=== PATIENT | male | born 1935 | race Caucasian/White ===

== ENCOUNTER 2017-09-25 09:09 | Inpatient (IN) ==
[2017-09-25] MEDS ORDERED: Ipratropium/Albuterol Neb 3 ML IH ONE (09:25)
--- NOTE | 2017-09-25 09:25 | Emergency Department Note ---
Disposition Clinical Impression: Lung mass Pneumonia Qualifiers: Pneumonia type: due to unspecified organism Laterality: unspecified laterality Lung location: unspecified part of lung Qualified Code(s): J18.9 - Pneumonia, unspecified organism Disposition: Admitted As Inpatient Condition: Fair Referrals: Sander Ibrahim DO [Primary Care Provider] - Forms: ED Satisfaction Letter, Work/School Release Time of Disposition: 12:04 General Adult HPI - General Chief complaint: ED Abdominal Pain Stated complaint: Cough Congestion / L Flank Pain Time Seen by Provider: 09/25/17 09:17 Source: patient, family Mode of arrival: ambulatory Limitations: no limitations Nursing Notes Reviewed: Yes Vital Signs Reviewed: Yes - History of Present Illness HPI Narrative: 82-year-old male who comes in complaining of congested cough for the last 4 days. Patient states that he coughs so hard that he thinks he may have loosened the kidney stone. Left flank pain and a history of kidney stones. Denies history of lung problems denies history CHF. Pt Subjective Complaint: Cough congestion Onset (ago): day(s) Location: left, other (Flank) Radiation: non-radiation Pain Scale: 9 Quality: burning, aching Consistency: constant Improves with: nothing Worsens with: other (Coughing) Associated symptoms: Reports: cough Treatments Prior to Arrival: none - Related Data Home Medications Medication Instructions Recorded Confirmed Aspirin 81 mg PO DAILY 08/10/16 08/10/16 Lisinopril/Hydrochlorothiazide 1 tab PO DAILY 08/10/16 08/10/16 [Zestoretic 20-12.5 mg Tablet] Pyridostigmine Br [Mestinon] 60 mg PO Q8H 08/10/16 08/10/16 Allergies Allergy/AdvReac Type Severity Reaction Status Date / Time No Known Allergies Allergy Verified 09/25/17 09:15 All systems ED: reviewed and negative except as stated. Constitutional: Denies: fever, chills, weakness, weight change Eyes: Denies: eye pain, eye discharge, vision change ENT ED: Denies: ear pain, throat pain, dental pain, hearing loss, epistaxis, congestion, dysphagia Cardiovascular: Denies: chest pain, palpitations, dyspnea on exertion, edema, syncope Respiratory: Reports: cough, dyspnea, wheezes. Denies: hemoptysis, stridor Gastrointestinal: Denies: abdominal pain, nausea, vomiting, diarrhea, constipation, hematemesis, melena, hematochezia Genitourinary: Denies: urgency, dysuria, frequency, hematuria Musculoskeletal: Reports: back pain. Denies: neck pain, arthralgia, myalgia Integumentary: Denies: rash, abrasion, lesions Neurological: Denies: headache, weakness, numbness, paresthesias, confusion, abnormal gait, vertigo Psychiatric: Denies: anxiety, depression, suicidal thoughts, homicidal thoughts , auditory hallucinations, visual hallucinations Endocrine: Denies: fatigue Hematological/Lymphatic: Denies: easy bleeding, easy bruising Allergic/Immunologic: Denies: facial swelling, urticaria Past Medical History - Past Medical History Medical history: Reports: hypertension, kidney stones, other Surgical history: Reports: no surgical history Psychiatric history: Reports: no psych history - Social History Smoking Status: Never smoker Smokeless Tobacco Status: No Alcohol use: Reports: none Drug use: Reports: none Physical Exam - General Limitations: no limitations General appearance: alert, in no apparent distress - Head Head exam: atraumatic, normocephalic, normal inspection - Eye Eye exam: Present: normal appearance, PERRL, EOMI - ENT ENT exam: normal exam, normal oropharynx, mucous membranes moist - Neck Neck exam: Present: normal inspection, full ROM, trachea midline - Chest Chest inspection: Present: normal inspection, symmetric chest wall rise - Respiratory Respiratory exam: Present: wheezes, prolonged expiratory phase - Cardiovascular Cardiovascular exam: Present: regular rate, normal rhythm, normal heart sounds - Abdominal Exam Abdominal exam: Present: soft, Non-Tender. Absent: tenderness, distention, guarding, rebound, rigidity, pulsatile mass - Extremities Exam Extremities exam: Present: normal inspection, full ROM. Absent: tenderness, pedal edema - Expanded Lower Extremity Exam Neurovascular/Tendon exam: Absent: motor deficit, sensory deficit, tendon deficit Gait: observed and normal - Back Exam Back exam: Present: normal inspection, full ROM. Absent: tenderness - Neurological Exam Neurological exam: Present: alert, oriented X3 - Psychiatric Psychiatric exam: Present: normal affect, normal mood - Skin Skin exam: Present: warm, dry, intact, normal color Course - Reevaluation(s) Reevaluation #1: 82-year-old who comes in with cough congestion. On exam he had diffuse wheezing which he doesn't normally have. Chest x-ray shows what appear to be enlarging nodule. CT was obtained that shows a 2.2 cm right lower lobe nodule which is significantly bigger than previous with some multi focal pneumonia. Patient will be admitted for further evaluation and treatment. Time: 12:05 - Consultations Consultation #1: Discussed with Dr. Dixon, admit Time: 12:08 Vital Signs Temperature 98.6 F 09/25/17 09:11 Pulse Rate 113 09/25/17 09:11 Respiratory Rate 20 09/25/17 09:11 Blood Pressure 129/76 09/25/17 09:11 O2 Sat by Pulse Oximetry 96 09/25/17 09:11 Temperature 98.6 F 09/25/17 09:11 Pulse Rate 107 09/25/17 11:01 Respiratory Rate 18 09/25/17 11:01 Blood Pressure 129/78 09/25/17 11:01 O2 Sat by Pulse Oximetry 92 09/25/17 11:01 Oxygen Delivery Oxygen Delivery Room Air Medical Decision Making - Lab Data Lab results reviewed: Yes I reviewed the patient's lab results. Result diagrams: 09/25/17 09:35 09/25/17 09:35 Lab Results 09/25/17 09/25/17 09/25/17 Range/Units 09:20 09:35 09:35 WBC 12.6 H (4.3-11.1) K/mcL RBC 4.26 (4.19-5.50) M/mcL Hgb 13.3 D (12.9-16.9) g/dL Hct 41.2 (37.5-50.1) % MCV 96.7 (83.0-100.0) fL MCH 31.2 (28.0-33.3) pg MCHC 32.3 (31.6-35.5) g/dL RDW 13.0 (11.5-14.5) % Plt Count 238 (140-400) K/mcL MPV 9.2 L (9.4-12.4) fL Immature Gran % 0.5 (0-4) % Seg Neutrophils % 78.2 % Lymphocytes % 14.8 % Monocytes % 5.5 % Eosinophils % 0.7 % Basophils % 0.3 % Neutrophils # 9.9 H (1.6-8.9) K/mcL Lymphocytes # 1.9 (0.6-4.6) K/mcL Monocytes # 0.7 (0.0-1.3) K/mcL Eosinophils # 0.1 (0.0-0.6) K/mcL Basophils # 0.0 (0.0-0.2) K/mcL Sodium 141 (136-145) mEq/L Potassium 3.3 L (3.5-4.5) mEq/L Chloride 104 (98-109) mEq/L Carbon Dioxide 27 (19-29) mEq/L BUN 27 H (8-26) mg/dL Creatinine 1.77 H (0.72-1.25) mg/dL Est GFR ( Amer) 45 L (> 60) Est GFR (Non-Af Amer) 37 L (> 60) BUN/Creatinine Ratio 15 (6-26) Glucose 95 (70-99) mg/dL Calculated Osmolality 297 (280-300) Lactic Acid (0.5-2.2) mmol/L Calcium 9.9 (8.6-10.8) mg/dL Troponin I (0-0.03) ng/mL B-Natriuretic Peptide (0-100) pg/mL Urine Color Yellow (Yellow) Urine Clarity Clear (Clear) Urine pH 5.5 (5.0-8.0) pH Units Ur Specific [place] 1.023 (1.010-1.025) Urine Protein Negative (Neg-Trace) mg/dL Urine Glucose (UA) Normal (Normal) mg/dL Urine Ketones Negative (Negative) mg/dL Urine Blood Negative (Negative) Urine Nitrite Negative (Negative) Urine Bilirubin Negative (Negative) Urine Urobilinogen Normal (Normal) mg/dL Ur Leukocyte Esterase Negative (Negative) Ur Culture Indicated? NO (NO) 09/25/17 09/25/17 09/25/17 Range/Units 09:35 09:35 09:35 WBC (4.3-11.1) K/mcL RBC (4.19-5.50) M/mcL Hgb (12.9-16.9) g/dL Hct (37.5-50.1) % MCV (83.0-100.0) fL MCH (28.0-33.3) pg MCHC (31.6-35.5) g/dL RDW (11.5-14.5) % Plt Count (140-400) K/mcL MPV (9.4-12.4) fL Immature Gran % (0-4) % Seg Neutrophils % % Lymphocytes % % Monocytes % % Eosinophils % % Basophils % % Neutrophils # (1.6-8.9) K/mcL Lymphocytes # (0.6-4.6) K/mcL Monocytes # (0.0-1.3) K/mcL Eosinophils # (0.0-0.6) K/mcL Basophils # (0.0-0.2) K/mcL Sodium (136-145) mEq/L Potassium (3.5-4.5) mEq/L Chloride (98-109) mEq/L Carbon Dioxide (19-29) mEq/L BUN (8-26) mg/dL Creatinine (0.72-1.25) mg/dL Est GFR ( Amer) (> 60) Est GFR (Non-Af Amer) (> 60) BUN/Creatinine Ratio (6-26) Glucose (70-99) mg/dL Calculated Osmolality (280-300) Lactic Acid 1.2 (0.5-2.2) mmol/L Calcium (8.6-10.8) mg/dL Troponin I 0.02 (0-0.03) ng/mL B-Natriuretic Peptide 38 (0-100) pg/mL Urine Color (Yellow) Urine Clarity (Clear) Urine pH (5.0-8.0) pH Units Ur Specific [place] (1.010-1.025) Urine Protein (Neg-Trace) mg/dL Urine Glucose (UA) (Normal) mg/dL Urine Ketones (Negative) mg/dL Urine Blood (Negative) Urine Nitrite (Negative) Urine Bilirubin (Negative) Urine Urobilinogen (Normal) mg/dL Ur Leukocyte Esterase (Negative) Ur Culture Indicated? (NO) - Radiology Data Radiology results reviewed: Yes I reviewed the patient's radiology results. Chest X-Ray 09/25/17 09:19 IMPRESSION: No acute cardiopulmonary process. D/ /25/2017 10:15:23 Zaki De Guzman MD / priyanka Interpreting Provider: Zaki De Guzman MD Abdomen/Pelvis CT 09/25/17 09:20 IMPRESSION: No acute abdominopelvic noncontrast abnormality. Interval enlargement of right lower lobe pulmonary nodule, now measuring 1.8 cm, previously 1.3 cm in April 2017. A chest CT is recommended to further evaluate. D/ / Dana Min Cha, MD / Dana Min Cha, MD Interpreting Provider: Dana Min Cha, MD Chest X-Ray 09/25/17 09:19 IMPRESSION: No acute cardiopulmonary process. D/ / 09/25/2017 10:15:23 Zaki De Guzman MD / priyanka Interpreting Provider: Zaki De Guzman MD Abdomen/Pelvis CT 09/25/17 09:20 IMPRESSION: No acute abdominopelvic noncontrast abnormality. Interval enlargement of right lower lobe pulmonary nodule, now measuring 1.8 cm, previously 1.3 cm in April 2017. A chest CT is recommended to further evaluate. D/ / Dana Min Cha, MD / Dana Min Cha, MD Interpreting Provider: Dana Min Cha, MD Chest CT 09/25/17 10:55 IMPRESSION: 1. Significant interval increase in size of a right lower lobe noncalcified pulmonary nodule, measuring up to 2.2 cm. This is suspicious for neoplasm, and tissue sampling is recommended. 2. Patchy bibasilar airspace opacities with associated bronchial wall thickening, concerning for pneumonia or aspiration. D/ / 09/25/2017 11:23:54 Zaki De Guzman MD / Johanny Roblero Interpreting Provider: Zaki De Guzman MD - EKG Data EKG #1 EKG attestation: Yes I reviewed and interpreted this EKG. EKG shows normal: sinus rhythm Rate: normal Rhythm: NSR Interpretation: no acute changes
[2017-09-25 09:33] LABS: Bilirubin,Urine Negative (Negative); Blood,Urine Negative (Negative); Clarity,Urine Clear (Clear); Color,Urine Yellow (Yellow); Glucose,Urine (UA) Normal (Normal); Ketones,Urine Negative (Negative); Leukocyte Esterase,Urine Negative (Negative); Nitrite,Urine Negative (Negative); PH,Urine 5.5 pH Units (5.0-8.0); Protein,Urine Negative (Neg-Trace); Specific Gravity,Urine 1.023 (1.010-1.025); Urobilinogen,Urine Normal (Normal)
[2017-09-25 09:45] LABS: Basophils % 0.3 %; Eosinophils # 0.1 K/mcL (0.0-0.6); Eosinophils % 0.7 %; Hematocrit 41.2 % (37.5-50.1); Hemoglobin 13.3 g/dL (12.9-16.9); Immature Granulocytes % 0.5 % (0-4); Lymphocytes # 1.9 K/mcL (0.6-4.6); Lymphocytes % 14.8 %; Mean Corpuscular HGB Conc 32.3 g/dL (31.6-35.5); Mean Corpuscular Hemoglobin 31.2 pg (28.0-33.3); Mean Corpuscular Volume 96.7 fL (83.0-100.0); Mean Platelet Volume 9.2 fL (9.4-12.4); Monocytes # 0.7 K/mcL (0.0-1.3); Monocytes % 5.5 %; Neutrophils # 9.9 K/mcL (1.6-8.9); Platelet Count 238 K/mcL (140-400); Red Blood Count 4.26 M/mcL (4.19-5.50); Segmented Neutrophils % 78.2 %
[2017-09-25 09:59] LABS: Calcium 9.9 mg/dL (8.6-10.8); Potassium 3.3 mEq/L (3.5-4.5)
[2017-09-25] MEDS ORDERED: Piperacillin/Tazobactam 3.375 GM in D5% in Water (Mini-Bag+) 100 ML IVPB ONE (12:00)
[2017-09-25] MEDS ORDERED: Promethazine/Codeine Oral Sryup 5 ML UDC PO ONE (12:02)
[2017-09-25] MEDS ORDERED: 0.9 % Sodium Chloride 1,000 ML IVC ONE (14:46)
[2017-09-25] MEDS ORDERED: 0.9 % Sodium Chloride 1,000 ML ONE (14:51)
[2017-09-25] MEDS ORDERED: methylPREDNISolone 125 MG/2 ML VIAL IVP ONE (15:04)
[2017-09-25] MEDS ORDERED: Potassium Chloride 20 MEQ, Lidocaine 1% 2 ML in D5% in Water 250 ML IVPB ONE (15:04)
--- NOTE | 2017-09-25 15:09 | Event Note ---
Date of Encounter: 09/25/17 Time of Encounter: 15:07 Patient and examined with nurse practitioner. Patients with history of myasthenia gravis presents with community acquired pneumonia. Because he is high-risk will cover for Pseudomonas. We will start the patient on Zosyn and Levaquin. Will check FVC and NIF. Patient is hypotensive on arrival to the floor blood pressure 70/40. He has not yet received fluid. Will give one leader will also normal ceiling. Also patient is on chronic steroids at home for myasthenia gravis. Will start on stress dose of steroids hydrocortisone 100 mg IV K6 hours. Patient is at risk of decompensation. Patient is full code
[2017-09-25] MEDS: Hydrocortisone Sodium Succ 100 MG/2 ML VIAL IVP SCH (16:20)
[2017-09-25] MEDS ORDERED: Ondansetron 4 MG/2 ML VIAL IVP PRN (16:45)
[2017-09-25] MEDS ORDERED: Acetaminophen 325 MG TABLET PO PRN (16:45)
[2017-09-25] MEDS ORDERED: *HR* HYDROcodone/Acet 5/325 mg TABLET PO PRN (16:45)
[2017-09-25] MEDS ORDERED: Naloxone 0.4 MG/ML INJ IVP PRN (16:50)
[2017-09-25] MEDS ORDERED: Benzonatate 100 MG CAPSULE PO PRN (16:51)
--- NOTE | 2017-09-25 17:37 | Internal Med History&Physical ---
Date of Encounter: 09/25/17 Time of Encounter: 15:00 Assessment and Plan (1) Sepsis Current visit: Yes Status: Acute Pt. meets sepsis criteria on admission w/WBC of 12.6, HR of 118, RR of 21, and infection of unknown source. Pt. received 1L bolus of IV 0.9 NS fluids in ED and will continue 80 mL/HR. Blood cultures x2. Sputum culture. Lactic acid 1.9. Will repeat. IVPB Zosyn 3.375 gm Q8HR for infection coverage. Will avoid azithromycin, levofloxacin, and other fluoroquinolones due to the risk of neuromuscular blocking activity and exacerbation of muscle weakness in patients with myasthenia gravis. Monitor f/u labs and pt. for signs of increasing infection. Will adjust abx coverage based on culture results. Patient had risk for increasing infection and further morbidity based on current sx, hx, and risk factors. Inpatient. Qualifiers: Sepsis type: sepsis due to unspecified organism Qualified Code(s): A41.9 - Sepsis, unspecified organism (2) Pneumonia Current visit: Yes Status: Acute Pt. presents with cough, chest congestion, and abdominal pain. WBC of 12.6 on admission most likely d/t CAP. Blood cultures x2 and sputum culture ordered. IVPB Zosyn 3.375 gm Q8 for infection coverage. Will avoid azithromycin, levofloxacin, and other fluoroquinolones due to the risk of neuromuscular blocking activity and exacerbation of muscle weakness in patients with myasthenia gravis. Supplemental O2 w/titration and SpO2 monitoring. Tessalon 100 mg TID for cough. DuoNebs Q4 scheduled. Monitor f/u labs and pt for signs of increasing infection, cardiac, and/or respiratory distress. Qualifiers: Pneumonia type: due to unspecified organism Laterality: unspecified laterality Lung location: unspecified part of lung Qualified Code(s): J18.9 - Pneumonia, unspecified organism (3) Disequilibrium Current visit: Yes Status: Acute Pt. reports acute disequilibrium recently, most likely d/t current pneumonia dx. Falls/safety precautions ordered. PT/OT to assess for strength, stability, safety, ambulation, and assistive needs for post-discharge planning. (4) HTN (hypertension) Current visit: Yes Status: Chronic Hx of chronic HTN. Pt. expresses a peripheral/hydrochlorothiazide for HTN. Patient presented with hypotension on admission. Will hold patient's lisinopril for now and monitor VS. Qualifiers: Hypertension type: essential hypertension Qualified Code(s): I10 - Essential (primary) hypertension (5) History of renal calculi Current visit: Yes Status: Chronic Hx of chronic renal calculi. Stable. Pt. reports left flank pain w/cough. CT of the abdomen and pelvis today w/o contrast shows no hydronephrosis nor calcified urinary collecting system stones. (6) Lung mass Current visit: Yes Status: Chronic Hx of RLL nodule. CT of the chest w/o contrast today shows significant interval increase in size of right lower lobe noncalcified pulmonary nodule measuring up to 2.2 cm. This is suspicious for neoplasm and tissue sampling is recommended. Follow-up is recommended with PCP and pulmonology for biopsy. (7) Hx of myasthenia gravis Current visit: Yes Status: Chronic Hx of chronic MG. Stable. Will check FVC and NIF through respiratory therapy. Stress dosing of hydrocortisone 100 mg IV Q6HR. Pt. placed on Zosyn for infection coverage and will avoid fluoroquinolones to avoid exacerbation of muscle weakness and neuromuscular blocking activity. (8) DVT prophylaxis Current visit: Yes Status: Acute Heparin 5,000 units SQ Q8 for DVT prophylaxis. Internal Medicine - H&P: HPI Chief complaint: Abdominal pain/Cough/Congestion Admitted From: Emergency Dept Plans for Post Hospital Care: Home History of present illness: Mr. Palacios is a 82 year old male with a history of hypertension, myasthenia gravis, and kidney stones reports from the ED with chief complaint of abdominal pain, SOB, cough, and chest congestion for the past 4 days. Patient reports he feels his cough is causing his abdominal pain and pain in his left flank. Patient denies history of respiratory problems, COPD, and CHF. Patient denies recent illness, fever, chills, nausea, vomiting, headache, changes in vision, unusual bleeding, chest pain, palpitations, weakness, fatigue, diarrhea, constipation, urinary problems, numbness, tingling, lightheadedness, dizziness, pre-syncope, or syncope. Past Med Surg Social Fam HX - Past Medical History Source: patient, old records reviewed, obtained from family Medical history: hypertension, kidney stones, other (Myasthenia gravis) Psychiatric history: no psych history - Past Surgical History Surgical History: no surgical history - Social History Smoking Status: Never smoker Smokeless Tobacco Status: No Alcohol use: none Drug use: none Occupational status: previously employed Current living situation: Home, With Family Activity Level: Independent ambulation Recent Out of Country Travel Within the Last 8 Weeks: No Exposure or Possible Exposure to Illness During Travel: No - Family History Father Adopted: Manuel Garcia Ii: Karel Palacios Race: Family Member Ethnicity: Non- Living Status: Age at : 74 Cause of : Lung cancer Hx Family Cancer: Yes (Lung) Hx Family Autoimmune Disorders: Yes (RA) Mother Race: Family Member Ethnicity: Non- Living Status: (88) Age at : 88 Cause of : Old age Hx Family GI Disorders: Yes (Diverticulosis) Brother Race: Family Member Ethnicity: Non- Living Status: Age at : 49 Cause of : Cirrhosis Hx Family Endocrine Disorder: Yes (Cirrhosis) Sister Race: Family Member Ethnicity: Non- Living Status: Age at : 55 Cause of : Brain aneurysm Hx Family Cardiac Disorders: Yes (Aneurysm) Internal Medicine - H&P: Meds Aspirin 81 mg PO QPM 08/10/16 [History] Lisinopril/Hydrochlorothiazide [Zestoretic 20-12.5 mg Tablet] 1 tab PO BID 08/10 [History] Pyridostigmine Br [Mestinon] 60 mg PO TID 08/10/16 [History] Mycophenolate Mofetil [Cellcept] 500 mg PO BID 09/25/17 [History] Omeprazole [PriLOSEC] 20 mg PO DAILY 09/25/17 [History] predniSONE [PredniSONE] 20 mg PO DAILY 09/25/17 [History] 3 Allergy/AdvReac Type Severity Reaction Status Date / Time No Known Allergies Allergy Verified 09/25/17 09:15 All Systems PM: A 10-system review of systems was performed and is negative for pertinent findings except as documented above in the HPI. - Constitutional Constitutional: no chills, no fever(s), no night sweats - EENT Eyes: no change in vision, no discharge, no pain, no photophobia Ears: no ear discharge, no ear pain, no tinnitus Nose, mouth and throat: no dysphagia, no nasal discharge, no neck pain, no sore throat - Breasts Breasts: as per HPI - Cardiovascular Cardiovascular ROS IM: as per HPI, dyspnea, no chest pain, no diaphoresis, no lightheadedness, no palpitations, no syncope - Respiratory Respiratory: as per HPI, cough, dyspnea, chest congestion, pain with cough, no wheezing, no excessive phlegm production - Gastrointestinal Gastrointestinal: as per HPI, abdominal pain - Genitourinary Genitourinary ROS male: as per HPI - Musculoskeletal Musculoskeletal ROS IM: no numbness, no tingling - Integumentary Integumentary IM: no rash, no unusual bruising - Neurological Neurological ROS: no confusion, no convulsions, no focal weakness, no numbness, no tingling, no tremor(s) - Psychiatric Psychiatric: as per HPI - Endocrine Endocrine IM: as per HPI - Hematologic/Lymphatic Hematologic/Lymphatic: no easy bruising - Allergic/Immunologic Allergic/Immunologic: as per HPI - Constitutional Vitals: Temp Pulse Resp BP Pulse Ox 98.4 F 93 18 145/82 91 09/25/17 16:05 09/25/17 16:05 09/25/17 16:05 09/25/17 16:05 09/25/17 16:05 General appearance: Present: cooperative, mild distress (Respiratory w/coughing) , A&O X 3, pleasant, answers questions appropriately - Head Head exam: Present: atraumatic, normocephalic - Eye Eye exam: Present: PERRL, conjuntiva pink, sclera anicteric Pupils: Present: PERRL - ENT ENT exam: Present: normal exam, normal external ear exam - Neck Neck exam general surgery: Present: normal inspection, supple, trachea midline. Absent: lymphadenopathy - Respiratory Respiratory exam: Present: accessory muscle use, decreased breath sounds, wheezes - Cardiovascular Cardiovascular exam: Present: RRR, +S1, +S2. Absent: diastolic murmur, gallop, rubs, systolic murmur - GI/Abdominal GI/Abdominal exam: Present: normal bowel sounds, soft, no peritoneal signs. Absent: distended, tenderness - Rectal Rectal exam: Present: deferred - Additional comments: exam deferred. - Extremities Exam Extremities exam: Present: warm, radial pulses palpable and symmetrical. Absent : calf tenderness, cyanotic, pedal edema - Back Exam Back exam: Present: normal inspection - Neurological Exam Neurological exam: Present: CN II-XII intact, oriented X3, no focal deficits. Absent: pronater drift, facial droop, speech deficit - Psychiatric Psychiatric exam: Present: normal affect, normal mood - Skin Skin exam: Present: dry, intact Internal Med - H&P Results - Labs CBC & Chem 7: 09/25/17 09:35 09/25/17 17:00 - EKG Data EKG shows normal: sinus rhythm - EKG Data Prior EKG available for review: yes EKG comments: 09/25/17 17:43 EKG dated 03/07/17 shows sinus rhythm with first-degree AV block with occasional supraventricular premature complexes, borderline left axis deviation , left ventricular hypertrophy and ST-T change. EKG dated 09/25/17 shows sinus rhythm with borderline left axis deviation, left ventricular hypertrophy and ST-T change. - Diagnostic Studies Chest x-ray Additional comments: Impressions Chest X-Ray 09/25/17 09:19 IMPRESSION: No acute cardiopulmonary process. D/ / 09/25/2017 10:15:23 Zaki De Guzman MD / priyanka Interpreting Provider: Zaki De Guzman MD CT scan - chest Additional comments: Impressions Chest CT 09/25/17 10:55 IMPRESSION: 1. Significant interval increase in size of a right lower lobe noncalcified pulmonary nodule, measuring up to 2.2 cm. This is suspicious for neoplasm, and tissue sampling is recommended. 2. Patchy bibasilar airspace opacities with associated bronchial wall thickening, concerning for pneumonia or aspiration. D/ / 09/25/2017 11:23:54 Zaki De Guzman MD / Johanny Roblero Interpreting Provider: Zaki De Guzman MD CT scan - abdomen Additional comments: Impressions Abdomen/Pelvis CT 09/25/17 09:20 IMPRESSION: No acute abdominopelvic noncontrast abnormality. Interval enlargement of right lower lobe pulmonary nodule, now measuring 1.8 cm, previously 1.3 cm in April 2017. A chest CT is recommended to further evaluate. D/ / Dana Min Cha, MD / Dana Min Cha, MD Interpreting Provider: Dana Min Cha, MD
[2017-09-25 17:38] LABS: Magnesium 1.8 mg/dL (1.6-2.6)
[2017-09-25] MEDS: Aspirin 81 MG TAB.CHEW PO SCH (17:56)
[2017-09-25] MEDS: 0.9 % Sodium Chloride 1,000 ML IVC SCH (17:56)
[2017-09-25] MEDS: Pantoprazole 40 MG VIAL IVP SCH (17:56)
[2017-09-25] MEDS: Ipratropium/Albuterol Neb 3 ML IH SCH ×2 (18:11→20:26)
[2017-09-25] MEDS ORDERED: Lisinopril-HCTZ 20-12.5mg TABLET PO SCH (21:00)
[2017-09-25] MEDS: Pyridostigmine Br 60 MG TABLET PO SCH (21:28)
[2017-09-26] MEDS ORDERED: Piperacillin/Tazobactam 3.375 GM in D5% in Water 50 ML IVPB SCH
[2017-09-26] MEDS: Ipratropium/Albuterol Neb 3 ML IH SCH ×6 (00:04→20:07)
[2017-09-26] MEDS: *HR* Heparin 5,000 UNIT/ML VIAL SQ SCH ×3 (01:10→15:19)
[2017-09-26] MEDS: Piperacillin/Tazobactam 3.375 GM in D5% in Water 50 ML IVPB SCH ×3 (01:11→15:14)
[2017-09-26] MEDS: Hydrocortisone Sodium Succ 100 MG/2 ML VIAL IVP SCH ×4 (02:18→17:33)
[2017-09-26 05:14] LABS: Basophils % 0.1 %; Immature Granulocytes % 0.4 % (0-4); Lymphocytes # 0.4 K/mcL (0.6-4.6); Lymphocytes % 3.6 %; Mean Corpuscular HGB Conc 32.4 g/dL (31.6-35.5); Mean Corpuscular Hemoglobin 31.3 pg (28.0-33.3); Mean Corpuscular Volume 96.6 fL (83.0-100.0); Mean Platelet Volume 9.8 fL (9.4-12.4); Monocytes # 0.1 K/mcL (0.0-1.3); Neutrophils # 11.3 K/mcL (1.6-8.9); Platelet Count 213 K/mcL (140-400); Red Blood Count 3.52 M/mcL (4.19-5.50); Red Cell Distribution Width 12.9 % (11.5-14.5); Segmented Neutrophils % 94.9 %
[2017-09-26 05:15] LABS: Prothrombin Time 10.8 Seconds (9.4-12.1)
[2017-09-26 05:18] LABS: Activated Partial Thrombo Time 24.6 Seconds (26.0-36.0)
[2017-09-26 05:30] LABS: Albumin/Globulin Ratio 0.9 (1.1-2.2); Bilirubin,Total 0.8 mg/dL (0.2-1.2); Calcium 9.2 mg/dL (8.6-10.8); Chol/HDL Ratio 3.3 (0-4.9); Globulin 3.2 g/dL (2.4-3.5); Potassium 4.7 mEq/L (3.5-4.5); Total Protein 6.2 g/dL (6.0-8.3)
[2017-09-26] MEDS: Pyridostigmine Br 60 MG TABLET PO SCH ×3 (09:24→21:01)
[2017-09-26] MEDS: Pantoprazole 40 MG VIAL IVP SCH (09:25)
[2017-09-26 10:04] LABS: Acinetobacter baumannii by PCR Not Detected (Not Detect); Candida albicans by PCR Not Detected (Not Detect); Candida glabrata by PCR Not Detected (Not Detect); Candida krusei by PCR Not Detected (Not Detect); Candida parapsilosis by PCR Not Detected (Not Detect); Candida tropicalis by PCR Not Detected (Not Detect); Enterococcus by PCR Not Detected (Not Detect); Escherichia coli by PCR Not Detected (Not Detect); Klebsiella oxytoca by PCR Not Detected (Not Detect); Klebsiella pneumoniae by PCR Not Detected (Not Detect); Pseudomonas aeruginosa by PCR Not Detected (Not Detect); Serratia marcescens by PCR Not Detected (Not Detect); Staphylococcus aureus by PCR Not Detected (Not Detect); Streptococcus agalactiae(B)PCR Not Detected (Not Detect); Streptococcus by PCR Not Detected (Not Detect); Streptococcus pneumoniae PCR Not Detected (Not Detect); Streptococcus pyogenes (A) PCR Not Detected (Not Detect); blaKPC Carbapenem-Resist Gene Not Detected (Not Detect); mecA Methicillin-Resist Gene Not Detected (Not Detect); vanA/B Vancomycin-Resist Genes Not Detected (Not Detect)
--- NOTE | 2017-09-26 10:29 | Internal Med Progress Note ---
Date of Encounter: 09/26/17 Time of Encounter: 11:00 - Assessment and plan (1) Sepsis Current Visit: Yes Status: Acute Assessment and plan: Severe sepsis on presentation due to Secondary to Staph pneumonia BP WNL after IVF Lactate WNL Continue Vano and Zosyn Follow repeat blod culture 09/27 Follow blood culture done 09/25 for sensitivity Obtain ECHO to r/o vegetations Patient does have a murmur, unknown if chronic, follow ECHO No peripheral stigmata of infective endocarditis Qualifiers: Sepsis type: sepsis due to unspecified organism Qualified Code(s): A41.9 - Sepsis, unspecified organism (2) Bacteremia Current Visit: Yes Status: Acute Assessment and plan: Secondary to staph Start on vanco, continue Zosyn Repeat Blood culture a.m Obtain ECHO (3) Pneumonia Current Visit: Yes Status: Acute Assessment and plan: Continue vanco and Zosyn Possibly due to staph O2 supplementation Follow final blood and sputum culture Qualifiers: Pneumonia type: due to unspecified organism Laterality: unspecified laterality Lung location: unspecified part of lung Qualified Code(s): J18.9 - Pneumonia, unspecified organism (4) Lung mass Current Visit: Yes Status: Chronic Assessment and plan: Hx of RLL nodule. CT of the chest w/o contrast today shows significant interval increase in size of right lower lobe noncalcified pulmonary nodule measuring up to 2.2 cm. This is suspicious for neoplasm and tissue sampling is recommended. Follow-up is recommended with PCP and pulmonology for biopsy. (5) DVT prophylaxis Current Visit: Yes Status: Acute Assessment and plan: Heparin SQ (6) HTN (hypertension) Current Visit: Yes Status: Chronic Assessment and plan: D/C ACEI-HCTZ Start [facility] Qualifiers: Hypertension type: essential hypertension Qualified Code(s): I10 - Essential (primary) hypertension (7) Disequilibrium Current Visit: Yes Status: Acute Assessment and plan: Pt. reports acute disequilibrium recently, most likely d/t current pneumonia dx. Falls/safety precautions ordered. PT/OT to assess for strength, stability, safety, ambulation, and assistive needs for post-discharge planning. (8) Hx of myasthenia gravis Current Visit: Yes Status: Chronic Assessment and plan: Neuro eval non-emergently Continue to hold cellcept Continue pyridostigmine (9) CKD (chronic kidney disease) Current Visit: Yes Status: Chronic Assessment and plan: Suspected Chart review has no normal Chem CR was elevated in 2015 and 2016 Obtain old records Obtain renal USS Qualifiers: Chronic kidney disease stage: unspecified stage Qualified Code(s): N18.9 - Chronic kidney disease, unspecified - Subjective Interval history: Seen and evaluated at bedside with daughter No new complains He thinks his breathing is improving Denies knowledge of prior kidney disease - Constitutional Vitals: Temp Pulse Resp BP Pulse Ox 98.4 F 62 18 144/74 95 09/26/17 07:12 09/26/17 07:12 09/26/17 07:12 09/26/17 07:12 09/26/17 07:12 General appearance: Present: cooperative, A&O X 3, pleasant, no acute distress, answers questions appropriately - Head Head exam: Present: atraumatic, normocephalic - Eye Eye exam: Present: PERRL, conjuntiva pink, sclera anicteric Pupils: Present: PERRL - Neck Neck exam general surgery: Present: supple, trachea midline. Absent: lymphadenopathy - Respiratory Respiratory exam: Present: rhonchi - Cardiovascular Cardiovascular exam: Present: +S1, +S2, systolic murmur - GI/Abdominal GI/Abdominal exam: Present: normal bowel sounds, soft, no peritoneal signs. Absent: distended, tenderness - Extremities Exam Extremities exam: Present: warm, radial pulses palpable and symmetrical. Absent : calf tenderness, cyanotic, pedal edema - Neurological Exam Neurological exam: Present: alert, CN II-XII intact, oriented X3, no focal deficits. Absent: pronater drift, facial droop, speech deficit - Skin Skin exam: Present: dry, intact Internal Medicine: Result - Labs CBC & Chem 7: 09/26/17 04:04 09/26/17 04:04 Labs: Short CBC 09/26/17 Range/Units 04:04 WBC 11.9 H (4.3-11.1) K/mcL Hgb 11.0 L D (12.9-16.9) g/dL Hct 34.0 L (37.5-50.1) % Plt Count 213 (140-400) K/mcL Neutrophils # 11.3 H (1.6-8.9) K/mcL BMP 09/25/17 09/26/17 17:00 04:04 Sodium 139 Potassium 4.0 4.7 H Chloride 106 Carbon Dioxide 24 BUN 29 H Creatinine 1.59 H Glucose 165 H Calcium 9.2 Liver Function 09/26/17 Range/Units 04:04 Total Bilirubin 0.8 (0.2-1.2) mg/dL AST 12 (5-34) Units/L ALT 7 (0-55) Units/L Alkaline Phosphatase 51 (38-126) Units/L Albumin 3.0 L (3.5-5.0) g/dL - ABG Interpretation ABG results: PT/INR, D-dimer PT 10.8 Seconds (9.4-12.1) 09/26/17 04:04 Consult Discharge Plan - Plan Referrals: Sander Ibrahim DO [Primary Care Provider] -
[2017-09-26] MEDS ORDERED: Vancomycin 1,250 MG in D5% in Water 250 ML IVPB SCH (11:00)
[2017-09-26] MEDS: Vancomycin 1,250 MG in D5% in Water 250 ML IVPB SCH (11:15)
--- NOTE | 2017-09-26 14:16 | Neurology - Consult Note ---
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 He has no evidence of systemic myasthenia, he has no bulbar involvement. His ocular involvement is well controlled on his regimen of CellCept and prednisone. He was not certain of his prednisone dosage however most individuals are stable on 10 mg daily. For now I do not feel that any additional intervention regarding his myasthenia is necessary. If she begins to experience ocular symptoms then I would likely increase the prednisone. Otherwise he will follow-up with his primary neurologist at [facility] after discharge. He should maintain the pyridostigmine at his current dosage. Resume CellCept at the time of discharge. History of Present Illness HPI: Mr. Palacios is a 82 year old male who is being seen for neurologic consultation secondary to a history of myasthenia gravis. He is currently hospitalized with acute pneumonia. Blood cultures are positive for Staphylococcus. Apparently earlier this year he began having difficulty with diplopia and ptosis. Refer to the [facility] and ultimately diagnosed with myasthenia gravis. He denies any symptoms of dysarthria, dysphagia, or generalized weakness. He denies any difficulty with breathing or shortness of breath. 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 He is currently sitting up in bed talking, he has no respiratory distress but does seem fatigued. He has an appointment scheduled to follow up with his providers at the [facility] sometime within the coming months. Past Med Surg Social Fam HX - Past Medical History Medical history: hypertension, kidney stones, other (Myasthenia gravis) Psychiatric history: no psych history - Past Surgical History Surgical History: no surgical history - Social History Smoking Status: Never smoker Smokeless Tobacco Status: No Alcohol use: none Drug use: none - Family History Father Adopted: [place]: Karel Palacios Race: Family Member Ethnicity: Non- Living Status: Age at : 74 Cause of : Lung cancer Hx Family Cardiac Disorders: No Hx Family Respiratory Disorders: Yes (smoker) Hx Family Cancer: Yes (Lung) Hx Family GI Disorders: No Hx Family Genitourinary Disorders: No Hx Family Endocrine Disorder: No Hx Family Musculoskeletal Disorders: No Hx Family Neuromuscular Disorders: No Hx Family Neurologic Disorders: No Hx Family HEENT Disorders: No Hx Family Autoimmune Disorders: Yes (RA) Hx Family Reproductive Disorders: No Hx Family Psychosocial Disorders: No Hx Family Medical Disorders: No Mother Race: Family Member Ethnicity: Non- Living Status: (88) Age at : 88 Cause of : Old age Hx Family GI Disorders: Yes (Diverticulosis) Brother Race: Family Member Ethnicity: Non- Living Status: Age at : 49 Cause of : Cirrhosis Hx Family Endocrine Disorder: Yes (Cirrhosis) Sister Race: Family Member Ethnicity: Non- Living Status: Age at : 55 Cause of : Brain aneurysm Hx Family Cardiac Disorders: Yes (Aneurysm) Medications and Allergies Aspirin 81 mg PO QPM 08/10/16 [History] Lisinopril/Hydrochlorothiazide [Zestoretic 20-12.5 mg Tablet] 1 tab PO BID 08/10 [History] Pyridostigmine Br [Mestinon] 60 mg PO TID 08/10/16 [History] Mycophenolate Mofetil [Cellcept] 500 mg PO BID 09/25/17 [History] Omeprazole [PriLOSEC] 20 mg PO DAILY 09/25/17 [History] predniSONE [PredniSONE] 20 mg PO DAILY 09/25/17 [History] 3 Allergy/AdvReac Type Severity Reaction Status Date / Time No Known Allergies Allergy Verified 09/25/17 09:15 All Systems: A 10-system review of systems was performed and is negative for pertinent findings except as documented above in the HPI. Review of Systems: 10 point review of systems is consistent with a history of present illness and otherwise negative. Physical Examination - Vital Signs Vital Signs: Initial Vital Signs Temp Pulse Resp BP Pulse Ox 98.6 F 113 20 129/76 96 09/25/17 09:11 09/25/17 09:11 09/25/17 09:11 09/25/17 09:11 09/25/17 09:11 - Neurologic Detailed motor examination: full strength in all major muscle groups Motor examination - right side: 5/5: deltoids, biceps, triceps, wrist flexion, wrist extension, goal umpire, hip flexors, tibialis Anterior, quadriceps, toe extension (EHL), plantarflexion Motor examination - left side: 5/5: deltoids, biceps, triceps, wrist flexion, wrist extension, hip flexors, goal umpire, quadriceps, tibialis Anterior, toe extension (EHL), plantarflexion Mental Status Examination: awake, alert, oriented to person, oriented to place, oriented to time, follows commands appropriately, answers questions appropriately, no agnosia, no aphasia, no aproxia Cranial nerve examination: PERRL, EOMI, visual chery intact, corneal reflexes brisk symmetrically, sensory to face intact, mastication intact, no facial asymmetry is present, no dysarthria, hearing is intact symmetrically, soft palate elevates bilaterally upon phonation, gag reflex intact (Patient has no evidence of bulbar weakness. His voice is robust, he has a good strong cough reflex. ), flexes SCM and trapezius muscles symmetrically with full power, tongue protrudes midline, no atrophy or facial fasiculations present Cerebellar examination: no dysmetria, performs finger to nose and heel to dumont symmetrically without ataxia, no gait ataxia, no truncal ataxia, no difficulty with rapid alternating movements Results - Laboratory Findings CBC and BMP: 09/26/17 04:04 09/26/17 04:04 Abnormal lab findings: Abnormal lab results WBC 11.9 K/mcL (4.3-11.1) H 09/26/17 04:04 RBC 3.52 M/mcL (4.19-5.50) L 09/26/17 04:04 Hgb 11.0 g/dL (12.9-16.9) L D 09/26/17 04:04 Hct 34.0 % (37.5-50.1) L 09/26/17 04:04 Neutrophils # 11.3 K/mcL (1.6-8.9) H 09/26/17 04:04 Lymphocytes # 0.4 K/mcL (0.6-4.6) L 09/26/17 04:04 APTT 24.6 Seconds (26.0-36.0) L 09/26/17 04:04 Potassium 4.7 mEq/L (3.5-4.5) H 09/26/17 04:04 BUN 29 mg/dL (8-26) H 09/26/17 04:04 Creatinine 1.59 mg/dL (0.72-1.25) H 09/26/17 04:04 Est GFR ( Amer) 51 (> 60) L 09/26/17 04:04 Est GFR (Non-Af Amer) 42 (> 60) L 09/26/17 04:04 Glucose 165 mg/dL (70-99) H 09/26/17 04:04 Albumin 3.0 g/dL (3.5-5.0) L 09/26/17 04:04 Albumin/Globulin Ratio 0.9 (1.1-2.2) L 09/26/17 04:04 LDL Cholesterol, Calc 115 mg/dL (0-99) H 09/26/17 04:04 Staphylococcus sp PCR DETECTED (Not Detect) A 09/25/17 09:35 Consult Discharge Plan - Plan Referrals: Sander Ibrahim DO [Primary Care Provider] -
[2017-09-26] MEDS: 0.9 % Sodium Chloride 1,000 ML IVC SCH (16:32)
[2017-09-26] MEDS: Aspirin 81 MG TAB.CHEW PO SCH (17:32)
[2017-09-27] MEDS: *HR* Heparin 5,000 UNIT/ML VIAL SQ SCH ×3 (00:21→16:29)
[2017-09-27] MEDS: Hydrocortisone Sodium Succ 100 MG/2 ML VIAL IVP SCH ×4 (00:22→17:19)
[2017-09-27] MEDS: Piperacillin/Tazobactam 3.375 GM in D5% in Water 50 ML IVPB SCH ×3 (00:22→16:24)
[2017-09-27] MEDS: Ipratropium/Albuterol Neb 3 ML IH SCH ×7 (00:23→20:06)
[2017-09-27 04:49] LABS: Basophils % 0.1 %; Hematocrit 32.7 % (37.5-50.1); Hemoglobin 10.7 g/dL (12.9-16.9); Immature Granulocytes % 0.8 % (0-4); Lymphocytes # 0.4 K/mcL (0.6-4.6); Lymphocytes % 3.1 %; Mean Corpuscular HGB Conc 32.7 g/dL (31.6-35.5); Mean Corpuscular Hemoglobin 31.2 pg (28.0-33.3); Mean Corpuscular Volume 95.3 fL (83.0-100.0); Mean Platelet Volume 9.5 fL (9.4-12.4); Monocytes # 0.4 K/mcL (0.0-1.3); Monocytes % 2.7 %; Neutrophils # 12.2 K/mcL (1.6-8.9); Platelet Count 211 K/mcL (140-400); Red Blood Count 3.43 M/mcL (4.19-5.50); Red Cell Distribution Width 12.7 % (11.5-14.5); Segmented Neutrophils % 93.3 %
[2017-09-27 05:06] LABS: Albumin 2.7 g/dL (3.5-5.0); Albumin/Globulin Ratio 0.8 (1.1-2.2); Bilirubin,Total 0.7 mg/dL (0.2-1.2); Calcium 8.4 mg/dL (8.6-10.8); Globulin 3.2 g/dL (2.4-3.5); Total Protein 5.9 g/dL (6.0-8.3)
[2017-09-27 05:12] LABS: Potassium 3.4 mEq/L (3.5-4.5)
[2017-09-27] MEDS: 0.9 % Sodium Chloride 1,000 ML IVC SCH ×2 (05:14→11:25)
[2017-09-27] MEDS: amLODIPine 5 MG TABLET PO SCH (08:57)
[2017-09-27] MEDS: Pyridostigmine Br 60 MG TABLET PO SCH ×3 (08:57→21:14)
--- NOTE | 2017-09-27 09:30 | Electrocardiograph Report ---
[place] [id number] Test Date: 2017-09-25 Pat Name: Nathanael Palacios Department: 102 Room: 2A23 Gender: M [employer]: : 1935 Requested By: Christian Berg Order Number: [id number] Reading MD: Aaron Shipman DO Measurements Intervals [place] Rate: 95 P: 33 W[place]: 197 QRS: -27 QRSD: 81 T: 112 QT: 320 QTc: 373 Interpretive Statements SINUS RHYTHM BORDERLINE LEFT AXIS DEVIATION LEFT VENTRICULAR HYPERTROPHY AND ST-T CHANGE Electronically Signed On 09-27-2017 9:29:03 EST by Aaron Shipman DO
--- NOTE | 2017-09-27 10:53 | Internal Med Progress Note ---
Date of Encounter: 09/27/17 Time of Encounter: 10:53 - Assessment and plan (1) Sepsis Current Visit: Yes Status: Acute Assessment and plan: Severe sepsis on presentation due to Secondary to Staph pneumonia BP WNL after IVF, discontinue IVF Taper off stress steroids to home dose Lactate WNL Continue Vano and Zosyn Follow repeat blod culture 09/27 Follow blood culture done 09/25 for sensitivity Qualifiers: Sepsis type: sepsis due to unspecified organism Qualified Code(s): A41.9 - Sepsis, unspecified organism (2) Bacteremia Current Visit: Yes Status: Acute Assessment and plan: Secondary to staph, possible contaminant as growth is in one out of 2 bottles Continue vanco and Zosyn and deescalate with repeat blood culture (3) Pneumonia Current Visit: Yes Status: Acute Assessment and plan: Continue vanco and Zosyn Possibly due to staph O2 supplementation Follow final blood and sputum culture Qualifiers: Pneumonia type: due to unspecified organism Laterality: unspecified laterality Lung location: unspecified part of lung Qualified Code(s): J18.9 - Pneumonia, unspecified organism (4) Lung mass Current Visit: Yes Status: Chronic Assessment and plan: Hx of RLL nodule. CT of the chest w/o contrast today shows significant interval increase in size of right lower lobe noncalcified pulmonary nodule measuring up to 2.2 cm. This is suspicious for neoplasm and tissue sampling is recommended. Follow-up is recommended with PCP and pulmonology for biopsy. (5) DVT prophylaxis Current Visit: Yes Status: Acute Assessment and plan: Heparin SQ (6) HTN (hypertension) Current Visit: Yes Status: Chronic Assessment and plan: D/C ACEI-HCTZ, due to kidney function Follow Renal USS Start [facility] Qualifiers: Hypertension type: essential hypertension Qualified Code(s): I10 - Essential (primary) hypertension (7) Disequilibrium Current Visit: Yes Status: Acute Assessment and plan: Pt. reports acute disequilibrium recently, most likely d/t current pneumonia dx. Falls/safety precautions ordered. PT/OT to assess for strength, stability, safety, ambulation, and assistive needs for post-discharge planning. (8) Hx of myasthenia gravis Current Visit: Yes Status: Chronic Assessment and plan: Neuro eval noted, appreciated Continue to hold cellcept Continue pyridostigmine (9) CKD (chronic kidney disease) Current Visit: Yes Status: Chronic Assessment and plan: Suspected Chart review has no normal Chem CR was elevated in 2015 and 2015 Obtain old records Obtain renal USS Qualifiers: Chronic kidney disease stage: unspecified stage Qualified Code(s): N18.9 - Chronic kidney disease, unspecified - Subjective Interval history: Seen and evaluated at bedside with daughter No new complains ECHO done today is normal without vegetations, repeat blood culture done today 09/27 Neuro eval appreciated - Constitutional Vitals: Temp Pulse Resp BP Pulse Ox 97.8 F 92 17 165/90 97 09/27/17 07:08 09/27/17 07:08 09/27/17 07:08 09/27/17 07:08 09/27/17 07:08 General appearance: Present: cooperative, A&O X 3, pleasant, no acute distress, answers questions appropriately - Head Head exam: Present: atraumatic, normocephalic - Eye Eye exam: Present: PERRL, conjuntiva pink, sclera anicteric Pupils: Present: PERRL - Neck Neck exam general surgery: Present: supple, trachea midline. Absent: lymphadenopathy - Respiratory Respiratory exam: Present: CTAB. Absent: accessory muscle use, rales, rhonchi, wheezes - Cardiovascular Cardiovascular exam: Present: RRR, +S1, +S2, systolic murmur. Absent: diastolic murmur, gallop, rubs - GI/Abdominal GI/Abdominal exam: Present: normal bowel sounds, soft, no peritoneal signs. Absent: distended, tenderness - Extremities Exam Extremities exam: Present: warm, radial pulses palpable and symmetrical. Absent : calf tenderness, cyanotic, pedal edema - Neurological Exam Neurological exam: Present: alert, CN II-XII intact, oriented X3, no focal deficits. Absent: pronater drift, facial droop, speech deficit - Skin Skin exam: Present: dry, intact Internal Medicine: Result - Labs CBC & Chem 7: 09/27/17 04:33 09/27/17 04:33 Labs: Short CBC 09/27/17 Range/Units 04:33 WBC 13.1 H (4.3-11.1) K/mcL Hgb 10.7 L (12.9-16.9) g/dL Hct 32.7 L (37.5-50.1) % Plt Count 211 (140-400) K/mcL Neutrophils # 12.2 H (1.6-8.9) K/mcL BMP 09/27/17 04:33 Sodium 142 Potassium 3.4 L D Chloride 110 H Carbon Dioxide 23 BUN 29 H Creatinine 1.67 H Glucose 156 H Calcium 8.4 L Liver Function 09/27/17 Range/Units 04:33 Total Bilirubin 0.7 (0.2-1.2) mg/dL AST 14 (5-34) Units/L ALT 9 (0-55) Units/L Alkaline Phosphatase 46 (38-126) Units/L Albumin 2.7 L (3.5-5.0) g/dL - ABG Interpretation ABG results: PT/INR, D-dimer PT 10.8 Seconds (9.4-12.1) 09/26/17 04:04 Consult Discharge Plan - Plan Referrals: Sander Ibrahim DO [Primary Care Provider] -
[2017-09-27] MEDS: Vancomycin 1,250 MG in D5% in Water 250 ML IVPB SCH (11:24)
[2017-09-27] MEDS ORDERED: Aminoglycoside Consult 1 EACH MC ONE (16:44)
[2017-09-27] MEDS: Aspirin 81 MG TAB.CHEW PO SCH (17:17)
[2017-09-28] MEDS: Ipratropium/Albuterol Neb 3 ML IH SCH ×5 (00:22→16:14)
[2017-09-28] MEDS: *HR* Heparin 5,000 UNIT/ML VIAL SQ SCH ×2 (00:43→09:56)
[2017-09-28] MEDS: Piperacillin/Tazobactam 3.375 GM in D5% in Water 50 ML IVPB SCH ×2 (00:43→11:57)
[2017-09-28] MEDS: Hydrocortisone Sodium Succ 100 MG/2 ML VIAL IVP SCH ×3 (00:43→13:09)
[2017-09-28 04:30] LABS: Basophils % 0.1 %; Hematocrit 31.7 % (37.5-50.1); Hemoglobin 10.3 g/dL (12.9-16.9); Immature Granulocytes % 1.2 % (0-4); Lymphocytes # 0.5 K/mcL (0.6-4.6); Lymphocytes % 4.5 %; Mean Corpuscular HGB Conc 32.5 g/dL (31.6-35.5); Mean Corpuscular Volume 95.5 fL (83.0-100.0); Mean Platelet Volume 9.4 fL (9.4-12.4); Monocytes # 0.5 K/mcL (0.0-1.3); Monocytes % 4.8 %; Neutrophils # 9.5 K/mcL (1.6-8.9); Platelet Count 235 K/mcL (140-400); Red Blood Count 3.32 M/mcL (4.19-5.50); Red Cell Distribution Width 12.6 % (11.5-14.5); Segmented Neutrophils % 89.4 %
[2017-09-28 04:49] LABS: Albumin 2.5 g/dL (3.5-5.0); Bilirubin,Total 0.3 mg/dL (0.2-1.2); Calcium 8.4 mg/dL (8.6-10.8); Total Protein 5.6 g/dL (6.0-8.3)
[2017-09-28 04:50] LABS: Albumin/Globulin Ratio 0.8 (1.1-2.2); Globulin 3.1 g/dL (2.4-3.5)
[2017-09-28] MEDS: Pyridostigmine Br 60 MG TABLET PO SCH (09:55)
[2017-09-28] MEDS: amLODIPine 5 MG TABLET PO SCH (09:55)
[2017-09-28 10:53] VITALS: BP 145/70
[2017-09-28] MEDS: Vancomycin 1,250 MG in D5% in Water 250 ML IVPB SCH (11:57)
[2017-09-28] MEDS ORDERED: ceFAZolin 2,000 MG in Water for inj. (sterile) 20 ML IVP SCH (14:00)
--- NOTE | 2017-09-28 15:56 | Discharge Summary ---
Date of Encounter: 09/28/17 Time of Encounter: 15:52 - Discharge Diagnosis (1) Pneumonia Priority: Primary Status: Acute Qualifiers: Pneumonia type: due to unspecified organism Laterality: unspecified laterality Lung location: unspecified part of lung Qualified Code(s): J18.9 - Pneumonia, unspecified organism (2) Lung mass Priority: Secondary Status: Chronic (3) HTN (hypertension) Priority: Secondary Status: Chronic Qualifiers: Hypertension type: essential hypertension Qualified Code(s): I10 - Essential (primary) hypertension (4) Hx of myasthenia gravis Priority: Secondary Status: Chronic (5) Sepsis Priority: Secondary Status: Acute Qualifiers: Sepsis type: sepsis due to unspecified organism Qualified Code(s): A41.9 - Sepsis, unspecified organism - Discharge Medications Prescriptions: Amoxicillin/Clavulanate [Augmentin] 875 mg PO BIDWM 10 Days #20 tablet Home Medications: Aspirin 81 mg PO QPM 08/10/16 [History] Lisinopril/Hydrochlorothiazide [Zestoretic 20-12.5 mg Tablet] 1 tab PO BID 08/10 [History] Pyridostigmine Br [Mestinon] 60 mg PO TID 08/10/16 [History] Mycophenolate Mofetil [Cellcept] 500 mg PO BID 09/25/17 [History] Omeprazole [PriLOSEC] 20 mg PO DAILY 09/25/17 [History] predniSONE [PredniSONE] 20 mg PO DAILY 09/25/17 [History] Acetaminophen [Tylenol] 650 mg PO Q6HR PRN tablet 09/28/17 [Rx] Amoxicillin/Clavulanate [Augmentin] 875 mg PO BIDWM 10 Days #20 tablet 09/28/17 [Rx] Allergies/Adverse Reactions: 3 Allergy/AdvReac Type Severity Reaction Status Date / Time No Known Allergies Allergy Verified 09/25/17 09:15 Procedures/tests Complete & Pending: Procedures Performed prior 72 hours Category Date Time Status US retroperitoneal comp [US] Routine Exams 09/27/17 19:00 Completed EV echocardiogram Routine Y 09/27/17 10:32 Completed SP PFT screen Routine Y 09/26/17 08:00 Completed Date of admission: 09/25/17 16:45 Primary care physician: Rufino Roland Consults: 09/26/17 11:26 Consult to Neurology [CONS] Routine Consulting Provider: [facility] Reason for Consult: Known MG patient on cellcept, admitted for sepsis and staph bacteremia, pls evaluate for resumption of cellcept. Thank you. Call Completed: No 09/28/17 09:47 Consult to Infectious Diseases [CONS] Routine Consulting Provider: Infectious Disease [facility] Reason for Consult: Staph Hominis Bactremia/ Pna Time Notified: 09:47 Call Completed: No 09/28/17 11:40 Consult to Invasive Line Access Team [CONS] Routine Reason for Consult: assisted iv antibiotics Line Type: EPIV Discharging clinician: Kim Calhoun Anticipated date of discharge: 09/28/17 - Patient Status Disposition: Home, Self-Care Condition: Fair Overall status at discharge: patient is progressing back to baseline - Discharge Instructions Follow Up With: Sander Ibrahim DO [Primary Care Provider] - 10/04/17 1:30 pm - Diet and Activity Activity: resume usual activities as tolerated Diet: advance to your usual diet Hospital course: Mr. Palacios is a 82 year old male has past medical history significant for ocular myasthenia gravis for which he takes CellCept and prednisone. Patient was admitted for pneumonia/sepsis and is started on IV Zosyn. He improved well as he has become afebrile for last 48 hours and his white count has normalized today. Clinically he is much better now. His blood cultures showed staph hominis one out of 2 cultures positive. Infectious disease was consulted and considered it as contamination. As clinically he has improved he will be discharged home on Augmentin for 10 days. He can follow-up with his neurologist at [facility] and resume his prednisone now and CellCept later. If he develops symptoms he should contact his family doctor or neurologist to see if CellCept can be started sooner. During this admission patient was evaluated by neurology and please see official reports for details. He did have PFTs. Patient also had echocardiogram which showed normal cardiac ejection fraction with diastolic dysfunction with normal LV systolic function and no significant valvular abnormality. Creatinine worsened while he has chronic kidney disease but now it is improving and has completed baseline. Patient is advised to follow with his family doctor. Patient has right lung nodule which was discovered in April 2017 and at that time size was 1.7. During this admission and repeat CAT scan showed incidentally that the size of nodule has increased to 2.2. I discussed the case with patient who told me that this is known nodule and he goes to [facility] who plan to repeat The scan next year. However since the rate of growth is quite significant and I have recommended an early follow-up and a possible biopsy. He was offered that he can see a physician here locally or can go to [facility] with CAT scan report. 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 He was offered that we can consult Dr. Jacques and arrange biopsy by IR but patient does not want to stay under any circumstance. He showed good understanding of the dire consequences of not doing for follow-up on this issue and agreed to see Dr. Jacques as outpatient therefore I have asked nursing staff to schedule an appointment with Dr. Jacques as soon as possible. - Time Spent with Patient Total time spent providing and/or coordinating discharge services: Greater than 30 minutes - Constitutional Vitals: Temp Pulse Resp BP Pulse Ox 98.3 F 71 16 145/70 97 09/28/17 10:50 09/28/17 10:50 09/28/17 11:13 09/28/17 10:50 09/28/17 11:13 General appearance: Present: cooperative, A&O X 3, pleasant, no acute distress, answers questions appropriately - Head Head exam: Present: atraumatic, normocephalic - Eye Eye exam: Present: PERRL, conjuntiva pink, sclera anicteric Pupils: Present: PERRL - Neck Neck exam general surgery: Present: supple, trachea midline. Absent: lymphadenopathy - Respiratory Respiratory exam: Present: CTAB. Absent: accessory muscle use, rales, rhonchi, wheezes - Cardiovascular Cardiovascular exam: Present: RRR, +S1, +S2. Absent: diastolic murmur, gallop, rubs, systolic murmur - GI/Abdominal GI/Abdominal exam: Present: normal bowel sounds, soft, no peritoneal signs. Absent: distended, tenderness - Extremities Exam Extremities exam: Present: warm, radial pulses palpable and symmetrical. Absent : calf tenderness, cyanotic, pedal edema - Neurological Exam Neurological exam: Present: CN II-XII intact, oriented X3, no focal deficits. Absent: pronater drift, facial droop, speech deficit - Skin Skin exam: Present: dry, intact
--- NOTE | 2017-09-28 17:25 | Infectious Disease Consult ---
Date of Encounter: 09/29/17 Time of Encounter: 15:00 Assessment and Plan (1) Sepsis Status: Acute Assessment and plan: The patient had two SIRS criteria on admission. Likely secondary to PNA. Improved. WBC has normalized. Tachycardia has resolved. Blood cultures drawn 09/25/17 were positive 1/2 sets for S. hominis. Repeat blood cultures drawn 09/27/17 are NGTD 2/2 sets. Qualifiers: Sepsis type: sepsis due to unspecified organism Qualified Code(s): A41.9 - Sepsis, unspecified organism (2) Bacteremia Status: Acute Assessment and plan: Causative organism S. hominis. Blood cultures drawn 09/25/17 are positive 1/2 sets. Repeat blood cultures drawn 09/27/17 are NGTD. Given the clinical picture, likely a contaminant. No further antibiotics required for this. (3) Pneumonia Status: Acute Assessment and plan: Causative organism unclear. CXR shows bibasilar opacities concerning for PNA. No sputum cultures obtained. Check S. pneumo and Legionella UAT. Get sputum culture if the patient is able to provide adequate sputum specimen. Continue cefepime 2 grams IV Q12H. Duration of treatment depends on the clinical picture. Given that the patient has improved clinically and sepsis has resolved, can likely transition to PO antibiotics when ready for discharge. Would recommend switching to Augmentin when ready for discharge to complete a 10 day course. Monitor renal function and dose-adjust antibiotics. Qualifiers: Pneumonia type: due to unspecified organism Laterality: unspecified laterality Lung location: unspecified part of lung Qualified Code(s): J18.9 - Pneumonia, unspecified organism (4) Lung mass Status: Chronic Assessment and plan: CT chest shows interval increase in size since last CT chest. Concern for neoplasm. Consult pulmonology for evaluation. (5) Ocular myasthenia Status: Chronic Assessment and plan: Follows with neurology at [facility]. [facility] consulted and following. (6) CKD (chronic kidney disease) Status: Chronic Assessment and plan: Serum creatinine elevated on admission. Not sure what the patient's baseline is. Consider referral to nephrology as an outpatient. Continue to trend. Dose-adjust antibiotics. Avoid nephrotoxins as able. Qualifiers: Chronic kidney disease stage: unspecified stage Qualified Code(s): N18.9 - Chronic kidney disease, unspecified (7) HTN (hypertension) Status: Chronic Qualifiers: Hypertension type: essential hypertension Qualified Code(s): I10 - Essential (primary) hypertension (8) History of renal calculi Status: Chronic Infectious Disease HPI - Data of Consult Patient: new to practice Consult date: 09/28/17 Requesting Physician: Andres Cast MD Primary Care Provider: Rufino Roland - Consult Narrative Reason for consult: Bacteremia History of present illness: Mr. Palacios is a 82 year old male with a past medical history of ocular myasthenia gravis, HTN, and kidney stones. The patient was admitted to the hospital 09/25/17 for PNA. We are consulted 09/28/17 for bacteremia. Briefly, the patient is an 82 year old male with a past medical history as stated above. The patient presented to the emergency department with complaints of a 4 day history of cough and congestion and left flank pain. Upon arrival, the patient was afebrile, but he was tachycardic. He had a leukocytosis with neutrophilic predominance and what appear to be acute kidney injury. Chest x-ray was normal. CT abdomen and pelvis showed a right lower lobe pulmonary nodule that had increased in size from the prior exam. A dedicated CT of the chest also showed the increased pulmonary nodule as well as patchy bibasilar airspace opacities consistent with pneumonia or aspiration. Blood cultures were obtained 2 sets. The patient was started on IV antibiotics and admitted to the hospital for further evaluation. Since admission, his leukocytosis and tachycardia have resolved. Clinically he has improved. Neurology was consulted to evaluate the patient's ocular myasthenia gravis. He had a transthoracic echocardiogram that showed an EF of 65 %. Retroperitoneal ultrasound showed findings consistent with medical renal disease. The patient's serum creatinine did appear to stabilize. Blood cultures obtained in the emergency department came back +1 out of 2 sets for staph hominis. Repeat blood cultures were obtained on September 27 and are no growth to date. Currently, the patient is only on oral Augmentin because he lost IV access. We've been asked to evaluate and make further recommendations. My exam today, the patient states he was in his usual state of health until about 4 days prior to admission when he developed cough and chest congestion. He denies any fevers or chills or rigors. He denies any headache or neck pain. He denies any congestion, earache, or sore throat. He states that he did have a small amount of phlegm, but it did not appear green or purulent. He denies any chest pain or shortness of breath. He denies any nausea, vomiting, diarrhea, or constipation. He denies any abdominal pain, urinary complaints, or appetite changes. He denies oral thrush or skin lesions. He denies any back or extremity pain. He states he is 100% improved and is ready to go home. She is retired from the [employer]. He lives at home with his and dog. He denies any recent travel. He denies any tobacco, alcohol, or illicit drug use. CC: Andres Cast MD Past Med Surg Social Fam HX - Past Medical History Attestation: Yes The following information was validated with the patient. Source: patient, old records reviewed, nursing notes reviewed Medical history: hypertension, kidney stones, other (Ocular Myasthenia gravis) Psychiatric history: no psych history - Past Surgical History Surgical History: no surgical history - Social History Smoking Status: Never smoker Smokeless Tobacco Status: No Alcohol use: none Drug use: none Current living situation: Home - Independent Activity Level: Independent ambulation Recent Out of Country Travel Within the Last 8 Weeks: No Exposure or Possible Exposure to Illness During Travel: No - Family History Father Adopted: [place]: Karel Palacios Race: Family Member Ethnicity: Non- Living Status: Age at : 74 Cause of : Lung cancer Hx Family Cardiac Disorders: No Hx Family Respiratory Disorders: Yes (smoker) Hx Family Cancer: Yes (Lung) Hx Family GI Disorders: No Hx Family Genitourinary Disorders: No Hx Family Endocrine Disorder: No Hx Family Musculoskeletal Disorders: No Hx Family Neuromuscular Disorders: No Hx Family Neurologic Disorders: No Hx Family HEENT Disorders: No Hx Family Autoimmune Disorders: Yes (RA) Hx Family Reproductive Disorders: No Hx Family Psychosocial Disorders: No Hx Family Medical Disorders: No Mother Race: Family Member Ethnicity: Non- Living Status: (88) Age at : 88 Cause of : Old age Hx Family GI Disorders: Yes (Diverticulosis) Brother Race: Family Member Ethnicity: Non- Living Status: Age at : 49 Cause of : Cirrhosis Hx Family Endocrine Disorder: Yes (Cirrhosis) Sister Race: Family Member Ethnicity: Non- Living Status: Age at : 55 Cause of : Brain aneurysm Hx Family Cardiac Disorders: Yes (Aneurysm) Infectious Disease-CN:Meds Aspirin 81 mg PO QPM 08/10/16 [History] Lisinopril/Hydrochlorothiazide [Zestoretic 20-12.5 mg Tablet] 1 tab PO BID 08/10 [History] Pyridostigmine Br [Mestinon] 60 mg PO TID 08/10/16 [History] Mycophenolate Mofetil [Cellcept] 500 mg PO BID 09/25/17 [History] Omeprazole [PriLOSEC] 20 mg PO DAILY 09/25/17 [History] predniSONE [PredniSONE] 20 mg PO DAILY 09/25/17 [History] Acetaminophen [Tylenol] 650 mg PO Q6HR PRN tablet 09/28/17 [Rx] Amoxicillin/Clavulanate [Augmentin] 875 mg PO BIDWM 10 Days #20 tablet 09/28/17 [Rx] 3 Allergy/AdvReac Type Severity Reaction Status Date / Time No Known Allergies Allergy Verified 09/25/17 09:15 All systems: reviewed and no additional remarkable complaints except as stated Exam - Constitutional Vitals: Temp Pulse Resp BP Pulse Ox 98.3 F 71 16 145/70 97 09/28/17 10:50 09/28/17 10:50 09/28/17 11:13 09/28/17 10:50 09/28/17 11:13 General appearance: average body habitus, cooperative, no acute distress - Head Head exam: Present: atraumatic, normal inspection, normocephalic - Eye Eye exam: Present: EOMI, normal appearance, PERRL Pupils: Present: normal accommodation - Neck Neck exam: Present: normal inspection - Respiratory Respiratory exam: Present: CTAB. Absent: rales, respiratory distress, rhonchi, wheezes - Cardiovascular Cardiovascular exam: Present: RRR, +S1, +S2 - GI/Abdominal GI/Abdominal exam: Present: normal bowel sounds, soft. Absent: distended, tenderness - Extremities Exam Extremities exam: Present: normal inspection. Absent: joint swelling, pedal edema, tenderness - Neurological Exam Neurological exam: Present: alert, oriented X3, no focal deficits - Psychiatric Psychiatric exam: Present: normal affect, normal mood - Skin Skin exam: Present: dry, intact, normal color, warm Infectious Disease CN: Results - Labs CBC & Chem 7: 09/28/17 04:12 09/28/17 04:12 Cultures: Cultures 09/27/17 04:33 Blood Culture - Preliminary Peripheral Venipuncture No growth. 09/27/17 04:33 Blood Culture - Preliminary Peripheral Venipuncture No growth. Consult Discharge Plan - Plan Referrals: Sander Ibrahim DO [Primary Care Provider] - 10/04/17 1:30 pm Prescriptions: Amoxicillin/Clavulanate [Augmentin] 875 mg PO BIDWM 10 Days #20 tablet
[2017-09-28] MEDS ORDERED: predniSONE 20 MG TABLET PO SCH (18:00)
== END 2017-09-28 16:45 | disposition home or self-care (01) | DRG 871 ==
LOC: 2ANU 09:09 → EMEROO 09:09 → 2ANU 12:38
PROVIDERS: ADMIT Hospitalist; ATTEND Internal Medicine

== ENCOUNTER 2017-12-06 09:47 | Inpatient (IN) ==
[2017-12-06] MEDS ORDERED: *HR* Adenosine 6 MG/2 ML VIAL IVP ONE (10:03)
--- NOTE | 2017-12-06 10:07 | Emergency Department Note ---
Disposition Clinical Impression: Healthcare-associated pneumonia, SVT (supraventricular tachycardia) Disposition: Admitted As Inpatient Condition: Good SOB HPI - General Chief Complaint: ED Shortness of Breath/Dyspnea Stated Complaint: BRANDEN/CP Time Seen by Provider: 12/06/17 09:53 Source: patient Mode of arrival: private vehicle Limitations: no limitations Nursing Notes Reviewed: Yes Vital Signs Reviewed: Yes - History of Present Illness 82-year-old male history of myasthenia gravis, recently diagnosed with potential lung cancer who presents to the ER with a chief complaint of shortness of breath and weakness. Patient states he woke up this morning feeling unwell. Says he felt fine yesterday. Family states that he was complaining of a heaviness in his chest. No recent illnesses. He was admitted in September when he was found to have bacteremia that they report was a contaminant. No prior history of arrhythmia, CAD. No other complaints. Pt Subjective Complaint: shortness of breath Onset (ago): hour(s) Severity: moderate Consistency/Duration: constant Improves with: nothing Worsens with: nothing Associated symptoms: Reports: chest pain Treatment prior to arrival: none Cough present: No Sputum production: No Sputum Amount: None - Related Data Home oxygen amount: none Home Medications Medication Instructions Recorded Confirmed Aspirin 81 mg PO QPM 08/10/16 12/06/17 Pyridostigmine Br [Mestinon] 60 mg PO TID 08/10/16 12/06/17 Omeprazole [PriLOSEC] 20 mg PO DAILY 09/25/17 12/06/17 predniSONE [PredniSONE] 20 mg PO DAILY 09/25/17 12/06/17 Amlodipine Besylate [Amlodipine 2.5 mg PO DAILY 12/06/17 12/06/17 Besylate] Previous Rx's Medication Instructions Recorded Fluticasone Propionate Nasal 50 mcg NS DAILY #1 bottle 11/21/17 [Flonase] Allergies Allergy/AdvReac Type Severity Reaction Status Date / Time No Known Allergies Allergy Verified 12/06/17 12:16 All systems ED: reviewed and negative except as stated. Constitutional: Denies: fever Cardiovascular: Reports: chest pain Respiratory: Reports: dyspnea. Denies: cough Gastrointestinal: Denies: abdominal pain, nausea, vomiting, diarrhea Neurological: Reports: weakness Past Medical History - Past Medical History Attestation: Yes The following information was validated with the patient. Source: patient Medical history: Reports: hypertension, kidney stones, other Surgical history: Reports: no surgical history Psychiatric history: Reports: no psych history - Social History Smoking Status: Never smoker Smokeless Tobacco Status: No Alcohol use: Reports: none Drug use: Reports: none Physical Exam - General Limitations: no limitations General appearance: alert, in no apparent distress - Head Head exam: atraumatic, normocephalic - Eye Eye exam: Present: normal appearance - ENT ENT exam: normal exam - Neck Neck exam: Present: normal inspection, full ROM - Chest Chest inspection: Present: normal inspection, symmetric chest wall rise - Respiratory Respiratory exam: Present: normal lung sounds bilaterally - Cardiovascular Cardiovascular exam: Present: normal rhythm, tachycardia, normal heart sounds - Abdominal Exam Abdominal exam: Present: soft, Non-Tender. Absent: tenderness - Extremities Exam Extremities exam: Present: normal inspection, full ROM - Expanded Upper Extremity Exam Shoulder exam: Present: normal inspection, full ROM Arm exam: Present: normal inspection, full ROM Elbow exam: Present: normal inspection, full ROM Forearm/Wrist exam: Present: normal inspection, full ROM Hand exam: Present: normal inspection, full ROM - Expanded Lower Extremity Exam Hip/Pelvis exam: Present: normal inspection, full ROM Upper leg exam: Present: normal inspection, full ROM Knee exam: Present: normal inspection, full ROM Lower leg exam: Present: normal inspection, full ROM Ankle exam: Present: normal inspection, full ROM Foot/toe exam: Present: normal inspection, full ROM - Skin Skin exam: Present: warm Course Course Narrative: Patient seen and examined the time of arrival. He is noted to be in SVT with a stable blood pressure. We will obtain an EKG, chest x-ray as well as labs including troponin. We will also give him a dose of adenosine for his SVT. - Reevaluation(s) Reevaluation #1: Patient converted from SVT without intervention. Repeat EKG was sinus rhythm with PACs. Chest x-ray with concern for left lingular opacity. Family reports he has been coughing for a few days and has also been recently admitted with pneumonia. We will cover for healthcare associated pneumonia. Family in agreement with admission. Vital Signs Temperature 98.2 F 12/06/17 09:49 Pulse Rate 148 12/06/17 09:49 Respiratory Rate 18 12/06/17 09:49 Blood Pressure 137/84 12/06/17 09:49 O2 Sat by Pulse Oximetry 99 12/06/17 09:49 Temperature 98.2 F 12/06/17 09:49 Pulse Rate 94 12/06/17 13:00 Respiratory Rate 20 12/06/17 13:00 Blood Pressure 158/91 12/06/17 13:00 O2 Sat by Pulse Oximetry 96 12/06/17 13:00 Oxygen Delivery Oxygen Delivery Nasal Cannula Shortness of Breath/Dyspnea - [facility] Narrative Medical decision making narrative: 82-year-old male presents to the ER due to generalized weakness and shortness of breath. Noted to be in SVT. He did convert here on his own without any intervention. His repeat EKG shows sinus rhythm with PACs. X-ray with concern for developing left lingular pneumonia. Family reports he has been coughing for a few days. He is noted to have a leukocytosis whether this is infectious or result of his chronic steroid use is unsure at this time. Labs otherwise reviewed. Patient given vancomycin and Zosyn for healthcare associated pneumonia. Admitted to the hospitalist service in stable condition. This documentation is done with the assistance of Dragon dictation. There may be inaccuracies in electronic calibration technician or spelling and typographical errors. I examined this patient and my medical decision-making was reviewed with the Resident Physician. I agree with the documented findings, disposition and treatment plan as described except to the extent set forth below. Patient was seen and evaluated by Dr. Moya and myself, I agree with his evaluation and management plan, I supervised the care the patient's stay. Patient comes in today with shortness of breath and not feeling well for the past 24 hours. He says been coughing a little bit. He denies any chest pain he says he feels that his heart beat is beating fast. He is in SVT with a rate of about 40-50. Once we placed an IV in him before he got medications are resolved on its own. Does look like he has a pneumonia on his chest x-ray which penetrate. He does have myasthenia gravis so it to be careful certain medications were to hold off on quinolones causes have not shown some interaction with myasthenia. We will admit him to the hospitalist. He is stable at this time in agreement with plan. Chest X-Ray 12/06/17 09:54 IMPRESSION: Patchy lingular airspace opacity may reflect pneumonia in the correct clinical setting. D/ / 12/06/2017 10:44:19 Rick Moore MD / Johanny Roblero Interpreting Provider: Rick Moore MD - Lab Data Lab results reviewed: Yes I reviewed the patient's lab results. Result diagrams: 12/06/17 10:07 12/06/17 10:07 Lab Results 12/06/17 12/06/17 12/06/17 Range/Units 10:07 10:07 10:07 WBC 13.8 H (4.3-11.1) K/mcL RBC 4.57 (4.19-5.50) M/mcL Hgb 13.8 (12.9-16.9) g/dL Hct 43.9 (37.5-50.1) % MCV 96.1 (83.0-100.0) fL MCH 30.2 (28.0-33.3) pg MCHC 31.4 L (31.6-35.5) g/dL RDW 13.3 (11.5-14.5) % Plt Count 304 (140-400) K/mcL MPV 9.1 L (9.4-12.4) fL Immature Gran % 0.4 (0-4) % Seg Neutrophils % 77.5 % Lymphocytes % 14.5 % Monocytes % 6.8 % Eosinophils % 0.4 % Basophils % 0.4 % Neutrophils # 10.7 H (1.6-8.9) K/mcL Lymphocytes # 2.0 (0.6-4.6) K/mcL Monocytes # 0.9 (0.0-1.3) K/mcL Eosinophils # 0.1 (0.0-0.6) K/mcL Basophils # 0.1 (0.0-0.2) K/mcL PT (9.4-12.1) Seconds INR Sodium 141 (136-145) mEq/L Potassium 3.4 L (3.5-5.1) mEq/L Chloride 107 (98-107) mEq/L Carbon Dioxide 27 (23-29) mEq/L BUN 19 (8-23) mg/dL Creatinine 1.42 H (0.70-1.30) mg/dL Est GFR ( Amer) 58 L (> 60) Est GFR (Non-Af Amer) 48 L (> 60) BUN/Creatinine Ratio 13 (6-26) Glucose 116 H (70-105) mg/dL Calculated Osmolality 295 (280-300) Lactic Acid (0.5-2.2) mmol/L Calcium 9.3 (8.6-10.3) mg/dL Magnesium 2.0 (1.6-2.6) mg/dL Troponin I < 0.03 (< 0.04) ng/mL B-Natriuretic Peptide (Less than 100) pg/mL 12/06/17 12/06/17 12/06/17 Range/Units 10:07 10:07 10:07 WBC (4.3-11.1) K/mcL RBC (4.19-5.50) M/mcL Hgb (12.9-16.9) g/dL Hct (37.5-50.1) % MCV (83.0-100.0) fL MCH (28.0-33.3) pg MCHC (31.6-35.5) g/dL RDW (11.5-14.5) % Plt Count (140-400) K/mcL MPV (9.4-12.4) fL Immature Gran % (0-4) % Seg Neutrophils % % Lymphocytes % % Monocytes % % Eosinophils % % Basophils % % Neutrophils # (1.6-8.9) K/mcL Lymphocytes # (0.6-4.6) K/mcL Monocytes # (0.0-1.3) K/mcL Eosinophils # (0.0-0.6) K/mcL Basophils # (0.0-0.2) K/mcL PT 10.2 (9.4-12.1) Seconds INR 1.0 Sodium (136-145) mEq/L Potassium (3.5-5.1) mEq/L Chloride (98-107) mEq/L Carbon Dioxide (23-29) mEq/L BUN (8-23) mg/dL Creatinine (0.70-1.30) mg/dL Est GFR ( Amer) (> 60) Est GFR (Non-Af Amer) (> 60) BUN/Creatinine Ratio (6-26) Glucose (70-105) mg/dL Calculated Osmolality (280-300) Lactic Acid 1.9 (0.5-2.2) mmol/L Calcium (8.6-10.3) mg/dL Magnesium (1.6-2.6) mg/dL Troponin I (< 0.04) ng/mL B-Natriuretic Peptide 363 H (Less than 100) pg/mL - Radiology Data Radiology results reviewed: Yes I reviewed the patient's radiology results. Chest X-Ray 12/06/17 09:54 IMPRESSION: Patchy lingular airspace opacity may reflect pneumonia in the correct clinical setting. D/ / 12/06/2017 10:44:19 Rick Moore MD / Johanny Roblero Interpreting Provider: Rick Moore MD - EKG Data EKG attestation: Yes I reviewed and interpreted this EKG. EKG results narrative: EKG demonstrates SVT with a rate of 148. Normal axis. Normal intervals. Normal R-wave progression. No gross ST elevations or depressions. S.B.A.R. - S.B.A.R. Situation: Demographics, MOA Background: Presenting Complaint, Relevant PMH, Meds, & Allergies Assessment: Course and respsone to treatment, Patient/Family Expectation, Pertinant Lab Results Recommendation: Barrier(s) to disposition, Recommendation based on pending studies, treatments, or consults S.B.A.R. Report Given to: Dr. Wills
[2017-12-06 10:29] LABS: Basophils # 0.1 K/mcL (0.0-0.2); Basophils % 0.4 %; Eosinophils # 0.1 K/mcL (0.0-0.6); Eosinophils % 0.4 %; Hematocrit 43.9 % (37.5-50.1); Hemoglobin 13.8 g/dL (12.9-16.9); Immature Granulocytes % 0.4 % (0-4); Lymphocytes % 14.5 %; Mean Corpuscular HGB Conc 31.4 g/dL (31.6-35.5); Mean Corpuscular Hemoglobin 30.2 pg (28.0-33.3); Mean Corpuscular Volume 96.1 fL (83.0-100.0); Mean Platelet Volume 9.1 fL (9.4-12.4); Monocytes # 0.9 K/mcL (0.0-1.3); Monocytes % 6.8 %; Neutrophils # 10.7 K/mcL (1.6-8.9); Platelet Count 304 K/mcL (140-400); Red Blood Count 4.57 M/mcL (4.19-5.50); Red Cell Distribution Width 13.3 % (11.5-14.5); Segmented Neutrophils % 77.5 %
[2017-12-06 10:36] LABS: Calcium 9.3 mg/dL (8.6-10.3); Potassium 3.4 mEq/L (3.5-5.1)
[2017-12-06 10:40] LABS: Prothrombin Time 10.2 Seconds (9.4-12.1)
[2017-12-06] MEDS ORDERED: Vancomycin 1,250 MG in D5% in Water 250 ML IVPB ONE ×2 (11:39→11:46)
[2017-12-06] MEDS ORDERED: Levofloxacin 750 MG/150 ML 750 MG/150 ML BAG IVPB ONE (11:39)
[2017-12-06] MEDS ORDERED: 0.9 % Sodium Chloride 1,000 ML IVC ONE (11:39)
[2017-12-06] MEDS ORDERED: Piperacillin/Tazobactam 3.375 GM in Water for inj. (sterile) 20 ML IVP ONE (11:39)
--- NOTE | 2017-12-06 14:04 | Electrocardiograph Report ---
[place] [id number] Test Date: 2017-12-06 Pat Name: Nathanael Palacios Department: 104 Room: 2A44 Gender: M Chief Development Officer: : 1935 Requested By: Edmundo Garcia Order Number: [id number] Reading MD: Britt Steen Measurements Intervals Runge Rate: 148 P: [place]: 0 QRS: -4 QRSD: 86 T: 115 QT: 275 QTc: 360 Interpretive Statements SUPRAVENTRICULAR TACHYCARDIA LEFT VENTRICULAR HYPERTROPHY AND ST-T CHANGE Electronically Signed On 12-06-2017 14:03:01 EST by Britt Steen
[2017-12-06] MEDS ORDERED: Naloxone 0.4 MG/ML INJ IVP PRN (15:50)
[2017-12-06] MEDS ORDERED: Ondansetron 4 MG/2 ML VIAL IVP PRN (15:50)
--- NOTE | 2017-12-06 16:14 | Internal Med History&Physical ---
<Cyndie Castillo - Last Filed: 12/06/17 16:05> Date of Encounter: 12/06/17 Time of Encounter: 16:06 Assessment and Plan (1) Pneumonia Current visit: Yes Status: Acute 82-year-old gentleman presented with shortness of breath chest heaviness and weakness. Found to be in SVT in the ED treated with adenosine and converted to sinus rhythm. Recent diagnosis of lung cancer. Also recently treated for bronchitis and pneumonia. DuoNeb's Solu-Medrol 40 every 8 hours Azithromycin and Rocephin O2 to maintain saturations greater than 88% Qualifiers: Pneumonia type: due to unspecified organism Laterality: left Lung location: lower lobe of lung Qualified Code(s): J18.1 - Lobar pneumonia, unspecified organism (2) SVT (supraventricular tachycardia) Current visit: Yes Status: Acute Found to be in SVT in the emergency room on the youth nutritional monitor Converted to sinus rhythm with one dose [facility] consult. Recommend starting Toprol and baby aspirin Recent echocardiogram 09/27/2017 cardiology will reevaluate for need to repeat air sampling and monitoring First troponin less than 0.03, trend troponins Mag 2.0 BNP 363 Repeat EKG in the a.m. (3) Lung cancer Current visit: Yes Status: Acute Patient had recent lung biopsy at [facility]. 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 Internal Medicine - H&P: HPI Chief complaint: chest pain and SOB Admitted From: Emergency Dept Plans for Post Hospital Care: Home History of present illness: Mr. Palacios is a 82 year old male This is an 82-year-old gentleman who presented to the emergency room for evaluation shortness of breath, weakness and chest heaviness/midsternal chest pain which started this morning. He states he felt well yesterday and actually salted the ice in his driveway. He was found to be in an SVT in the emergency room and treated for one dose of adenosine. He converted to a sinus rhythm and his chest heaviness dissipated per his report. Chest x-ray revealed a patchy lingular airspace capacity. He had an echocardiogram completed this facility in 09/27/2017. Discussed with the local owner operator truck driver and they recommend baby aspirin and Toprol. He reports a nonproductive cough yesterday but felt well otherwise. He was recently treated for bronchitis. He was also recently diagnosed with lung cancer at [facility]. He had an enlarging nodule on the right side of his lung that was biopsied. He is scheduled for a PET scan, stress test, and thoracic surgery appointment at [facility] this . He is currently sitting up in the bed in room 2A 44 with his and daughter at the bedside. He has a history significant for ocular myasthenia gravis, newly diagnosed lung cancer, hypertension, and the stones, chronic kidney disease, and pneumonia. He also has a surgical history of stone extractions. He denies recent sick contact, nausea, vomiting, headache, dizziness, syncope, palpitations, diarrhea or constipation, changes in bladder function, or productive cough. Discussed the plan of care and the family are in agreement. They expressed concerns that he really needs to make his appointments at [facility] on and I explained that we will try to get him to that appointment unless something untoward would happen. They verbalized understanding he is currently pain-free and does not feel any chest pressure or shortness of breath at this time. Past Med Surg Social Fam HX - Past Medical History Source: patient, old records reviewed, obtained from family Medical history: hypertension, kidney stones, other Psychiatric history: no psych history - Past Surgical History Surgical History: no surgical history (Kidney stone extraction, lung biopsy of pulmonary nodule) - Social History Smoking Status: Never smoker Smokeless Tobacco Status: No Alcohol use: none Drug use: none - Family History Father Adopted: No Family Member Ethnicity: Non- Living Status: Hx Family Cardiac Disorders: No Hx Family Respiratory Disorders: Yes (smoker) Hx Family Cancer: Yes (Lung) Hx Family GI Disorders: No Hx Family Endocrine Disorder: No Hx Family Neuromuscular Disorders: No Hx Family Neurologic Disorders: No Hx Family HEENT Disorders: No Hx Family Autoimmune Disorders: Yes (RA) Mother Family Member Ethnicity: Non- Living Status: Hx Family GI Disorders: Yes (Diverticulosis) Brother Family Member Ethnicity: Non- Living Status: Hx Family Endocrine Disorder: Yes (Cirrhosis) Sister Family Member Ethnicity: Non- Living Status: Hx Family Cardiac Disorders: Yes (Aneurysm) - Additional Family History Additional family history: Mother at old age after fracturing her hip, father from lung cancer Internal Medicine - H&P: Meds Aspirin 81 mg PO QPM 08/10/16 [History] Pyridostigmine Br [Mestinon] 60 mg PO TID 08/10/16 [History] Omeprazole [PriLOSEC] 20 mg PO DAILY 09/25/17 [History] predniSONE [PredniSONE] 20 mg PO DAILY 09/25/17 [History] Fluticasone Propionate Nasal [Flonase] 50 mcg NS DAILY #1 bottle 11/21/17 [Rx] Amlodipine Besylate [Amlodipine Besylate] 2.5 mg PO DAILY 12/06/17 [History] 3 Allergy/AdvReac Type Severity Reaction Status Date / Time No Known Allergies Allergy Verified 12/06/17 12:16 All Systems PM: A 10-system review of systems was performed and is negative for pertinent findings except as documented above in the HPI. - Constitutional Constitutional: fever(s), weakness, no chills, no night sweats - EENT Eyes: no change in vision, no discharge, no pain, no photophobia Ears: no ear discharge, no ear pain, no tinnitus Nose, mouth and throat: no dysphagia, no nasal discharge, no neck pain, no sore throat - Cardiovascular Cardiovascular ROS IM: as per HPI, chest pain, no diaphoresis, no dyspnea, no lightheadedness, no palpitations, no syncope - Respiratory Respiratory: as per HPI, cough, dyspnea, no wheezing, no excessive phlegm production - Gastrointestinal Gastrointestinal: no abdominal pain, no diarrhea, no hematemesis, no hematochezia, no melena, no nausea, no vomiting - Musculoskeletal Musculoskeletal ROS IM: no numbness, no tingling - Integumentary Integumentary IM: no rash, no unusual bruising - Neurological Neurological ROS: no confusion, no convulsions, no focal weakness, no numbness, no tingling, no tremor(s) - Hematologic/Lymphatic Hematologic/Lymphatic: no easy bruising - Constitutional Vitals: Temp Pulse Resp BP Pulse Ox 99.1 F 77 18 137/89 98 12/06/17 15:13 12/06/17 15:13 12/06/17 15:13 12/06/17 15:13 12/06/17 15:13 General appearance: Present: cooperative, A&O X 3, pleasant, no acute distress, answers questions appropriately - Head Head exam: Present: atraumatic, normocephalic - Eye Eye exam: Present: conjuntiva pink, sclera anicteric - Neck Neck exam general surgery: Present: supple, trachea midline. Absent: lymphadenopathy - Respiratory Respiratory exam: Present: decreased breath sounds. Absent: accessory muscle use, rales, rhonchi, wheezes Additional comments: No cough on forced expiration or bronchospasm - Cardiovascular Cardiovascular exam: Present: RRR, +S1, +S2. Absent: diastolic murmur, gallop, rubs, systolic murmur, tachycardia - GI/Abdominal GI/Abdominal exam: Present: normal bowel sounds, soft, no peritoneal signs. Absent: distended, tenderness - Extremities Exam Extremities exam: Present: warm, radial pulses palpable and symmetrical. Absent : calf tenderness, cyanotic, pedal edema - Neurological Exam Neurological exam: Present: CN II-XII intact, oriented X3, no focal deficits. Absent: pronater drift, facial droop, speech deficit - Skin Skin exam: Present: dry, intact, warm Internal Med - H&P Results - Labs CBC & Chem 7: 12/06/17 10:07 12/06/17 10:07 <Leonardo Wills P - Last Filed: 12/06/17 18:33> Date of Encounter: 12/06/17 Internal Medicine - H&P: HPI History of present illness: Mr. Palacios is a 82 year old male All Systems PM: A 10-system review of systems was performed and is negative for pertinent findings except as documented above in the HPI. - Constitutional Vitals: Temp Pulse Resp BP Pulse Ox 99.1 F 77 18 137/89 98 12/06/17 15:13 12/06/17 15:13 12/06/17 15:13 12/06/17 15:13 12/06/17 15:13 Internal Med - H&P Results - Labs CBC & Chem 7: 12/06/17 10:07 12/06/17 10:07 - Attending Attestation I examined this patient and my medical decision-making was reviewed with the Resident Physician/EMPLOYMENT TRAINER. I agree with the documented findings, disposition and treatment plan as described except to the extent set forth below. 82/male Known to have a recently diagnosed lung malignancy. Came with shortness of breath. Noted that patient has SVT which was self aborted. Radiological examination along with the clinical findings suggestive of left lower lobe pneumonia. Patient has a appointment for a PET scan on coming at [facility]. , [place], [place]. Plan: Appropriate antibiotics for management of pneumonia. Cardiology evaluation for new onset of SVT.
[2017-12-06] MEDS: Aspirin 81 MG TAB.CHEW PO SCH (16:54)
[2017-12-06] MEDS: amLODIPine 5 MG TABLET PO SCH (16:54)
[2017-12-06] MEDS: Metoprolol XL (24 HR) Succ 25 MG TAB.ER.24H PO SCH (16:54)
[2017-12-06] MEDS: cefTRIAXone 1,000 MG in Water for inj. (sterile) 10 ML IVP SCH (16:55)
[2017-12-06] MEDS: Azithromycin 500 MG in D5% in Water 250 ML IVPB SCH (16:55)
[2017-12-06] MEDS: Fluticasone Propionate Nasal 50 MCG/SPRAY BOTTLE NS SCH (18:14)
[2017-12-06] MEDS: *HR* Heparin 5,000 UNIT/ML VIAL SQ SCH (18:18)
[2017-12-06] MEDS: Ipratropium/Albuterol Neb 3 ML IH SCH ×2 (20:12→23:27)
[2017-12-06] MEDS: Potassium Citrate 10 MEQ TABLET.ER PO SCH (21:44)
[2017-12-06] MEDS: Pyridostigmine Br 60 MG TABLET PO SCH (21:44)
[2017-12-06] MEDS: MethylPREDNISolone 40 MG/ML VIAL IVP SCH (23:40)
[2017-12-07] MEDS: Ipratropium/Albuterol Neb 3 ML IH SCH ×6 (03:12→23:22)
[2017-12-07 04:08] LABS: Basophils % 0.1 %; Hematocrit 37.7 % (37.5-50.1); Immature Granulocytes % 0.4 % (0-4); Immature Platelets 1.7 % (1.1-6.1); Lymphocytes # 0.7 K/mcL (0.6-4.6); Lymphocytes % 6.5 %; Mean Corpuscular HGB Conc 31.8 g/dL (31.6-35.5); Mean Corpuscular Hemoglobin 30.5 pg (28.0-33.3); Mean Corpuscular Volume 95.7 fL (83.0-100.0); Mean Platelet Volume 9.2 fL (9.4-12.4); Monocytes # 0.1 K/mcL (0.0-1.3); Monocytes % 1.4 %; Neutrophils # 9.2 K/mcL (1.6-8.9); Platelet Count 269 K/mcL (140-400); Red Blood Count 3.94 M/mcL (4.19-5.50); Red Cell Distribution Width 13.2 % (11.5-14.5); Segmented Neutrophils % 91.6 %
[2017-12-07 04:18] LABS: Prothrombin Time 10.5 Seconds (9.4-12.1)
[2017-12-07 04:20] LABS: Activated Partial Thrombo Time 22.8 Seconds (26.0-36.0); BUN/Creatinine Ratio 15 (6-26); Blood Urea Nitrogen 19 mg/dL (8-23); Calcium 8.8 mg/dL (8.6-10.3); Carbon Dioxide 27 mEq/L (23-29); Chloride 108 mEq/L (98-107); Chol/HDL Ratio 2.9 (0-4.9); Cholesterol 198 mg/dL (< 200); Glucose 138 mg/dL (70-105); HDL Cholesterol 69 mg/dL (40-59); LDL Cholesterol,Calculated 113 mg/dL (0-99); Magnesium 2.1 mg/dL (1.6-2.6); Osmolality,Calculated 296 (280-300); Phosphorous 3.4 mg/dL (2.7-4.5); Sodium 141 mEq/L (136-145); Triglycerides 78 mg/dL (< 150); eGFR For African Americans > 60 (> 60); eGFR For Non-African Americans 54 (> 60)
[2017-12-07] MEDS: *HR* Heparin 5,000 UNIT/ML VIAL SQ SCH ×2 (05:25→17:44)
--- NOTE | 2017-12-07 09:21 | Cardiology Consult Note ---
Date of Encounter: 12/07/17 Time of Encounter: 09:14 Assessment and Plan (1) SVT (supraventricular tachycardia) Current Visit: Yes Status: Acute patient noted to be in SVT in the ED. Patient had stable BP at that time. Patient converted without intervention. Repeat EKG showed sinus rythym with PACs EKG this mornign is NSR No prior history of arrhythmia, CAD. Trops negative x 4 BNP 363 Patient had Echo on 09/27/17 that showed: LVEF 65%. Mild left ventricular diastolic dysfunction. Normal right ventricular structure and function. No significant valvular dysfunction. No pulmonary hypertension. No evidence for valvular vegetation. Has stress test scheduled on at [facility] was hypokalemic on admission, since repleted. Plan: Cardiology recommended last night to hospitalist to start low dose Metoprolol and baby ASA. Continue 25mg Metoprolol Succinate and 81mg ASA No further intervention needed from cardiology perspective, have patient keep stress test Apt later this week. No need to repeat ECHO at this time. Discussion w patient/family: The assessment and plan as outlined above was discussed with the patient and/or family members who expressed understanding and agreement. All questions were answered. Thank you for involving us in the care of your patient. Please call with any questions. History of Present Illness Consult date: 12/06/16 Requesting physician: Leonardo Wills Consult reason: SVT Chief complaint: Cold sxs History of present illness: Mr. Palacios is a 82 year old male c PMHx of HTN, myastenia Gravis, known lung nodule, CKD, and Kidney stones. Patient reported to [facility] yesterday for cold sxs. While in the ED patient was noted to be in SVT in the ED. Patient had stable BP at that time. Patient converted without intervention. Plan was to give adenosine but per ED documentation patient converted prior to administration. Patient has had no runs since this time. Patient was admitted in September for PNA and as part of that stay had an echo which showed preserved EF. Patient has a stress test scheduled at [facility] for . Patient denies hx of arrhythmia. Patient denies having chest pain at any time. Patient denies palpitations at the time or hx of palpitations. Patient is a never smoker and has no hx of CAD of DM. Past Med Surg Social Fam HX - Past Medical History Medical history: hypertension, kidney stones, other Psychiatric history: no psych history - Past Surgical History Surgical History: no surgical history (Kidney stone extraction, lung biopsy of pulmonary nodule) - Social History Smoking Status: Never smoker Smokeless Tobacco Status: No Alcohol use: none Drug use: none - Family History Father Adopted: No Family Member Ethnicity: Non- Living Status: Hx Family Cardiac Disorders: No Hx Family Respiratory Disorders: Yes (smoker) Hx Family Cancer: Yes (Lung) Hx Family GI Disorders: No Hx Family Endocrine Disorder: No Hx Family Neuromuscular Disorders: No Hx Family Neurologic Disorders: No Hx Family HEENT Disorders: No Hx Family Autoimmune Disorders: Yes (RA) Mother Family Member Ethnicity: Non- Living Status: Hx Family GI Disorders: Yes (Diverticulosis) Brother Family Member Ethnicity: Non- Living Status: Hx Family Endocrine Disorder: Yes (Cirrhosis) Sister Family Member Ethnicity: Non- Living Status: Hx Family Cardiac Disorders: Yes (Aneurysm) Medications and Allergies Aspirin 81 mg PO QPM 08/10/16 [History] Pyridostigmine Br [Mestinon] 60 mg PO TID 08/10/16 [History] Omeprazole [PriLOSEC] 20 mg PO DAILY 09/25/17 [History] predniSONE [PredniSONE] 20 mg PO DAILY 09/25/17 [History] Fluticasone Propionate Nasal [Flonase] 50 mcg NS DAILY #1 bottle 11/21/17 [Rx] Amlodipine Besylate [Amlodipine Besylate] 2.5 mg PO DAILY 12/06/17 [History] 3 Allergy/AdvReac Type Severity Reaction Status Date / Time No Known Allergies Allergy Verified 12/06/17 12:16 All Systems Review: A 10-system review of systems was performed and is negative for pertinent findings except as documented above in the HPI. Physical Examination Vital Signs, Last 4 Hours Temp Pulse Resp BP Pulse Ox 12/07/17 07:25 98.4 F 65 20 165/82 97 12/07/17 05:28 98 F 64 17 137/86 96 General: Conversant, No Apparent Distress HEENT: Atraumatic, Normocephaly, Mucus Membranes Moist Neck: No JVD, Normal carotid pulses Cardiac: Reg Rate and Rhythm, Normal S1 and S2, No Murmur Lungs: Normal Breath Sounds, No Wheeze, Rales, Rhonchi Neuro: Alert and responsive, No focal deficits noted Abdomen: Soft, Non-Tender Skin: No rashes noted on visualized skin Musculoskeletal: No Chest Wall Tenderness Extremities: No Clubbing, No Cyanosis, No Edema, Normal Pulses Results 12/07/17 03:49 12/07/17 03:49 Lab Results 12/06/17 12/07/17 12/07/17 21:36 03:49 03:49 WBC 10.0 Hgb 12.0 L D Hct 37.7 Plt Count 269 INR 1.0 APTT 22.8 L Sodium Potassium Chloride Carbon Dioxide BUN Creatinine Glucose Calcium Magnesium Troponin I < 0.03 12/07/17 12/07/17 03:49 03:49 WBC Hgb Hct Plt Count INR APTT Sodium 141 Potassium 4.0 Chloride 108 H Carbon Dioxide 27 BUN 19 Creatinine 1.28 Glucose 138 H Calcium 8.8 Magnesium 2.1 Troponin I < 0.03 Consult Discharge Plan - Plan Referrals: Sander Ibrahim DO [Primary Care Provider] -
[2017-12-07] MEDS: Potassium Citrate 10 MEQ TABLET.ER PO SCH (10:16)
[2017-12-07] MEDS: amLODIPine 5 MG TABLET PO SCH (10:16)
[2017-12-07] MEDS: Fluticasone Propionate Nasal 50 MCG/SPRAY BOTTLE NS SCH (10:17)
[2017-12-07] MEDS: Metoprolol XL (24 HR) Succ 25 MG TAB.ER.24H PO SCH (10:17)
[2017-12-07] MEDS: Pyridostigmine Br 60 MG TABLET PO SCH ×3 (10:17→22:00)
[2017-12-07] MEDS: MethylPREDNISolone 40 MG/ML VIAL IVP SCH ×2 (10:18→17:46)
--- NOTE | 2017-12-07 11:11 | Electrocardiograph Report ---
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
--- NOTE | 2017-12-07 13:17 | Internal Med Progress Note ---
<Troy Armendariz - Last Filed: 12/07/17 14:23> Date of Encounter: 12/07/17 Time of Encounter: 10:15 - Assessment and plan (1) Pneumonia Current Visit: Yes Status: Acute Assessment and plan: 82M presented with SOB and weakness. SVT in the ED and self-resolved. Recently treated for bronchitis and pneumonia and currently has the cold. Leukocytosis resolved. denies f/v/n/v/cough. SOB improved. Continue with Solu-Medrol 40mg TID. Continue with antibiotics azithromycin and Rocephin. O2 to maintain PO2 > 88% Qualifiers: Pneumonia type: due to unspecified organism Laterality: left Lung location: lower lobe of lung Qualified Code(s): J18.1 - Lobar pneumonia, unspecified organism (2) SVT (supraventricular tachycardia) Current Visit: Yes Status: Acute Assessment and plan: SVT in emergency room that self converted to sinus rhythm. repeat EKG demonstrates sinus rhythm with PACs. Echo on 09/27/17 LVEF 60% with mild L ventricular dysfunction. negative otherwise. No repeat echo needed. Continue low dose BB and aspirin therapy. Follow-up outpatient cardiology (3) Lung mass Current Visit: No Status: Chronic Assessment and plan: Patient had recent lung biopsy at [facility]. He is scheduled to return this for PET scan, stress test and appointment with thoracic surgery (4) Hx of myasthenia gravis Current Visit: No Status: Chronic (5) History of renal calculi Current Visit: No Status: Chronic (6) Ocular myasthenia Current Visit: No Status: Chronic Assessment and plan: Continue home meds. (7) DVT prophylaxis Current Visit: Yes Status: Acute Assessment and plan: Continue Heparin 5000 units BID for DVT prophylaxis. (8) Hypokalemia Current Visit: Yes Status: Acute Assessment and plan: Resolved. - Time Spent With Patient 25 - 35 minutes - Subjective Interval history: 82M PMHx Myasthenia gravis, hypertension, CKD, kidney stones presents with shortness of breath. SVT noted at ER that self-resolved. Patient reports that he has the cold for the last week. CXR demonstrated patchy lingular airspace capacity at left lower lung field. Last echo 09/27/17. Patient reports that he has an enlarging lung nodule on right side and scheduled for PET scan, stress test, and thoracic surgery at [facility] on . He denies f/c/n/v/headache, dizziness, syncope, palpitations, diarrhea, constipation, dysuria, productive cough. Denies experiencing chest pain for this admission. - Constitutional Vitals: Temp Pulse Resp BP Pulse Ox 98.5 F 77 17 156/79 96 12/07/17 10:43 12/07/17 10:43 12/07/17 10:43 12/07/17 10:43 12/07/17 10:43 General appearance: Present: cooperative, A&O X 3, pleasant, no acute distress, answers questions appropriately - Head Head exam: Present: atraumatic - Eye Eye exam: Present: normal appearance - Neck Neck exam general surgery: Present: full ROM - Respiratory Respiratory exam: Present: decreased breath sounds. Absent: accessory muscle use, rales, respiratory distress, wheezes, tachypnea Additional comments: no cough. - Cardiovascular Cardiovascular exam: Present: RRR, +S1, +S2. Absent: diastolic murmur, gallop, rubs, systolic murmur Additional comments: palpable thrill noted. - GI/Abdominal GI/Abdominal exam: Present: normal bowel sounds, no peritoneal signs - Extremities Exam Extremities exam: Present: full ROM, radial pulses palpable and symmetrical. Absent: calf tenderness, cyanotic, pedal edema - Neurological Exam Neurological exam: Present: alert, CN II-XII intact, oriented X3, no focal deficits. Absent: facial droop, speech deficit - Skin Skin exam: Present: dry, intact, warm Internal Medicine: Result - Labs CBC & Chem 7: 12/07/17 03:49 12/07/17 03:49 Labs: Short CBC 12/07/17 Range/Units 03:49 WBC 10.0 (4.3-11.1) K/mcL Hgb 12.0 L D (12.9-16.9) g/dL Hct 37.7 (37.5-50.1) % Plt Count 269 (140-400) K/mcL Neutrophils # 9.2 H (1.6-8.9) K/mcL BMP 12/07/17 03:49 Sodium 141 Potassium 4.0 Chloride 108 H Carbon Dioxide 27 BUN 19 Creatinine 1.28 Glucose 138 H Calcium 8.8 Cardiac Enzymes 12/06/17 12/07/17 Range/Units 21:36 03:49 Troponin I < 0.03 < 0.03 (< 0.04) ng/mL - ABG Interpretation ABG results: PT/INR, D-dimer PT 10.5 Seconds (9.4-12.1) 12/07/17 03:49 - VTE Documentation of Mechanical Device: Intermittent pneumatic compression device Consult Discharge Plan - Plan Referrals: Sander Ibrahim DO [Primary Care Provider] - <Andres Cast - Last Filed: 12/07/17 16:01> Date of Encounter: 12/07/17 - Constitutional Vitals: Temp Pulse Resp BP Pulse Ox 98.0 F 89 19 165/90 98 12/07/17 14:51 12/07/17 14:51 12/07/17 14:51 12/07/17 14:51 12/07/17 14:51 Internal Medicine: Result - Labs CBC & Chem 7: 12/07/17 03:49 12/07/17 03:49 Labs: Short CBC 12/07/17 Range/Units 03:49 WBC 10.0 (4.3-11.1) K/mcL Hgb 12.0 L D (12.9-16.9) g/dL Hct 37.7 (37.5-50.1) % Plt Count 269 (140-400) K/mcL Neutrophils # 9.2 H (1.6-8.9) K/mcL BMP 12/07/17 03:49 Sodium 141 Potassium 4.0 Chloride 108 H Carbon Dioxide 27 BUN 19 Creatinine 1.28 Glucose 138 H Calcium 8.8 Cardiac Enzymes 12/06/17 12/07/17 Range/Units 21:36 03:49 Troponin I < 0.03 < 0.03 (< 0.04) ng/mL - ABG Interpretation ABG results: PT/INR, D-dimer PT 10.5 Seconds (9.4-12.1) 12/07/17 03:49 - Attending Attestation Seen and reviewed at the bedside independently,plan of care discussed with resident physician 82-year-old male admitted for pneumonia and supraventricular tachycardias. He has a medical history of COPD and ocular myasthenia gravis. Feels better, no new complains, cardio eval noted Patient's only concern at my time of eval is how he is going to be discharged to go to his [facility] appointment tomorrow 12/08. Physical exam is unremarkable Labs and Imaging reviewed Continue current mgt,change solumedrol to prednisone a.m Rest as in resident physician's documentation
[2017-12-07] MEDS: Aspirin 81 MG TAB.CHEW PO SCH (17:44)
[2017-12-07] MEDS: Azithromycin 500 MG in D5% in Water 250 ML IVPB SCH (17:44)
[2017-12-07] MEDS: cefTRIAXone 1,000 MG in Water for inj. (sterile) 10 ML IVP SCH (17:45)
[2017-12-08] MEDS: MethylPREDNISolone 40 MG/ML VIAL IVP SCH (00:23)
[2017-12-08] MEDS: Ipratropium/Albuterol Neb 3 ML IH SCH ×3 (03:45→11:28)
[2017-12-08 06:16] LABS: Basophils % 0.1 %; Hemoglobin 11.4 g/dL (12.9-16.9); Immature Granulocytes % 0.5 % (0-4); Lymphocytes # 0.4 K/mcL (0.6-4.6); Lymphocytes % 3.5 %; Mean Corpuscular HGB Conc 31.7 g/dL (31.6-35.5); Mean Corpuscular Volume 94.7 fL (83.0-100.0); Mean Platelet Volume 9.4 fL (9.4-12.4); Monocytes # 0.2 K/mcL (0.0-1.3); Neutrophils # 10.8 K/mcL (1.6-8.9); Platelet Count 227 K/mcL (140-400); Red Cell Distribution Width 13.1 % (11.5-14.5); Segmented Neutrophils % 93.9 %
[2017-12-08] MEDS: *HR* Heparin 5,000 UNIT/ML VIAL SQ SCH (06:18)
[2017-12-08 06:34] LABS: BUN/Creatinine Ratio 21 (6-26); Blood Urea Nitrogen 26 mg/dL (8-23); Calcium 8.9 mg/dL (8.6-10.3); Carbon Dioxide 27 mEq/L (23-29); Chloride 109 mEq/L (98-107); Glucose 162 mg/dL (70-105); Osmolality,Calculated 300 (280-300); Potassium 4.1 mEq/L (3.5-5.1); Sodium 141 mEq/L (136-145); eGFR For African Americans > 60 (> 60); eGFR For Non-African Americans 57 (> 60)
[2017-12-08] MEDS ORDERED: predniSONE 20 MG TABLET PO SCH (08:00)
--- NOTE | 2017-12-08 08:50 | Discharge Summary ---
<Octavio Orozco - Last Filed: 12/08/17 15:08> Date of Encounter: 12/08/17 Time of Encounter: 08:47 - Discharge Diagnosis (1) SVT (supraventricular tachycardia) Priority: Primary Status: Acute (2) Lung mass Priority: Secondary Status: Chronic (3) HTN (hypertension) Priority: Secondary Status: Chronic Qualifiers: Hypertension type: essential hypertension Qualified Code(s): I10 - Essential (primary) hypertension (4) History of renal calculi Priority: Secondary Status: Chronic (5) Hx of myasthenia gravis Priority: Secondary Status: Chronic - Discharge Medications Prescriptions: Amoxicillin/Clavulanate [Augmentin] 875 mg PO BIDWM #10 tablet Metoprolol XL (24 HR) Succ [Toprol Xl] 25 mg PO DAILY #30 tab.er.24h Home Medications: Aspirin 81 mg PO QPM 08/10/16 [History] Pyridostigmine Br [Mestinon] 60 mg PO TID 08/10/16 [History] Omeprazole [PriLOSEC] 20 mg PO DAILY 09/25/17 [History] predniSONE [PredniSONE] 20 mg PO DAILY 09/25/17 [History] Fluticasone Propionate Nasal [Flonase] 50 mcg NS DAILY #1 bottle 11/21/17 [Rx] Amlodipine Besylate 2.5 mg PO DAILY 12/06/17 [History] Amoxicillin/Clavulanate [Augmentin] 875 mg PO BIDWM #10 tablet 12/08/17 [Rx] Metoprolol XL (24 HR) Succ [Toprol Xl] 25 mg PO DAILY #30 tab.er.24h 12/08/17 [ Rx] Allergies/Adverse Reactions: 3 Allergy/AdvReac Type Severity Reaction Status Date / Time No Known Allergies Allergy Verified 12/06/17 12:16 Date of admission: 12/06/17 16:25 Primary care physician: Rufino Roland Consults: 12/06/17 18:30 Consult to Cardiology [CONS] Routine Comment: Consulting Provider: [facility] Reason for Consult: SVT Call Completed: Yes Discharging clinician: Octavio Orozco Anticipated date of discharge: 12/08/17 - Patient Status Disposition: Home, Self-Care Condition: Fair Functional capacity at discharge: independent ambulation Overall status at discharge: patient is progressing back to baseline - Discharge Instructions Instructions: Pneumonia (DC) Follow Up With: [facility] [Provider Group] (Office will call you with your appointment date and time. Approximately in 2-3 weeks will be your appointment) Sander Ibrahim DO [Primary Care Provider] - 12/14/17 1:45 pm () Additional Instructions: Please follow up with your PCP within 1 week of discharge Please establish with cardiology, we will make an appointment Go to your [facility] appointment for evaluation of your lung mass - Diet and Activity Activity: increase activity as tolerated Diet: low fat, low cholesterol Hospital course: Mr. Palacios is a 82 year old male who presented to the emergency department with shortness of breath and chest heaviness. He was found to be in SVT in the ED and was arranged to start adenosine, but converted back to normal sinus rhythm himself. Cardiology was consulted and recommended continuing him on low-dose beta jan and aspirin and did not recommend any further workup. Chest x-ray did demonstrate an opacity in the lingular area and he was started on azithromycin and Rocephin. This morning, he has no complaints of chest pain or shortness of breath and is currently in normal sinus rhythm. He is hemodynamically stable not on any fluids or oxygen. He will be going home on low-dose beta jan per cardiology recommendations, and will also have 5 additional days of Augmentin to complete 7 day course of antibiotics for his pneumonia. Patient does have lung nodule on the right side of his lung and has an appointment at [facility] on which she was adamant to go to, as this also included a preoperative stress test and PET scan. - Time Spent with Patient Total time spent providing and/or coordinating discharge services: Greater than 30 minutes - Constitutional Vitals: Temp Pulse Resp BP Pulse Ox 97.6 F 64 16 158/84 94 12/08/17 06:50 12/08/17 06:50 12/08/17 07:34 12/08/17 06:50 12/08/17 07:34 General appearance: Present: cooperative, pleasant, no acute distress, answers questions appropriately - Head Head exam: Present: atraumatic, normocephalic - Eye Eye exam: Present: PERRL, conjuntiva pink, sclera anicteric - Neck Neck exam general surgery: Present: supple, trachea midline. Absent: lymphadenopathy - Respiratory Respiratory exam: Present: CTAB. Absent: accessory muscle use, rales, rhonchi, wheezes - Cardiovascular Cardiovascular exam: Present: +S1, +S2, tachycardia. Absent: diastolic murmur, gallop, rubs, systolic murmur - GI/Abdominal GI/Abdominal exam: Present: normal bowel sounds, soft, no peritoneal signs. Absent: distended, tenderness - Extremities Exam Extremities exam: Present: warm, radial pulses palpable and symmetrical. Absent : calf tenderness, cyanotic, pedal edema - Neurological Exam Neurological exam: Present: alert, no focal deficits. Absent: facial droop, speech deficit - Skin Skin exam: Present: dry, intact - VTE Documentation of Mechanical Device: Intermittent pneumatic compression device <Naveen Moraes - Last Filed: 12/08/17 18:04> Date of Encounter: 12/08/17 Date of admission: 12/06/17 16:25 Primary care physician: Rufino Roland Consults: 12/06/17 18:30 Consult to Cardiology [CONS] Routine Comment: Consulting Provider: Cardiology Zelda Reason for Consult: SVT Call Completed: Yes Hospital course: Mr. Palacios is a 82 year old male - Time Spent with Patient Total time spent providing and/or coordinating discharge services: - Constitutional Vitals: Temp Pulse Resp BP Pulse Ox 98.2 F 89 16 127/69 98 12/08/17 10:41 12/08/17 10:41 12/08/17 11:28 12/08/17 10:41 12/08/17 11:28 - Attending Attestation I conducted a face to face diagnostic evaluation of this patient and my medical decision-making was reviewed with the Resident Physician, Dr Octavio Orozco. I agree with the documented findings, disposition and treatment plan as described except to the extent set forth below: On exam he is in no acute distress awake alert oriented, speaking in full sentences. Lungs are clear. Plan switch to oral antibiotics and discharge home. Naveen Moraes MD
[2017-12-08] MEDS: amLODIPine 5 MG TABLET PO SCH (09:42)
[2017-12-08] MEDS: Fluticasone Propionate Nasal 50 MCG/SPRAY BOTTLE NS SCH (09:42)
[2017-12-08] MEDS: Pyridostigmine Br 60 MG TABLET PO SCH (09:42)
[2017-12-08] MEDS: Metoprolol XL (24 HR) Succ 25 MG TAB.ER.24H PO SCH (09:42)
[2017-12-08 10:47] VITALS: BP 127/69
== END 2017-12-08 11:55 | disposition home or self-care (01) | DRG 308 ==
LOC: 2ANU 09:47 → EMEROO 09:47 → 2ANU 14:58 → SUATTDRO 16:25
PROVIDERS: ADMIT Internal Medicine; ATTEND Internal Medicine

== ENCOUNTER 2018-08-04 08:49 | Inpatient (IN) ==
[2018-08-04] MEDS ORDERED: Aspirin 325 MG TABLET PO ONE (09:23)
--- NOTE | 2018-08-04 09:27 | Emergency Department Note ---
Disposition Clinical Impression: Pleural effusion Disposition: Admitted As Inpatient Condition: Fair Time of Disposition: 16:41 General Adult HPI - General Chief complaint: ED Shortness of Breath/Dyspnea Stated complaint: Diff Breathing Time Seen by Provider: 08/04/18 08:51 Source: EMS Mode of arrival: EMS Limitations: no limitations Nursing Notes Reviewed: Yes Vital Signs Reviewed: Yes - History of Present Illness HPI Narrative: Patient is an 83-year-old male with a past medical history of CABG, right lung resection, lung cancer, and GI bleed presents to the emergency room in for evaluation of dyspnea that has been going on for 4 days. Patient states he is normally able to Pretty around the house and middle the grass is having difficulty doing those things due to his dyspnea. States he has also had a nonproductive cough. This morning he noticed he was having some 2/10 pressure- like substernal chest pain that is worse with exertion and cough. Pain Scale: 2 - Related Data Home Medications Medication Instructions Recorded Confirmed Acetaminophen/Diphenhydramine 1 tab PO HS PRN 08/04/18 08/04/18 [Percogesic 325-12.5 mg Tablet] Aspirin Enteric Coated [Aspirin EC] 81 mg PO DAILY 08/04/18 08/04/18 Atorvastatin [Lipitor] 40 mg PO HS 08/04/18 08/04/18 Docusate [Colace] 100 mg PO Q48H PRN 08/04/18 08/04/18 Levothyroxine Sodium [Levo-T] 125 mcg PO DAILY 08/04/18 08/04/18 Metoprolol Succinate [Toprol Xl] 25 mg PO DAILY 08/04/18 08/04/18 Multivitamin [One Daily Essential] 1 tab PO DAILY 08/04/18 08/04/18 Pyridostigmine Br [Mestinon] 60 mg PO Q8H 08/04/18 08/04/18 Warfarin [Coumadin] 3 mg PO DAILY 08/04/18 08/04/18 amLODIPine [Norvasc] 2.5 mg PO DAILY 08/04/18 08/04/18 predniSONE [PredniSONE] 10 mg PO DAILY 08/04/18 08/04/18 Allergies Allergy/AdvReac Type Severity Reaction Status Date / Time No Known Allergies Allergy Verified 05/04/18 17:32 All systems ED: reviewed and negative except as stated. Review of Systems: As Per HPI Constitutional: Denies: fever, chills Cardiovascular: Reports: chest pain, dyspnea on exertion. Denies: palpitations Respiratory: Reports: cough, dyspnea. Denies: wheezes, hemoptysis Gastrointestinal: Denies: abdominal pain, nausea, vomiting Musculoskeletal: Denies: back pain Past Medical History - Past Medical History Attestation: Yes The following information was validated with the patient. Medical history: Reports: cancer, GI bleed, hypertension Surgical history: Reports: no surgical history (Kidney stone extraction, lung biopsy of pulmonary nodule) Psychiatric history: Reports: no psych history - Social History Smoking Status: Never smoker Smokeless Tobacco Status: No Alcohol use: Reports: none Drug use: Reports: none Physical Exam CONSTITUTIONAL: A&O X 3, patient is tachypneic and oxygen saturation is 95% on RA, however feels better with 1L NC. HEAD: Normocephalic; atraumatic EYES: PERRL, no scleral icterus NOSE: The nose is normal in appearance without rhinorrhea NECK: No JVD or distended neck veins RESP: Normal chest excursion with respiration; diminished breath sounds on the right; no wheezes, rhonchi, or rales CARD: Tachycardic. Regular rhythm, without murmurs, rub or gallop ABD: Non-distended; non-tender, soft, without rigidity, rebound or guarding,no pulsatile mass CHEST: No pain with palpation SKIN: Normal for age and race; warm and dry without diaphoresis ; no apparent lesions EXTREMITIES: Pulses are 2 plus and equal times 4 extremities, no peripheral edema or calf muscle pain - General Limitations: no limitations General appearance: alert, in no apparent distress Course Course Narrative: Patient presents with dyspnea and chest pain going on for the past week. With a history of CABG in February 2018. His most recent echocardiogram showed an EF of 65% with mild diastolic dysfunction otherwise normal wall motion that was performed in September 2017. Plan at this times to evaluate the patient for ACS given the setting of chest pressure associated dyspnea. He also undergo evaluation for pulmonary embolism a CT scan to evaluate his lungs given a lung resection history. Initial EKG is nonischemic. Patient was tachycardic on arrival however now his vital signs have normalized his heart rate is in the upper 90s is no longer to Take resting in bed comfortably. Receive a full dose of aspirin, however states asymptomatic as far as chest pain at this time. - Reevaluation(s) Reevaluation #1: Patient's CT scan revealed a large pleural effusion and lab work was remarkable for a leukocytosis with neutrophils. Plan at this time is for the patient to be admitted for his pleural effusion which may be secondary to infectious process to be started on broad-spectrum antibiotics including vancomycin and Zosyn. I discussed this plan with the hospitalist they agree to accept the patient. Vital Signs Temperature 98.6 F 08/04/18 08:54 Pulse Rate 104 08/04/18 08:54 Respiratory Rate 20 08/04/18 08:54 Blood Pressure 139/81 08/04/18 08:54 O2 Sat by Pulse Oximetry 98 08/04/18 08:54 Temperature 98.0 F 08/04/18 12:56 Pulse Rate 103 08/04/18 12:56 Respiratory Rate 20 08/04/18 12:56 Blood Pressure 129/69 08/04/18 12:56 O2 Sat by Pulse Oximetry 95 08/04/18 14:20 Oxygen Delivery Oxygen Delivery Room Air Medical Decision Making - Medical Records Medical records reviewed: Yes I reviewed the patient's medical records. - Lab Data Lab results reviewed: Yes I reviewed the patient's lab results. Result diagrams: 08/04/18 09:02 08/04/18 09:02 Lab Results 08/04/18 08/04/18 08/04/18 Range/Units 08:52 09:02 09:02 WBC 22.5 H (4.3-11.1) K/mcL RBC 4.15 L (4.19-5.50) M/mcL Hgb 12.5 L (12.9-16.9) g/dL Hct 38.7 (37.5-50.1) % MCV 93.3 (83.0-100.0) fL MCH 30.1 (28.0-33.3) pg MCHC 32.3 (31.6-35.5) g/dL RDW 13.7 (11.5-14.5) % Plt Count 316 (140-400) K/mcL MPV 8.9 L (9.4-12.4) fL Immature Gran % 0.7 (0-4) % Seg Neutrophils % 72.5 % Lymphocytes % 6.5 % Monocytes % 7.5 % Eosinophils % 12.4 % Basophils % 0.4 % Neutrophils # 16.3 H (1.6-8.9) K/mcL Lymphocytes # 1.5 (0.6-4.6) K/mcL Monocytes # 1.7 H (0.0-1.3) K/mcL Eosinophils # 2.8 H (0.0-0.6) K/mcL Basophils # 0.1 (0.0-0.2) K/mcL Platelet Estimate Normal (Normal) PT (9.4-12.1) Seconds INR APTT (26.0-36.0) Seconds D-Dimer (0-500) ng/mLFEU Sodium 138 (136-145) mEq/L Potassium 4.0 (3.5-5.1) mEq/L Chloride 105 (98-107) mEq/L Carbon Dioxide 28 (23-29) mEq/L BUN 19 (8-23) mg/dL Creatinine 1.37 H (0.70-1.30) mg/dL Est GFR ( Amer) > 60 (> 60) Est GFR (Non-Af Amer) 50 L (> 60) BUN/Creatinine Ratio 14 (6-26) Glucose 125 H (70-105) mg/dL Calculated Osmolality 290 (280-300) Calcium 8.7 (8.6-10.3) mg/dL Total Bilirubin 1.1 H (0.3-1.0) mg/dL Direct Bilirubin 0.2 (0.0-0.2) mg/dL Indirect Bilirubin 0.9 (0.0-1.2) mg/dL AST 12 L (13-39) Units/L ALT 13 (7-52) Units/L Alkaline Phosphatase 62 (34-104) Units/L Troponin I < 0.03 (< 0.04) ng/mL B-Natriuretic Peptide (Less than 100) pg/mL Serum Total Protein 6.0 L (6.4-8.9) g/dL Albumin 3.1 L (3.5-5.7) g/dL Globulin 2.9 (2.4-3.5) g/dL Albumin/Globulin Ratio 1.1 (1.1-2.2) Lipase 12 (11-82) Units/L 08/04/18 08/04/18 Range/Units 09:11 09:11 WBC (4.3-11.1) K/mcL RBC (4.19-5.50) M/mcL Hgb (12.9-16.9) g/dL Hct (37.5-50.1) % MCV (83.0-100.0) fL MCH (28.0-33.3) pg MCHC (31.6-35.5) g/dL RDW (11.5-14.5) % Plt Count (140-400) K/mcL MPV (9.4-12.4) fL Immature Gran % (0-4) % Seg Neutrophils % % Lymphocytes % % Monocytes % % Eosinophils % % Basophils % % Neutrophils # (1.6-8.9) K/mcL Lymphocytes # (0.6-4.6) K/mcL Monocytes # (0.0-1.3) K/mcL Eosinophils # (0.0-0.6) K/mcL Basophils # (0.0-0.2) K/mcL Platelet Estimate (Normal) PT 41.0 H (9.4-12.1) Seconds INR 3.6 APTT 40.0 H (26.0-36.0) Seconds D-Dimer 837 H (0-500) ng/mLFEU Sodium (136-145) mEq/L Potassium (3.5-5.1) mEq/L Chloride (98-107) mEq/L Carbon Dioxide (23-29) mEq/L BUN (8-23) mg/dL Creatinine (0.70-1.30) mg/dL Est GFR ( Amer) (> 60) Est GFR (Non-Af Amer) (> 60) BUN/Creatinine Ratio (6-26) Glucose (70-105) mg/dL Calculated Osmolality (280-300) Calcium (8.6-10.3) mg/dL Total Bilirubin (0.3-1.0) mg/dL Direct Bilirubin (0.0-0.2) mg/dL Indirect Bilirubin (0.0-1.2) mg/dL AST (13-39) Units/L ALT (7-52) Units/L Alkaline Phosphatase (34-104) Units/L Troponin I (< 0.04) ng/mL B-Natriuretic Peptide 100 H (Less than 100) pg/mL Serum Total Protein (6.4-8.9) g/dL Albumin (3.5-5.7) g/dL Globulin (2.4-3.5) g/dL Albumin/Globulin Ratio (1.1-2.2) Lipase (11-82) Units/L - Radiology Data Radiology results reviewed: Yes I reviewed the patient's radiology results. Chest X-Ray 08/04/18 08:52 IMPRESSION: Large right pleural effusion. CABG. D/ / 08/04/2018 10:04:28 Colin Bowden MD / praveen Interpreting Provider: Cloin Bowden MD Chest CTA 08/04/18 09:57 IMPRESSION: 1. Large right pleural effusion with diffuse pleural nodularity and near complete collapse of the right lung. 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 2. No evidence of pulmonary embolism. D/ / Keith Quesada MD / Keith Quesada MD Interpreting Provider: Keith Quesada MD - EKG Data EKG #1 EKG attestation: Yes I reviewed and interpreted this EKG. EKG results narrative: EKG done at 9:22 shows sinus tachycardia at a rate of 99 bpm. Normal axis. Intervals within normal limits. No signs of ST elevation, ST depression or Q waves present. Patient does have multiple PVCs.
[2018-08-04 09:33] LABS: Basophils # 0.1 K/mcL (0.0-0.2); Basophils % 0.4 %; Eosinophils # 2.8 K/mcL (0.0-0.6); Eosinophils % 12.4 %; Hematocrit 38.7 % (37.5-50.1); Hemoglobin 12.5 g/dL (12.9-16.9); Immature Granulocytes % 0.7 % (0-4); Lymphocytes # 1.5 K/mcL (0.6-4.6); Lymphocytes % 6.5 %; Mean Corpuscular HGB Conc 32.3 g/dL (31.6-35.5); Mean Corpuscular Hemoglobin 30.1 pg (28.0-33.3); Mean Corpuscular Volume 93.3 fL (83.0-100.0); Mean Platelet Volume 8.9 fL (9.4-12.4); Monocytes # 1.7 K/mcL (0.0-1.3); Monocytes % 7.5 %; Neutrophils # 16.3 K/mcL (1.6-8.9); Platelet Count 316 K/mcL (140-400); Red Blood Count 4.15 M/mcL (4.19-5.50); Red Cell Distribution Width 13.7 % (11.5-14.5); Segmented Neutrophils % 72.5 %
[2018-08-04 09:41] LABS: INR 3.6
[2018-08-04 09:42] LABS: Albumin 3.1 g/dL (3.5-5.7); Albumin/Globulin Ratio 1.1 (1.1-2.2); Bilirubin,Direct 0.2 mg/dL (0.0-0.2); Bilirubin,Indirect 0.9 mg/dL (0.0-1.2); Bilirubin,Total 1.1 mg/dL (0.3-1.0); Globulin 2.9 g/dL (2.4-3.5)
[2018-08-04 09:44] LABS: BUN/Creatinine Ratio 14 (6-26); Blood Urea Nitrogen 19 mg/dL (8-23); Calcium 8.7 mg/dL (8.6-10.3); Carbon Dioxide 28 mEq/L (23-29); Chloride 105 mEq/L (98-107); Glucose 125 mg/dL (70-105); Osmolality,Calculated 290 (280-300); Sodium 138 mEq/L (136-145); Troponin I < 0.03 ng/mL (< 0.04); eGFR For Non-African Americans 50 (> 60)
[2018-08-04 09:46] LABS: Platelet Estimate Normal (Normal)
[2018-08-04] MEDS ORDERED: Isovue-370 500 ML INFUS..BTL IV ONE (09:57)
--- NOTE | 2018-08-04 11:07 | Emergency Department Note ---
Disposition Clinical Impression: Pleural effusion Disposition: Admitted As Inpatient Referrals: Sander Ibrahim DO [Primary Care Provider] - General Adult HPI - General Chief complaint: ED Shortness of Breath/Dyspnea Stated complaint: Diff Breathing Time Seen by Provider: 08/04/18 08:51 Source: EMS Mode of arrival: EMS Limitations: no limitations - History of Present Illness Pain Scale: 2 - Related Data Home Medications Medication Instructions Recorded Confirmed Acetaminophen/Diphenhydramine 1 tab PO HS PRN 08/04/18 08/04/18 [Percogesic 325-12.5 mg Tablet] Aspirin Enteric Coated [Aspirin EC] 81 mg PO DAILY 08/04/18 08/04/18 Atorvastatin [Lipitor] 40 mg PO HS 08/04/18 08/04/18 Docusate [Colace] 100 mg PO Q48H PRN 08/04/18 08/04/18 Levothyroxine Sodium [Levo-T] 125 mcg PO DAILY 08/04/18 08/04/18 Metoprolol Succinate [Toprol Xl] 25 mg PO DAILY 08/04/18 08/04/18 Multivitamin [One Daily Essential] 1 tab PO DAILY 08/04/18 08/04/18 Pyridostigmine Br [Mestinon] 60 mg PO Q8H 08/04/18 08/04/18 Warfarin [Coumadin] 3 mg PO DAILY 08/04/18 08/04/18 amLODIPine [Norvasc] 2.5 mg PO DAILY 08/04/18 08/04/18 predniSONE [PredniSONE] 10 mg PO DAILY 08/04/18 08/04/18 Allergies Allergy/AdvReac Type Severity Reaction Status Date / Time No Known Allergies Allergy Verified 05/04/18 17:32 Constitutional: Denies: fever, chills Cardiovascular: Reports: chest pain, dyspnea on exertion. Denies: palpitations Respiratory: Reports: cough, dyspnea. Denies: wheezes, hemoptysis Gastrointestinal: Denies: abdominal pain, nausea, vomiting Musculoskeletal: Denies: back pain Past Medical History - Past Medical History Medical history: Reports: cancer, GI bleed, hypertension Surgical history: Reports: no surgical history (Kidney stone extraction, lung biopsy of pulmonary nodule) Psychiatric history: Reports: no psych history - Social History Smoking Status: Never smoker Smokeless Tobacco Status: No Alcohol use: Reports: none Drug use: Reports: none Physical Exam - General Limitations: no limitations General appearance: alert, in no apparent distress Course Vital Signs Temperature 98.6 F 08/04/18 08:54 Pulse Rate 104 08/04/18 08:54 Respiratory Rate 20 08/04/18 08:54 Blood Pressure 139/81 08/04/18 08:54 O2 Sat by Pulse Oximetry 98 08/04/18 08:54 Temperature 98.6 F 08/04/18 08:54 Pulse Rate 104 08/04/18 08:54 Respiratory Rate 20 08/04/18 08:54 Blood Pressure 139/81 08/04/18 08:54 O2 Sat by Pulse Oximetry 98 08/04/18 08:54 Oxygen Delivery Oxygen Delivery Nasal Cannula Medical Decision Making - Lab Data Result diagrams: 08/04/18 09:02 08/04/18 09:02 Lab Results 08/04/18 08/04/18 08/04/18 Range/Units 08:52 09:02 09:02 WBC 22.5 H (4.3-11.1) K/mcL RBC 4.15 L (4.19-5.50) M/mcL Hgb 12.5 L (12.9-16.9) g/dL Hct 38.7 (37.5-50.1) % MCV 93.3 (83.0-100.0) fL MCH 30.1 (28.0-33.3) pg MCHC 32.3 (31.6-35.5) g/dL RDW 13.7 (11.5-14.5) % Plt Count 316 (140-400) K/mcL MPV 8.9 L (9.4-12.4) fL Immature Gran % 0.7 (0-4) % Seg Neutrophils % 72.5 % Lymphocytes % 6.5 % Monocytes % 7.5 % Eosinophils % 12.4 % Basophils % 0.4 % Neutrophils # 16.3 H (1.6-8.9) K/mcL Lymphocytes # 1.5 (0.6-4.6) K/mcL Monocytes # 1.7 H (0.0-1.3) K/mcL Eosinophils # 2.8 H (0.0-0.6) K/mcL Basophils # 0.1 (0.0-0.2) K/mcL Platelet Estimate Normal (Normal) PT (9.4-12.1) Seconds INR APTT (26.0-36.0) Seconds D-Dimer (0-500) ng/mLFEU Sodium 138 (136-145) mEq/L Potassium 4.0 (3.5-5.1) mEq/L Chloride 105 (98-107) mEq/L Carbon Dioxide 28 (23-29) mEq/L BUN 19 (8-23) mg/dL Creatinine 1.37 H (0.70-1.30) mg/dL Est GFR ( Amer) > 60 (> 60) Est GFR (Non-Af Amer) 50 L (> 60) BUN/Creatinine Ratio 14 (6-26) Glucose 125 H (70-105) mg/dL Calculated Osmolality 290 (280-300) Calcium 8.7 (8.6-10.3) mg/dL Total Bilirubin 1.1 H (0.3-1.0) mg/dL Direct Bilirubin 0.2 (0.0-0.2) mg/dL Indirect Bilirubin 0.9 (0.0-1.2) mg/dL AST 12 L (13-39) Units/L ALT 13 (7-52) Units/L Alkaline Phosphatase 62 (34-104) Units/L Troponin I < 0.03 (< 0.04) ng/mL B-Natriuretic Peptide (Less than 100) pg/mL Serum Total Protein 6.0 L (6.4-8.9) g/dL Albumin 3.1 L (3.5-5.7) g/dL Globulin 2.9 (2.4-3.5) g/dL Albumin/Globulin Ratio 1.1 (1.1-2.2) Lipase 12 (11-82) Units/L 08/04/18 08/04/18 Range/Units 09:11 09:11 WBC (4.3-11.1) K/mcL RBC (4.19-5.50) M/mcL Hgb (12.9-16.9) g/dL Hct (37.5-50.1) % MCV (83.0-100.0) fL MCH (28.0-33.3) pg MCHC (31.6-35.5) g/dL RDW (11.5-14.5) % Plt Count (140-400) K/mcL MPV (9.4-12.4) fL Immature Gran % (0-4) % Seg Neutrophils % % Lymphocytes % % Monocytes % % Eosinophils % % Basophils % % Neutrophils # (1.6-8.9) K/mcL Lymphocytes # (0.6-4.6) K/mcL Monocytes # (0.0-1.3) K/mcL Eosinophils # (0.0-0.6) K/mcL Basophils # (0.0-0.2) K/mcL Platelet Estimate (Normal) PT 41.0 H (9.4-12.1) Seconds INR 3.6 APTT 40.0 H (26.0-36.0) Seconds D-Dimer 837 H (0-500) ng/mLFEU Sodium (136-145) mEq/L Potassium (3.5-5.1) mEq/L Chloride (98-107) mEq/L Carbon Dioxide (23-29) mEq/L BUN (8-23) mg/dL Creatinine (0.70-1.30) mg/dL Est GFR ( Amer) (> 60) Est GFR (Non-Af Amer) (> 60) BUN/Creatinine Ratio (6-26) Glucose (70-105) mg/dL Calculated Osmolality (280-300) Calcium (8.6-10.3) mg/dL Total Bilirubin (0.3-1.0) mg/dL Direct Bilirubin (0.0-0.2) mg/dL Indirect Bilirubin (0.0-1.2) mg/dL AST (13-39) Units/L ALT (7-52) Units/L Alkaline Phosphatase (34-104) Units/L Troponin I (< 0.04) ng/mL B-Natriuretic Peptide 100 H (Less than 100) pg/mL Serum Total Protein (6.4-8.9) g/dL Albumin (3.5-5.7) g/dL Globulin (2.4-3.5) g/dL Albumin/Globulin Ratio (1.1-2.2) Lipase (11-82) Units/L Attestation Statement - Attestation Attestation: I examined this patient and my medical decision-making was reviewed with the Resident Physician. I agree with the documented findings, disposition and treatment plan as described except to the extent set forth below. 83 year old male presents to the ED with complaints of BRANDEN and had a right lower lobe lung resection in the earlier part of the year and is tahcypniec but not hypoxic at bedside. Sulema CXR shows a pleural effusion to the Right lower lung and he has an elevated D-dimer so we will obtain a CTA chest to rule out PE. Sulema will be admitted to the medicine service
[2018-08-04] MEDS ORDERED: Piperacillin/Tazobactam 3.375 GM in 0.9 % Sodium Chloride Mini Bag 100 ML IVPB ONE (11:38)
[2018-08-04] MEDS ORDERED: Naloxone 0.4 MG/ML INJ IVP PRN (13:12)
--- NOTE | 2018-08-04 13:24 | Internal Med History&Physical ---
<Alejandro James S - Last Filed: 08/04/18 15:11> Date of Encounter: 08/04/18 Time of Encounter: 13:15 Internal Medicine - H&P: HPI Chief complaint: "SOB" Admitted From: Home Plans for Post Hospital Care: Home History of present illness: Mr. Palacios is a 83 year old male with PMH of Myasthenia gravis, HTN, CAD s/p CABG 02/2018, hypothyroidsim, lung cancer, diverticulosis, CHF NYHA class IV, HDL. He presented from home after increasing SOB since Wednesday. He states that today got really bad so he decided to come into the hospital to be evaluated. He saw his [facility]ER and she gave him cough drops, however, this didn't help him. At baseline he is SOB at rest over the last few weeks. He isn't very active. Of note he had a CABG in 02/2018 with triple bypass. The pt has been having increasing sputum production. Denies fevers, chills, weight loss, N/V/D, abd pain. In the ER the pt was given a one time dose of Vancomycin and Zosyn. -CXR showed a large right pleural effusion, s/p CABG -pt had a (+) d-dimer so CT scan was done which showed large right pleural effusion with diffuse nodularity and near complete collapse of right lung; pleural metastatic dz -troponin (-) Past Med Surg Social Fam HX - Past Medical History Medical history: cancer, GI bleed, hypertension Additional medical history: myasthenia gravis. Lung CA Psychiatric history: no psych history - Past Surgical History Surgical History: no surgical history (Kidney stone extraction, lung biopsy of pulmonary nodule) Additional surgical history: kidney stones removed. partial lung removed. Heart Cath - Social History Smoking Status: Never smoker Smokeless Tobacco Status: No Alcohol use: none Drug use: none - Family History Father Adopted: No Family Member Ethnicity: Non- Living Status: Hx Family Cardiac Disorders: No Hx Family Respiratory Disorders: Yes (smoker) Hx Family Cancer: Yes (Lung) Hx Family GI Disorders: No Hx Family Endocrine Disorder: No Hx Family Neuromuscular Disorders: No Hx Family Neurologic Disorders: No Hx Family HEENT Disorders: No Hx Family Autoimmune Disorders: Yes (RA) Mother Family Member Ethnicity: Non- Living Status: Hx Family GI Disorders: Yes (Diverticulosis) Brother Family Member Ethnicity: Non- Living Status: Hx Family Endocrine Disorder: Yes (Cirrhosis) Sister Family Member Ethnicity: Non- Living Status: Hx Family Cardiac Disorders: Yes (Aneurysm) Internal Medicine - H&P: Meds Acetaminophen/Diphenhydramine [Percogesic 325-12.5 mg Tablet] 1 tab PO HS PRN [History] Aspirin Enteric Coated [Aspirin EC] 81 mg PO DAILY 08/04/18 [History] Atorvastatin [Lipitor] 40 mg PO HS 08/04/18 [History] Docusate [Colace] 100 mg PO Q48H PRN 08/04/18 [History] Levothyroxine Sodium [Levo-T] 125 mcg PO DAILY 08/04/18 [History] Metoprolol Succinate [Toprol Xl] 25 mg PO DAILY 08/04/18 [History] Multivitamin [One Daily Essential] 1 tab PO DAILY 08/04/18 [History] Pyridostigmine Br [Mestinon] 60 mg PO Q8H 08/04/18 [History] Warfarin [Coumadin] 3 mg PO DAILY 08/04/18 [History] amLODIPine [Norvasc] 2.5 mg PO DAILY 08/04/18 [History] predniSONE [PredniSONE] 10 mg PO DAILY 08/04/18 [History] 3 Allergy/AdvReac Type Severity Reaction Status Date / Time No Known Allergies Allergy Verified 05/04/18 17:32 All Systems PM: A 10-system review of systems was performed and is negative for pertinent findings except as documented above in the HPI. - Constitutional Constitutional: weakness, no fever(s), no falls, no lethargy - Cardiovascular Cardiovascular ROS IM: dyspnea, dyspnea on exertion, no chest pain, no edema, no orthopnea, no palpitations - Respiratory Respiratory: cough, dyspnea on exertion - Gastrointestinal Gastrointestinal: no abdominal pain, no diarrhea, no nausea - Musculoskeletal Musculoskeletal ROS IM: no arthralgias, no muscle weakness - Integumentary Integumentary IM: no erythema, no rash - Neurological Neurological ROS: no dizziness, no frequent falls, no tingling - Hematologic/Lymphatic Hematologic/Lymphatic: easy bruising - Constitutional Vitals: Temp Pulse Resp BP Pulse Ox 98.0 F 103 20 129/69 92 08/04/18 12:56 08/04/18 12:56 08/04/18 12:56 08/04/18 12:56 08/04/18 12:56 Exam: general - NAD, AOx3, cooperative cardio - s1s2 CTA tacycardia, no MRG lungs - decreased breath sounds, no wheeze/rhonchi abd - NTND, no rebound or guarding skin - no ulcer, no rash extremities - no edema Internal Med - H&P Results - Labs CBC & Chem 7: 08/04/18 09:02 08/04/18 09:02 - Assessment and plan (1) Acute respiratory failure with hypoxia Current Visit: Yes Status: Acute Assessment and plan: Pt 92% on 3L O2, doesn't use home oxygen -CXR showed pleural effusion on right, CTA showed large right pleural effusion with diffuse nodularity and near complete collapse of right lung -pleural effusion vs infxn in etiology Plan: -consult pulmonology -keep O2 >92% -monitor O2 sat -check PT/INR in the AM , may need thoracentesis (2) Sepsis Current Visit: Yes Status: Acute Assessment and plan: Meets sepsis criteria -HR 104, WBC 22.5, RR 20 -source of infxn most likely pleural effusion seen on CXR and CTA Plan: -check lactic acid -blood cultures pending -vancomycin pharmacy to dose, pipercillin tazobactam q12hr -sputum cultures pending -check CBC and CMP in AM -will hold off on fluids for now due to pleural effusion Qualifiers: Sepsis type: sepsis due to unspecified organism Qualified Code(s): A41.9 - Sepsis, unspecified organism (3) Pleural effusion Current Visit: Yes Status: Acute Assessment and plan: See plan as above for sepsis. Quite large. Check PT/INR in the AM in case respiratory feels this should be drained (4) HTN (hypertension) Current Visit: No Status: Chronic Assessment and plan: BP 139/81 -adequate control -on Norvasc, Toprol , will continue these home meds Qualifiers: Hypertension type: essential hypertension Qualified Code(s): I10 - Essential (primary) hypertension (5) Hx of myasthenia gravis Current Visit: No Status: Chronic Assessment and plan: On pyridostigamine (6) Lung cancer Current Visit: No Status: Acute Assessment and plan: Has hx of squamous cell carcinoma of the lung, is s/p wedge resection -CT showed pleural metastatic dz -consult pulmonology Qualifiers: Laterality: right Lung location: unspecified part of lung Qualified Code( s): C34.91 - Malignant neoplasm of unspecified part of right bronchus or lung (7) DVT prophylaxis Current Visit: Yes Status: Acute Assessment and plan: On Coumadin (8) Congestive heart failure Current Visit: Yes Status: Acute Assessment and plan: NYHA class IV -acute exacerbation vs infection Last ECHO 01/08 LVEF 65%. Mild left ventricular diastolic dysfunction BNP 100 Troponin <0.03 Plan: -ECHO pending -continue toprol, lipitor, asa -lasix 40mg BID -strict I&O -cardiac diet -fluid restriction 1.5 L Qualifiers: Heart failure type: diastolic Heart failure chronicity: acute on chronic Qualified Code(s): I50.33 - Acute on chronic diastolic (congestive) heart failure (9) Hypothyroidism Current Visit: No Status: Chronic Assessment and plan: On Synthroid Qualifiers: Hypothyroidism type: unspecified Qualified Code(s): E03.9 - Hypothyroidism , unspecified (10) Supratherapeutic INR Current Visit: Yes Status: Acute Assessment and plan: Takes coumadin 3mg PO daily PT 3.6, INR 41 -denies bleeding from anywhere Plan: -hold coumadin -PT/INR in AM - Time Spent With Patient Total time spent is greater than 50% in coordination of care (as documented) at patient's floor/unit and/or counseling patient: less than 15 minutes <Fide Ambrose - Last Filed: 08/04/18 18:33> Date of Encounter: 08/04/18 Internal Medicine - H&P: HPI History of present illness: Mr. Palacios is a 83 year old male All Systems PM: A 10-system review of systems was performed and is negative for pertinent findings except as documented above in the HPI. - Constitutional Vitals: Temp Pulse Resp BP Pulse Ox 98.0 F 103 20 129/69 95 08/04/18 12:56 08/04/18 12:56 08/04/18 12:56 08/04/18 12:56 08/04/18 14:20 Internal Med - H&P Results - Labs CBC & Chem 7: 08/04/18 09:02 08/04/18 09:02 - Assessment and plan (1) HTN (hypertension) Current Visit: No Status: Chronic Qualifiers: Hypertension type: essential hypertension Qualified Code(s): I10 - Essential (primary) hypertension (2) Hx of myasthenia gravis Current Visit: No Status: Chronic (3) Lung cancer Current Visit: No Status: Acute Qualifiers: Laterality: right Lung location: unspecified part of lung Qualified Code( s): C34.91 - Malignant neoplasm of unspecified part of right bronchus or lung (4) DVT prophylaxis Current Visit: Yes Status: Acute (5) Pleural effusion Current Visit: Yes Status: Acute (6) Sepsis Current Visit: Yes Status: Acute Qualifiers: Sepsis type: sepsis due to unspecified organism Qualified Code(s): A41.9 - Sepsis, unspecified organism (7) Acute respiratory failure with hypoxia Current Visit: Yes Status: Acute (8) Congestive heart failure Current Visit: Yes Status: Acute Qualifiers: Heart failure type: diastolic Heart failure chronicity: acute on chronic Qualified Code(s): I50.33 - Acute on chronic diastolic (congestive) heart failure (9) Hypothyroidism Current Visit: No Status: Chronic Qualifiers: Hypothyroidism type: unspecified Qualified Code(s): E03.9 - Hypothyroidism , unspecified (10) Supratherapeutic INR Current Visit: Yes Status: Acute - Time Spent With Patient Total time spent is greater than 50% in coordination of care (as documented) at patient's floor/unit and/or counseling patient: - Attending Attestation I examined this patient and my medical decision-making was reviewed with the Resident Physician. I agree with the documented findings, disposition and treatment plan as described except to the extent set forth below. 83 year old male presents in acute respiratory failure. He has history lung cancer status-post partial right lung resection and myasthenia gravis. Found to have large pleural effusion of right lung with likely metastatic disease. Family at bedside states that patient is taking coumadin for atrial fibrillation. We do not have these in our records since last admission on 2017. This may be available from recent [facility] hospitalizations. Will request [facility] records. He has supratherapeutic INR. On exam, he does not appear fluid overloaded, he does have decreased breath sounds in right lung field. He is requiring 3 L O2. Pulmonology has been consulted, and plan is for thoracentesis. Vitamin K to reverse INR for procedure tomorrow.
[2018-08-04] MEDS ORDERED: NON-FORMULARY MEDICATION 1 EACH EACH (Acetaminophen/Diphenhydramine [Percogesic 325-12.5 M PO PRN (13:50)
--- NOTE | 2018-08-04 15:35 | Electrocardiograph Report ---
[address] [place], [place] [address] Test Date: 2018-08-04 Pat Name: Nathanael Palacios Department: [id number] Room: 2A11 Gender: M Sliver Chopper: : 1935 Requested By: Medina Guillen Order Number: [id number] Reading MD: Britt Steen Measurements Intervals [place] Rate: 105 P: 64 MN: 206 QRS: -23 QRSD: 105 T: 144 QT: 341 QTc: 451 Interpretive Statements Sinus tachycardia Ventricular bigeminy LVH with secondary repolarization abnormality Left axis deviation Electronically Signed On 08-04-2018 15:33:40 EDT by Britt Steen
[2018-08-04] MEDS ORDERED: Acetaminophen 325 MG TABLET PO PRN (15:56)
--- NOTE | 2018-08-04 15:59 | Pulmonology Consult Note ---
Date of Encounter: 08/04/18 Time of Encounter: 15:55 Assessment and Plan (1) Pleural effusion Current Visit: Yes Status: Acute Patient has a large right-sided pleural effusion and there is evidence of pleural-based lesions which may be indicative of either primary neoplastic process or metastatic disease. He is clearly at risk for both. Alternatively this could represent heart failure think that is very unlikely as he does not seem to be particularly volume overloaded and the unilateral nature along with the rapidity of the symptoms favor against this is the diagnosis. Possibly but also considered very unlikely this could be a parapneumonic process related to to pneumonia again I think that this is very unlikely Patient currently has a supratherapeutic INR and is in no acute distress once INR is corrected we can do diagnostic/therapeutic thoracentesis this can likely be done tomorrow Based upon the rapidity of recurrence and diagnostic fluid analysis Pleurx catheter could also be offered the patient I suspect that this is likely will turnaround engineer to be a attractive therapeutic option for him. I updated the patient and his and son at bedside and they are in agreement with plan as outlined (2) Acute respiratory failure with hypoxia Current Visit: Yes Status: Acute This is secondary to VQ mismatching from pleural effusion and possibly underlying pneumonia. Patient currently stable on 3 L nasal cannula O2 continue to wean FiO2 to keep saturation around 92% (3) Pneumonia Current Visit: No Status: Acute Patient presented with leukocytosis and is tachycardic there is concern about underlying infectious process and clearly heifers approximation of a pulmonic source would be most likely he has been treated empirically with coverage for hospital associated organisms by my standpoint I do not feel that this degree of antimicrobial coverage is absently necessary and I think that it would be reasonable to start with community-acquired treatment. One caution would be antibiotic selection in this patient with underlying myasthenia is vancomycin has been associated with the precipitating crisis to exclude the need for MRSA coverage I recommend doing a formal MRSA swab of his nares if negative then certainly I would stop vancomycin and again I do not feel that based upon his profile that he would absolutely benefit from empiric MRSA coverage Recommend sputum and blood cultures are moderately obtain urine Legionella and strep pneumo antigen should be obtained could also send a respiratory infection panel (PCR) Qualifiers: Pneumonia type: due to unspecified organism Laterality: left Lung location: lower lobe of lung Qualified Code(s): J18.1 - Lobar pneumonia, unspecified organism (4) Hx of myasthenia gravis Current Visit: No Status: Chronic No history of myasthenia crisis again it every medication should be evaluated for possibility of precipitating crisis medications that are typically used for cardiac disease such as magnesium in the inpatient setting can be problematic consultation with pharmacist and/or neurologist for further guidance is recommended (5) Lung cancer Current Visit: No Status: Acute Patient has a lung cancer history status post resection is possible that this is a manifestation of recurrence although it is somewhat puzzling that if he had a normal CT scan of the chest with the last 3 months this is seemingly less likely but clearly impossible. Recommend obtaining outside hospital records including disks and oncology reports from [facility] Qualifiers: Laterality: right Lung location: unspecified part of lung Qualified Code( s): C34.91 - Malignant neoplasm of unspecified part of right bronchus or lung (6) Congestive heart failure Current Visit: Yes Status: Acute Appears euvolemic on examination of the standpoint of heart failure again I do not think that the cause of his this pleural effusion is related to hydrostatic pulmonary edema Qualifiers: Heart failure type: diastolic Heart failure chronicity: acute on chronic Qualified Code(s): I50.33 - Acute on chronic diastolic (congestive) heart failure (7) Supratherapeutic INR Current Visit: Yes Status: Acute I recommend administration of vitamin K for reversal of INR recheck INR in the morning and once the INR is less than 1.8 can proceed with thoracentesis No acute indication for rapid reversal with agent such as FFP etc. Clearly the patient will be at slightly increased risk of stroke during this time Thank you for this consultation pulmonary will continue to follow History of Present Illness Consult date: 08/04/18 Requesting physician: Alejandro James Reason for consult: abnormal CXR/CT, other Chief complaint: Shortness of breath History of present illness: This is a pleasant 83-year-old gentleman with past medical history of myasthenia gravis and primary lung malignancy status post resection with the last year at [facility]. He presented with symptoms of worsening dyspnea that had been progressively worse since Wednesday. He denies any fevers or chills during this time and his had an occasional cough. Symptoms became so severe that he will came to the emergency department were a CT angiogram was performed which was notable for a large right-sided pleural effusion essentially complete opacification of the right hemithorax with some mediastinal shift to the left. The patient denies any recent weight loss hemoptysis night sweats or chills. He has been following with an oncologist at [facility] and per patient's statement at 3 months ago he had a CT scan done of the chest as part of surveillance which was without any abnormality. 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 There is a exposed to among other things beryllium and asbestos. He has a history of heart disease including atrial fibrillation on chronic warfarin therapy his INR on admission was 3.8. No oxygen requirement at baseline currently he is saturating in the mid 90s on 3 L nasal cannula. Past Med Surg Social Fam HX - Past Medical History Medical history: cancer, GI bleed, hypertension Additional medical history: myasthenia gravis. Lung CA Psychiatric history: no psych history - Past Surgical History Surgical History: no surgical history (Kidney stone extraction, lung biopsy of pulmonary nodule) Additional surgical history: kidney stones removed. partial lung removed. Heart Cath - Social History Smoking Status: Never smoker Smokeless Tobacco Status: No Alcohol use: none Drug use: none - Family History Father Adopted: No Family Member Ethnicity: Non- Living Status: Hx Family Cardiac Disorders: No Hx Family Respiratory Disorders: Yes (smoker) Hx Family Cancer: Yes (Lung) Hx Family GI Disorders: No Hx Family Endocrine Disorder: No Hx Family Neuromuscular Disorders: No Hx Family Neurologic Disorders: No Hx Family HEENT Disorders: No Hx Family Autoimmune Disorders: Yes (RA) Mother Family Member Ethnicity: Non- Living Status: Hx Family GI Disorders: Yes (Diverticulosis) Brother Family Member Ethnicity: Non- Living Status: Hx Family Endocrine Disorder: Yes (Cirrhosis) Sister Family Member Ethnicity: Non- Living Status: Hx Family Cardiac Disorders: Yes (Aneurysm) Medications and Allergies Acetaminophen/Diphenhydramine [Percogesic 325-12.5 mg Tablet] 1 tab PO HS PRN [History] Aspirin Enteric Coated [Aspirin EC] 81 mg PO DAILY 08/04/18 [History] Atorvastatin [Lipitor] 40 mg PO HS 08/04/18 [History] Docusate [Colace] 100 mg PO Q48H PRN 08/04/18 [History] Levothyroxine Sodium [Levo-T] 125 mcg PO DAILY 08/04/18 [History] Metoprolol Succinate [Toprol Xl] 25 mg PO DAILY 08/04/18 [History] Multivitamin [One Daily Essential] 1 tab PO DAILY 08/04/18 [History] Pyridostigmine Br [Mestinon] 60 mg PO Q8H 08/04/18 [History] Warfarin [Coumadin] 3 mg PO DAILY 08/04/18 [History] amLODIPine [Norvasc] 2.5 mg PO DAILY 08/04/18 [History] predniSONE [PredniSONE] 10 mg PO DAILY 08/04/18 [History] 3 Allergy/AdvReac Type Severity Reaction Status Date / Time No Known Allergies Allergy Verified 05/04/18 17:32 All Systems: The remainder of the systems were reviewed and are negative Physical Examination Vital Signs: Vital Signs, Last 4 Hours Temp Pulse Resp BP Pulse Ox 08/04/18 14:20 95 08/04/18 12:56 98.0 F 103 20 129/69 92 08/04/18 12:16 22 120/70 General appearance: no acute distress Eyes: nonicteric ENT: oropharynx moist Neck: no lymphadenopathy Effort: mildly labored Auscultation: left: clear, right: diminished breath sounds Cardiovascular: irregular rhythm Gastrointestinal: normoactive bowel sounds, soft, non-tender Integumentary: normal Extremities: no cyanosis, no edema, no clubbing Musculoskeletal: no deformities normal mental status, non-focal exam mood appropriate Results - Laboratory Findings CBC and BMP: 08/04/18 09:02 08/04/18 09:02 PT/INR, D-dimer PT 41.0 Seconds (9.4-12.1) H 08/04/18 09:11 D-Dimer 837 ng/mLFEU (0-500) H 08/04/18 09:11 Abnormal lab findings: Abnormal lab results WBC 22.5 K/mcL (4.3-11.1) H 08/04/18 09:02 RBC 4.15 M/mcL (4.19-5.50) L 08/04/18 09:02 Hgb 12.5 g/dL (12.9-16.9) L 08/04/18 09:02 MPV 8.9 fL (9.4-12.4) L 08/04/18 09:02 Neutrophils # 16.3 K/mcL (1.6-8.9) H 08/04/18 09:02 Monocytes # 1.7 K/mcL (0.0-1.3) H 08/04/18 09:02 Eosinophils # 2.8 K/mcL (0.0-0.6) H 08/04/18 09:02 PT 41.0 Seconds (9.4-12.1) H 08/04/18 09:11 APTT 40.0 Seconds (26.0-36.0) H 08/04/18 09:11 D-Dimer 837 ng/mLFEU (0-500) H 08/04/18 09:11 Creatinine 1.37 mg/dL (0.70-1.30) H 08/04/18 09:02 Est GFR (Non-Af Amer) 50 (> 60) L 08/04/18 09:02 Glucose 125 mg/dL (70-105) H 08/04/18 09:02 Total Bilirubin 1.1 mg/dL (0.3-1.0) H 08/04/18 08:52 AST 12 Units/L (13-39) L 08/04/18 08:52 B-Natriuretic Peptide 100 pg/mL (Less than 100) H 08/04/18 09:11 Serum Total Protein 6.0 g/dL (6.4-8.9) L 08/04/18 08:52 Albumin 3.1 g/dL (3.5-5.7) L 08/04/18 08:52 - Microbiology Findings Microbiology Findings: Microbiology, Last 48 Hours 08/04/18 12:05 Blood Culture - Preliminary Peripheral Venipuncture Culture is incubating and being continuously monitored for growth. Final report to follow. 08/04/18 12:05 Blood Culture - Preliminary Peripheral Venipuncture Culture is incubating and being continuously monitored for growth. Final report to follow. - Diagnostic Findings Chest x-ray: report reviewed, image reviewed CT scan - chest: report reviewed, image reviewed Consult Discharge Plan - Plan
[2018-08-04] MEDS ORDERED: Piperacillin/Tazobactam 3.375 GM in 0.9 % Sodium Chloride Mini Bag 100 ML IVPB SCH ×2 (16:00→18:00)
[2018-08-04] MEDS: Pyridostigmine Br 60 MG TABLET PO SCH ×2 (16:01→22:46)
[2018-08-04] MEDS ORDERED: *HR* Phytonadione 5 MG TABLET PO ONE (17:09)
[2018-08-04] MEDS ORDERED: *HR* Metoprolol 5 MG/5 ML VIAL IVP PRN (17:23)
[2018-08-04] MEDS ORDERED: *HR* LORazepam 0.5 MG TABLET PO PRN (18:18)
[2018-08-04] MEDS: Acetaminophen 325 MG TABLET PO PRN (19:05)
[2018-08-04] MEDS ORDERED: Dextromethorphan Polistrx(12h) 30 MG/5 ML UDC PO PRN (20:58)
[2018-08-04] MEDS ORDERED: Perflutren Lipid Microsphere 1.3 ML in 0.9 % Sodium Chloride 8.7 ML IVP ONE (22:47)
[2018-08-05 02:53] LABS: Adenovirus Not Detected (Not Detect); Bordetella Pertussis Not Detected (Not Detect); Chlamydophila pneumoniae Not Detected (Not Detect); Coronavirus 229E Not Detected (Not Detect); Coronavirus HKU1 Not Detected (Not Detect); Coronavirus NL63 Not Detected (Not Detect); Coronavirus OC43 Not Detected (Not Detect); Human Metapneumovirus Not Detected (Not Detect); Human Rhinovirus/Enterovirus Not Detected (Not Detect); Influenza A Subtype 2009 H1 Not Detected (Not Detect); Influenza A Untypeable Not Detected (Not Detect); Influenza B Not Detected (Not Detect); Mycoplasma pneumoniae Not Detected (Not Detect); Parainfluenza Virus 1 Not Detected (Not Detect); Parainfluenza Virus 2 Not Detected (Not Detect); Parainfluenza Virus 3 Not Detected (Not Detect); Parainfluenza Virus 4 Not Detected (Not Detect); Respiratory Syncytial Virus Not Detected (Not Detect)
[2018-08-05] MEDS: Pyridostigmine Br 60 MG TABLET PO SCH ×3 (04:56→21:58)
[2018-08-05 05:42] LABS: Hematocrit 36.3 % (37.5-50.1); Hemoglobin 11.6 g/dL (12.9-16.9); Mean Corpuscular Hemoglobin 29.5 pg (28.0-33.3); Mean Corpuscular Volume 92.4 fL (83.0-100.0); Mean Platelet Volume 9.2 fL (9.4-12.4); Platelet Count 326 K/mcL (140-400); Red Blood Count 3.93 M/mcL (4.19-5.50); Red Cell Distribution Width 13.9 % (11.5-14.5)
[2018-08-05 05:43] LABS: INR 2.4; Prothrombin Time 26.8 Seconds (9.4-12.1)
[2018-08-05 05:51] LABS: Albumin 2.8 g/dL (3.5-5.7); Bilirubin,Total 1.3 mg/dL (0.3-1.0); Calcium 8.4 mg/dL (8.6-10.3); Globulin 2.7 g/dL (2.4-3.5); Phosphorous 3.3 mg/dL (2.7-4.5); Potassium 4.1 mEq/L (3.5-5.1); Total Protein 5.5 g/dL (6.4-8.9)
[2018-08-05 06:12] LABS: Eosinophils # 3.3 K/mcL (0.0-0.6); Lymphocytes # 3.3 K/mcL (0.6-4.6); Monocytes # 2.3 K/mcL (0.0-1.3); Neutrophils # 14.5 K/mcL (1.6-8.9); Platelet Estimate Normal (Normal)
[2018-08-05] MEDS ORDERED: Aminoglycoside Consult 1 EACH MC ONE (08:20)
[2018-08-05] MEDS: cefTRIAXone 1,000 MG in Water for inj. (sterile) 20 ML 10 ML IVP SCH (08:27)
[2018-08-05] MEDS: Aspirin Enteric Coated 81 MG Tablet PO SCH (08:28)
[2018-08-05] MEDS: Multivit/Ca/Min/Fe/FA 1 TAB TABLET PO SCH (08:28)
[2018-08-05] MEDS: amLODIPine 5 MG TABLET PO SCH (08:28)
[2018-08-05] MEDS: Metoprolol XL (24 HR) Succ 25 MG TAB.ER.24H PO SCH (08:28)
[2018-08-05] MEDS: predniSONE 10 MG TABLET PO SCH (08:29)
--- NOTE | 2018-08-05 08:44 | Pulmonology Progress Note ---
Date of Encounter: 08/05/18 Time of Encounter: 08:00 Assessment and Plan (1) Acute respiratory failure with hypoxia Current Visit: Yes Status: Acute Patient acute respiratory failure most likely due to secondary to pleural effusion is likely due to pneumonia. (2) Lung cancer Current Visit: No Status: Chronic Right upper lobe lung cancer which was resected at [facility] November of this year. Now patient is having right-sided pleural effusion with a lot of pleural nodularity concerning for pleural metastasis . Qualifiers: Laterality: right Lung location: unspecified part of lung Qualified Code( s): C34.91 - Malignant neoplasm of unspecified part of right bronchus or lung (3) Pleural effusion Current Visit: Yes Status: Acute Additional thoracentesis initially which showed bloody fluid from the pleural space concerning for hemorrhagic effusion versus Hemothorax secondary to supratherapeutic therapeutic INR. I aborted thoracentesis counseled to IR for the small bore chest tube. Chest tube 2 L of morbid of bloody fluid was drained I clamped the chest tube for today will repeat a chest x-ray in the morning and will reassess the need for another drainage. (4) Pneumonia Current Visit: No Status: Acute Patient has low clinical probability for pneumonia stopped vancomycin will de- escalate the diuretics. Qualifiers: Pneumonia type: due to unspecified organism Laterality: left Lung location: lower lobe of lung Qualified Code(s): J18.1 - Lobar pneumonia, unspecified organism Subjective Principal diagnosis: Pleural Effusion Interval history: Patient respiratory distress is at baseline. Any fever or chills denies any undue cough or sputum production, denies any hemoptysis. Patient says he took on some days wrong dose of Coumadin for possible supratherapeutic INR. Denies any recent trauma to his chest denies any neuro symptoms denies any chest pain or chest tightness. Objective PUL Vital signs: Last Vital Signs Temp 98.8 F 08/05/18 08:03 Pulse 101 08/05/18 08:03 Resp 16 08/05/18 08:03 BP 120/75 08/05/18 08:03 Pulse Ox 97 08/05/18 08:03 General appearance: other (mild respiratory distress ) Auscultation: right: diminished breath sounds Results - Laboratory Findings CBC and BMP: 08/05/18 04:46 08/05/18 04:46 PT/INR, D-dimer PT 26.8 Seconds (9.4-12.1) H 08/05/18 04:46 D-Dimer 837 ng/mLFEU (0-500) H 08/04/18 09:11 Abnormal lab findings: Abnormal lab results WBC 23.4 K/mcL (4.3-11.1) H 08/05/18 04:46 RBC 3.93 M/mcL (4.19-5.50) L 08/05/18 04:46 Hgb 11.6 g/dL (12.9-16.9) L 08/05/18 04:46 Hct 36.3 % (37.5-50.1) L 08/05/18 04:46 MPV 9.2 fL (9.4-12.4) L 08/05/18 04:46 Band Neutrophils % 6.0 % (0-4) H 08/05/18 04:46 Neutrophils # 14.5 K/mcL (1.6-8.9) H 08/05/18 04:46 Monocytes # 2.3 K/mcL (0.0-1.3) H 08/05/18 04:46 Eosinophils # 3.3 K/mcL (0.0-0.6) H 08/05/18 04:46 PT 26.8 Seconds (9.4-12.1) H 08/05/18 04:46 APTT 40.0 Seconds (26.0-36.0) H 08/04/18 09:11 D-Dimer 837 ng/mLFEU (0-500) H 08/04/18 09:11 Creatinine 1.43 mg/dL (0.70-1.30) H 08/05/18 04:46 Est GFR ( Amer) 58 (> 60) L 08/05/18 04:46 Est GFR (Non-Af Amer) 47 (> 60) L 08/05/18 04:46 POC Glucose 122 mg/dL (70-99) H 08/04/18 22:04 Calcium 8.4 mg/dL (8.6-10.3) L 08/05/18 04:46 Total Bilirubin 1.3 mg/dL (0.3-1.0) H 08/05/18 04:46 AST 12 Units/L (13-39) L 08/05/18 04:46 B-Natriuretic Peptide 100 pg/mL (Less than 100) H 08/04/18 09:11 Serum Total Protein 5.5 g/dL (6.4-8.9) L 08/05/18 04:46 Albumin 2.8 g/dL (3.5-5.7) L 08/05/18 04:46 Albumin/Globulin Ratio 1.0 (1.1-2.2) L 08/05/18 04:46 - Clinical Findings Intake & Output: Intake & Output 08/04/18 08/05/18 08/05/18 23:59 07:59 15:59 Output Total 675 / 675 Balance -675 / -675 Weight 77.5 kg Consult Discharge Plan - Plan Referrals: Sander Ibrahim DO [Primary Care Provider] -
[2018-08-05] MEDS ORDERED: cefTRIAXone 1,000 MG in Water for inj. (sterile) 20 ML 10 ML IVP SCH (09:00)
--- NOTE | 2018-08-05 09:00 | Internal Med Progress Note ---
<Alejandro James S - Last Filed: 08/05/18 11:02> Hospitalist Progress Note - Encounter Date of Encounter: 08/05/18 Time of Encounter: 08:57 - Subjective Interval History: Mr. Palacios is a 83 year old male with PMH of Myasthenia gravis, HTN, CAD s/p CABG 02/2018, hypothyroidsim, lung cancer, diverticulosis, CHF NYHA class IV, HDL. He presented from home on 08/05/18 after increasing SOB since Wednesday. He states that today got really bad so he decided to come into the hospital to be evaluated. He saw his [employer] and she gave him cough drops, however, this didn't help him. At baseline he is SOB at rest over the last few weeks. He isn't very active. Of note he had a CABG in 02/2018 with triple bypass. The pt has been having increasing sputum production. In the ER the pt was given a one time dose of Vancomycin and Zosyn. -CXR showed a large right pleural effusion, s/p CABG -pt had a (+) d-dimer so CT scan was done which showed large right pleural effusion with diffuse nodularity and near complete collapse of right lung; pleural metastatic dz -troponin (-) Pt was seen by pulmonology who recommended thoracentesis. He was given vitamin K one time and then FFP. Today the pt has no complaints other than mild SOB. Denies active chest pain. -denies N/V/D, abd pain. - Exam Vitals: Temp Pulse Resp BP Pulse Ox 98.8 F 101 16 120/75 97 08/05/18 08:03 08/05/18 08:03 08/05/18 08:03 08/05/18 08:03 08/05/18 08:03 Exam: general - NAD, AOx3, cooperative cardio - s1s2 CTA tacycardia, no MRG lungs - decreased breath sounds, no wheeze/rhonchi abd - NTND, no rebound or guarding skin - no ulcer, no rash extremities - no edema - Assessment and Plan (1) Acute respiratory failure with hypoxia Current Visit: Yes Status: Acute Assessment and Plan: Pt presented with 92% on 3L O2, doesn't use home oxygen -CXR showed pleural effusion on right, CTA showed large right pleural effusion with diffuse nodularity and near complete collapse of right lung -pleural effusion vs infxn in etiology Today 97% on 1L -pt has mild shortness of breath -he is able to speak in full sentences without stopping to catch his breath Plan: -pulmonology consulted, recommend pleurx catheter drainage of pleural effusion -keep O2 >92% -monitor O2 sat (2) Sepsis Current Visit: Yes Status: Acute Assessment and Plan: Meets sepsis criteria -HR 104, WBC 22.5, RR 20 -source of infxn most likely pleural effusion seen on CXR and CTA Lactic acid 1.6 MRSA screen negative respiratory panel negative Plan: -blood cultures pending -vancomycin pharmacy to dose, pipercillin tazobactam q12hr discontinued -On rocephin day 1 -sputum cultures pending -check CBC and CMP in AM -will hold off on fluids for now due to pleural effusion (3) Pleural effusion Current Visit: Yes Status: Acute Assessment and Plan: See plan as above for sepsis. Quite large on CT, right sided PT 3.6 on admission This morning PT 2.4, FFP given by pulmonology Plan: -respiratory to drain today (4) HTN (hypertension) Current Visit: No Status: Chronic Assessment and Plan: BP 120/75 -adequate control -on Norvasc, Toprol , will continue these home meds (5) Hx of myasthenia gravis Current Visit: No Status: Chronic Assessment and Plan: On pyridostigamine -will speak with pharmacology re abx coverage to avoid exacerbation of symptoms (6) Lung cancer Current Visit: No Status: Chronic Assessment and Plan: Has hx of squamous cell carcinoma of the lung, is s/p wedge resection -CT showed pleural metastatic dz -pulmonology consulted (7) DVT prophylaxis Current Visit: Yes Status: Acute Assessment and Plan: coumadin held SCD in place (8) Congestive heart failure Current Visit: Yes Status: Acute Assessment and Plan: NYHA class IV -acute exacerbation vs infection Last ECHO 01/08 LVEF 65%. Mild left ventricular diastolic dysfunction BNP 100 Troponin <0.03 08/05 I: 675 O: -675 Urine 675 Plan: -ECHO pending -continue toprol, lipitor, asa -strict I&O -cardiac diet -fluid restriction 1.5 L (9) Hypothyroidism Current Visit: No Status: Chronic Assessment and Plan: On Synthroid (10) Supratherapeutic INR Current Visit: Yes Status: Acute Assessment and Plan: Takes coumadin 3mg PO daily PT 3.6, INR 41 on admission -denies bleeding from anywhere PT 2.4 this morning, INR 26.8 -FFP and vitamin K given as per pulmonology Plan: -hold coumadin, will restart on discharge DVT Prophylaxis: scd - Time Spent with Patient Total time spent is greater than 50% in coordination of care (as documented) at patient's floor/unit and/or counseling patient: less than 15 minutes Plan of Care Discussed with: patient Internal Medicine: Result - Labs CBC & Chem 7: 08/05/18 04:46 08/05/18 04:46 Labs: Short CBC 08/05/18 Range/Units 04:46 WBC 23.4 H (4.3-11.1) K/mcL Hgb 11.6 L (12.9-16.9) g/dL Hct 36.3 L (37.5-50.1) % Plt Count 326 (140-400) K/mcL Neutrophils # 14.5 H (1.6-8.9) K/mcL BMP 08/05/18 04:46 Sodium 138 Potassium 4.1 Chloride 104 Carbon Dioxide 25 BUN 20 Creatinine 1.43 H Glucose 103 Calcium 8.4 L Liver Function 08/05/18 Range/Units 04:46 Total Bilirubin 1.3 H (0.3-1.0) mg/dL AST 12 L (13-39) Units/L ALT 12 (7-52) Units/L Alkaline Phosphatase 56 (34-104) Units/L Albumin 2.8 L (3.5-5.7) g/dL - ABG Interpretation ABG results: PT/INR, D-dimer PT 26.8 Seconds (9.4-12.1) H 08/05/18 04:46 D-Dimer 837 ng/mLFEU (0-500) H 08/04/18 09:11 Consult Discharge Plan - Plan Referrals: Sander Ibrahim DO [Primary Care Provider] - <Fide Ambrose - Last Filed: 08/05/18 14:16> Hospitalist Progress Note - Encounter Date of Encounter: 08/05/18 - Exam Vitals: Temp Pulse Resp BP Pulse Ox 98.1 F 91 16 118/74 97 08/05/18 11:45 08/05/18 11:45 08/05/18 11:45 08/05/18 11:45 08/05/18 11:39 - Assessment and Plan (1) HTN (hypertension) Current Visit: No Status: Chronic (2) Hx of myasthenia gravis Current Visit: No Status: Chronic (3) Lung cancer Current Visit: No Status: Chronic (4) DVT prophylaxis Current Visit: Yes Status: Acute (5) Pleural effusion Current Visit: Yes Status: Acute (6) Sepsis Current Visit: Yes Status: Acute (7) Acute respiratory failure with hypoxia Current Visit: Yes Status: Acute (8) Congestive heart failure Current Visit: Yes Status: Acute (9) Hypothyroidism Current Visit: No Status: Chronic (10) Supratherapeutic INR Current Visit: Yes Status: Acute - Time Spent with Patient Total time spent is greater than 50% in coordination of care (as documented) at patient's floor/unit and/or counseling patient: Internal Medicine: Result - Labs CBC & Chem 7: 08/05/18 04:46 08/05/18 04:46 Labs: Short CBC 08/05/18 Range/Units 04:46 WBC 23.4 H (4.3-11.1) K/mcL Hgb 11.6 L (12.9-16.9) g/dL Hct 36.3 L (37.5-50.1) % Plt Count 326 (140-400) K/mcL Neutrophils # 14.5 H (1.6-8.9) K/mcL BMP 08/05/18 04:46 Sodium 138 Potassium 4.1 Chloride 104 Carbon Dioxide 25 BUN 20 Creatinine 1.43 H Glucose 103 Calcium 8.4 L Liver Function 08/05/18 Range/Units 04:46 Total Bilirubin 1.3 H (0.3-1.0) mg/dL AST 12 L (13-39) Units/L ALT 12 (7-52) Units/L Alkaline Phosphatase 56 (34-104) Units/L Albumin 2.8 L (3.5-5.7) g/dL - ABG Interpretation ABG results: PT/INR, D-dimer PT 15.6 Seconds (9.4-12.1) H 08/05/18 12:44 D-Dimer 837 ng/mLFEU (0-500) H 08/04/18 09:11 - Attending Attestation I examined this patient and my medical decision-making was reviewed with the Resident Physician. I agree with the documented findings, disposition and treatment plan as described except to the extent set forth below. No acute events. Plan is for therapeutic and diagnostic thoracentesis today. INR was elevated so he is given 2 units FFP prior to procedure. Lung exam findings unchanged since yesterday, breath sounds diminished on right. WBC count still high in 22-23k, currently afebrile. 1. Acute respiratory failure - secondary to pleural effusion that is likely from malignancy. Thoracentesis today. 2. Leukocytosis. Possibly acute reaction, possibly sepsis/infection, or prednisone - Continue Rocephin. Suspect that if this is infection/sepsis, that it is of respiratory source. 3. Elevated INR - given vitamin K yesterday and today FFP prior to thoracentesis 4. Myasthenia gravis - resume home medications 5. Hypertension <Alejandro James S - Last Filed: 08/05/18 11:02> (2) Sepsis Qualifiers: Sepsis type: sepsis due to unspecified organism Qualified Code(s): A41.9 - Sepsis, unspecified organism (4) HTN (hypertension) Qualifiers: Hypertension type: essential hypertension Qualified Code(s): I10 - Essential (primary) hypertension (6) Lung cancer Qualifiers: Laterality: right Lung location: unspecified part of lung Qualified Code(s) : C34.91 - Malignant neoplasm of unspecified part of right bronchus or lung (8) Congestive heart failure Qualifiers: Heart failure type: diastolic Heart failure chronicity: acute on chronic Qualified Code(s): I50.33 - Acute on chronic diastolic (congestive) heart failure (9) Hypothyroidism Qualifiers: Hypothyroidism type: unspecified Qualified Code(s): E03.9 - Hypothyroidism, unspecified <Fide Ambrose - Last Filed: 08/05/18 14:16> (1) HTN (hypertension) Qualifiers: Hypertension type: essential hypertension Qualified Code(s): I10 - Essential (primary) hypertension (3) Lung cancer Qualifiers: Laterality: right Lung location: unspecified part of lung Qualified Code(s) : C34.91 - Malignant neoplasm of unspecified part of right bronchus or lung (6) Sepsis Qualifiers: Sepsis type: sepsis due to unspecified organism Qualified Code(s): A41.9 - Sepsis, unspecified organism (8) Congestive heart failure Qualifiers: Heart failure type: diastolic Heart failure chronicity: acute on chronic Qualified Code(s): I50.33 - Acute on chronic diastolic (congestive) heart failure (9) Hypothyroidism Qualifiers: Hypothyroidism type: unspecified Qualified Code(s): E03.9 - Hypothyroidism, unspecified
[2018-08-05] MEDS ORDERED: 0.9 % Sodium Chloride 250 ML ONE ×2 (10:26→11:12)
[2018-08-05 13:26] LABS: INR 1.4; Prothrombin Time 15.6 Seconds (9.4-12.1)
--- NOTE | 2018-08-05 15:16 | Procedure Note ---
Date of procedure: 08/05/18 Pre-op diagnosis: Right sided pleural effusion Procedure: A time-out was completed verifying correct patient, procedure, site, positioning , and special equipment if applicable. The patients Right side was prepped and draped in a sterile manner after the appropriate infiltration level was confirmed by ultrasound. 1% lidocaine was used anesthetize the surrounding skin. A finder needle was then used to locate fluid and hemorrhagic bloody fluid was drained . Since patient had a suspected hemothorax i aborted the procedure called IR small bore Chest tube . The patient tolerated the procedure well and there were no complications. Anesthesia: local Surgeon: Lora Starr Was there an respiratory therapist assistant present: Yes Insurance Sales Producer: Mile Lora Estimated blood loss (cc): 0 Specimen: NONE Pathology: none sent Condition: stable Disposition: floor
--- NOTE | 2018-08-05 15:50 | IR Procedure Note ---
Date of procedure: 08/05/18 Consent Obtained: Written consent Timeout: Correct patient and procedure verified, Correct site verified, Time out performed, Skin prep completed Local anesthetic: Lidocaine 1% Indications: Right pleural effusion Procedure Performed: Right chest tube placement Was there an sales service assistant present: No Site/Technique: Right posterior chest, inferiorly Results/Findings: 10fr drain placed to pleurevac drainage. Estimated blood loss (cc): 0 Complications: None; Tolerated procedure well Post Procedure Treatment Plan: Monitoring in the pts room Specimen: Sent to lab
[2018-08-05 16:08] LABS: RBC,Pleural Fluid 0.394 M/mcL
[2018-08-05 16:09] LABS: Appearance of Pleural Fl Bloody (Clear)
[2018-08-05 16:22] LABS: Total Protein,Pleural Fluid 3.6 g/dL (No Ref Range)
[2018-08-05 16:45] LABS: Lactate Dehydrogenase 169 Units/L (140-271)
[2018-08-06] MEDS: Pyridostigmine Br 60 MG TABLET PO SCH ×3 (06:12→21:20)
[2018-08-06 07:00] LABS: Basophils # 0.1 K/mcL (0.0-0.2); Basophils % 0.3 %; Eosinophils % 11.5 %; Hematocrit 33.6 % (37.5-50.1); Hemoglobin 10.8 g/dL (12.9-16.9); Immature Granulocytes % 0.9 % (0-4); Lymphocytes # 1.1 K/mcL (0.6-4.6); Lymphocytes % 4.6 %; Mean Corpuscular HGB Conc 32.1 g/dL (31.6-35.5); Mean Corpuscular Hemoglobin 29.3 pg (28.0-33.3); Mean Corpuscular Volume 91.1 fL (83.0-100.0); Mean Platelet Volume 8.8 fL (9.4-12.4); Monocytes # 1.6 K/mcL (0.0-1.3); Monocytes % 6.4 %; Platelet Count 316 K/mcL (140-400); Red Blood Count 3.69 M/mcL (4.19-5.50); Red Cell Distribution Width 13.8 % (11.5-14.5); Segmented Neutrophils % 76.3 %
[2018-08-06 07:03] LABS: INR 1.2; Prothrombin Time 13.9 Seconds (9.4-12.1)
[2018-08-06 07:18] LABS: BUN/Creatinine Ratio 21 (6-26); Blood Urea Nitrogen 27 mg/dL (8-23); Calcium 8.5 mg/dL (8.6-10.3); Carbon Dioxide 27 mEq/L (23-29); Chloride 103 mEq/L (98-107); Glucose 101 mg/dL (70-105); Osmolality,Calculated 289 (280-300); Potassium 3.9 mEq/L (3.5-5.1); Sodium 137 mEq/L (136-145); eGFR For Non-African Americans 54 (> 60)
[2018-08-06 07:39] LABS: Eosinophils # 2.8 K/mcL (0.0-0.6); Neutrophils # 18.9 K/mcL (1.6-8.9)
--- NOTE | 2018-08-06 07:59 | Internal Med Progress Note ---
<Alma Solo - Last Filed: 08/06/18 10:23> Hospitalist Progress Note - Encounter Date of Encounter: 08/06/18 Time of Encounter: 07:57 - Subjective Interval History: Mr. Palacios is a 83 y/o male w a pmh of afib on Coumadin, hx of lung CA with resection,and Myasthenia gravis who presented to the ED with SOB. Overnight no acute events. Today, patient states that he is currently not having SOB on 2L. His pain is well controlled. No new complaints. - Exam Vitals: Temp Pulse Resp BP Pulse Ox 98.1 F 91 16 120/68 93 08/06/18 07:02 08/06/18 07:02 08/06/18 07:02 08/06/18 07:02 08/06/18 07:02 Exam: Constitutional: Alert, in no acute distress Head: Normocephalic, atraumatic Heart: Normal, regular rate and rhythm, no murmurs Chest: right chest tube in place draining serosanginous fluid, diminished breath sounds on the RLL, clear to auscultation on the left, no wheezes, rales , or rhonchi Abdomen: Soft, nondistended, nontenderl, no guarding or rigidity. Extremities: No edema, No clubbing, r capillary refill <2sec. Skin: Skin warm and dry, no lesions, no rashes, no jaundice Neurologic: Cranial nerves II through XII grossly intact, strength 5/5 in all extremities Psych: Cooperative with exam, good eye contact, cognitive function intact, speech clear, thought process logical, and goal directed - Assessment and Plan (1) Sepsis Current Visit: No Status: Acute Assessment and Plan: Most likely 2/2 to pleural effusion. He was on Vanco then switched to Rocephin as MRSA screening was negative and Vanco can cause a crisis. Currently HR: between 99-91. afebrile. WBC still elevated but vitals wnl except NC 2L. Initial lactic acid= 1.6. s/p 2 L NS. Due to concern for causing worsening SOB and euvolemic with adequate PO intake, fluids stopped. plan: - continue Antibiotics: Rocephin day 2 - pulmonology following, s/p chest tube placement and drainage of 2L - awaiting blood cultures, pleural fluid cultures - continue O2 support - diet: cardiac - dispo: consulting Oncology determine cause of pleural effusion, blood cultures , pleural cultures (2) Pneumonia Current Visit: No Status: Acute Assessment and Plan: Likely 2/2 to pleural effusion. See plan above. (3) Pleural effusion Current Visit: Yes Status: Acute Assessment and Plan: Unknown etiology. Possibly 2/2 to primary cancer vs. mets from previous lung ca vs. myasthenia gravis crisis. Plan: - pulmonology consulted, considering Pleurx cath - s/p chest tube placement, 2L output yesterday - awaiting pathology, cytology, cultures on pleural fluid - continue resp support, nasal canula. - consulted Onco for etiology of pleural effusion as concerns for new primary vs mets. (4) Acute respiratory failure with hypoxia Current Visit: Yes Status: Acute Assessment and Plan: See plan above. (5) Supratherapeutic INR Current Visit: Yes Status: Resolved Assessment and Plan: INR= 1.2 today. (6) Chronic a-fib Current Visit: Yes Status: Acute Assessment and Plan: Currently rate controlled. INR= 1.2. Continue home meds: Metoprolol 25mg daily. Coumadin held, contraindicated. Patient has chest tube placed with serosanguinous fluid drainage. 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 s/p right lower lobe sublobar resection and mediastinal lymphadenectomy on . Per patient required no chemo or radiation and has been in remission since. CTA of chest here showed Large right pleural effusion with diffuse pleural nodularity and near complete collapse of the right lung. 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 Plan: - consult oncology, awaiting recommendations DVT Prophylaxis: SCDs - Time Spent with Patient Total time spent is greater than 50% in coordination of care (as documented) at patient's floor/unit and/or counseling patient: Plan of Care Discussed with: patient Internal Medicine: Result - Labs CBC & Chem 7: 08/06/18 06:33 08/06/18 06:33 Labs: BMP 08/06/18 06:33 Sodium 137 Potassium 3.9 Chloride 103 Carbon Dioxide 27 BUN 27 H Creatinine 1.27 Glucose 101 Calcium 8.5 L - ABG Interpretation ABG results: PT/INR, D-dimer PT 13.9 Seconds (9.4-12.1) H 08/06/18 06:33 D-Dimer 837 ng/mLFEU (0-500) H 08/04/18 09:11 - Impressions Impressions Chest X-Ray 08/05/18 15:50 IMPRESSION: Very large right pleural effusion persists. No significant change identified D/ / Bao Driscoll MD / Bao Driscoll MD Interpreting Provider: Bao Driscoll MD Consult Discharge Plan - Plan Referrals: Sander Ibrahim DO [Primary Care Provider] - <Fide Ambrose - Last Filed: 08/06/18 14:22> Hospitalist Progress Note - Encounter Date of Encounter: 08/06/18 - Exam Vitals: Temp Pulse Resp BP Pulse Ox 99.3 F 89 16 111/70 96 08/06/18 11:25 08/06/18 11:25 08/06/18 11:25 08/06/18 11:25 08/06/18 11:25 - Assessment and Plan (1) HTN (hypertension) Current Visit: No Status: Chronic (2) Hx of myasthenia gravis Current Visit: No Status: Chronic (3) Lung cancer Current Visit: No Status: Chronic (4) DVT prophylaxis Current Visit: Yes Status: Acute (5) Pleural effusion Current Visit: Yes Status: Acute (6) Sepsis Current Visit: Yes Status: Acute (7) Acute respiratory failure with hypoxia Current Visit: Yes Status: Acute (8) Congestive heart failure Current Visit: Yes Status: Acute (9) Hypothyroidism Current Visit: No Status: Chronic (10) Supratherapeutic INR Current Visit: Yes Status: Resolved - Time Spent with Patient Total time spent is greater than 50% in coordination of care (as documented) at patient's floor/unit and/or counseling patient: Internal Medicine: Result - Labs CBC & Chem 7: 08/06/18 09:59 08/06/18 09:59 Labs: Short CBC 08/06/18 08/06/18 Range/Units 06:33 09:59 WBC 24.7 H 26.6 H (4.3-11.1) K/mcL Hgb 10.8 L 11.2 L (12.9-16.9) g/dL Hct 33.6 L 35.1 L (37.5-50.1) % Plt Count 316 306 (140-400) K/mcL Neutrophils # 18.9 H (1.6-8.9) K/mcL BMP 08/06/18 08/06/18 06:33 09:59 Sodium 137 137 Potassium 3.9 4.2 Chloride 103 102 Carbon Dioxide 27 29 BUN 27 H 27 H Creatinine 1.27 1.38 H Glucose 101 147 H Calcium 8.5 L 8.4 L - ABG Interpretation ABG results: PT/INR, D-dimer PT 13.9 Seconds (9.4-12.1) H 08/06/18 06:33 D-Dimer 837 ng/mLFEU (0-500) H 08/04/18 09:11 - Impressions Impressions Chest X-Ray 08/05/18 15:50 IMPRESSION: Very large right pleural effusion persists. No significant change identified D/ / Bao Driscoll MD / Bao Driscoll MD Interpreting Provider: Bao Driscoll MD Chest X-Ray 08/06/18 08:00 IMPRESSION: No change. D/ / 08/06/2018 09:27:16 Riccardo Romero MD / jeremie Interpreting Provider: Riccardo Romero MD Chest X-Ray 08/06/18 17:29 IMPRESSION: Right pleural pigtail catheter projects over the inferior hemithorax. Moderate right pleural effusion has mildly decreased in size since the prior examination. D/ / 08/06/2018 08:10:45 Rick Moore MD / jeremie Interpreting Provider: Rick Moore MD - Attending Attestation I examined this patient and my medical decision-making was reviewed with the Resident Physician. I agree with the documented findings, disposition and treatment plan as described except to the extent set forth below. Today feeling much better after chest tube insertion yesterday. He is afebrile. Physical exam shows chest tube with serosanguinous fluid draining. Breath sounds improved since yesterday. He is in no respiratory distress. WBC up to 26k today. Afebrile. HR and BP unremarkable. 1. Acute respiratory failure with hypoxia 2. Hemothorax 3. Leukocytosis 4. Supratherapeutic INR 5. Atrial fibrillation 6. Myasthenia Gravis 7. Hypertension - Continue chest tube management per Pulm. - Currently pleural fluid analysis shows mostly blood and does not appear to be infectious etiology. - Unsure if he has a superimposed infection, or leukocytosis is related to malignancy and steroids. But WBC has been steadily increasing, and in January he had normal WBC count. Also with chest tube insertion yesterday, could explain worsening in white count. However, will escalate abx to cefepime and closely monitor. Markers such as CRP, ESR, and procalcitonin would be low-yielding in his case. But we could trend CRP. - Peripheral smear - Oncology consulted - Rate controlled with Toprol. - Poor candidate for anticoagulation due to hemothorax and so will not be continued. - Continue Pyridostigmine. Avoid medications that can worsen myasthenia gravis. <Alma Solo - Last Filed: 08/06/18 10:23> (1) Sepsis Qualifiers: Sepsis type: sepsis due to unspecified organism Qualified Code(s): A41.9 - Sepsis, unspecified organism (2) Pneumonia Qualifiers: Pneumonia type: due to unspecified organism Laterality: left Lung location: lower lobe of lung Qualified Code(s): J18.1 - Lobar pneumonia, unspecified organism <Fide Ambrose - Last Filed: 08/06/18 14:22> (1) HTN (hypertension) Qualifiers: Hypertension type: essential hypertension Qualified Code(s): I10 - Essential (primary) hypertension (3) Lung cancer Qualifiers: Laterality: right Lung location: unspecified part of lung Qualified Code(s) : C34.91 - Malignant neoplasm of unspecified part of right bronchus or lung (6) Sepsis Qualifiers: Sepsis type: sepsis due to unspecified organism Qualified Code(s): A41.9 - Sepsis, unspecified organism (8) Congestive heart failure Qualifiers: Heart failure type: diastolic Heart failure chronicity: acute on chronic Qualified Code(s): I50.33 - Acute on chronic diastolic (congestive) heart failure (9) Hypothyroidism Qualifiers: Hypothyroidism type: unspecified Qualified Code(s): E03.9 - Hypothyroidism, unspecified
[2018-08-06 09:42] LABS: Platelet Estimate Normal (Normal)
[2018-08-06 10:09] LABS: Hematocrit 35.1 % (37.5-50.1); Hemoglobin 11.2 g/dL (12.9-16.9); Mean Corpuscular HGB Conc 31.9 g/dL (31.6-35.5); Mean Corpuscular Hemoglobin 29.7 pg (28.0-33.3); Mean Corpuscular Volume 93.1 fL (83.0-100.0); Mean Platelet Volume 8.6 fL (9.4-12.4); Platelet Count 306 K/mcL (140-400); Red Blood Count 3.77 M/mcL (4.19-5.50); Red Cell Distribution Width 13.6 % (11.5-14.5)
[2018-08-06] MEDS: amLODIPine 5 MG TABLET PO SCH (10:14)
[2018-08-06] MEDS: Acetaminophen 325 MG TABLET PO PRN (10:15)
[2018-08-06] MEDS: Multivit/Ca/Min/Fe/FA 1 TAB TABLET PO SCH (10:15)
[2018-08-06] MEDS: Aspirin Enteric Coated 81 MG Tablet PO SCH (10:15)
[2018-08-06] MEDS: predniSONE 10 MG TABLET PO SCH (10:15)
[2018-08-06] MEDS: Metoprolol XL (24 HR) Succ 25 MG TAB.ER.24H PO SCH (10:15)
[2018-08-06] MEDS: cefTRIAXone 1,000 MG in Water for inj. (sterile) 20 ML 10 ML IVP SCH (10:16)
[2018-08-06 10:30] LABS: Calcium 8.4 mg/dL (8.6-10.3); Potassium 4.2 mEq/L (3.5-5.1)
[2018-08-06] MEDS ORDERED: traMADol 50 MG TABLET PO PRN (16:54)
[2018-08-06] MEDS ORDERED: OXYCODONE Oral CONC 10 MG/0.5 ML ORAL.SYG SL PRN (16:55)
--- NOTE | 2018-08-06 16:59 | Pulmonology Progress Note ---
Date of Encounter: 08/06/18 Time of Encounter: 11:00 Assessment and Plan (1) Pleural effusion Current Visit: Yes Status: Acute Additional thoracentesis initially which showed bloody fluid from the pleural space concerning for hemorrhagic effusion versus Hemothorax secondary to supratherapeutic therapeutic INR. I aborted thoracentesis counseled to IR for the small bore chest tube. Chest tube 2 L of morbid of bloody fluid was drained I clamped the chest tube for today will repeat a chest x-ray in the morning and will reassess the need for another drainage. 08/06 B chest x-ray shows mild decrease in pleural effusion is still he has at least 2-2.5 L in his right hemithorax the most likely reason for this hemorrhagic pleural effusion is due to lung cancer with pleural metastasis and complicated by supratherapeutic INR will lead to severe bleeding in the hemothorax today to drain at least 1.5 L and clamp the chest tube and reassess. (2) Acute respiratory failure with hypoxia Current Visit: Yes Status: Acute Patient acute respiratory failure most likely due to secondary to pleural effusion and possible pneumonia . (3) Lung cancer Current Visit: No Status: Chronic Right upper lobe lung cancer which was resected at [facility] November of this year. Now patient is having right-sided pleural effusion with a lot of pleural nodularity concerning for pleural metastasis . Qualifiers: Laterality: right Lung location: unspecified part of lung Qualified Code( s): C34.91 - Malignant neoplasm of unspecified part of right bronchus or lung (4) Pneumonia Current Visit: No Status: Acute Patient has low clinical probability for pneumonia stopped vancomycin will de- escalate the antibiotics Qualifiers: Pneumonia type: due to unspecified organism Laterality: left Lung location: lower lobe of lung Qualified Code(s): J18.1 - Lobar pneumonia, unspecified organism Subjective Principal diagnosis: Pleural Effusion Interval history: Patient respiratory distress is at baseline. Any fever or chills denies any undue cough or sputum production, denies any hemoptysis. Patient says he took on some days wrong dose of Coumadin for possible supratherapeutic INR. Denies any recent trauma to his chest denies any neuro symptoms denies any chest pain or chest tightness. 08/06 and is feeling a lot better his shortness of breath is lot better denies any chest pain or chest tightness., Denies any fever or chills. Objective PUL Vital signs: Last Vital Signs Temp 99.4 F 08/06/18 15:06 Pulse 83 08/06/18 15:06 Resp 18 08/06/18 15:06 BP 115/70 08/06/18 15:06 Pulse Ox 93 08/06/18 15:06 Auscultation: right: diminished breath sounds Results - Laboratory Findings CBC and BMP: 08/06/18 09:59 08/06/18 09:59 PT/INR, D-dimer PT 13.9 Seconds (9.4-12.1) H 08/06/18 06:33 D-Dimer 837 ng/mLFEU (0-500) H 08/04/18 09:11 Abnormal lab findings: Abnormal lab results WBC 26.6 K/mcL (4.3-11.1) H 08/06/18 09:59 RBC 3.77 M/mcL (4.19-5.50) L 08/06/18 09:59 Hgb 11.2 g/dL (12.9-16.9) L 08/06/18 09:59 Hct 35.1 % (37.5-50.1) L 08/06/18 09:59 MPV 8.6 fL (9.4-12.4) L 08/06/18 09:59 Band Neutrophils % 6.0 % (0-4) H 08/05/18 04:46 Neutrophils # 18.9 K/mcL (1.6-8.9) H 08/06/18 06:33 Monocytes # 1.6 K/mcL (0.0-1.3) H 08/06/18 06:33 Eosinophils # 2.8 K/mcL (0.0-0.6) H 08/06/18 06:33 PT 13.9 Seconds (9.4-12.1) H 08/06/18 06:33 APTT 40.0 Seconds (26.0-36.0) H 08/04/18 09:11 D-Dimer 837 ng/mLFEU (0-500) H 08/04/18 09:11 BUN 27 mg/dL (8-23) H 08/06/18 09:59 Creatinine 1.38 mg/dL (0.70-1.30) H 08/06/18 09:59 Est GFR (Non-Af Amer) 49 (> 60) L 08/06/18 09:59 Glucose 147 mg/dL (70-105) H 08/06/18 09:59 POC Glucose 110 mg/dL (70-99) H 08/05/18 07:37 Calcium 8.4 mg/dL (8.6-10.3) L 08/06/18 09:59 Total Bilirubin 1.3 mg/dL (0.3-1.0) H 08/05/18 04:46 AST 12 Units/L (13-39) L 08/05/18 04:46 B-Natriuretic Peptide 100 pg/mL (Less than 100) H 08/04/18 09:11 Serum Total Protein 6.0 g/dL (6.4-8.9) L 08/05/18 16:00 Albumin 2.8 g/dL (3.5-5.7) L 08/05/18 04:46 Albumin/Globulin Ratio 1.0 (1.1-2.2) L 08/05/18 04:46 Pleural Appearance Bloody (Clear) A 08/05/18 15:23 Pleural RBC 0.394 M/mcL (0.000-0.002) H 08/05/18 15:23 Pleural Tot Nuc Cell 2565 TNC/mcL (0-1000) H 08/05/18 15:23 - Microbiology Findings Microbiology Findings: Microbiology, Last 48 Hours 08/05/18 15:23 Body Fluid Culture - Preliminary Pleural Fluid 08/06/18 00:15 Legionella Antigen - Final Urine,Clean Catch Streptococcus pneumoniae Antigen (M - Final - Clinical Findings Intake & Output: Intake & Output 08/06/1818 08/06/18 07:59 15:59 23:59 Intake Total 0 / 0 240 / 240 Output Total 0 / 0 100 / 100 Balance 0 / 0 140 / 140 Consult Discharge Plan - Plan Referrals: Sander Ibrahim DO [Primary Care Provider] -
[2018-08-06] MEDS: Cefepime HCl 2,000 MG in Water for inj. (sterile) 20 ML 20 ML IVP SCH ×2 (17:44→17:53)
[2018-08-07] MEDS: Pyridostigmine Br 60 MG TABLET PO SCH ×3 (06:06→22:31)
[2018-08-07] MEDS: Cefepime HCl 2,000 MG in Water for inj. (sterile) 20 ML 20 ML IVP SCH ×2 (06:07→17:19)
[2018-08-07 06:29] LABS: Mean Platelet Volume 9.2 fL (9.4-12.4)
[2018-08-07 06:31] LABS: Hematocrit 36.5 % (37.5-50.1); Hemoglobin 11.6 g/dL (12.9-16.9); Lymphocytes # 1.3 K/mcL (0.6-4.6); Mean Corpuscular HGB Conc 31.8 g/dL (31.6-35.5); Mean Corpuscular Volume 91.3 fL (83.0-100.0); Platelet Count 346 K/mcL (140-400); Red Cell Distribution Width 13.7 % (11.5-14.5)
[2018-08-07 06:50] LABS: BUN/Creatinine Ratio 25 (6-26); Blood Urea Nitrogen 33 mg/dL (8-23); Calcium 8.8 mg/dL (8.6-10.3); Carbon Dioxide 25 mEq/L (23-29); Chloride 105 mEq/L (98-107); Glucose 103 mg/dL (70-105); Osmolality,Calculated 294 (280-300); Potassium 3.9 mEq/L (3.5-5.1); Sodium 138 mEq/L (136-145); eGFR For Non-African Americans 53 (> 60)
--- NOTE | 2018-08-07 07:26 | Internal Med Progress Note ---
<Alma Solo - Last Filed: 08/07/18 08:13> Hospitalist Progress Note - Encounter Date of Encounter: 08/07/18 Time of Encounter: 08:14 - Subjective Interval History: Mr. Palacios is a 83 y/o male w a pmh of afib on Coumadin, hx of lung CA with resection,and Myasthenia gravis who presented to the ED with SOB found to have a pleural effusion. Overnight no acute events. Today, patient states that he is feeling better today and is less tired. Had a BM this morning. Denies SOB while on supplemental O2. His pain is well controlled. No new complaints. - Exam Vitals: Temp Pulse Resp BP Pulse Ox 98.8 F 87 17 112/70 96 08/07/18 06:55 08/07/18 06:55 08/07/18 06:55 08/07/18 06:55 08/07/18 06:55 Exam: Constitutional: Alert, in no acute distress Head: Normocephalic, atraumatic Heart: Normal, regular rate and rhythm, no murmurs Chest: right chest tube in place draining serosanginous fluid, diminished breath sounds on the RLL, clear to auscultation on the left, no wheezes Abdomen: Soft, nondistended, nontenderl, no guarding or rigidity. Extremities: No edema, No clubbing, capillary refill <2sec. Skin: Skin warm and dry, no lesions, no rashes, no jaundice Neurologic: Cranial nerves II through XII grossly intact, strength 5/5 in all extremities Psych: Cooperative with exam, good eye contact, cognitive function intact, speech clear, thought process logical, and goal directed - Assessment and Plan (1) Sepsis Current Visit: No Status: Acute Assessment and Plan: Most likely 2/2 to pleural effusion. He was on Vanco then switched to Ceftriaxone then to Cefepime ( 08/06/18) due to WBc still elevated significantly. MRSA screening was negative and Vanco can cause a crisis. Currently HR: wnl. afebrile. WBC still elevated at 26.4 but vitals wnl except NC 2L. Initial lactic acid= 1.6. s/p 2 L NS. Due to concern for causing worsening SOB and euvolemic with adequate PO intake, fluids stopped. plan: - continue Antibiotics: Cefepime ( day 2, 08/06/18), s/p cefriaxone (2 days), - pulmonology following, s/p chest tube placement and drainage of 2L - awaiting blood cultures (08/04) - NGTD, pleural fluid cultures (08/05/18) - NGTD - continue O2 support - diet: cardiac diet, fluid restriction - dispo: consulting Oncology for cause of pleural effusion, blood cultures, pleural cultures (2) Pneumonia Current Visit: No Status: Acute Assessment and Plan: Likely 2/2 to pleural effusion. Continue cefepime. See plan above. (3) Pleural effusion Current Visit: Yes Status: Acute Assessment and Plan: Unknown etiology. Likely due to 2/2 to primary cancer vs. mets from previous lung ca, myasthenia gravis crisis on the differenetial but less likely as patient is not having weakness. Patient would like to go back to the [facility] if he needs treatment. Output yesterday, 500ml of serosanguinous fluid. Plan: - pulmonology consulted, managing chest tube - s/p chest tube placement, 2L output yesterday - awaiting pathology, cytology, cultures on pleural fluid - continue resp support, nasal canula - consulted Onco for etiology of pleural effusion as concerns for new primary vs mets, records pending form the [facility] (4) Acute respiratory failure with hypoxia Current Visit: Yes Status: Acute Assessment and Plan: See plan above. (5) Supratherapeutic INR Current Visit: Yes Status: Resolved Assessment and Plan: Resolved. Patient is currently not on anticoagulation as it is currently contraindicated due to hemorrhagic pleural effusion. (6) Chronic a-fib Current Visit: Yes Status: Acute Assessment and Plan: Currently rate controlled. Continue home med for rate control: Metoprolol 25mg daily. Coumadin held, contraindicated. Patient has chest tube placed with serosanguinous fluid drainage. 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 s/p right lower lobe sublobar resection and mediastinal lymphadenectomy on . Per patient required no chemo or radiation and has been in remission since. CTA of chest here showed Large right pleural effusion with diffuse pleural nodularity and near complete collapse of the right lung. 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 Patient would like to go back to the [facility] at [facility] for further treatment. Plan: - consult oncology, awaiting recommendations (8) Leukocytosis Current Visit: Yes Status: Acute Assessment and Plan: Elevated WBC at 26.4. Stable compared to yesterday. Unsure if this is due to infection, stress from the chest tube placement, or from possible underlying CA. Will continue Cefepime. Patient is clinically improving despite persistent elevated WBC with normal vitals except for needing NC 2L. DVT Prophylaxis: SCDs SCIDs - Time Spent with Patient Total time spent is greater than 50% in coordination of care (as documented) at patient's floor/unit and/or counseling patient: Plan of Care Discussed with: patient Internal Medicine: Result - Labs CBC & Chem 7: 08/07/18 05:40 08/07/18 05:40 Labs: Short CBC 08/06/18 08/06/18 08/07/18 Range/Units 06:33 09:59 05:40 WBC 24.7 H 26.6 H 26.4 H (4.3-11.1) K/mcL Hgb 10.8 L 11.2 L 11.6 L (12.9-16.9) g/dL Hct 33.6 L 35.1 L 36.5 L (37.5-50.1) % Plt Count 316 306 346 (140-400) K/mcL Neutrophils # 18.9 H (1.6-8.9) K/mcL BMP 08/06/18 08/07/18 09:59 05:40 Sodium 137 138 Potassium 4.2 3.9 Chloride 102 105 Carbon Dioxide 29 25 BUN 27 H 33 H Creatinine 1.38 H 1.30 Glucose 147 H 103 Calcium 8.4 L 8.8 - ABG Interpretation ABG results: PT/INR, D-dimer PT 13.9 Seconds (9.4-12.1) H 08/06/18 06:33 D-Dimer 837 ng/mLFEU (0-500) H 08/04/18 09:11 - Impressions Impressions Chest X-Ray 08/06/18 08:00 IMPRESSION: No change. D/ / 08/06/2018 09:27:16 Riccardo Romero MD / jeremie Interpreting Provider: Riccardo Romero MD Chest X-Ray 08/06/18 17:29 IMPRESSION: Right pleural pigtail catheter projects over the inferior hemithorax. Moderate right pleural effusion has mildly decreased in size since the prior examination. D/ / 08/06/2018 08:10:45 Rick Moore MD / jeremie Interpreting Provider: Rick Moore MD Consult Discharge Plan - Plan Referrals: Sander Ibrahim DO [Primary Care Provider] - <Fide Ambrose - Last Filed: 08/07/18 13:03> Hospitalist Progress Note - Encounter Date of Encounter: 08/07/18 - Exam Vitals: Temp Pulse Resp BP Pulse Ox 98.3 F 83 17 114/74 95 08/07/18 11:04 08/07/18 11:04 08/07/18 11:04 08/07/18 11:04 08/07/18 11:04 - Assessment and Plan (1) Pneumonia Current Visit: No Status: Acute (2) Sepsis Current Visit: No Status: Acute (3) Pleural effusion Current Visit: Yes Status: Acute (4) Acute respiratory failure with hypoxia Current Visit: Yes Status: Acute (5) Supratherapeutic INR Current Visit: Yes Status: Resolved (6) Chronic a-fib Current Visit: Yes Status: Acute (7) History of lung cancer Current Visit: Yes Status: Acute (8) Leukocytosis Current Visit: Yes Status: Acute - Time Spent with Patient Total time spent is greater than 50% in coordination of care (as documented) at patient's floor/unit and/or counseling patient: Internal Medicine: Result - Labs CBC & Chem 7: 08/07/18 05:40 08/07/18 05:40 Labs: Short CBC 08/06/18 08/07/18 Range/Units 06:33 05:40 WBC 24.7 H 26.4 H (4.3-11.1) K/mcL Hgb 10.8 L 11.6 L (12.9-16.9) g/dL Hct 33.6 L 36.5 L (37.5-50.1) % Plt Count 316 346 (140-400) K/mcL Neutrophils # 18.9 H 19.8 H (1.6-8.9) K/mcL BMP 08/07/18 05:40 Sodium 138 Potassium 3.9 Chloride 105 Carbon Dioxide 25 BUN 33 H Creatinine 1.30 Glucose 103 Calcium 8.8 - ABG Interpretation ABG results: PT/INR, D-dimer PT 13.9 Seconds (9.4-12.1) H 08/06/18 06:33 D-Dimer 837 ng/mLFEU (0-500) H 08/04/18 09:11 - Impressions Impressions Chest X-Ray 08/07/18 07:43 IMPRESSION: Right pleural pigtail catheter is in unchanged position. Moderate right pleural effusion has decreased in size since the prior examination. D/ / 08/07/2018 08:03:41 Rick Moore MD / bcarter Interpreting Provider: Rick Moore MD - Attending Attestation I examined this patient and my medical decision-making was reviewed with the Resident Physician. I agree with the documented findings, disposition and treatment plan as described except to the extent set forth below. Breathing is overall better since chest tube inserted. He is afebrile. Physical exam shows chest tube with blood-tinged fluid draining. Breath sounds improved since admission. WBC up to 26k today, same since yesterday. HR and BP unremarkable. 1. Acute respiratory failure with hypoxia 2. Pleural effusion 3. Leukocytosis 4. Supratherapeutic INR 5. Atrial fibrillation 6. Myasthenia Gravis 7. Hypertension - Continue chest tube management per Pulm. - Currently pleural fluid analysis shows mostly blood and does not appear to be infectious etiology. - Leukocytosis is most likelyrelated to malignancy and/or steroids. In January he had normal WBC count. Today WBC 26k same as yesterday. Continue emperic abx with cefepime for now - Peripheral smear pending - Oncology consulted, [facility] records pending. - Afib: Rate controlled with Toprol. He is a poor candidate for anticoagulation due to hemothorax and so will not be continued. - Continue Pyridostigmine. Avoid medications that can worsen myasthenia gravis. <Alma Solo - Last Filed: 08/07/18 08:13> (1) Sepsis Qualifiers: Sepsis type: sepsis due to unspecified organism Qualified Code(s): A41.9 - Sepsis, unspecified organism (2) Pneumonia Qualifiers: Pneumonia type: due to unspecified organism Laterality: left Lung location: lower lobe of lung Qualified Code(s): J18.1 - Lobar pneumonia, unspecified organism <Fide Ambrose - Last Filed: 08/07/18 13:03> (1) Pneumonia Qualifiers: Pneumonia type: due to unspecified organism Laterality: left Lung location: lower lobe of lung Qualified Code(s): J18.1 - Lobar pneumonia, unspecified organism (2) Sepsis Qualifiers: Sepsis type: sepsis due to unspecified organism Qualified Code(s): A41.9 - Sepsis, unspecified organism
[2018-08-07 08:06] LABS: Eosinophils # 2.4 K/mcL (0.0-0.6); Monocytes # 2.9 K/mcL (0.0-1.3); Neutrophils # 19.8 K/mcL (1.6-8.9); Platelet Estimate Normal (Normal)
[2018-08-07] MEDS: Multivit/Ca/Min/Fe/FA 1 TAB TABLET PO SCH (09:20)
[2018-08-07] MEDS: amLODIPine 5 MG TABLET PO SCH (09:20)
[2018-08-07] MEDS: predniSONE 10 MG TABLET PO SCH (09:20)
[2018-08-07] MEDS: Metoprolol XL (24 HR) Succ 25 MG TAB.ER.24H PO SCH (09:20)
[2018-08-07] MEDS: Aspirin Enteric Coated 81 MG Tablet PO SCH (09:21)
--- NOTE | 2018-08-07 09:26 | Pulmonology Progress Note ---
Date of Encounter: 08/07/18 Time of Encounter: 09:00 Assessment and Plan (1) Pleural effusion Current Visit: Yes Status: Acute Additional thoracentesis initially which showed bloody fluid from the pleural space concerning for hemorrhagic effusion versus Hemothorax secondary to supratherapeutic therapeutic INR. I aborted thoracentesis counseled to IR for the small bore chest tube. Chest tube 2 L of morbid of bloody fluid was drained I clamped the chest tube for today will repeat a chest x-ray in the morning and will reassess the need for another drainage. 08/06 B chest x-ray shows mild decrease in pleural effusion is still he has at least 2-2.5 L in his right hemithorax the most likely reason for this hemorrhagic pleural effusion is due to lung cancer with pleural metastasis and complicated by supratherapeutic INR will lead to severe bleeding in the hemothorax today to drain at least 1.5 L and clamp the chest tube and reassess. 08/07 over 24hrs it drained 1.2 litres over night around 700 ml still the pleural fluid is hemorrhagic with this pleural fluid nodularity more pointing towards Lung cancer metastases. Will leave one more day will remove tomorrow the chest tube . Will need outpatient Pulmonology follow up in 2-4 weeks . (2) Acute respiratory failure with hypoxia Current Visit: Yes Status: Acute Patient acute respiratory failure most likely due to secondary to pleural effusion and possible pneumonia . (3) Lung cancer Current Visit: No Status: Chronic Right upper lobe lung cancer which was resected at [facility] November of this year. Now patient is having right-sided pleural effusion with a lot of pleural nodularity concerning for pleural metastasis . Might need Pleural biopsy if the pleural fluid cytology comes negative. Qualifiers: Laterality: right Lung location: unspecified part of lung Qualified Code( s): C34.91 - Malignant neoplasm of unspecified part of right bronchus or lung (4) Pneumonia Current Visit: No Status: Acute Patient has low clinical probability for pneumonia stopped vancomycin will de- escalate the antibiotics to Levaquin. Qualifiers: Pneumonia type: due to unspecified organism Laterality: left Lung location: lower lobe of lung Qualified Code(s): J18.1 - Lobar pneumonia, unspecified organism Subjective Principal diagnosis: Pleural Effusion Interval history: Patient respiratory distress is at baseline. Any fever or chills denies any undue cough or sputum production, denies any hemoptysis. Patient says he took on some days wrong dose of Coumadin for possible supratherapeutic INR. Denies any recent trauma to his chest denies any neuro symptoms denies any chest pain or chest tightness. 08/06 and is feeling a lot better his shortness of breath is lot better denies any chest pain or chest tightness., Denies any fever or chills. 08/07 Patient complaints of some pain at the chest tube when it moves otherwise his breathing is lot better , denies any fever or chills. Objective PUL Vital signs: Last Vital Signs Temp 98.8 F 08/07/18 06:55 Pulse 87 08/07/18 06:55 Resp 17 08/07/18 06:55 BP 112/70 08/07/18 06:55 Pulse Ox 96 08/07/18 06:55 Auscultation: right: diminished breath sounds (in the base ) Results - Laboratory Findings CBC and BMP: 08/07/18 05:40 08/07/18 05:40 PT/INR, D-dimer PT 13.9 Seconds (9.4-12.1) H 08/06/18 06:33 D-Dimer 837 ng/mLFEU (0-500) H 08/04/18 09:11 Abnormal lab findings: Abnormal lab results WBC 26.4 K/mcL (4.3-11.1) H 08/07/18 05:40 RBC 4.00 M/mcL (4.19-5.50) L 08/07/18 05:40 Hgb 11.6 g/dL (12.9-16.9) L 08/07/18 05:40 Hct 36.5 % (37.5-50.1) L 08/07/18 05:40 MPV 9.2 fL (9.4-12.4) L 08/07/18 05:40 Band Neutrophils % 14.0 % (0-4) H 08/07/18 05:40 Neutrophils # 19.8 K/mcL (1.6-8.9) H 08/07/18 05:40 Monocytes # 2.9 K/mcL (0.0-1.3) H 08/07/18 05:40 Eosinophils # 2.4 K/mcL (0.0-0.6) H 08/07/18 05:40 PT 13.9 Seconds (9.4-12.1) H 08/06/18 06:33 APTT 40.0 Seconds (26.0-36.0) H 08/04/18 09:11 D-Dimer 837 ng/mLFEU (0-500) H 08/04/18 09:11 BUN 33 mg/dL (8-23) H 08/07/18 05:40 Est GFR (Non-Af Amer) 53 (> 60) L 08/07/18 05:40 POC Glucose 124 mg/dL (70-99) H 08/05/18 16:23 Total Bilirubin 1.3 mg/dL (0.3-1.0) H 08/05/18 04:46 AST 12 Units/L (13-39) L 08/05/18 04:46 B-Natriuretic Peptide 100 pg/mL (Less than 100) H 08/04/18 09:11 Serum Total Protein 6.0 g/dL (6.4-8.9) L 08/05/18 16:00 Albumin 2.8 g/dL (3.5-5.7) L 08/05/18 04:46 Albumin/Globulin Ratio 1.0 (1.1-2.2) L 08/05/18 04:46 Pleural Appearance Bloody (Clear) A 08/05/18 15:23 Pleural RBC 0.394 M/mcL (0.000-0.002) H 08/05/18 15:23 Pleural Tot Nuc Cell 2565 TNC/mcL (0-1000) H 08/05/18 15:23 - Microbiology Findings Microbiology Findings: Microbiology, Last 48 Hours 08/05/18 15:23 Acid Fast Stain - Final Pleural Fluid 08/05/18 15:23 Body Fluid Culture - Preliminary Pleural Fluid 08/06/18 00:15 Legionella Antigen - Final Urine,Clean Catch Streptococcus pneumoniae Antigen (M - Final - Clinical Findings Intake & Output: Intake & Output 08/06/18 08/07/18 08/07/18 23:59 07:59 15:59 Intake Total 150 / 150 360 / 360 Output Total 200 / 200 450 / 450 Balance -50 / -50 -450 / -450 360 / 360 Weight 75.4 kg Consult Discharge Plan - Plan Referrals: Sander Ibrahim DO [Primary Care Provider] -
--- NOTE | 2018-08-07 16:56 | Oncology Inp Consult Note ---
Date of Encounter: 08/07/18 Time of Encounter: 16:57 Assessment and Plan (1) Pleural effusion Status: Acute Assessment and plan: Large right pleural effusion with pleural nodule suspicious for recurrence of his non-small cell lung cancer.. We will await cytology from his hemorrhagic effusion The pleural nodules should be amenable for CT-guided biopsy especially if the effusion does not establish the diagnosis. Further treatment recommendation after diagnosis I reviewed [facility] records. 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 He did have a negative CAT scan on 07/07/2018. The effusion has occurred in such as short duration He quit smoking in May also proceed with PDL one testing. He may be a candidate for immunotherapy - Data of Consult Patient: new to practice Requesting Physician: José Miguel Ortiz Primary Care Provider: Sander Ibrahim, - Consult Narrative Reason for consult: Metastatic non-small cell lung cancer History of present illness: Mr. Palacios is a 83 year old male with PMH of Myasthenia gravis, HTN, CAD s/p CABG 02/2018, hypothyroidsim, lung cancer, diverticulosis, CHF NYHA class IV, HDL. He was admitted with shortness of breath CT angiogram chest 08/04/2018 showed large right pleural effusion. Diffuse pleural nodularity with near collapse of right lung. No pulmonary embolism Pulmonology is involved Chest tube 2 L of morbid of bloody fluid was drained. Since then additional 2 L of hemorrhagic fluid drained. Need cytology He also met criteria for sepsis with elevated neutrophil count 15,000 which were normal prior to admission. Hemoglobin mildly low around 11-12 and platelets normal. She also had fever on admission which resolved Currently he is getting IV cefepime Oncological history CT chest abdomen and pelvis 09/25/2017 showed significant interval increase in size of a right lower lobe noncalcified pulmonary nodule, measuring up to 2.2 cm. 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 No lymphadenopathy and no effusion. Medical history Colonoscopy July 2016 showed diverticulosis. Poor preparation CABG in 02/2018 with triple bypass Past Med Surg Social Fam HX - Past Medical History Medical history: cancer, GI bleed, hypertension Additional medical history: myasthenia gravis. Lung CA Psychiatric history: no psych history - Past Surgical History Surgical History: no surgical history (Kidney stone extraction, lung biopsy of pulmonary nodule) Additional surgical history: kidney stones removed. partial lung removed. Heart Cath - Social History Smoking Status: Never smoker Smokeless Tobacco Status: No Alcohol use: none Drug use: none - Family History Father Adopted: No Family Member Ethnicity: Non- Living Status: Hx Family Cardiac Disorders: No Hx Family Respiratory Disorders: Yes (smoker) Hx Family Cancer: Yes (Lung) Hx Family GI Disorders: No Hx Family Endocrine Disorder: No Hx Family Neuromuscular Disorders: No Hx Family Neurologic Disorders: No Hx Family HEENT Disorders: No Hx Family Autoimmune Disorders: Yes (RA) Mother Family Member Ethnicity: Non- Living Status: Hx Family GI Disorders: Yes (Diverticulosis) Brother Family Member Ethnicity: Non- Living Status: Hx Family Endocrine Disorder: Yes (Cirrhosis) Sister Family Member Ethnicity: Non- Living Status: Hx Family Cardiac Disorders: Yes (Aneurysm) Medications and Allergies Acetaminophen/Diphenhydramine [Percogesic 325-12.5 mg Tablet] 1 tab PO HS PRN [History] Aspirin Enteric Coated [Aspirin EC] 81 mg PO DAILY 08/04/18 [History] Atorvastatin [Lipitor] 40 mg PO HS 08/04/18 [History] Docusate [Colace] 100 mg PO Q48H PRN 08/04/18 [History] Levothyroxine Sodium [Levo-T] 125 mcg PO DAILY 08/04/18 [History] Metoprolol Succinate [Toprol Xl] 25 mg PO DAILY 08/04/18 [History] Multivitamin [One Daily Essential] 1 tab PO DAILY 08/04/18 [History] Pyridostigmine Br [Mestinon] 60 mg PO Q8H 08/04/18 [History] Warfarin [Coumadin] 3 mg PO DAILY 08/04/18 [History] amLODIPine [Norvasc] 2.5 mg PO DAILY 08/04/18 [History] predniSONE [PredniSONE] 10 mg PO DAILY 08/04/18 [History] 3 Allergy/AdvReac Type Severity Reaction Status Date / Time No Known Allergies Allergy Verified 05/04/18 17:32 Oncology - Exam - Constitutional Vitals: Temp Pulse Resp BP Pulse Ox 98.5 F 81 16 112/66 94 08/07/18 15:06 08/07/18 15:06 08/07/18 15:06 08/07/18 15:06 08/07/18 15:06 Exam: GENERAL: Alert and oriented, well appearing. Mental Status: Affect appropriate for circumstances HEENT: Sclerae anicteric. No mucositis or thrush. No other oral or pharyngeal lesions or erythema. Skin: No rashes or petechiae. No evidence of skin malignancy Lymph nodes: No cervical, supraclavicular, axillary, or inguinal adenopathy. Lungs: Air entry decreased right lung Cardiovascular: Regular rate and rhythm. No skipped beats Abdomen: Soft, nontender; no organomegaly or masses palpable. Extremities: No edema. No calf swelling or tenderness. No joint deformity. Neurologic: Alert, cranial nerves II-XII intact; normal gait; no focal weakness or sensory abnormalities Oncology - Results Labs: 3 08/07/18 08/07/18 08/06/18 05:40 05:40 13:59 WBC 26.4 H RBC 4.00 L Hgb 11.6 L Hct 36.5 L MCV 91.3 MCH 29.0 MCHC 31.8 RDW 13.7 Plt Count 346 MPV 9.2 L Immature Gran % Seg Neutrophils % 61.0 Band Neutrophils % 14.0 H Lymphocytes % 5.0 Monocytes % 11.0 Eosinophils % 9.0 Basophils % Neutrophils # 19.8 H Lymphocytes # 1.3 Monocytes # 2.9 H Eosinophils # 2.4 H Basophils # Platelet Estimate Normal Smear Path Review PT INR Sodium 138 Potassium 3.9 Chloride 105 Carbon Dioxide 25 BUN 33 H Creatinine 1.30 Est GFR ( Amer) > 60 Est GFR (Non-Af Amer) 53 L BUN/Creatinine Ratio 25 Glucose 103 POC Glucose Calculated Osmolality 294 Lactic Acid 1.8 Calcium 8.8 Phosphorus Magnesium Total Bilirubin AST ALT Alkaline Phosphatase Lactate Dehydrogenase Serum Total Protein Albumin Globulin Albumin/Globulin Ratio Pleural Fluid Volume Pleural Appearance Pleural RBC Pleural Tot Nuc Cell Pleural Neutrophils Pleural Band Neuts Pleural Eosinophils Pleural Basophils Pleural Lymphocytes % Pleural Monocytes % Pleural Other Cells % Pleural Total Protein Pleural LDH Pleural Glucose Pleural Amylase Nasal Screen MRSA (PCR) Chlamy pneumoniae PCR Adenovirus (PCR) B. pertussis DNA (PCR) B.parapertussis DNA PCR Coronavirus OC43 (PCR) Coronavirus HKU1 (PCR) Coronavirus 229E (PCR) Coronavirus NL63 (PCR) Human Metapneumovir PCR Influenza A (H1) PCR Influ A (H1N1) PCR Influenza A (H3) PCR Influenza A Untype (PCR) Influenza Type B (PCR) M.pneumoniae DNA (PCR) Parainfluenza 1 (PCR) Parainfluenza 2 (PCR) Parainfluenza 3 (PCR) Parainfluenza 4 (PCR) RSV (PCR) Entero/Rhino (PCR) Blood Type Antibody Screen 3 08/06/18 08/06/18 08/06/18 09:59 09:59 06:33 WBC 26.6 H RBC 3.77 L Hgb 11.2 L Hct 35.1 L MCV 93.1 MCH 29.7 MCHC 31.9 RDW 13.6 Plt Count 306 MPV 8.6 L Immature Gran % Seg Neutrophils % Band Neutrophils % Lymphocytes % Monocytes % Eosinophils % Basophils % Neutrophils # Lymphocytes # Monocytes # Eosinophils # Basophils # Platelet Estimate Smear Path Review PT 13.9 H INR 1.2 Sodium 137 Potassium 4.2 Chloride 102 Carbon Dioxide 29 BUN 27 H Creatinine 1.38 H Est GFR ( Amer) 60 Est GFR (Non-Af Amer) 49 L BUN/Creatinine Ratio 20 Glucose 147 H POC Glucose Calculated Osmolality 292 Lactic Acid Calcium 8.4 L Phosphorus Magnesium Total Bilirubin AST ALT Alkaline Phosphatase Lactate Dehydrogenase Serum Total Protein Albumin Globulin Albumin/Globulin Ratio Pleural Fluid Volume Pleural Appearance Pleural RBC Pleural Tot Nuc Cell Pleural Neutrophils Pleural Band Neuts Pleural Eosinophils Pleural Basophils Pleural Lymphocytes % Pleural Monocytes % Pleural Other Cells % Pleural Total Protein Pleural LDH Pleural Glucose Pleural Amylase Nasal Screen MRSA (PCR) Chlamy pneumoniae PCR Adenovirus (PCR) B. pertussis DNA (PCR) B.parapertussis DNA PCR Coronavirus OC43 (PCR) Coronavirus HKU1 (PCR) Coronavirus 229E (PCR) Coronavirus NL63 (PCR) Human Metapneumovir PCR Influenza A (H1) PCR Influ A (H1N1/) PCR Influenza A (H3) PCR Influenza A Untype (PCR) Influenza Type B (PCR) M.pneumoniae DNA (PCR) Parainfluenza 1 (PCR) Parainfluenza 2 (PCR) Parainfluenza 3 (PCR) Parainfluenza 4 (PCR) RSV (PCR) Entero/Rhino (PCR) Blood Type Antibody Screen 3 08/06/18 08/06/18 08/05/18 06:33 06:33 16:23 WBC 24.7 H RBC 3.69 L Hgb 10.8 L Hct 33.6 L MCV 91.1 MCH 29.3 MCHC 32.1 RDW 13.8 Plt Count 316 MPV 8.8 L Immature Gran % 0.9 Seg Neutrophils % 76.3 Band Neutrophils % Lymphocytes % 4.6 Monocytes % 6.4 Eosinophils % 11.5 Basophils % 0.3 Neutrophils # 18.9 H Lymphocytes # 1.1 Monocytes # 1.6 H Eosinophils # 2.8 H Basophils # 0.1 Platelet Estimate Normal Smear Path Review See Below PT INR Sodium 137 Potassium 3.9 Chloride 103 Carbon Dioxide 27 BUN 27 H Creatinine 1.27 Est GFR ( Amer) > 60 Est GFR (Non-Af Amer) 54 L BUN/Creatinine Ratio 21 Glucose 101 POC Glucose 124 H Calculated Osmolality 289 Lactic Acid Calcium 8.5 L Phosphorus Magnesium Total Bilirubin AST ALT Alkaline Phosphatase Lactate Dehydrogenase Serum Total Protein Albumin Globulin Albumin/Globulin Ratio Pleural Fluid Volume Pleural Appearance Pleural RBC Pleural Tot Nuc Cell Pleural Neutrophils Pleural Band Neuts Pleural Eosinophils Pleural Basophils Pleural Lymphocytes % Pleural Monocytes % Pleural Other Cells % Pleural Total Protein Pleural LDH Pleural Glucose Pleural Amylase Nasal Screen MRSA (PCR) Chlamy pneumoniae PCR Adenovirus (PCR) B. pertussis DNA (PCR) B.parapertussis DNA PCR Coronavirus OC43 (PCR) Coronavirus HKU1 (PCR) Coronavirus 229E (PCR) Coronavirus NL63 (PCR) Human Metapneumovir PCR Influenza A (H1) PCR Influ A (H1N1/09) PCR Influenza A (H3) PCR Influenza A Untype (PCR) Influenza Type B (PCR) M.pneumoniae DNA (PCR) Parainfluenza 1 (PCR) Parainfluenza 2 (PCR) Parainfluenza 3 (PCR) Parainfluenza 4 (PCR) RSV (PCR) Entero/Rhino (PCR) Blood Type Antibody Screen 3 08/05/18 08/05/18 08/05/18 16:00 15:23 15:23 WBC RBC Hgb Hct MCV MCH MCHC RDW Plt Count MPV Immature Gran % Seg Neutrophils % Band Neutrophils % Lymphocytes % Monocytes % Eosinophils % Basophils % Neutrophils # Lymphocytes # Monocytes # Eosinophils # Basophils # Platelet Estimate Smear Path Review PT INR Sodium Potassium Chloride Carbon Dioxide BUN Creatinine Est GFR ( Amer) Est GFR (Non-Af Amer) BUN/Creatinine Ratio Glucose POC Glucose Calculated Osmolality Lactic Acid Calcium Phosphorus Magnesium Total Bilirubin AST ALT Alkaline Phosphatase Lactate Dehydrogenase 169 Serum Total Protein 6.0 L Albumin Globulin Albumin/Globulin Ratio Pleural Fluid Volume 120.0 Pleural Appearance Bloody A Pleural RBC 0.394 H Pleural Tot Nuc Cell 2565 H Pleural Neutrophils 36.0 Pleural Band Neuts TNP Pleural Eosinophils 54.0 Pleural Basophils 1.0 Pleural Lymphocytes % 8.0 Pleural Monocytes % 1.0 Pleural Other Cells % TNP Pleural Total Protein 3.6 Pleural LDH 430 Pleural Glucose 67 Pleural Amylase 12 Nasal Screen MRSA (PCR) Chlamy pneumoniae PCR Adenovirus (PCR) B. pertussis DNA (PCR) B.parapertussis DNA PCR Coronavirus OC43 (PCR) Coronavirus HKU1 (PCR) Coronavirus 229E (PCR) Coronavirus NL63 (PCR) Human Metapneumovir PCR Influenza A (H1) PCR Influ A (H1N1/09) PCR Influenza A (H3) PCR Influenza A Untype (PCR) Influenza Type B (PCR) M.pneumoniae DNA (PCR) Parainfluenza 1 (PCR) Parainfluenza 2 (PCR) Parainfluenza 3 (PCR) Parainfluenza 4 (PCR) RSV (PCR) Entero/Rhino (PCR) Blood Type Antibody Screen 3 08/05/18 08/05/18 08/05/18 12:44 08:39 07:37 WBC RBC Hgb Hct MCV MCH MCHC RDW Plt Count MPV Immature Gran % Seg Neutrophils % Band Neutrophils % Lymphocytes % Monocytes % Eosinophils % Basophils % Neutrophils # Lymphocytes # Monocytes # Eosinophils # Basophils # Platelet Estimate Smear Path Review PT 15.6 H INR 1.4 Sodium Potassium Chloride Carbon Dioxide BUN Creatinine Est GFR ( Amer) Est GFR (Non-Af Amer) BUN/Creatinine Ratio Glucose POC Glucose 110 H Calculated Osmolality Lactic Acid Calcium Phosphorus Magnesium Total Bilirubin AST ALT Alkaline Phosphatase Lactate Dehydrogenase Serum Total Protein Albumin Globulin Albumin/Globulin Ratio Pleural Fluid Volume Pleural Appearance Pleural RBC Pleural Tot Nuc Cell Pleural Neutrophils Pleural Band Neuts Pleural Eosinophils Pleural Basophils Pleural Lymphocytes % Pleural Monocytes % Pleural Other Cells % Pleural Total Protein Pleural LDH Pleural Glucose Pleural Amylase Nasal Screen MRSA (PCR) Chlamy pneumoniae PCR Adenovirus (PCR) B. pertussis DNA (PCR) B.parapertussis DNA PCR Coronavirus OC43 (PCR) Coronavirus HKU1 (PCR) Coronavirus 229E (PCR) Coronavirus NL63 (PCR) Human Metapneumovir PCR Influenza A (H1) PCR Influ A (H1N1/09) PCR Influenza A (H3) PCR Influenza A Untype (PCR) Influenza Type B (PCR) M.pneumoniae DNA (PCR) Parainfluenza 1 (PCR) Parainfluenza 2 (PCR) Parainfluenza 3 (PCR) Parainfluenza 4 (PCR) RSV (PCR) Entero/Rhino (PCR) Blood Type AB POSITIVE Antibody Screen NEGATIVE 3 08/05/18 08/05/18 08/05/18 04:46 04:46 04:46 WBC 23.4 H RBC 3.93 L Hgb 11.6 L Hct 36.3 L MCV 92.4 MCH 29.5 MCHC 32.0 RDW 13.9 Plt Count 326 MPV 9.2 L Immature Gran % Seg Neutrophils % 56.0 Band Neutrophils % 6.0 H Lymphocytes % 14.0 Monocytes % 10.0 Eosinophils % 14.0 Basophils % Neutrophils # 14.5 H Lymphocytes # 3.3 Monocytes # 2.3 H Eosinophils # 3.3 H Basophils # Platelet Estimate Normal Smear Path Review PT 26.8 H INR 2.4 Sodium 138 Potassium 4.1 Chloride 104 Carbon Dioxide 25 BUN 20 Creatinine 1.43 H Est GFR ( Amer) 58 L Est GFR (Non-Af Amer) 47 L BUN/Creatinine Ratio 14 Glucose 103 POC Glucose Calculated Osmolality 289 Lactic Acid Calcium 8.4 L Phosphorus 3.3 Magnesium 2.0 Total Bilirubin 1.3 H AST 12 L ALT 12 Alkaline Phosphatase 56 Lactate Dehydrogenase Serum Total Protein 5.5 L Albumin 2.8 L Globulin 2.7 Albumin/Globulin Ratio 1.0 L Pleural Fluid Volume Pleural Appearance Pleural RBC Pleural Tot Nuc Cell Pleural Neutrophils Pleural Band Neuts Pleural Eosinophils Pleural Basophils Pleural Lymphocytes % Pleural Monocytes % Pleural Other Cells % Pleural Total Protein Pleural LDH Pleural Glucose Pleural Amylase Nasal Screen MRSA (PCR) Chlamy pneumoniae PCR Adenovirus (PCR) B. pertussis DNA (PCR) B.parapertussis DNA PCR Coronavirus OC43 (PCR) Coronavirus HKU1 (PCR) Coronavirus 229E (PCR) Coronavirus NL63 (PCR) Human Metapneumovir PCR Influenza A (H1) PCR Influ A (H1N1/09) PCR Influenza A (H3) PCR Influenza A Untype (PCR) Influenza Type B (PCR) M.pneumoniae DNA (PCR) Parainfluenza 1 (PCR) Parainfluenza 2 (PCR) Parainfluenza 3 (PCR) Parainfluenza 4 (PCR) RSV (PCR) Entero/Rhino (PCR) Blood Type Antibody Screen 3 08/05/18 08/05/18 08/04/18 00:15 00:15 22:04 WBC RBC Hgb Hct MCV MCH MCHC RDW Plt Count MPV Immature Gran % Seg Neutrophils % Band Neutrophils % Lymphocytes % Monocytes % Eosinophils % Basophils % Neutrophils # Lymphocytes # Monocytes # Eosinophils # Basophils # Platelet Estimate Smear Path Review PT INR Sodium Potassium Chloride Carbon Dioxide BUN Creatinine Est GFR ( Amer) Est GFR (Non-Af Amer) BUN/Creatinine Ratio Glucose POC Glucose 122 H Calculated Osmolality Lactic Acid Calcium Phosphorus Magnesium Total Bilirubin AST ALT Alkaline Phosphatase Lactate Dehydrogenase Serum Total Protein Albumin Globulin Albumin/Globulin Ratio Pleural Fluid Volume Pleural Appearance Pleural RBC Pleural Tot Nuc Cell Pleural Neutrophils Pleural Band Neuts Pleural Eosinophils Pleural Basophils Pleural Lymphocytes % Pleural Monocytes % Pleural Other Cells % Pleural Total Protein Pleural LDH Pleural Glucose Pleural Amylase Nasal Screen MRSA (PCR) Negative Chlamy pneumoniae PCR Not Detected Adenovirus (PCR) Not Detected B. pertussis DNA (PCR) Not Detected B.parapertussis DNA PCR Not Detected Coronavirus OC43 (PCR) Not Detected Coronavirus HKU1 (PCR) Not Detected Coronavirus 229E (PCR) Not Detected Coronavirus NL63 (PCR) Not Detected Human Metapneumovir PCR Not Detected Influenza A (H1) PCR Not Detected Influ A (H1N1/09) PCR Not Detected Influenza A (H3) PCR Not Detected Influenza A Untype (PCR) Not Detected Influenza Type B (PCR) Not Detected M.pneumoniae DNA (PCR) Not Detected Parainfluenza 1 (PCR) Not Detected Parainfluenza 2 (PCR) Not Detected Parainfluenza 3 (PCR) Not Detected Parainfluenza 4 (PCR) Not Detected RSV (PCR) Not Detected Entero/Rhino (PCR) Not Detected Blood Type Antibody Screen Consult Discharge Plan - Plan Referrals: Sander Ibrahim DO [Primary Care Provider] - Inpatient Charges Provider: Dr. Lito Ritter Consult Charges: 66951
[2018-08-08] MEDS: Cefepime HCl 2,000 MG in Water for inj. (sterile) 20 ML 20 ML IVP SCH ×2 (06:01→17:59)
[2018-08-08] MEDS: Pyridostigmine Br 60 MG TABLET PO SCH ×3 (06:01→23:39)
[2018-08-08 07:11] LABS: Hematocrit 34.8 % (37.5-50.1); Hemoglobin 11.2 g/dL (12.9-16.9); Mean Corpuscular HGB Conc 32.2 g/dL (31.6-35.5); Mean Corpuscular Hemoglobin 30.1 pg (28.0-33.3); Mean Corpuscular Volume 93.5 fL (83.0-100.0); Mean Platelet Volume 8.9 fL (9.4-12.4); Platelet Count 346 K/mcL (140-400); Red Blood Count 3.72 M/mcL (4.19-5.50); Red Cell Distribution Width 13.7 % (11.5-14.5)
[2018-08-08 07:34] LABS: BUN/Creatinine Ratio 27 (6-26); Blood Urea Nitrogen 34 mg/dL (8-23); Calcium 8.5 mg/dL (8.6-10.3); Carbon Dioxide 27 mEq/L (23-29); Chloride 104 mEq/L (98-107); Glucose 105 mg/dL (70-105); Osmolality,Calculated 290 (280-300); Potassium 4.1 mEq/L (3.5-5.1); Sodium 136 mEq/L (136-145); eGFR For Non-African Americans 55 (> 60)
--- NOTE | 2018-08-08 08:50 | Internal Med Progress Note ---
<Alejandro James S - Last Filed: 08/08/18 11:04> Hospitalist Progress Note - Encounter Date of Encounter: 08/08/18 Time of Encounter: 08:48 - Subjective Interval History: Mr. Palacios is a 83 year old male with PMH of Myasthenia gravis, HTN, CAD s/p CABG 02/2018, hypothyroidism, lung cancer, diverticulosis, CHF NYHA class IV, HDL. He presented from home on 08/05/18 after increasing SOB since Wednesday. He states that today got really bad so he decided to come into the hospital to be evaluated. He saw his [employer] and she gave him cough drops, however, this didn't help him. At baseline he is SOB at rest over the last few weeks. He isn't very active. Of note he had a CABG in 02/2018 with triple bypass. The pt has been having increasing sputum production. In the ER the pt was given a one time dose of Vancomycin and Zosyn. -CXR showed a large right pleural effusion, s/p CABG -pt had a (+) d-dimer so CT scan was done which showed large right pleural effusion with diffuse nodularity and near complete collapse of right lung; pleural metastatic dz -troponin (-) Pt was seen by pulmonology who recommended thoracentesis. He was given vitamin K one time and then FFP. -pt had thoracentesis 08/05/18 , which was aborted for chest tube placement by IR -continues to drain blood, still has chest tube in place Today the pt has no complaints. Denies active chest pain. -denies N/V/D, abd pain. -breathing at baseline - Exam Vitals: Temp Pulse Resp BP Pulse Ox 98.8 F 84 16 117/70 91 08/08/18 06:51 08/08/18 06:51 08/08/18 06:51 08/08/18 06:51 08/08/18 06:51 Exam: Constitutional: Alert, in no acute distress , pleasant appearing male, WNWD Head: Normocephalic, atraumatic Heart: Normal, regular rate and rhythm, no murmurs Chest: right chest tube in place draining serosanginous fluid, diminished breath sounds on the RLL, clear to auscultation on the left, no wheezes Abdomen: Soft, nondistended, nontenderl, no guarding or rigidity. Extremities: No edema, No clubbing, capillary refill <2sec. Skin: Skin warm and dry, no lesions, no rashes, no jaundice Neurologic: no FND Psych: Cooperative - Assessment and Plan (1) Sepsis Current Visit: Yes Status: Resolved Assessment and Plan: On admission, pt met sepsis criteria -HR 104, WBC 22.5, RR 20 -source of infxn most likely pleural effusion seen on CXR and CTA MRSA screen negative Lactic acid 1.6 Currently doesn't meet sepsis criteria -HR 84, RR 16 -white count still elevated at 28.2 plan: - continue antibiotics: Cefepime ( day 3, 08/06/18), discontinued cefriaxone 08/05 (2 days of tx), - pulmonology following, s/p chest tube placement with 3,360 mL total off - awaiting blood cultures (08/04) - NGTD, pleural fluid cultures (08/05/18) - NGTD - continue O2 support - diet: cardiac diet, fluid restriction 1.5L - dispo: consulting Oncology for cause of pleural effusion, blood cultures, pleural cultures pending (2) Pleural effusion Current Visit: Yes Status: Acute Assessment and Plan: Unknown etiology. -Likely due to 2/2 to primary cancer vs. mets from previous lung cancer - Patient would like to go back to the [facility] if he needs treatment. - Output yesterday, 500ml of sero-sanguinous fluid. Based on Light's critera, most likely an exudative pleural effusion (infxn vs malignancy) -Pleural LDH: serum LDH >/=0.6 -pleural protein: serum protein >/=0.5 CXR 08/07 showed - right pleural cath in place; moderate right pleural effusion decreased in size since prior exam Plan: - pulmonology consulted, managing chest tube , they are ordering repeat CXR today - s/p chest tube placement, on 08/07 drained 1.2L; total drainage 3.3L plans to keep tube until today as per pulmonology - awaiting pathology, cytology, cultures on pleural fluid - continue resp support, nasal canula - consulted Onco for etiology of pleural effusion as concerns for new primary vs mets (3) Pneumonia Current Visit: No Status: Acute Assessment and Plan: Likely 2/2 to pleural effusion. Continue cefepime. See plan above. (4) Acute respiratory failure with hypoxia Current Visit: Yes Status: Acute Assessment and Plan: See plan above. (5) Supratherapeutic INR Current Visit: Yes Status: Resolved Assessment and Plan: Resolved. 08/06/18 PT 13.9 INR 1.2 Plan: -hold Coumadin; contraindicated due to hemorrhagic pleural effusion. (6) Chronic a-fib Current Visit: No Status: Chronic Assessment and Plan: Currently rate controlled. Continue home med for rate control: Metoprolol 25mg daily. Coumadin held, contraindicated. Patient has chest tube placed with serosanguinous fluid drainage. 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 -s/p right lower lobe sublobar resection and mediastinal lymphadenectomy on 12/22. -Per patient required no chemo or radiation and has been in remission since. CTA of chest here showed -Large right pleural effusion with diffuse pleural nodularity and near complete collapse of the right lung. 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 -Patient would like to go back to the [facility] at [facility] for further treatment. Plan: - consult oncology, awaiting recommendations (8) DVT prophylaxis Current Visit: Yes Status: Acute Assessment and Plan: SCD (9) HTN (hypertension) Current Visit: No Status: Chronic Assessment and Plan: BP 117/70 -adequate control -on Norvasc, Toprol , will continue these home meds (10) Leukocytosis Current Visit: Yes Status: Acute Assessment and Plan: Elevated WBC at 28.1 (08/08); was 22.5 on admission -infxn vs stress rxn from chest tube placement vs cancer -cefepime as per plan above DVT Prophylaxis: scd - Time Spent with Patient Total time spent is greater than 50% in coordination of care (as documented) at patient's floor/unit and/or counseling patient: less than 15 minutes Plan of Care Discussed with: patient Internal Medicine: Result - Labs CBC & Chem 7: 08/08/18 06:58 08/08/18 06:58 Labs: Short CBC 08/06/18 08/08/18 Range/Units 06:33 06:58 WBC 24.7 H 28.1 H (4.3-11.1) K/mcL Hgb 10.8 L 11.2 L (12.9-16.9) g/dL Hct 33.6 L 34.8 L (37.5-50.1) % Plt Count 316 346 (140-400) K/mcL Neutrophils # 18.9 H (1.6-8.9) K/mcL BMP 08/08/18 06:58 Sodium 136 Potassium 4.1 Chloride 104 Carbon Dioxide 27 BUN 34 H Creatinine 1.26 Glucose 105 Calcium 8.5 L - ABG Interpretation ABG results: PT/INR, D-dimer PT 13.9 Seconds (9.4-12.1) H 08/06/18 06:33 D-Dimer 837 ng/mLFEU (0-500) H 08/04/18 09:11 - Impressions Impressions Chest X-Ray 08/06/18 17:29 IMPRESSION: Right pleural pigtail catheter projects over the inferior hemithorax. Moderate right pleural effusion has mildly decreased in size since the prior examination. D/ / 08/06/2018 08:10:45 Rick Moore MD / bcarter Interpreting Provider: Rick Moore MD Consult Discharge Plan - Plan Referrals: Sander Ibrahim DO [Primary Care Provider] - <Fide Ambrose - Last Filed: 08/08/18 12:44> Hospitalist Progress Note - Encounter Date of Encounter: 08/08/18 - Exam Vitals: Temp Pulse Resp BP Pulse Ox 98.1 F 90 17 103/68 92 08/08/18 10:51 08/08/18 10:51 08/08/18 10:51 08/08/18 10:51 08/08/18 10:51 - Assessment and Plan (1) Pneumonia Current Visit: No Status: Acute (2) DVT prophylaxis Current Visit: Yes Status: Acute (3) HTN (hypertension) Current Visit: No Status: Chronic (4) Sepsis Current Visit: Yes Status: Resolved (5) Pleural effusion Current Visit: Yes Status: Acute (6) Acute respiratory failure with hypoxia Current Visit: Yes Status: Acute (7) Supratherapeutic INR Current Visit: Yes Status: Resolved (8) Chronic a-fib Current Visit: No Status: Chronic (9) History of lung cancer Current Visit: No Status: Chronic (10) Leukocytosis Current Visit: Yes Status: Acute - Time Spent with Patient Total time spent is greater than 50% in coordination of care (as documented) at patient's floor/unit and/or counseling patient: Internal Medicine: Result - Labs CBC & Chem 7: 08/08/18 06:58 08/08/18 06:58 Labs: Short CBC 08/08/18 Range/Units 06:58 WBC 28.1 H (4.3-11.1) K/mcL Hgb 11.2 L (12.9-16.9) g/dL Hct 34.8 L (37.5-50.1) % Plt Count 346 (140-400) K/mcL Neutrophils # 21.4 H (1.6-8.9) K/mcL BMP 08/08/18 06:58 Sodium 136 Potassium 4.1 Chloride 104 Carbon Dioxide 27 BUN 34 H Creatinine 1.26 Glucose 105 Calcium 8.5 L - ABG Interpretation ABG results: PT/INR, D-dimer PT 13.9 Seconds (9.4-12.1) H 08/06/18 06:33 D-Dimer 837 ng/mLFEU (0-500) H 08/04/18 09:11 - Impressions Impressions Chest X-Ray 08/06/18 17:29 IMPRESSION: Right pleural pigtail catheter projects over the inferior hemithorax. Moderate right pleural effusion has mildly decreased in size since the prior examination. D/ / 08/06/2018 08:10:45 Rick Moore MD / bcarter Interpreting Provider: Rick Moore MD - Attending Attestation I examined this patient and my medical decision-making was reviewed with the Resident Physician. I agree with the documented findings, disposition and treatment plan as described except to the extent set forth below. Breathing is stable. Remains off of oxygen now. Physical exam shows chest tube with blood-tinged fluid draining. Breath sounds improved since admission. WBC up to elevated to 28k today, same since yesterday. HR and BP stable. Afebrile. 1. Acute respiratory failure with hypoxia 2. Pleural effusion 3. Leukocytosis 4. Supratherapeutic INR 5. Atrial fibrillation 6. Myasthenia Gravis 7. Hypertension - Continue chest tube management per Pulm. - Pleural fluid analysis findings of bloody exudative pleural fluid - Leukocytosis is most likelyrelated to malignancy, reactive, and/or steroids. In January he had normal WBC count. WBC 28k today, afebrile. Continue emperic abx with cefepime for now - Peripheral smear pending - Oncology consulted, [facility] records pending. - Afib: Rate controlled with Toprol. He is a poor candidate for anticoagulation due to hemothorax and so will not be continued. - Continue Pyridostigmine. Avoid medications that can worsen myasthenia gravis. <Fide Ambrose - Last Filed: 08/08/18 12:44> (1) Pneumonia Qualifiers: Pneumonia type: due to unspecified organism Laterality: left Lung location: lower lobe of lung Qualified Code(s): J18.1 - Lobar pneumonia, unspecified organism (3) HTN (hypertension) Qualifiers: Hypertension type: essential hypertension Qualified Code(s): I10 - Essential (primary) hypertension (4) Sepsis Qualifiers: Sepsis type: sepsis due to unspecified organism Qualified Code(s): A41.9 - Sepsis, unspecified organism
--- NOTE | 2018-08-08 09:02 | Pulmonology Progress Note ---
<Ajith Butler - Last Filed: 08/08/18 10:48> Date of Encounter: 08/08/18 Time of Encounter: 09:25 Assessment and Plan (1) Pleural effusion Current Visit: Yes Status: Acute Thoracentesis with blood fluid output on 08/05 Small bore chest tube placed by IR on 08/05 with bloody output, sent sample for fluid analysis and cytology Pleural fluid analysis revealed bloody exudative effusion Likely related to malignancy Spoke with pt regarding possibility of Pleurex catheter in outpatient setting after discharge. Discussed risks of bleeding and infections, as well as benefits since effusion will likely continue to recur. Pt is amenable to procedure at this time. 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 Consider biopsy once effusion is stable. Qualifiers: Laterality: right Lung location: unspecified part of lung Qualified Code( s): C34.91 - Malignant neoplasm of unspecified part of right bronchus or lung (3) Acute respiratory failure with hypoxia Current Visit: Yes Status: Acute 2/2 likely malignant effusion with possible pneumonia Continue 10mg prednisone (4) Pneumonia Current Visit: No Status: Acute Afebrile HR and RR within normal limits WBC elevated at 28.1, elevation could be 2/2 prednisone Continue Cefepime, day 5 of abx treatment Qualifiers: Pneumonia type: due to unspecified organism Laterality: left Lung location: lower lobe of lung Qualified Code(s): J18.1 - Lobar pneumonia, unspecified organism Subjective Principal diagnosis: Pleural Effusion Interval history: Mr. Palacios is a pleasant 83M with PMH of Myasthenia Gravis, CAD, HTN, HLD, CHF and lung cancer with right upper lobe wedge resection on 12/09. He originally presented to the ER on 08/04 complaining of increased SOB and sputum production. He denied any fever, chills, or chest pain at that time. CTA chest revealed large right pleural effusion with diffuse pleural nodules suggestive of metastatic disease. Thoracentesis and small bore chest tube placement were performed on 08/05. Today pt states his shortness of breath has improved some over the weekend. He continues to deny any fever, chills, chest pain, nausea, vomiting, headache, numbness, or tinging. Nurse reported that chest tube output was approximately 300mL overnight. Objective PUL Vital signs: Last Vital Signs Temp 98.8 F 08/08/18 06:51 Pulse 84 08/08/18 06:51 Resp 16 08/08/18 06:51 BP 117/70 08/08/18 06:51 Pulse Ox 91 08/08/18 06:51 General appearance: no acute distress Eyes: nonicteric ENT: oropharynx moist Neck: supple, no lymphadenopathy, no JVD Effort: normal Auscultation: left: clear, right: diminished breath sounds (base), rales (upper) Percussion: left: not dull, right: dull (lower) Tactile fremitus: bilateral: normal Cardiovascular: regular rate and rhythm Gastrointestinal: soft, non-tender, non-distended Integumentary: normal Extremities: no cyanosis, no edema, no clubbing, pink and warm Musculoskeletal: no deformities Gait: normal posture normal mental status, non-focal exam, pupils equal and round mood appropriate, affect normal Results - Laboratory Findings CBC and BMP: 08/08/18 06:58 08/08/18 06:58 PT/INR, D-dimer PT 13.9 Seconds (9.4-12.1) H 08/06/18 06:33 D-Dimer 837 ng/mLFEU (0-500) H 08/04/18 09:11 Abnormal lab findings: Abnormal lab results WBC 28.1 K/mcL (4.3-11.1) H 08/08/18 06:58 RBC 3.72 M/mcL (4.19-5.50) L 08/08/18 06:58 Hgb 11.2 g/dL (12.9-16.9) L 08/08/18 06:58 Hct 34.8 % (37.5-50.1) L 08/08/18 06:58 MPV 8.9 fL (9.4-12.4) L 08/08/18 06:58 Band Neutrophils % 14.0 % (0-4) H 08/07/18 05:40 Neutrophils # 19.8 K/mcL (1.6-8.9) H 08/07/18 05:40 Monocytes # 2.9 K/mcL (0.0-1.3) H 08/07/18 05:40 Eosinophils # 2.4 K/mcL (0.0-0.6) H 08/07/18 05:40 PT 13.9 Seconds (9.4-12.1) H 08/06/18 06:33 APTT 40.0 Seconds (26.0-36.0) H 08/04/18 09:11 D-Dimer 837 ng/mLFEU (0-500) H 08/04/18 09:11 BUN 34 mg/dL (8-23) H 08/08/18 06:58 Est GFR (Non-Af Amer) 55 (> 60) L 08/08/18 06:58 BUN/Creatinine Ratio 27 (6-26) H 08/08/18 06:58 POC Glucose 124 mg/dL (70-99) H 08/05/18 16:23 Calcium 8.5 mg/dL (8.6-10.3) L 08/08/18 06:58 Total Bilirubin 1.3 mg/dL (0.3-1.0) H 08/05/18 04:46 AST 12 Units/L (13-39) L 08/05/18 04:46 B-Natriuretic Peptide 100 pg/mL (Less than 100) H 08/04/18 09:11 Serum Total Protein 6.0 g/dL (6.4-8.9) L 08/05/18 16:00 Albumin 2.8 g/dL (3.5-5.7) L 08/05/18 04:46 Albumin/Globulin Ratio 1.0 (1.1-2.2) L 08/05/18 04:46 Pleural Appearance Bloody (Clear) A 08/05/18 15:23 Pleural RBC 0.394 M/mcL (0.000-0.002) H 08/05/18 15:23 Pleural Tot Nuc Cell 2565 TNC/mcL (0-1000) H 08/05/18 15:23 - Microbiology Findings Microbiology Findings: Microbiology, Last 48 Hours 08/05/18 15:23 Body Fluid Culture - Preliminary Pleural Fluid 08/05/18 15:23 Acid Fast Stain - Final Pleural Fluid - Diagnostic Findings Chest x-ray: report reviewed, image reviewed - Clinical Findings Intake & Output: Intake & Output 08/07/18 08/08/1818 23:59 07:59 15:59 Intake Total 140 / 140 0 / 0 Output Total 400 / 400 Balance 130 / 130 -400 / -400 Weight 78.5 kg Consult Discharge Plan - Plan Referrals: Sander Ibrahim DO [Primary Care Provider] - <LizzyKatherinearchana Regan - Last Filed: 08/08/18 12:29> Date of Encounter: 08/08/18 Objective PUL Vital signs: Last Vital Signs Temp 98.1 F 08/08/18 10:51 Pulse 90 08/08/18 10:51 Resp 17 08/08/18 10:51 BP 103/68 08/08/18 10:51 Pulse Ox 92 08/08/18 10:51 Results - Laboratory Findings CBC and BMP: 08/08/18 06:58 08/08/18 06:58 PT/INR, D-dimer PT 13.9 Seconds (9.4-12.1) H 08/06/18 06:33 D-Dimer 837 ng/mLFEU (0-500) H 08/04/18 09:11 Abnormal lab findings: Abnormal lab results WBC 28.1 K/mcL (4.3-11.1) H 08/08/18 06:58 RBC 3.72 M/mcL (4.19-5.50) L 08/08/18 06:58 Hgb 11.2 g/dL (12.9-16.9) L 08/08/18 06:58 Hct 34.8 % (37.5-50.1) L 08/08/18 06:58 MPV 8.9 fL (9.4-12.4) L 08/08/18 06:58 Band Neutrophils % 30.0 % (0-4) H 08/08/18 06:58 Neutrophils # 21.4 K/mcL (1.6-8.9) H 08/08/18 06:58 Eosinophils # 2.3 K/mcL (0.0-0.6) H 08/08/18 06:58 Reactive Lymphocytes Present (Not Present) A 08/08/18 06:58 Toxic Vacuolation Present (Not Present) A 08/08/18 06:58 PT 13.9 Seconds (9.4-12.1) H 08/06/18 06:33 APTT 40.0 Seconds (26.0-36.0) H 08/04/18 09:11 D-Dimer 837 ng/mLFEU (0-500) H 08/04/18 09:11 BUN 34 mg/dL (8-23) H 08/08/18 06:58 Est GFR (Non-Af Amer) 55 (> 60) L 08/08/18 06:58 BUN/Creatinine Ratio 27 (6-26) H 08/08/18 06:58 POC Glucose 124 mg/dL (70-99) H 08/05/18 16:23 Calcium 8.5 mg/dL (8.6-10.3) L 08/08/18 06:58 Total Bilirubin 1.3 mg/dL (0.3-1.0) H 08/05/18 04:46 AST 12 Units/L (13-39) L 08/05/18 04:46 B-Natriuretic Peptide 100 pg/mL (Less than 100) H 08/04/18 09:11 Serum Total Protein 6.0 g/dL (6.4-8.9) L 08/05/18 16:00 Albumin 2.8 g/dL (3.5-5.7) L 08/05/18 04:46 Albumin/Globulin Ratio 1.0 (1.1-2.2) L 08/05/18 04:46 Pleural Appearance Bloody (Clear) A 08/05/18 15:23 Pleural RBC 0.394 M/mcL (0.000-0.002) H 08/05/18 15:23 Pleural Tot Nuc Cell 2565 TNC/mcL (0-1000) H 08/05/18 15:23 - Microbiology Findings Microbiology Findings: Microbiology, Last 48 Hours 08/05/18 15:23 Body Fluid Culture - Preliminary Pleural Fluid 08/05/18 15:23 Acid Fast Stain - Final Pleural Fluid - Clinical Findings Intake & Output: Intake & Output 08/07/18 08/08/18 08/08/18 23:59 07:59 15:59 Intake Total 140 / 140 0 / 0 120 / 120 Output Total 10 / 10 400 / 400 100 / 100 Balance 130 / 130 -400 / -400 20 / 20 Weight 78.5 kg - Attending Attestation I examined this patient and my medical decision-making was reviewed with the Resident Physician. I agree with the documented findings, disposition and treatment plan as described except to the extent set forth below. Patient seen and examined. Labs, radiology, chart personally reviewed. Agree with resident's history and physical, assessment, plan with following comments: FINISHER BRUSH: Patient follows commands, Pulmonary: Acceptable oxygenation and ventilation. Patient still have more than 150 mL of fluid on the chest tube chamber and continue chest tube at this time and I suspect this is malignant, however I do not see any cytology was sent and we will follow up with the lab for processing. I agree either CT- guided or even pleuroscopy would be indicated to obtain pleural biopsy. I suspect this patient will need Pleurx pleural catheter and this was explained to the patient. We will continue follow-up and obtain chest x-ray today.
[2018-08-08 09:12] LABS: Eosinophils # 2.3 K/mcL (0.0-0.6); Lymphocytes # 3.4 K/mcL (0.6-4.6); Monocytes # 1.1 K/mcL (0.0-1.3); Neutrophils # 21.4 K/mcL (1.6-8.9)
[2018-08-08 09:13] LABS: Platelet Estimate Normal (Normal); Reactive Lymphocytes Present (Not Present); Toxic Vacuolation Present (Not Present)
[2018-08-08] MEDS: predniSONE 10 MG TABLET PO SCH (12:03)
[2018-08-08] MEDS: Multivit/Ca/Min/Fe/FA 1 TAB TABLET PO SCH (12:03)
[2018-08-08] MEDS: amLODIPine 5 MG TABLET PO SCH (12:04)
[2018-08-08] MEDS: Metoprolol XL (24 HR) Succ 25 MG TAB.ER.24H PO SCH (12:04)
[2018-08-08] MEDS: Aspirin Enteric Coated 81 MG Tablet PO SCH (12:04)
[2018-08-08 13:00] LABS: Mycoplasma pneumoniae IgG 0.04 U/L (<=0.09)
[2018-08-09 05:45] LABS: Basophils # 0.1 K/mcL (0.0-0.2); Basophils % 0.3 %; Eosinophils # 3.3 K/mcL (0.0-0.6); Eosinophils % 12.6 %; Hematocrit 32.7 % (37.5-50.1); Hemoglobin 10.4 g/dL (12.9-16.9); Immature Granulocytes % 1.1 % (0-4); Lymphocytes # 1.1 K/mcL (0.6-4.6); Lymphocytes % 4.1 %; Mean Corpuscular HGB Conc 31.8 g/dL (31.6-35.5); Mean Corpuscular Hemoglobin 28.8 pg (28.0-33.3); Mean Corpuscular Volume 90.6 fL (83.0-100.0); Mean Platelet Volume 9.1 fL (9.4-12.4); Monocytes # 1.9 K/mcL (0.0-1.3); Monocytes % 7.2 %; Neutrophils # 19.7 K/mcL (1.6-8.9); Platelet Count 353 K/mcL (140-400); Red Blood Count 3.61 M/mcL (4.19-5.50); Red Cell Distribution Width 13.8 % (11.5-14.5); Segmented Neutrophils % 74.7 %
[2018-08-09] MEDS: Cefepime HCl 2,000 MG in Water for inj. (sterile) 20 ML 20 ML IVP SCH ×2 (05:57→17:12)
[2018-08-09] MEDS: Pyridostigmine Br 60 MG TABLET PO SCH ×3 (05:58→22:24)
[2018-08-09 06:03] LABS: Alanine Aminotransferase 27 Units/L (7-52); Albumin 2.5 g/dL (3.5-5.7); Alkaline Phosphatase 53 Units/L (34-104); Aspartate Amino Transferase 23 Units/L (13-39); BUN/Creatinine Ratio 26 (6-26); Bilirubin,Total 0.8 mg/dL (0.3-1.0); Blood Urea Nitrogen 29 mg/dL (8-23); Calcium 8.3 mg/dL (8.6-10.3); Carbon Dioxide 28 mEq/L (23-29); Chloride 103 mEq/L (98-107); Globulin 2.6 g/dL (2.4-3.5); Glucose 93 mg/dL (70-105); Osmolality,Calculated 286 (280-300); Potassium 4.2 mEq/L (3.5-5.1); Sodium 135 mEq/L (136-145); Total Protein 5.1 g/dL (6.4-8.9); eGFR For Non-African Americans > 60 (> 60)
[2018-08-09 06:08] LABS: Platelet Estimate Normal (Normal)
--- NOTE | 2018-08-09 08:02 | Internal Med Progress Note ---
<Alejandro James S - Last Filed: 08/09/18 11:16> Hospitalist Progress Note - Encounter Date of Encounter: 08/09/18 Time of Encounter: 07:58 - Subjective Interval History: Mr. Palacios is a 83 year old male with PMH of Myasthenia gravis, HTN, CAD s/p CABG 02/2018, hypothyroidism, lung cancer, diverticulosis, CHF NYHA class IV, HDL. He presented from home on 08/05/18 after increasing SOB since Wednesday. He states that today got really bad so he decided to come into the hospital to be evaluated. He saw his [employer]ER and she gave him cough drops, however, this didn't help him. At baseline he is SOB at rest over the last few weeks. He isn't very active. Of note he had a CABG in 02/2018 with triple bypass. The pt has been having increasing sputum production. In the ER the pt was given a one time dose of Vancomycin and Zosyn. -CXR showed a large right pleural effusion, s/p CABG -pt had a (+) d-dimer so CT scan was done which showed large right pleural effusion with diffuse nodularity and near complete collapse of right lung; pleural metastatic dz -troponin (-) Pt was seen by pulmonology who recommended thoracentesis. He was given vitamin K one time and then FFP. -pt had thoracentesis 08/05/18 , which was aborted for chest tube placement by IR -continues to drain blood, still has chest tube in place Today the pt has no complaints. Denies active chest pain. -denies N/V/D, abd pain. -breathing at baseline - Exam Vitals: Temp Pulse Resp BP Pulse Ox 98.3 F 90 18 109/68 92 08/09/18 07:40 08/09/18 07:40 08/09/18 07:40 08/09/18 07:40 08/09/18 07:40 Exam: Constitutional: Alert, in no acute distress , pleasant appearing male, WNWD Head: Normocephalic, atraumatic Heart: Normal, regular rate and rhythm, no murmurs Chest: right chest tube in place draining serosanginous fluid, diminished breath sounds on the RLL, clear to auscultation on the left, no wheezes Abdomen: Soft, nondistended, nontenderl, no guarding or rigidity. Extremities: No edema, No clubbing, capillary refill <2sec. Skin: Skin warm and dry, no lesions, no rashes, no jaundice Neurologic: no FND Psych: Cooperative - Assessment and Plan (1) Sepsis Current Visit: Yes Status: Resolved Assessment and Plan: On admission, pt met sepsis criteria -HR 104, WBC 22.5, RR 20 -source of infxn most likely pleural effusion seen on CXR and CTA MRSA screen negative Lactic acid 1.6 Currently doesn't meet sepsis criteria -HR 87, RR 15 -white count still elevated at 26.4 Acid fast culture negative Pleural fluid had no growth on cx Peripheral smear specimen showed leukocyte count with absolute neutrophilia -absolute monocyte/eosinophil count increased; RBC, Hgb and hc decreased -normochromic anemia, anemia of chronic dz -suggests flow cytometr for CD55/59 if suspected Pleural fluid, right, for cytology: Negative for malignancy plan: - continue antibiotics: Cefepime ( day 4, 08/06/18), discontinued cefriaxone 08/05 (2 days of tx), - pulmonology following, s/p chest tube placement with 3,490 mL total off, 30 off last night - awaiting blood cultures (08/04) - NGTD, pleural fluid cultures (08/05/18) - NGTD - continue O2 support - diet: cardiac diet, fluid restriction 1.5L - dispo: clamp and d/c of chest tube per respiratory (2) Pleural effusion Current Visit: Yes Status: Acute Assessment and Plan: Unknown etiology. -Likely due to 2/2 to primary cancer vs. mets from previous lung cancer - Patient would like to go back to the [facility] if he needs treatment. - Output yesterday, 500ml of sero-sanguinous fluid. Based on Light's critera, most likely an exudative pleural effusion (infxn vs malignancy) -Pleural LDH: serum LDH >/=0.6 -pleural protein: serum protein >/=0.5 CXR 08/07 showed - right pleural cath in place; moderate right pleural effusion decreased in size since prior exam CXR 08/08 showed - mod size right pleural effusion with probably underlying atelectasis or infiltrate, stable since 08/07 cxr Peripheral smear specimen showed leukocyte count with absolute neutrophilia -absolute monocyte/eosinophil count increased; RBC, Hgb and hc decreased -normochromic anemia, anemia of chronic dz -suggests flow cytometr for CD55/59 if suspected Pleural fluid, right, for cytology: Negative for malignancy Plan: - pulmonology consulted, managing chest tube - s/p chest tube placement, on 08/07 drained 1.2L; total drainage 3.4L. Pulmonology managing chest tube - awaiting pathology, cytology - continue resp support, nasal canula - consulted Onco for etiology of pleural effusion (3) Pneumonia Current Visit: No Status: Acute Assessment and Plan: Likely 2/2 to pleural effusion. Continue cefepime. See plan above. (4) Acute respiratory failure with hypoxia Current Visit: Yes Status: Acute Assessment and Plan: See plan above. (5) Supratherapeutic INR Current Visit: Yes Status: Resolved Assessment and Plan: Resolved. 08/06/18 PT 13.9 INR 1.2 Plan: -hold Coumadin; contraindicated due to hemorrhagic pleural effusion. (6) Chronic a-fib Current Visit: No Status: Chronic Assessment and Plan: Currently rate controlled. Continue home med for rate control: Metoprolol 25mg daily. Coumadin held, contraindicated. Patient has chest tube placed with serosanguinous fluid drainage. 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 -s/p right lower lobe sublobar resection and mediastinal lymphadenectomy on 12/22. -Per patient required no chemo or radiation and has been in remission since. CTA of chest here showed -Large right pleural effusion with diffuse pleural nodularity and near complete collapse of the right lung. 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 -Patient would like to go back to the [facility] at [facility] for further treatment. Plan: - consult oncology, awaiting recommendations (8) DVT prophylaxis Current Visit: Yes Status: Acute Assessment and Plan: SCD (9) HTN (hypertension) Current Visit: No Status: Chronic Assessment and Plan: BP 116/70 -adequate control -on Norvasc, Toprol , will continue these home meds (10) Leukocytosis Current Visit: Yes Status: Acute Assessment and Plan: Elevated WBC at 26.4 (08/09); was 22.5 on admission -infxn vs stress rxn from chest tube placement vs cancer -cefepime as per plan above DVT Prophylaxis: scd - Time Spent with Patient Total time spent is greater than 50% in coordination of care (as documented) at patient's floor/unit and/or counseling patient: less than 15 minutes Plan of Care Discussed with: patient Internal Medicine: Result - Labs CBC & Chem 7: 08/09/18 04:37 08/09/18 04:37 Labs: Short CBC 08/08/18 08/09/18 Range/Units 06:58 04:37 WBC 26.4 H (4.3-11.1) K/mcL Hgb 10.4 L (12.9-16.9) g/dL Hct 32.7 L (37.5-50.1) % Plt Count 353 (140-400) K/mcL Neutrophils # 21.4 H 19.7 H (1.6-8.9) K/mcL BMP 08/09/18 04:37 Sodium 135 L Potassium 4.2 Chloride 103 Carbon Dioxide 28 BUN 29 H Creatinine 1.13 Glucose 93 Calcium 8.3 L Liver Function 08/09/18 Range/Units 04:37 Total Bilirubin 0.8 (0.3-1.0) mg/dL AST 23 (13-39) Units/L ALT 27 (7-52) Units/L Alkaline Phosphatase 53 (34-104) Units/L Albumin 2.5 L (3.5-5.7) g/dL - ABG Interpretation ABG results: PT/INR, D-dimer PT 13.9 Seconds (9.4-12.1) H 08/06/18 06:33 D-Dimer 837 ng/mLFEU (0-500) H 08/04/18 09:11 - Impressions Impressions Chest X-Ray 08/06/18 08:00 IMPRESSION: No change. D/ / 08/06/2018 09:27:16 Riccardo Romero MD / bcarter Interpreting Provider: Riccardo Romero MD Chest X-Ray 08/08/18 08:37 IMPRESSION: Moderate size right-sided pleural effusion with probable underlying atelectasis or infiltrate, stable since prior examination. No definite pneumothorax. D/ / Karly Kathleen MD / Karly Kathleen MD Interpreting Provider: Karly Kathleen MD Consult Discharge Plan - Plan Referrals: Sander Ibrahim DO [Primary Care Provider] - <Kwasi Acuña - Last Filed: 08/09/18 17:42> Hospitalist Progress Note - Encounter Date of Encounter: 08/09/18 - Exam Vitals: Temp Pulse Resp BP Pulse Ox 98.3 F 89 19 110/66 93 08/09/18 17:12 08/09/18 17:12 08/09/18 17:12 08/09/18 17:12 08/09/18 17:12 - Assessment and Plan (1) Pneumonia Current Visit: No Status: Acute (2) DVT prophylaxis Current Visit: Yes Status: Acute (3) HTN (hypertension) Current Visit: No Status: Chronic (4) Sepsis Current Visit: Yes Status: Resolved (5) Pleural effusion Current Visit: Yes Status: Acute (6) Acute respiratory failure with hypoxia Current Visit: Yes Status: Acute (7) Supratherapeutic INR Current Visit: Yes Status: Resolved (8) Chronic a-fib Current Visit: No Status: Chronic (9) History of lung cancer Current Visit: No Status: Chronic (10) Leukocytosis Current Visit: Yes Status: Acute - Time Spent with Patient Total time spent is greater than 50% in coordination of care (as documented) at patient's floor/unit and/or counseling patient: Internal Medicine: Result - Labs CBC & Chem 7: 08/09/18 04:37 08/09/18 04:37 Labs: Short CBC 08/09/18 Range/Units 04:37 WBC 26.4 H (4.3-11.1) K/mcL Hgb 10.4 L (12.9-16.9) g/dL Hct 32.7 L (37.5-50.1) % Plt Count 353 (140-400) K/mcL Neutrophils # 19.7 H (1.6-8.9) K/mcL BMP 08/09/18 04:37 Sodium 135 L Potassium 4.2 Chloride 103 Carbon Dioxide 28 BUN 29 H Creatinine 1.13 Glucose 93 Calcium 8.3 L Liver Function 08/09/18 Range/Units 04:37 Total Bilirubin 0.8 (0.3-1.0) mg/dL AST 23 (13-39) Units/L ALT 27 (7-52) Units/L Alkaline Phosphatase 53 (34-104) Units/L Albumin 2.5 L (3.5-5.7) g/dL - ABG Interpretation ABG results: PT/INR, D-dimer PT 13.9 Seconds (9.4-12.1) H 08/06/18 06:33 D-Dimer 837 ng/mLFEU (0-500) H 08/04/18 09:11 - Impressions Impressions Chest X-Ray 08/07/18 07:43 IMPRESSION: Right pleural pigtail catheter is in unchanged position. Moderate right pleural effusion has decreased in size since the prior examination. D/ / 08/07/2018 08:03:41 Rick Moore MD / bcarter Interpreting Provider: Rick Moore MD - Attending Attestation I examined this patient and my medical decision-making was reviewed with the Resident Physician Dr. James. I agree with the documented findings, disposition and treatment plan as described except to the extent set forth below. Mr. Palacios is a 83 y/o M with known PMH of Myasthenia gravis, HTN, CAD s/p CABG 02/2018, hypothyroidsim, lung cancer, diverticulosis, CHF NYHA class IV, HDL patient admitted here for worsening shortness of breath due to large right pleural effusion . Patient had chest tube placed by IR. Improved secretions now. Patient states he is feeling better today. Gen: A, A, O x 3 Chest: Diminished BS b/l..Chest tube + Heart: S1S2+ a.p 1. Acute resp distress due to Rt pleural effuison 2. s/p Thoracocenetsis Reviewed chest tube drainage.. improved. had only 100 cc in 24 hrs will d.c suction today and possible d.c chest tube later today or in AM 3. Lung cancer Heme onc on board <Alejandro James - Last Filed: 08/09/18 11:16> (1) Sepsis Qualifiers: Sepsis type: sepsis due to unspecified organism Qualified Code(s): A41.9 - Sepsis, unspecified organism (3) Pneumonia Qualifiers: Pneumonia type: due to unspecified organism Laterality: left Lung location: lower lobe of lung Qualified Code(s): J18.1 - Lobar pneumonia, unspecified organism (9) HTN (hypertension) Qualifiers: Hypertension type: essential hypertension Qualified Code(s): I10 - Essential (primary) hypertension (10) Leukocytosis Qualifiers: Leukocytosis type: unspecified Qualified Code(s): D72.829 - Elevated white blood cell count, unspecified <Kwasi Acuña - Last Filed: 08/09/18 17:42> (1) Pneumonia Qualifiers: Pneumonia type: due to unspecified organism Laterality: left Lung location: lower lobe of lung Qualified Code(s): J18.1 - Lobar pneumonia, unspecified organism (3) HTN (hypertension) Qualifiers: Hypertension type: essential hypertension Qualified Code(s): I10 - Essential (primary) hypertension (4) Sepsis Qualifiers: Sepsis type: sepsis due to unspecified organism Qualified Code(s): A41.9 - Sepsis, unspecified organism (10) Leukocytosis Qualifiers: Leukocytosis type: unspecified Qualified Code(s): D72.829 - Elevated white blood cell count, unspecified
--- NOTE | 2018-08-09 09:11 | Pulmonology Progress Note ---
<Ajith Butler - Last Filed: 08/09/18 14:08> Date of Encounter: 08/09/18 Time of Encounter: 09:11 Assessment and Plan (1) Pleural effusion Current Visit: Yes Status: Acute Thoracentesis with blood fluid output on 08/05 Small bore chest tube placed by IR on 08/05 with bloody output, sent sample for fluid analysis and cytology Pleural fluid analysis revealed bloody exudative effusion Likely related to malignancy Spoke with pt regarding possibility of Pleurex catheter in outpatient setting after discharge. Discussed risks of bleeding and infections, as well as benefits since effusion will likely continue to recur. Pt is amenable to procedure at this time. Pleural fluid cytology was negative for malignancy. 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 Consider biopsy when stable, likely to be done in the outpatient setting. Qualifiers: Laterality: right Lung location: unspecified part of lung Qualified Code( s): C34.91 - Malignant neoplasm of unspecified part of right bronchus or lung (3) Acute respiratory failure with hypoxia Current Visit: Yes Status: Acute 2/2 likely malignant effusion with possible pneumonia Continue 10mg prednisone (4) Pneumonia Current Visit: No Status: Acute Afebrile HR and RR within normal limits WBC elevated at 26.4, elevation could be 2/2 prednisone Continue Cefepime, day 6 of abx treatment Qualifiers: Pneumonia type: due to unspecified organism Laterality: left Lung location: lower lobe of lung Qualified Code(s): J18.1 - Lobar pneumonia, unspecified organism Subjective Principal diagnosis: Pleural Effusion Interval history: Mr. Palacios is a pleasant 83M with PMH of Myasthenia Gravis, CAD, HTN, HLD, CHF and lung cancer with right upper lobe wedge resection on 12/09. He originally presented to the ER on 08/04 complaining of increased SOB and sputum production. He denied any fever, chills, or chest pain at that time. CTA chest revealed large right pleural effusion with diffuse pleural nodules suggestive of metastatic disease. Thoracentesis and small bore chest tube placement were performed on 08/05. Today pt states he feels better and is anxious to have the chest tube removed. He continues to deny any fever, chills, chest pain, nausea, vomiting, headache, numbness, or tinging. Chest tube output 30mL overnight Objective PUL Vital signs: Last Vital Signs Temp 98.3 F 08/09/18 07:40 Pulse 90 08/09/18 07:40 Resp 18 08/09/18 07:40 BP 109/68 08/09/18 07:40 Pulse Ox 92 08/09/18 07:40 General appearance: no acute distress Eyes: nonicteric ENT: oropharynx moist Neck: supple, no lymphadenopathy, no JVD Effort: normal Auscultation: left: clear, right: diminished breath sounds (base) Percussion: bilateral: not dull Tactile fremitus: bilateral: normal Cardiovascular: regular rate and rhythm Gastrointestinal: soft, non-tender, non-distended Integumentary: normal Musculoskeletal: no deformities Gait: normal posture normal mental status, non-focal exam mood appropriate, affect normal Results - Laboratory Findings CBC and BMP: 08/09/18 04:37 08/09/18 04:37 PT/INR, D-dimer PT 13.9 Seconds (9.4-12.1) H 08/06/18 06:33 D-Dimer 837 ng/mLFEU (0-500) H 08/04/18 09:11 Abnormal lab findings: Abnormal lab results WBC 26.4 K/mcL (4.3-11.1) H 08/09/18 04:37 RBC 3.61 M/mcL (4.19-5.50) L 08/09/18 04:37 Hgb 10.4 g/dL (12.9-16.9) L 08/09/18 04:37 Hct 32.7 % (37.5-50.1) L 08/09/18 04:37 MPV 9.1 fL (9.4-12.4) L 08/09/18 04:37 Band Neutrophils % 30.0 % (0-4) H 08/08/18 06:58 Neutrophils # 19.7 K/mcL (1.6-8.9) H 08/09/18 04:37 Monocytes # 1.9 K/mcL (0.0-1.3) H 08/09/18 04:37 Eosinophils # 3.3 K/mcL (0.0-0.6) H 08/09/18 04:37 Reactive Lymphocytes Present (Not Present) A 08/08/18 06:58 Toxic Vacuolation Present (Not Present) A 08/08/18 06:58 PT 13.9 Seconds (9.4-12.1) H 08/06/18 06:33 APTT 40.0 Seconds (26.0-36.0) H 08/04/18 09:11 D-Dimer 837 ng/mLFEU (0-500) H 08/04/18 09:11 Sodium 135 mEq/L (136-145) L 08/09/18 04:37 BUN 29 mg/dL (8-23) H 08/09/18 04:37 POC Glucose 124 mg/dL (70-99) H 08/05/18 16:23 Calcium 8.3 mg/dL (8.6-10.3) L 08/09/18 04:37 B-Natriuretic Peptide 100 pg/mL (Less than 100) H 08/04/18 09:11 Serum Total Protein 5.1 g/dL (6.4-8.9) L 08/09/18 04:37 Albumin 2.5 g/dL (3.5-5.7) L 08/09/18 04:37 Albumin/Globulin Ratio 1.0 (1.1-2.2) L 08/09/18 04:37 Pleural Appearance Bloody (Clear) A 08/05/18 15:23 Pleural RBC 0.394 M/mcL (0.000-0.002) H 08/05/18 15:23 Pleural Tot Nuc Cell 2565 TNC/mcL (0-1000) H 08/05/18 15:23 - Microbiology Findings Microbiology Findings: Microbiology, Last 48 Hours 08/05/18 15:23 Body Fluid Culture - Final Pleural Fluid 08/05/18 15:23 Acid Fast Stain - Final Pleural Fluid - Diagnostic Findings Chest x-ray: report reviewed, image reviewed - Clinical Findings Intake & Output: Intake & Output 08/08/18 08/09/18 08/09/18 23:59 07:59 15:59 Intake Total / 120 / 120 Output Total 30 420 / 420 Balance -10 / -10 -420 / -420 120 / 120 Weight 77.5 kg Consult Discharge Plan - Plan Referrals: Sander Ibrahim DO [Primary Care Provider] - <Concha Ball - Last Filed: 08/09/18 16:07> Date of Encounter: 08/09/18 Objective PUL Vital signs: Last Vital Signs Temp 98.5 F 08/09/18 11:30 Pulse 90 08/09/18 11:30 Resp 18 08/09/18 11:30 BP 120/76 08/09/18 11:30 Pulse Ox 93 08/09/18 11:30 Results - Laboratory Findings CBC and BMP: 08/09/18 04:37 08/09/18 04:37 PT/INR, D-dimer PT 13.9 Seconds (9.4-12.1) H 08/06/18 06:33 D-Dimer 837 ng/mLFEU (0-500) H 08/04/18 09:11 Abnormal lab findings: Abnormal lab results WBC 26.4 K/mcL (4.3-11.1) H 08/09/18 04:37 RBC 3.61 M/mcL (4.19-5.50) L 08/09/18 04:37 Hgb 10.4 g/dL (12.9-16.9) L 08/09/18 04:37 Hct 32.7 % (37.5-50.1) L 08/09/18 04:37 MPV 9.1 fL (9.4-12.4) L 08/09/18 04:37 Band Neutrophils % 30.0 % (0-4) H 08/08/18 06:58 Neutrophils # 19.7 K/mcL (1.6-8.9) H 08/09/18 04:37 Monocytes # 1.9 K/mcL (0.0-1.3) H 08/09/18 04:37 Eosinophils # 3.3 K/mcL (0.0-0.6) H 08/09/18 04:37 Reactive Lymphocytes Present (Not Present) A 08/08/18 06:58 Toxic Vacuolation Present (Not Present) A 08/08/18 06:58 PT 13.9 Seconds (9.4-12.1) H 08/06/18 06:33 APTT 40.0 Seconds (26.0-36.0) H 08/04/18 09:11 D-Dimer 837 ng/mLFEU (0-500) H 08/04/18 09:11 Sodium 135 mEq/L (136-145) L 08/09/18 04:37 BUN 29 mg/dL (8-23) H 08/09/18 04:37 POC Glucose 124 mg/dL (70-99) H 08/05/18 16:23 Calcium 8.3 mg/dL (8.6-10.3) L 08/09/18 04:37 B-Natriuretic Peptide 100 pg/mL (Less than 100) H 08/04/18 09:11 Serum Total Protein 5.1 g/dL (6.4-8.9) L 08/09/18 04:37 Albumin 2.5 g/dL (3.5-5.7) L 08/09/18 04:37 Albumin/Globulin Ratio 1.0 (1.1-2.2) L 08/09/18 04:37 Pleural Appearance Bloody (Clear) A 08/05/18 15:23 Pleural RBC 0.394 M/mcL (0.000-0.002) H 08/05/18 15:23 Pleural Tot Nuc Cell 2565 TNC/mcL (0-1000) H 08/05/18 15:23 - Microbiology Findings Microbiology Findings: Microbiology, Last 48 Hours 08/05/18 15:23 Body Fluid Culture - Final Pleural Fluid - Clinical Findings Intake & Output: Intake & Output 08/09/18 08/09/18 08/09/18 07:59 15:59 23:59 Intake Total 120 / 120 Output Total 420 / 420 0 / 0 Balance -420 / -420 120 / 120 Weight 77.5 kg - Attending Attestation I examined this patient and my medical decision-making was reviewed with the Resident Physician. I agree with the documented findings, disposition and treatment plan as described except to the extent set forth below. Patient seen and examined. Labs, radiology, chart personally reviewed. Agree with resident's history and physical, assessment, plan with following comments: CHIEF CONTROLLER: Patient follows commands, Pulmonary: Acceptable oxygenation and ventilation There is no significant drainage from the chest tube and explained to the patient in the presence of his family that needs to discuss with his certified solid waste facility operator in [place] and also and his oncologist. I have explained to patient he will need a pleural biopsy and pleuroscopy would be indicated if the fluid reaccumulate since malignancies in the differential diagnosis. Patient and the family preferred to follow up with his oncologist and certified solid waste facility operator in [place] and they agree with that. Chest tube removed.
[2018-08-09] MEDS: Metoprolol XL (24 HR) Succ 25 MG TAB.ER.24H PO SCH (09:22)
[2018-08-09] MEDS: amLODIPine 5 MG TABLET PO SCH (09:22)
[2018-08-09] MEDS: predniSONE 10 MG TABLET PO SCH (09:22)
[2018-08-09] MEDS: Aspirin Enteric Coated 81 MG Tablet PO SCH (09:22)
[2018-08-09] MEDS: Multivit/Ca/Min/Fe/FA 1 TAB TABLET PO SCH (09:23)
--- NOTE | 2018-08-09 15:38 | Procedure Note ---
<Ajith Butler - Last Filed: 08/09/18 15:35> Date of procedure: 08/09/18 Pre-op diagnosis: Pleural Effusion Post-op diagnosis: same Procedure: The procedure was performed at the patient's bedside. After the procedure was explained to the patient, the dressing was removed from the current right side chest tube. The area was prepped with sterile cleansing solution. The retention suture was removed. While pinching the chest tube, the catheter was cut to disengage the pigtail. While the patient was holding their breath on inhalation and bearing down, the chest tube was removed. A vasoline occlusive dressing was applied over the insertion site. The patient's oxygen saturation, as measured by pulse oximetry, remained stable throughout the procedure. Anesthesia: none Surgeon: Ajith Butler Was there an embalmer assistant present: Yes Cuff Setter Lockstitch: Concha Ball Estimated blood loss (cc): 0 Specimen: none Pathology: none sent Condition: stable Disposition: no change <Concha Ball - Last Filed: 08/09/18 16:13> Procedure: I examined this patient and my medical decision-making was reviewed with the Resident Physician. I agree with the documented findings, disposition and treatment plan as described except to the extent set forth below. I have personally supervised resident removing chest tube without immediate complications.
--- NOTE | 2018-08-09 16:51 | Oncology Inp Progress Note ---
<Bere Montaño L - Last Filed: 08/10/18 07:46> Date of Encounter: 08/09/18 Time of Encounter: 15:00 (1) Pleural effusion Current Visit: Yes Status: Acute Assessment and plan: Large right hemorrhagic pleural effusion with pleural nodule suspicious for recurrence of his non-small cell lung cancer. 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 He did have a negative CAT scan on 07/07/2018. The effusion has occurred in such a short duration He quit smoking in 1990s May also proceed with PDL one testing. He may be a candidate for immunotherapy Obtain CT abdomen/pelvis for restaging Oncology: Subj Interval history: Mr. Palacios is resting comfortably, he denies any physical complaint at this time. He reports his breathing has improved s/p thoracentesis and removal of chest tube. He denies fever, chills, chest pain, h/a, dizziness, increase in SOB , hemoptysis, lower extremity pain or bowel changes. - Constitutional Vitals: Vital Signs Temp Pulse Resp BP Pulse Ox 08/09/18 11:30 98.5 F 90 18 120/76 93 08/09/18 07:40 98.3 F 90 18 109/68 92 08/09/18 04:54 98.8 F 87 15 116/70 94 08/09/18 00:41 99.1 F 83 16 115/72 93 08/08/18 20:43 99 F 98 16 130/76 94 Intake and Output 08/09/18 08/09/18 08/09/18 07:59 15:59 23:59 Intake Total 120 / 120 Output Total 420 / 420 0 / 0 Balance -420 / -420 120 / 120 Intake: Oral 120 / 120 Output: Urine 420 / 420 0 / 0 Chest Tube Drainage 0 / 0 Right Posterior Chest #1 0 / 0 Other: Meal Breakfast Percent of Meal Consumed 35% Weight 77.5 kg Patient Weight 08/09/18 23:59 Weight 77.5 kg General appearance: cooperative, no acute distress, no febrile - Head Head exam: Present: atraumatic - ENT ENT exam: Present: mucous membranes moist - Respiratory Respiratory exam: Present: decreased breath sounds, CTAB. Absent: respiratory distress - Cardiovascular Cardiovascular exam: Present: RRR, +S1, +S2 - GI/Abdominal GI/Abdominal exam: Present: normal bowel sounds, soft. Absent: guarding, rebound, tenderness - Extremities Exam Extremities exam: Absent: calf tenderness - Neurological Exam Neurological exam: Present: alert, oriented X3, no focal deficits, strengths equal and symetr throughout - Psychiatric Psychiatric exam: Present: normal affect, normal mood - Skin Skin exam: Present: dry, intact, normal color, warm Oncology: Obj Data - Labs CBC & Chem 7: 08/10/18 04:31 08/10/18 04:31 Labs: Laboratory Results - last 24 hr 08/09/18 08/09/18 04:37 04:37 WBC 26.4 H RBC 3.61 L Hgb 10.4 L Hct 32.7 L MCV 90.6 MCH 28.8 MCHC 31.8 RDW 13.8 Plt Count 353 MPV 9.1 L Immature Gran % 1.1 Seg Neutrophils % 74.7 Lymphocytes % 4.1 Monocytes % 7.2 Eosinophils % 12.6 Basophils % 0.3 Neutrophils # 19.7 H Lymphocytes # 1.1 Monocytes # 1.9 H Eosinophils # 3.3 H Basophils # 0.1 Platelet Estimate Normal Sodium 135 L Potassium 4.2 Chloride 103 Carbon Dioxide 28 BUN 29 H Creatinine 1.13 Est GFR ( Amer) > 60 Est GFR (Non-Af Amer) > 60 BUN/Creatinine Ratio 26 Glucose 93 Calculated Osmolality 286 Calcium 8.3 L Total Bilirubin 0.8 AST 23 ALT 27 Alkaline Phosphatase 53 Serum Total Protein 5.1 L Albumin 2.5 L Globulin 2.6 Albumin/Globulin Ratio 1.0 L - Impressions Impressions Chest X-Ray 08/06/18 08:00 IMPRESSION: No change. D/ / 08/06/2018 09:27:16 Riccardo Romero MD / [email or web address] Interpreting Provider: Riccardo Romero MD Chest X-Ray 08/07/18 07:43 IMPRESSION: Right pleural pigtail catheter is in unchanged position. Moderate right pleural effusion has decreased in size since the prior examination. D/ / 08/07/2018 08:03:41 Rick Moore MD / [email or web address] Interpreting Provider: Rick Moore MD - ABG Interpretation ABG results: PT/INR, D-dimer PT 13.9 Seconds (9.4-12.1) H 08/06/18 06:33 D-Dimer 837 ng/mLFEU (0-500) H 08/04/18 09:11 Consult Discharge Plan - Plan Referrals: Sander Ibrahim DO [Primary Care Provider] - Inpatient Charges Provider: Dr. Lito Ritter <Ambrosio Ritter S - Last Filed: 08/10/18 13:30> Date of Encounter: 08/09/18 (1) Pleural effusion Current Visit: Yes Status: Acute - Constitutional Vitals: Vital Signs Temp Pulse Resp BP Pulse Ox 08/10/18 10:55 98.4 F 102 17 107/68 93 08/10/18 06:56 98.3 F 94 17 92/59 93 08/10/18 04:40 97.9 F 98 17 102/61 90 08/10/18 00:37 98.2 F 80 17 107/64 91 08/09/18 20:23 98.4 F 89 20 123/72 95 08/09/18 17:12 98.3 F 89 19 110/66 93 Intake and Output 08/09/18 08/10/18 08/10/18 23:59 07:59 15:59 Intake Total 20 / 20 0 / 0 Output Total 300 / 300 660 / 660 0 / 0 Balance -280 / -280 -660 / -660 0 / 0 Intake: IV Fluids 20 / 20 Maxipime 2,000 MG In Water for 20 / 20 inj. (sterile) 20 ML @ 300 mls/ hr IVP Q12HR ZELDA Rx#:[id number] Oral 0 / 0 Output: Urine 300 / 300 660 / 660 0 / 0 Other: Weight 78.1 kg Blood Glucose* 116 125 Patient Weight 08/10/18 23:59 Weight 78.1 kg Oncology: Obj Data - Labs CBC & Chem 7: 08/10/18 04:31 08/10/18 04:31 Labs: Laboratory Results - last 24 hr 08/10/18 08/10/18 08/10/18 04:31 04:31 04:31 WBC 30.2 H* RBC 3.50 L Hgb 10.3 L Hct 31.4 L MCV 89.7 MCH 29.4 MCHC 32.8 RDW 13.8 Plt Count 360 MPV 8.9 L Seg Neutrophils % 70.0 Band Neutrophils % 8.0 H Lymphocytes % 12.0 Monocytes % 4.0 Eosinophils % 6.0 Neutrophils # 23.6 H Lymphocytes # 3.6 Monocytes # 1.2 Eosinophils # 1.8 H Platelet Estimate Increased H PT 13.2 H INR 1.2 Sodium 135 L Potassium 4.3 Chloride 104 Carbon Dioxide 26 BUN 24 H Creatinine 1.11 Est GFR ( Amer) > 60 Est GFR (Non-Af Amer) > 60 BUN/Creatinine Ratio 22 Glucose 91 POC Glucose Calculated Osmolality 284 Calcium 8.2 L Total Bilirubin 0.8 AST 23 ALT 38 Alkaline Phosphatase 48 Serum Total Protein 5.1 L Albumin 2.5 L Globulin 2.6 Albumin/Globulin Ratio 1.0 L 08/10/18 08/10/18 06:54 10:54 WBC RBC Hgb Hct MCV MCH MCHC RDW Plt Count MPV Seg Neutrophils % Band Neutrophils % Lymphocytes % Monocytes % Eosinophils % Neutrophils # Lymphocytes # Monocytes # Eosinophils # Platelet Estimate PT INR Sodium Potassium Chloride Carbon Dioxide BUN Creatinine Est GFR ( Amer) Est GFR (Non-Af Amer) BUN/Creatinine Ratio Glucose POC Glucose 116 H 125 H Calculated Osmolality Calcium Total Bilirubin AST ALT Alkaline Phosphatase Serum Total Protein Albumin Globulin Albumin/Globulin Ratio - Impressions Impressions Chest X-Ray 08/09/18 15:32 IMPRESSION: 1. Right pigtail catheter no longer visualized. 2. Otherwise, no significant change in the appearance of the chest. D/ / Francisco Javier Larson MD / Francisco Javier Larson MD Interpreting Provider: Francisco Javier Larson MD Abdomen/Pelvis CT 08/09/18 19:43 IMPRESSION: Redemonstration of extensive pleural nodularity and pleural thickening involving the right lower hemithorax, with a large right pleural effusion. There are some bubbles of gas within the pleural effusion, possibly introduced from instrumentation. Correlate clinically. No evidence of intra-metastatic disease identified. D/ / Ha Le MD / Ha Le MD Interpreting Provider: Ha Le MD - ABG Interpretation ABG results: PT/INR, D-dimer PT 13.2 Seconds (9.4-12.1) H 08/10/18 04:31 D-Dimer 837 ng/mLFEU (0-500) H 08/04/18 09:11 Inpatient Charges Provider: Dr. Lito Ritter Follow Up: [id number] - Attending Attestation I examined this patient and my medical decision-making was reviewed with the Advanced Practice Nurse. I agree with the documented findings, disposition and treatment plan as described except to the extent set forth below. 1. 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 Post surgical excision as mentioned November 2017 She has a large right effusion with pleural deposits concerning for metastasis. Fluid negative for malignancy. We will proceed with CT guided biopsy of the lung nodule CT abdomen and pelvis with IV contrast 08/09/2018 showed no major abdominal metastasis. Redemonstrated multiple right pleural deposits infusion He may benefit from Pleurx catheter especially if the effusion is recurrent Once diagnosis is established we will proceed with further systemic treatment. He has not had chemotherapy for this in the past Reviewed the literature. Heart no squamous carcinomas are more aggressive than adenocarcinoma and of high incidence of recurrence. 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 Currently no evidence of other malignancy like renal cell carcinoma Eyes reviewed voice your records and gave copies to the patient. CAT scan chest from [facility] was negative June 2018
[2018-08-09] MEDS ORDERED: Isovue-370 500 ML INFUS..BTL IV ONE (19:43)
[2018-08-10 05:22] LABS: Hematocrit 31.4 % (37.5-50.1); Hemoglobin 10.3 g/dL (12.9-16.9); Mean Corpuscular HGB Conc 32.8 g/dL (31.6-35.5); Mean Corpuscular Hemoglobin 29.4 pg (28.0-33.3); Mean Corpuscular Volume 89.7 fL (83.0-100.0); Mean Platelet Volume 8.9 fL (9.4-12.4); Platelet Count 360 K/mcL (140-400); Red Cell Distribution Width 13.8 % (11.5-14.5)
[2018-08-10 05:33] LABS: INR 1.2; Prothrombin Time 13.2 Seconds (9.4-12.1)
[2018-08-10 06:00] LABS: Eosinophils # 1.8 K/mcL (0.0-0.6); Lymphocytes # 3.6 K/mcL (0.6-4.6); Monocytes # 1.2 K/mcL (0.0-1.3); Neutrophils # 23.6 K/mcL (1.6-8.9)
[2018-08-10 06:01] LABS: Platelet Estimate Increased (Normal)
[2018-08-10 06:04] LABS: Alanine Aminotransferase 38 Units/L (7-52); Albumin 2.5 g/dL (3.5-5.7); Alkaline Phosphatase 48 Units/L (34-104); Aspartate Amino Transferase 23 Units/L (13-39); BUN/Creatinine Ratio 22 (6-26); Bilirubin,Total 0.8 mg/dL (0.3-1.0); Blood Urea Nitrogen 24 mg/dL (8-23); Calcium 8.2 mg/dL (8.6-10.3); Carbon Dioxide 26 mEq/L (23-29); Chloride 104 mEq/L (98-107); Globulin 2.6 g/dL (2.4-3.5); Glucose 91 mg/dL (70-105); Osmolality,Calculated 284 (280-300); Potassium 4.3 mEq/L (3.5-5.1); Sodium 135 mEq/L (136-145); Total Protein 5.1 g/dL (6.4-8.9); eGFR For Non-African Americans > 60 (> 60)
[2018-08-10] MEDS: Pyridostigmine Br 60 MG TABLET PO SCH ×3 (06:06→20:49)
[2018-08-10] MEDS: Cefepime HCl 2,000 MG in Water for inj. (sterile) 20 ML 20 ML IVP SCH ×2 (06:07→17:52)
--- NOTE | 2018-08-10 08:52 | Pulmonology Progress Note ---
<Ajith Butler - Last Filed: 08/10/18 10:33> Date of Encounter: 08/10/18 Time of Encounter: 09:19 Assessment and Plan (1) Pleural effusion Current Visit: Yes Status: Acute Thoracentesis with blood fluid output on 08/05 Small bore chest tube placed by IR on 08/05 with bloody output, sent sample for fluid analysis and cytology Pleural fluid analysis revealed bloody exudative effusion Pleural fluid cytology was negative for malignancy. Revealed RBCs with some inflammatory cells Chest tube removed successfully yesterday, CXR showed no pneumothorax and stable pleural effusion. No significant events overnight. Spoke with pt regarding possibility of Pleurex catheter and pleuroscopy in outpatient setting if effusion reoccurs. Discussed risks of bleeding and infections, as well as benefits since effusion will likely continue to recur. Pt is amenable to procedure at this time. Nothing further from a pulmonology standpoint at this time. Please feel free to call with questions or other concerns. (2) Lung cancer Current Visit: No Status: Chronic Right upper lobe resection 12/09 at [facility] with squamous cell carcinoma CTA on 08/04 showed diffuse large pleural nodules suspicious for metastatic disease. Consider biopsy when stable, likely to be done in the outpatient setting. Qualifiers: Laterality: right Lung location: unspecified part of lung Qualified Code( s): C34.91 - Malignant neoplasm of unspecified part of right bronchus or lung (3) Acute respiratory failure with hypoxia Current Visit: Yes Status: Acute 2/2 likely malignant effusion with possible pneumonia Continue 10mg prednisone (4) Pneumonia Current Visit: No Status: Acute Afebrile HR and RR within normal limits WBC persitently elevated could be 2/2 prednisone No increased sputum production or change in sputum character Continue Cefepime, day 7 of abx treatment Qualifiers: Pneumonia type: due to unspecified organism Laterality: left Lung location: lower lobe of lung Qualified Code(s): J18.1 - Lobar pneumonia, unspecified organism Subjective Principal diagnosis: Pleural Effusion Interval history: Mr. Palacios is a pleasant 83M with PMH of Myasthenia Gravis, CAD, HTN, HLD, CHF and lung cancer with right upper lobe wedge resection on 12/09. He originally presented to the ER on 08/04 complaining of increased SOB and sputum production. He denied any fever, chills, or chest pain at that time. CTA chest revealed large right pleural effusion with diffuse pleural nodules suggestive of metastatic disease. Thoracentesis and small bore chest tube placement were performed on 08/05. Today pt states he feels "pretty good". He continues to deny any fever, chills, chest pain, nausea, vomiting, headache, numbness, or tinging. States he has not noticed any continued oozing from former chest tube site. Objective PUL Vital signs: Last Vital Signs Temp 98.3 F 08/10/18 06:56 Pulse 94 08/10/18 06:56 Resp 17 08/10/18 06:56 BP 92/59 08/10/18 06:56 Pulse Ox 93 08/10/18 06:56 General appearance: no acute distress Eyes: nonicteric ENT: oropharynx moist Neck: supple, no lymphadenopathy, no JVD Effort: normal Auscultation: left: clear, right: diminished breath sounds Percussion: bilateral: not dull Tactile fremitus: bilateral: normal Cardiovascular: regular rate and rhythm Gastrointestinal: soft, non-tender, non-distended Integumentary: normal Extremities: no cyanosis, no edema, no clubbing, pink and warm Musculoskeletal: no deformities Gait: normal posture normal mental status, non-focal exam mood appropriate, affect normal Results - Laboratory Findings CBC and BMP: 08/10/18 04:31 08/10/18 04:31 PT/INR, D-dimer PT 13.2 Seconds (9.4-12.1) H 08/10/18 04:31 D-Dimer 837 ng/mLFEU (0-500) H 08/04/18 09:11 Abnormal lab findings: Abnormal lab results WBC 30.2 K/mcL (4.3-11.1) H* 08/10/18 04:31 RBC 3.50 M/mcL (4.19-5.50) L 08/10/18 04:31 Hgb 10.3 g/dL (12.9-16.9) L 08/10/18 04:31 Hct 31.4 % (37.5-50.1) L 08/10/18 04:31 MPV 8.9 fL (9.4-12.4) L 08/10/18 04:31 Band Neutrophils % 8.0 % (0-4) H 08/10/18 04:31 Neutrophils # 23.6 K/mcL (1.6-8.9) H 08/10/18 04:31 Eosinophils # 1.8 K/mcL (0.0-0.6) H 08/10/18 04:31 Reactive Lymphocytes Present (Not Present) A 08/08/18 06:58 Toxic Vacuolation Present (Not Present) A 08/08/18 06:58 Platelet Estimate Increased (Normal) H 08/10/18 04:31 PT 13.2 Seconds (9.4-12.1) H 08/10/18 04:31 APTT 40.0 Seconds (26.0-36.0) H 08/04/18 09:11 D-Dimer 837 ng/mLFEU (0-500) H 08/04/18 09:11 Sodium 135 mEq/L (136-145) L 08/10/18 04:31 BUN 24 mg/dL (8-23) H 08/10/18 04:31 POC Glucose 124 mg/dL (70-99) H 08/05/18 16:23 Calcium 8.2 mg/dL (8.6-10.3) L 08/10/18 04:31 B-Natriuretic Peptide 100 pg/mL (Less than 100) H 08/04/18 09:11 Serum Total Protein 5.1 g/dL (6.4-8.9) L 08/10/18 04:31 Albumin 2.5 g/dL (3.5-5.7) L 08/10/18 04:31 Albumin/Globulin Ratio 1.0 (1.1-2.2) L 08/10/18 04:31 Pleural Appearance Bloody (Clear) A 08/05/18 15:23 Pleural RBC 0.394 M/mcL (0.000-0.002) H 08/05/18 15:23 Pleural Tot Nuc Cell 2565 TNC/mcL (0-1000) H 08/05/18 15:23 - Microbiology Findings Microbiology Findings: Microbiology, Last 48 Hours 08/05/18 15:23 Body Fluid Culture - Final Pleural Fluid - Diagnostic Findings Chest x-ray: report reviewed, image reviewed CT scan - chest: report reviewed, image reviewed - Clinical Findings Intake & Output: Intake & Output 08/09/18 08/10/18 08/10/18 23:59 07:59 15:59 Intake Total 20 / 20 Output Total 300 / 300 660 / 660 Balance -280 / -280 -660 / -660 Weight 78.1 kg Consult Discharge Plan - Plan Referrals: Sander Ibrahim DO [Primary Care Provider] - <Concha Ball Jass - Last Filed: 08/10/18 14:56> Date of Encounter: 08/10/18 Objective PUL Vital signs: Last Vital Signs Temp 98.4 F 08/10/18 10:55 Pulse 102 08/10/18 10:55 Resp 17 08/10/18 10:55 BP 107/68 08/10/18 10:55 Pulse Ox 93 08/10/18 10:55 Results - Laboratory Findings CBC and BMP: 08/10/18 04:31 08/10/18 04:31 PT/INR, D-dimer PT 13.2 Seconds (9.4-12.1) H 08/10/18 04:31 D-Dimer 837 ng/mLFEU (0-500) H 08/04/18 09:11 Abnormal lab findings: Abnormal lab results WBC 30.2 K/mcL (4.3-11.1) H* 08/10/18 04:31 RBC 3.50 M/mcL (4.19-5.50) L 08/10/18 04:31 Hgb 10.3 g/dL (12.9-16.9) L 08/10/18 04:31 Hct 31.4 % (37.5-50.1) L 08/10/18 04:31 MPV 8.9 fL (9.4-12.4) L 08/10/18 04:31 Band Neutrophils % 8.0 % (0-4) H 08/10/18 04:31 Neutrophils # 23.6 K/mcL (1.6-8.9) H 08/10/18 04:31 Eosinophils # 1.8 K/mcL (0.0-0.6) H 08/10/18 04:31 Reactive Lymphocytes Present (Not Present) A 08/08/18 06:58 Toxic Vacuolation Present (Not Present) A 08/08/18 06:58 Platelet Estimate Increased (Normal) H 08/10/18 04:31 PT 13.2 Seconds (9.4-12.1) H 08/10/18 04:31 APTT 40.0 Seconds (26.0-36.0) H 08/04/18 09:11 D-Dimer 837 ng/mLFEU (0-500) H 08/04/18 09:11 Sodium 135 mEq/L (136-145) L 08/10/18 04:31 BUN 24 mg/dL (8-23) H 08/10/18 04:31 POC Glucose 125 mg/dL (70-99) H 08/10/18 10:54 Calcium 8.2 mg/dL (8.6-10.3) L 08/10/18 04:31 B-Natriuretic Peptide 100 pg/mL (Less than 100) H 08/04/18 09:11 Serum Total Protein 5.1 g/dL (6.4-8.9) L 08/10/18 04:31 Albumin 2.5 g/dL (3.5-5.7) L 08/10/18 04:31 Albumin/Globulin Ratio 1.0 (1.1-2.2) L 08/10/18 04:31 Pleural Appearance Bloody (Clear) A 08/05/18 15:23 Pleural RBC 0.394 M/mcL (0.000-0.002) H 08/05/18 15:23 Pleural Tot Nuc Cell 2565 TNC/mcL (0-1000) H 08/05/18 15:23 - Microbiology Findings Microbiology Findings: Microbiology, Last 48 Hours 08/05/18 15:23 Body Fluid Culture - Final Pleural Fluid - Clinical Findings Intake & Output: Intake & Output 08/09/18 08/10/18 08/10/18 23:59 07:59 15:59 Intake Total 20 / 20 0 / 0 Output Total 300 / 300 660 / 660 0 / 0 Balance -280 / -280 -660 / -660 0 / 0 Weight 78.1 kg - Attending Attestation I examined this patient and my medical decision-making was reviewed with the Resident Physician. I agree with the documented findings, disposition and treatment plan as described except to the extent set forth below. Patient seen and examined. Labs, radiology, chart personally reviewed. 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 Please refer to resident's note as above. Recommendations same and will follow-up PRN. CT abdomen was reviewed and patient will need workup because malignancy still in the differential diagnosis and family indicated they want to follow up and complete workup with his oncologist in [place].
--- NOTE | 2018-08-10 08:59 | Internal Med Progress Note ---
<Alejandro James S - Last Filed: 08/10/18 10:53> Hospitalist Progress Note - Encounter Date of Encounter: 08/10/18 Time of Encounter: 08:55 - Subjective Interval History: Mr. Palacios is a 83 year old male with PMH of Myasthenia gravis, HTN, CAD s/p CABG 02/2018, hypothyroidism, lung cancer, diverticulosis, CHF NYHA class IV, HDL. He presented from home on 08/05/18 after increasing SOB since Wednesday. He states that today got really bad so he decided to come into the hospital to be evaluated. He saw his [employer] and she gave him cough drops, however, this didn't help him. At baseline he is SOB at rest over the last few weeks. He isn't very active. Of note he had a CABG in 02/2018 with triple bypass. The pt has been having increasing sputum production. In the ER the pt was given a one time dose of Vancomycin and Zosyn. -CXR showed a large right pleural effusion, s/p CABG -pt had a (+) d-dimer so CT scan was done which showed large right pleural effusion with diffuse nodularity and near complete collapse of right lung; pleural metastatic dz -troponin (-) Pt was seen by pulmonology who recommended thoracentesis. He was given vitamin K one time and then FFP. -pt had thoracentesis 08/05/18 , which was aborted for chest tube placement by IR -chest tube pulled by pulm 08/09/18 Today the pt has no complaints. Denies active chest pain. -denies N/V/D, abd pain. -breathing at baseline -pt is moving around, feels ok - Exam Vitals: Temp Pulse Resp BP Pulse Ox 98.3 F 94 17 92/59 93 08/10/18 06:56 08/10/18 06:56 08/10/18 06:56 08/10/18 06:56 08/10/18 06:56 Exam: Constitutional: Alert, in no acute distress , pleasant appearing male, WNWD Head: Normocephalic, atraumatic Heart: Normal, regular rate and rhythm, no murmurs Chest: right chest tube pulled yesterday as per respiratory, still has slightly diminished breath sounds on the RLL, clear to auscultation on the left, no wheezes Abdomen: Soft, nondistended, nontenderl, no guarding or rigidity. Extremities: minimal edema, No clubbing, capillary refill <2sec. Skin: Skin warm and dry, no lesions, no rashes, no jaundice Neurologic: no FND Psych: Cooperative - Assessment and Plan (1) Sepsis Current Visit: Yes Status: Acute Assessment and Plan: On admission, pt met sepsis criteria -HR 104, WBC 22.5, RR 20 -source of infxn most likely pleural effusion seen on CXR and CTA MRSA screen negative Lactic acid 1.6 Currently meets sepsis criteria for HR/WBC count -HR 94, RR 17 -white count still elevated at 30.2 Acid fast culture negative Pleural fluid had no growth on cx Peripheral smear specimen showed leukocyte count with absolute neutrophilia -absolute monocyte/eosinophil count increased; RBC, Hgb and hc decreased -normochromic anemia, anemia of chronic dz -suggests flow cytometr for CD55/59 if suspected Pleural fluid, right, for cytology: Negative for malignancy CT abd negative for intra metastatic dz; extensive pleural nodularity and pleural thickening involving right lower hemithorax; large right pleural effusion plan: - continue antibiotics: Cefepime ( day 5, 08/06/18), discontinued cefriaxone 08/05 (2 days of tx), - pulmonology following, s/p chest tube placement with 3,490 mL total off, 30 off last night - awaiting blood cultures (08/04) - NGTD, pleural fluid cultures (08/05/18) - NGTD - continue O2 support - diet: cardiac diet, fluid restriction 1.5L - dispo: clamp and d/c of chest tube per respiratory completed 08/09; CT guided bx of pleural nodules for diagnosis as per heme onc (2) Pleural effusion Current Visit: Yes Status: Acute Assessment and Plan: Unknown etiology. -Likely due to 2/2 to primary cancer vs. mets from previous lung cancer - Patient would like to go back [facility] the [facility] if he needs treatment. - Output yesterday, 500ml of sero-sanguinous fluid. Based on Light's critera, most likely an exudative pleural effusion (infxn vs malignancy) -Pleural LDH: serum LDH >/=0.6 -pleural protein: serum protein >/=0.5 CXR 08/07 showed - right pleural cath in place; moderate right pleural effusion decreased in size since prior exam CXR 08/08 showed - mod size right pleural effusion with probably underlying atelectasis or infiltrate, stable since 08/07 cxr Peripheral smear specimen showed leukocyte count with absolute neutrophilia -absolute monocyte/eosinophil count increased; RBC, Hgb and hc decreased -normochromic anemia, anemia of chronic dz -suggests flow cytometr for CD55/59 if suspected Pleural fluid, right, for cytology: Negative for malignancy Plan: - pulmonology consulted, managing chest tube which was pulled 08/09 - s/p chest tube placement, on 08/07 drained 1.2L; total drainage 3.4L. - continue resp support, nasal canula as needed - consulted Onco for etiology of pleural effusion , they plan to do CT guided lung bx (3) Pneumonia Current Visit: No Status: Acute Assessment and Plan: Likely 2/2 to pleural effusion. Continue cefepime. See plan above. (4) Acute respiratory failure with hypoxia Current Visit: Yes Status: Acute Assessment and Plan: See plan above. (5) Supratherapeutic INR Current Visit: Yes Status: Resolved Assessment and Plan: Resolved. 08/06/18 PT 13.9 INR 1.2 Plan: -hold Coumadin; contraindicated due to hemorrhagic pleural effusion. (6) Chronic a-fib Current Visit: No Status: Chronic Assessment and Plan: Currently rate controlled. Continue home med for rate control: Metoprolol 25mg daily. Coumadin held, contraindicated. Patient has chest tube placed with serosanguinous fluid drainage. 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 -s/p right lower lobe sublobar resection and mediastinal lymphadenectomy on 12/22. -Per patient required no chemo or radiation and has been in remission since. CTA of chest here showed -Large right pleural effusion with diffuse pleural nodularity and near complete collapse of the right lung. 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 Cytology negative for metastasis Plan: - consult oncology, want to do CT guided bx (8) DVT prophylaxis Current Visit: Yes Status: Acute Assessment and Plan: SCD (9) HTN (hypertension) Current Visit: No Status: Chronic Assessment and Plan: BP 92/59 -adequate control -hold Norvasc today due to hypotension -continue Toprol (10) Leukocytosis Current Visit: Yes Status: Acute Assessment and Plan: Elevated WBC at 26.4 (08/09), increased to 30.2 (08/10); was 22.5 on admission -infxn vs stress rxn from chest tube placement vs cancer -cefepime as per plan above DVT Prophylaxis: scd - Time Spent with Patient Total time spent is greater than 50% in coordination of care (as documented) at patient's floor/unit and/or counseling patient: less than 15 minutes Plan of Care Discussed with: patient Internal Medicine: Result - Labs CBC & Chem 7: 08/10/18 04:31 08/10/18 04:31 Labs: Short CBC 08/10/18 Range/Units 04:31 WBC 30.2 H* (4.3-11.1) K/mcL Hgb 10.3 L (12.9-16.9) g/dL Hct 31.4 L (37.5-50.1) % Plt Count 360 (140-400) K/mcL Neutrophils # 23.6 H (1.6-8.9) K/mcL BMP 08/10/18 04:31 Sodium 135 L Potassium 4.3 Chloride 104 Carbon Dioxide 26 BUN 24 H Creatinine 1.11 Glucose 91 Calcium 8.2 L Liver Function 08/10/18 Range/Units 04:31 Total Bilirubin 0.8 (0.3-1.0) mg/dL AST 23 (13-39) Units/L ALT 38 (7-52) Units/L Alkaline Phosphatase 48 (34-104) Units/L Albumin 2.5 L (3.5-5.7) g/dL - ABG Interpretation ABG results: PT/INR, D-dimer PT 13.2 Seconds (9.4-12.1) H 08/10/18 04:31 D-Dimer 837 ng/mLFEU (0-500) H 08/04/18 09:11 - Impressions Impressions Chest X-Ray 08/09/18 15:32 IMPRESSION: 1. Right pigtail catheter no longer visualized. 2. Otherwise, no significant change in the appearance of the chest. D/ / Francisco Javier Larson MD / Francisco Javier Larson MD Interpreting Provider: Francisco Javier Larson MD Abdomen/Pelvis CT 08/09/18 19:43 IMPRESSION: Redemonstration of extensive pleural nodularity and pleural thickening involving the right lower hemithorax, with a large right pleural effusion. There are some bubbles of gas within the pleural effusion, possibly introduced from instrumentation. Correlate clinically. No evidence of intra-metastatic disease identified. D/ / Ha Le MD / Ha Le MD Interpreting Provider: Ha Le MD Consult Discharge Plan - Plan Referrals: Sander Ibrahim DO [Primary Care Provider] - <Kwasi Acuña - Last Filed: 08/10/18 17:55> Hospitalist Progress Note - Encounter Date of Encounter: 08/10/18 - Exam Vitals: Temp Pulse Resp BP Pulse Ox 98.7 F 96 16 107/66 92 08/10/18 15:49 08/10/18 15:49 08/10/18 15:49 08/10/18 15:49 08/10/18 15:49 - Assessment and Plan (1) Pneumonia Current Visit: No Status: Acute (2) DVT prophylaxis Current Visit: Yes Status: Acute (3) HTN (hypertension) Current Visit: No Status: Chronic (4) Sepsis Current Visit: Yes Status: Acute (5) Pleural effusion Current Visit: Yes Status: Acute (6) Acute respiratory failure with hypoxia Current Visit: Yes Status: Acute (7) Supratherapeutic INR Current Visit: Yes Status: Resolved (8) Chronic a-fib Current Visit: No Status: Chronic (9) History of lung cancer Current Visit: No Status: Chronic (10) Leukocytosis Current Visit: Yes Status: Acute - Time Spent with Patient Total time spent is greater than 50% in coordination of care (as documented) at patient's floor/unit and/or counseling patient: Internal Medicine: Result - Labs CBC & Chem 7: 08/10/18 04:31 08/10/18 04:31 Labs: Short CBC 08/10/18 Range/Units 04:31 WBC 30.2 H* (4.3-11.1) K/mcL Hgb 10.3 L (12.9-16.9) g/dL Hct 31.4 L (37.5-50.1) % Plt Count 360 (140-400) K/mcL Neutrophils # 23.6 H (1.6-8.9) K/mcL BMP 08/10/18 04:31 Sodium 135 L Potassium 4.3 Chloride 104 Carbon Dioxide 26 BUN 24 H Creatinine 1.11 Glucose 91 Calcium 8.2 L Liver Function 08/10/18 Range/Units 04:31 Total Bilirubin 0.8 (0.3-1.0) mg/dL AST 23 (13-39) Units/L ALT 38 (7-52) Units/L Alkaline Phosphatase 48 (34-104) Units/L Albumin 2.5 L (3.5-5.7) g/dL - ABG Interpretation ABG results: PT/INR, D-dimer PT 13.2 Seconds (9.4-12.1) H 08/10/18 04:31 D-Dimer 837 ng/mLFEU (0-500) H 08/04/18 09:11 - Impressions Impressions Chest X-Ray 08/09/18 15:32 IMPRESSION: 1. Right pigtail catheter no longer visualized. 2. Otherwise, no significant change in the appearance of the chest. D/ / Francisco Javier Larson MD / Francisco Javier Larson MD Interpreting Provider: Francisco Javier Larson MD Abdomen/Pelvis CT 08/09/18 19:43 IMPRESSION: Redemonstration of extensive pleural nodularity and pleural thickening involving the right lower hemithorax, with a large right pleural effusion. There are some bubbles of gas within the pleural effusion, possibly introduced from instrumentation. Correlate clinically. No evidence of intra-metastatic disease identified. D/ / Ha Le MD / Ha Le MD Interpreting Provider: Ha Le MD - Attending Attestation I examined this patient and my medical decision-making was reviewed with the Resident Physician Dr. James. I agree with the documented findings, disposition and treatment plan as described except to the extent set forth below. Mr. Palacios is a 83 y/o M with known PMH of Myasthenia gravis, HTN, CAD s/p CABG 02/2018, hypothyroidsim, lung cancer, diverticulosis, CHF NYHA class IV, HDL patient admitted here for worsening shortness of breath due to large right pleural effusion . Patient had chest tube placed by IR, which got removed y/d. Patient states he is feeling better today. Gen: A, A, O x 3 Chest: Diminished BS b/l..Chest tube + Heart: S1S2+ a.p 1. Acute resp distress due to Rt pleural effuison 2. s/p Thoracocenetsis cont supportive care and symptomatic treatment 3. Sepsis with PNA continue broad-spectrum antibiotic 4. Leukocytosis still trending up will monitor closely for now talked to Heme Onc about it 5. Lung cancer Reviewed CT of chest and Abd scheduled for lung nodules biopsy today Appreciate Heme Onc recommendations <Alejandro James S - Last Filed: 08/10/18 10:53> (1) Sepsis Qualifiers: Sepsis type: sepsis due to unspecified organism Qualified Code(s): A41.9 - Sepsis, unspecified organism (3) Pneumonia Qualifiers: Pneumonia type: due to unspecified organism Laterality: left Lung location: lower lobe of lung Qualified Code(s): J18.1 - Lobar pneumonia, unspecified organism (9) HTN (hypertension) Qualifiers: Hypertension type: essential hypertension Qualified Code(s): I10 - Essential (primary) hypertension (10) Leukocytosis Qualifiers: Leukocytosis type: unspecified Qualified Code(s): D72.829 - Elevated white blood cell count, unspecified <LandonwKasi schultz - Last Filed: 08/10/18 17:55> (1) Pneumonia Qualifiers: Pneumonia type: due to unspecified organism Laterality: left Lung location: lower lobe of lung Qualified Code(s): J18.1 - Lobar pneumonia, unspecified organism (3) HTN (hypertension) Qualifiers: Hypertension type: essential hypertension Qualified Code(s): I10 - Essential (primary) hypertension (4) Sepsis Qualifiers: Sepsis type: sepsis due to unspecified organism Qualified Code(s): A41.9 - Sepsis, unspecified organism (10) Leukocytosis Qualifiers: Leukocytosis type: unspecified Qualified Code(s): D72.829 - Elevated white blood cell count, unspecified
[2018-08-10] MEDS: amLODIPine 5 MG TABLET PO SCH (09:37)
[2018-08-10] MEDS: Metoprolol XL (24 HR) Succ 25 MG TAB.ER.24H PO SCH (09:37)
[2018-08-10] MEDS: predniSONE 10 MG TABLET PO SCH (09:58)
[2018-08-10] MEDS: Aspirin Enteric Coated 81 MG Tablet PO SCH (09:58)
[2018-08-10] MEDS: Multivit/Ca/Min/Fe/FA 1 TAB TABLET PO SCH (09:58)
[2018-08-11 04:51] LABS: Red Cell Distribution Width 13.9 % (11.5-14.5)
[2018-08-11 04:52] LABS: Hematocrit 31.6 % (37.5-50.1); Hemoglobin 10.3 g/dL (12.9-16.9); Lymphocytes # 1.1 K/mcL (0.6-4.6); Mean Corpuscular HGB Conc 32.6 g/dL (31.6-35.5); Mean Corpuscular Hemoglobin 30.2 pg (28.0-33.3); Mean Corpuscular Volume 92.7 fL (83.0-100.0); Mean Platelet Volume 8.9 fL (9.4-12.4); Platelet Count 375 K/mcL (140-400); Red Blood Count 3.41 M/mcL (4.19-5.50)
[2018-08-11 05:11] LABS: Alanine Aminotransferase 30 Units/L (7-52); Albumin 2.5 g/dL (3.5-5.7); Alkaline Phosphatase 52 Units/L (34-104); Aspartate Amino Transferase 14 Units/L (13-39); BUN/Creatinine Ratio 22 (6-26); Bilirubin,Total 0.9 mg/dL (0.3-1.0); Blood Urea Nitrogen 27 mg/dL (8-23); Calcium 8.3 mg/dL (8.6-10.3); Carbon Dioxide 27 mEq/L (23-29); Chloride 105 mEq/L (98-107); Globulin 2.6 g/dL (2.4-3.5); Glucose 103 mg/dL (70-105); Osmolality,Calculated 289 (280-300); Potassium 4.5 mEq/L (3.5-5.1); Sodium 137 mEq/L (136-145); Total Protein 5.1 g/dL (6.4-8.9); eGFR For Non-African Americans 56 (> 60)
[2018-08-11 05:24] LABS: Platelet Estimate Normal (Normal)
[2018-08-11 05:48] LABS: Neutrophils # 24.1 K/mcL (1.6-8.9); Segmented Neutrophils % 70.3 %
[2018-08-11 05:49] LABS: Eosinophils % 14.6 %; Lymphocytes % 3.1 %; Monocytes # 2.3 K/mcL (0.0-1.3); Monocytes % 6.8 %
[2018-08-11 05:50] LABS: Basophils # 0.1 K/mcL (0.0-0.2); Basophils % 0.4 %
[2018-08-11] MEDS: Cefepime HCl 2,000 MG in Water for inj. (sterile) 20 ML 20 ML IVP SCH (06:10)
[2018-08-11] MEDS: Pyridostigmine Br 60 MG TABLET PO SCH ×3 (06:14→21:41)
[2018-08-11] MEDS: Aspirin Enteric Coated 81 MG Tablet PO SCH (07:44)
[2018-08-11] MEDS: Metoprolol XL (24 HR) Succ 25 MG TAB.ER.24H PO SCH (07:45)
[2018-08-11] MEDS: predniSONE 10 MG TABLET PO SCH (07:45)
[2018-08-11] MEDS: Multivit/Ca/Min/Fe/FA 1 TAB TABLET PO SCH (07:45)
--- NOTE | 2018-08-11 08:35 | Internal Med Progress Note ---
<Alejandro James S - Last Filed: 08/11/18 10:59> Hospitalist Progress Note - Encounter Date of Encounter: 08/11/18 Time of Encounter: 08:33 - Subjective Interval History: Mr. Palacios is a 83 year old male with PMH of Myasthenia gravis, HTN, CAD s/p CABG 02/2018, hypothyroidism, lung cancer, diverticulosis, CHF NYHA class IV, HDL. He presented from home on 08/05/18 after increasing SOB since Wednesday. He states that today got really bad so he decided to come into the hospital to be evaluated. He saw his FOOD SAFETY SCIENTIST and she gave him cough drops, however, this didn't help him. At baseline he is SOB at rest over the last few weeks. He isn't very active. Of note he had a CABG in 02/2018 with triple bypass. The pt has been having increasing sputum production. In the ER the pt was given a one time dose of Vancomycin and Zosyn. -CXR showed a large right pleural effusion, s/p CABG -pt had a (+) d-dimer so CT scan was done which showed large right pleural effusion with diffuse nodularity and near complete collapse of right lung; pleural metastatic dz -troponin (-) Pt was seen by pulmonology who recommended thoracentesis. He was given vitamin K one time and then FFP. -pt had thoracentesis 08/05/18 , which was aborted for chest tube placement by IR -chest tube pulled by pulm 08/09/18 Today the pt has no complaints. Denies active chest pain. -denies N/V/D, abd pain. -breathing at baseline -pt is moving around, feels ok -he is to go for CT guided bx of lung today by IR - Exam Vitals: Temp Pulse Resp BP Pulse Ox 98.7 F 102 18 105/59 94 08/11/18 07:25 08/11/18 07:25 08/11/18 07:25 08/11/18 07:25 08/11/18 07:25 Exam: Constitutional: Alert, in no acute distress , pleasant appearing male, WNWD Head: Normocephalic, atraumatic Heart: Normal, regular rate and rhythm, no murmurs Chest: right chest tube pulled yesterday as per respiratory, still has slightly diminished breath sounds on the RLL, clear to auscultation on the left, no wheezes Abdomen: Soft, nondistended, nontenderl, no guarding or rigidity. Extremities: minimal edema, No clubbing, capillary refill <2sec. Skin: Skin warm and dry, no lesions, no rashes, no jaundice Neurologic: no FND Psych: Cooperative - Assessment and Plan (1) Sepsis Current Visit: Yes Status: Acute Assessment and Plan: On admission, pt met sepsis criteria -HR 104, WBC 22.5, RR 20 -source of infxn most likely pleural effusion seen on CXR and CTA MRSA screen negative Lactic acid 1.6 Currently meets sepsis criteria for HR/WBC count -HR 104, RR 17 -white count still elevated at 34.3 (increased from 32.2 yesterday) Acid fast culture negative Pleural fluid had no growth on cx Peripheral smear specimen showed leukocyte count with absolute neutrophilia -absolute monocyte/eosinophil count increased; RBC, Hgb and hc decreased -normochromic anemia, anemia of chronic dz -suggests flow cytometr for CD55/59 if suspected Pleural fluid, right, for cytology: Negative for malignancy CT abd negative for intra metastatic dz; extensive pleural nodularity and pleural thickening involving right lower hemithorax; large right pleural effusion plan: - start zosyn today; one time dose of Vancomycin today - discontinue Cefepime ( day 6, 08/06/18) - discontinued cefriaxone 08/05/18 (2 days of tx), - pulmonology following, s/p chest tube placement with 3,490 mL total off, 30 off last night - awaiting blood cultures (08/04) - NGTD, pleural fluid cultures (08/05/18) - NGTD - continue O2 support - diet: cardiac diet, fluid restriction 1.5L - dispo: clamp and d/c of chest tube per respiratory completed 08/09; CT guided bx of pleural nodules for diagnosis as per heme onc will be today -currently NPO for procedure (2) Pleural effusion Current Visit: Yes Status: Acute Assessment and Plan: Unknown etiology. -Likely due to 2/2 to primary cancer vs. mets from previous lung cancer - Patient would like to go back to the [facility] if he needs treatment. - Output yesterday, 500ml of sero-sanguinous fluid. Based on Light's critera, most likely an exudative pleural effusion (infxn vs malignancy) -Pleural LDH: serum LDH >/=0.6 -pleural protein: serum protein >/=0.5 CXR 08/07 showed - right pleural cath in place; moderate right pleural effusion decreased in size since prior exam CXR 08/08 showed - mod size right pleural effusion with probably underlying atelectasis or infiltrate, stable since 08/07 cxr Peripheral smear specimen showed leukocyte count with absolute neutrophilia -absolute monocyte/eosinophil count increased; RBC, Hgb and hc decreased -normochromic anemia, anemia of chronic dz -suggests flow cytometr for CD55/59 if suspected Pleural fluid, right, for cytology: Negative for malignancy Plan: - pulmonology consulted, managing chest tube which was pulled 08/09 - s/p chest tube placement, on 08/07 drained 1.2L; total drainage 3.4L. - continue resp support, nasal canula as needed - consulted Onco for etiology of pleural effusion , they plan to do CT guided lung bx today (3) Pneumonia Current Visit: No Status: Acute Assessment and Plan: Likely 2/2 to pleural effusion. Start Zosyn and 1x dose Vanc. Discontinue cefepime. See plan above. (4) Acute respiratory failure with hypoxia Current Visit: Yes Status: Acute Assessment and Plan: See plan above. (5) Supratherapeutic INR Current Visit: Yes Status: Resolved Assessment and Plan: Resolved. 08/06/18 PT 13.9 INR 1.2 Plan: -hold Coumadin; contraindicated due to hemorrhagic pleural effusion. (6) Chronic a-fib Current Visit: No Status: Chronic Assessment and Plan: Currently rate controlled. Continue home med for rate control: Metoprolol 25mg daily. Coumadin held, contraindicated. Patient has chest tube placed with serosanguinous fluid drainage. 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 -s/p right lower lobe sublobar resection and mediastinal lymphadenectomy on 12/22. -Per patient required no chemo or radiation and has been in remission since. CTA of chest here showed -Large right pleural effusion with diffuse pleural nodularity and near complete collapse of the right lung. 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 Cytology negative for metastasis Plan: - consult oncology, want to do CT guided bx today (8) DVT prophylaxis Current Visit: Yes Status: Acute Assessment and Plan: SCD (9) HTN (hypertension) Current Visit: No Status: Chronic Assessment and Plan: BP 108/69 -adequate control -hold Norvasc today due to hypotension -hold Toprol (10) Leukocytosis Current Visit: Yes Status: Acute Assessment and Plan: Elevated WBC at 26.4 (08/09), increased to 30.2 (08/10) ---> 34.3 (08/11); was 22.5 on admission -infxn vs stress rxn from chest tube placement vs cancer -abx as per plan above DVT Prophylaxis: scd - Time Spent with Patient Total time spent is greater than 50% in coordination of care (as documented) at patient's floor/unit and/or counseling patient: less than 15 minutes Plan of Care Discussed with: patient Internal Medicine: Result - Labs CBC & Chem 7: 08/11/18 04:38 08/11/18 04:38 Labs: Short CBC 08/11/18 Range/Units 04:38 WBC 34.3 H* (4.3-11.1) K/mcL Hgb 10.3 L (12.9-16.9) g/dL Hct 31.6 L (37.5-50.1) % Plt Count 375 (140-400) K/mcL Neutrophils # 24.1 H (1.6-8.9) K/mcL BMP 08/11/18 04:38 Sodium 137 Potassium 4.5 Chloride 105 Carbon Dioxide 27 BUN 27 H Creatinine 1.23 Glucose 103 Calcium 8.3 L Liver Function 08/11/18 Range/Units 04:38 Total Bilirubin 0.9 (0.3-1.0) mg/dL AST 14 (13-39) Units/L ALT 30 (7-52) Units/L Alkaline Phosphatase 52 (34-104) Units/L Albumin 2.5 L (3.5-5.7) g/dL - ABG Interpretation ABG results: PT/INR, D-dimer PT 13.2 Seconds (9.4-12.1) H 08/10/18 04:31 D-Dimer 837 ng/mLFEU (0-500) H 08/04/18 09:11 Consult Discharge Plan - Plan Referrals: Sander Ibrahim DO [Primary Care Provider] - <Jean PaulKwasi otero - Last Filed: 08/11/18 17:25> Hospitalist Progress Note - Encounter Date of Encounter: 08/11/18 - Exam Vitals: Temp Pulse Resp BP Pulse Ox 98.3 F 93 19 102/65 93 08/11/18 17:07 08/11/18 17:07 08/11/18 17:07 08/11/18 17:07 08/11/18 17:07 - Assessment and Plan (1) Pneumonia Current Visit: No Status: Acute (2) DVT prophylaxis Current Visit: Yes Status: Acute (3) HTN (hypertension) Current Visit: No Status: Chronic (4) Sepsis Current Visit: Yes Status: Acute (5) Pleural effusion Current Visit: Yes Status: Acute (6) Acute respiratory failure with hypoxia Current Visit: Yes Status: Acute (7) Supratherapeutic INR Current Visit: Yes Status: Resolved (8) Chronic a-fib Current Visit: No Status: Chronic (9) History of lung cancer Current Visit: No Status: Chronic (10) Leukocytosis Current Visit: Yes Status: Acute - Time Spent with Patient Total time spent is greater than 50% in coordination of care (as documented) at patient's floor/unit and/or counseling patient: Internal Medicine: Result - Labs CBC & Chem 7: 08/11/18 04:38 08/11/18 04:38 Labs: Short CBC 08/11/18 Range/Units 04:38 WBC 34.3 H* (4.3-11.1) K/mcL Hgb 10.3 L (12.9-16.9) g/dL Hct 31.6 L (37.5-50.1) % Plt Count 375 (140-400) K/mcL Neutrophils # 24.1 H (1.6-8.9) K/mcL BMP 08/11/18 04:38 Sodium 137 Potassium 4.5 Chloride 105 Carbon Dioxide 27 BUN 27 H Creatinine 1.23 Glucose 103 Calcium 8.3 L Liver Function 08/11/18 Range/Units 04:38 Total Bilirubin 0.9 (0.3-1.0) mg/dL AST 14 (13-39) Units/L ALT 30 (7-52) Units/L Alkaline Phosphatase 52 (34-104) Units/L Albumin 2.5 L (3.5-5.7) g/dL - ABG Interpretation ABG results: PT/INR, D-dimer PT 13.2 Seconds (9.4-12.1) H 08/10/18 04:31 D-Dimer 837 ng/mLFEU (0-500) H 08/04/18 09:11 - Impressions Impressions Chest X-Ray 08/11/18 12:47 IMPRESSION: No significant change. D/ / 08/11/2018 13:47:34 Riccardo Romero MD / [email or web address] Interpreting Provider: Riccardo Romero MD - Attending Attestation I examined this patient and my medical decision-making was reviewed with the Resident Physician Dr. James. I agree with the documented findings, disposition and treatment plan as described except to the extent set forth below. Mr. Palacios is a 83 y/o M with known PMH of Myasthenia gravis, HTN, CAD s/p CABG 02/2018, hypothyroidsim, lung cancer, diverticulosis, CHF NYHA class IV, HDL patient admitted here for worsening shortness of breath due to large right pleural effusion . Patient had chest tube placed by IR, which got removed on . He had CT guided lung nodule biopsy and pleurex cath palced in today Patient states he is feeling better today. Gen: A, A, O x 3 Chest: Diminished BS b/l..Chest tube + Heart: S1S2+ a.p 1. Acute resp distress due to Rt pleural effuison 2. s/p Thoracocenetsis 3. Pleurex cath + cont suctioning sent for fluid cx 3. Sepsis with PNA will switch abx to Zosyn and one dose Vanc 4. Leukocytosis still trending up will monitor closely for now talked to Heme Onc about it broaden the abx coverage 5. Lung cancer Reviewed CT of chest and Abd Appreciate Heme Onc recommendations <Alejandro James S - Last Filed: 08/11/18 10:59> (1) Sepsis Qualifiers: Sepsis type: sepsis due to unspecified organism Qualified Code(s): A41.9 - Sepsis, unspecified organism (3) Pneumonia Qualifiers: Pneumonia type: due to unspecified organism Laterality: left Lung location: lower lobe of lung Qualified Code(s): J18.1 - Lobar pneumonia, unspecified organism (9) HTN (hypertension) Qualifiers: Hypertension type: essential hypertension Qualified Code(s): I10 - Essential (primary) hypertension (10) Leukocytosis Qualifiers: Leukocytosis type: unspecified Qualified Code(s): D72.829 - Elevated white blood cell count, unspecified <Kwasi Acuña - Last Filed: 08/11/18 17:25> (1) Pneumonia Qualifiers: Pneumonia type: due to unspecified organism Laterality: left Lung location: lower lobe of lung Qualified Code(s): J18.1 - Lobar pneumonia, unspecified organism (3) HTN (hypertension) Qualifiers: Hypertension type: essential hypertension Qualified Code(s): I10 - Essential (primary) hypertension (4) Sepsis Qualifiers: Sepsis type: sepsis due to unspecified organism Qualified Code(s): A41.9 - Sepsis, unspecified organism (10) Leukocytosis Qualifiers: Leukocytosis type: unspecified Qualified Code(s): D72.829 - Elevated white blood cell count, unspecified
--- NOTE | 2018-08-11 10:41 | Oncology Inp Progress Note ---
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 Discussed with pulmonology, they recommended avoiding transthoracic needle biopsy and instead recommended pleuroscopy with pleural biopsy and placement of Pleurx catheter at the same time. Spoke with patient and family and they are agreeable for this plan. We will base further treatment options on pathology. Oncology: Subj Interval history: Patient seen and examined at bedside. Patient states that he feels pretty good today. He denies chest pain, shortness of breath, fever, chills. - Constitutional Vitals: Vital Signs Temp Pulse Resp BP Pulse Ox 08/11/18 07:25 98.7 F 102 18 105/59 94 08/11/18 04:00 98.1 F 104 17 108/69 91 08/11/18 00:37 97.9 F 98 17 110/63 95 08/10/18 20:45 98.2 F 97 17 108/65 94 08/10/18 15:49 98.7 F 96 16 107/66 92 08/10/18 10:55 98.4 F 102 17 107/68 93 Intake and Output 08/10/18 08/11/18 08/11/18 23:59 07:59 15:59 Intake Total Balance 20 Intake: IV Fluids Maxipime 2,000 MG In Water for inj. (sterile) 20 ML @ 300 mls/ hr IVP Q12HR ZELDA Rx#:[id number] Other: Stool Size Moderate Stool Consistency loose liquid Stool Color Green # Voids 1 # Bowel Movements 1 Blood Glucose* 126 111 General appearance: no acute distress - Respiratory Respiratory exam: Present: decreased breath sounds. Absent: rales, rhonchi - Cardiovascular Cardiovascular exam: Present: RRR. Absent: diastolic murmur, systolic murmur - GI/Abdominal GI/Abdominal exam: Present: normal bowel sounds, soft. Absent: distended, tenderness - Extremities Exam Extremities exam: Absent: pedal edema, tenderness - Neurological Exam Neurological exam: Present: alert, oriented X3, no focal deficits Oncology: Obj Data - Labs CBC & Chem 7: 08/11/18 04:38 08/11/18 04:38 Labs: Laboratory Results - last 24 hr 08/10/18 08/10/18 08/10/18 06:54 10:54 15:48 WBC RBC Hgb Hct MCV MCH MCHC RDW Plt Count MPV Immature Gran % Seg Neutrophils % Lymphocytes % Monocytes % Eosinophils % Basophils % Neutrophils # Lymphocytes # Monocytes # Eosinophils # Basophils # Platelet Estimate Sodium Potassium Chloride Carbon Dioxide BUN Creatinine Est GFR ( Amer) Est GFR (Non-Af Amer) BUN/Creatinine Ratio Glucose POC Glucose 116 H 125 H 142 H Calculated Osmolality Calcium Total Bilirubin AST ALT Alkaline Phosphatase Serum Total Protein Albumin Globulin Albumin/Globulin Ratio 08/10/18 08/11/18 08/11/18 20:48 04:38 04:38 WBC 34.3 H* RBC 3.41 L Hgb 10.3 L Hct 31.6 L MCV 92.7 MCH 30.2 MCHC 32.6 RDW 13.9 Plt Count 375 MPV 8.9 L Immature Gran % Test Not Performed Seg Neutrophils % 70.3 Lymphocytes % 3.1 Monocytes % 6.8 Eosinophils % 14.6 Basophils % 0.4 Neutrophils # 24.1 H Lymphocytes # 1.1 Monocytes # 2.3 H Eosinophils # 5.0 H Basophils # 0.1 Platelet Estimate Normal Sodium 137 Potassium 4.5 Chloride 105 Carbon Dioxide 27 BUN 27 H Creatinine 1.23 Est GFR ( Amer) > 60 Est GFR (Non-Af Amer) 56 L BUN/Creatinine Ratio 22 Glucose 103 POC Glucose 126 H Calculated Osmolality 289 Calcium 8.3 L Total Bilirubin 0.9 AST 14 ALT 30 Alkaline Phosphatase 52 Serum Total Protein 5.1 L Albumin 2.5 L Globulin 2.6 Albumin/Globulin Ratio 1.0 L - ABG Interpretation ABG results: PT/INR, D-dimer PT 13.2 Seconds (9.4-12.1) H 08/10/18 04:31 D-Dimer 837 ng/mLFEU (0-500) H 08/04/18 09:11 Consult Discharge Plan - Plan Instructions: Amoxicillin/Clavulanate Potassium (By mouth) Referrals: Ambrosio Ritter MD [Partnered Physician] - 08/19/18 1:25 pm (Please follow up as schedule...) Sander Ibrahim DO [Primary Care Provider] - (web Requested on 08/12/2018) Prescriptions: Amoxicillin/Clavulanate [Augmentin] 875 mg PO BIDWM #10 tablet <Davion Ritterapathy Pratima - Last Filed: 08/15/18 13:07> Date of Encounter: 08/11/18 (1) Pleural effusion Status: Acute Oncology: Obj Data - Labs CBC & Chem 7: 08/13/18 04:31 08/13/18 04:31 - ABG Interpretation ABG results: PT/INR, D-dimer PT 13.2 Seconds (9.4-12.1) H 08/10/18 04:31 D-Dimer 837 ng/mLFEU (0-500) H 08/04/18 09:11 Inpatient Charges Provider: Dr. Lito Ritter Follow Up: [id number] - Attending Attestation I examined this patient and my medical decision-making was reviewed with the Advanced Practice Nurse. I agree with the documented findings, disposition and treatment plan as described except to the extent set forth below. 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 Cytology inconclusive. He was evaluated by Dr. Ball and received Pleurx catheter and pleuroscopy based pleural nodule biopsy on 08/11/2018. Results pending CT abdomen and pelvis negative. Once diagnosis conformed we will discuss systemic treatment. We will proceed with PDL one testing. Also next generation sequencing if possible. PDL one positive may consider upfront immunotherapy if not he plus minus immunotherapy
[2018-08-11] MEDS ORDERED: *HR* Propofol 200 MG/20 ML VIAL IVP ONE (10:50)
[2018-08-11] MEDS ORDERED: *HR* FentaNYL (PF) 100 MCG/2 ML VIAL ONE (10:50)
[2018-08-11] MEDS ORDERED: Lidocaine -MPF 2% 2 ML VIAL ONE (10:52)
--- NOTE | 2018-08-11 10:55 | Anesthesia Evaluation PreOp ---
Date of Encounter: 08/11/18 Time of Encounter: 10:53 - Past History Planned Operation: chest tube placement and pleuravideo with biopsy Cardiac History: CHF (class IV), HTN, Hyperlipidemia, Arrhythmia (afib), Cardiac Surgery (CABG 02/2018) Pulmonary History: Other (lung cancer s/p R lower lobe lung resection 11/2017, hypoxia with pneumonia) INCOMING FREIGHT CLERK History: Other (myasthenia gravis) Other Medical History: Thyroid (hypo) Anesthesia History: No Prior Anesthetic Complications, Past Anesthesia Alcohol Use: none Drug use: none Medications and Allergies Acetaminophen/Diphenhydramine [Percogesic 325-12.5 mg Tablet] 1 tab PO HS PRN [History] Aspirin Enteric Coated [Aspirin EC] 81 mg PO DAILY 08/04/18 [History] Atorvastatin [Lipitor] 40 mg PO HS 08/04/18 [History] Docusate [Colace] 100 mg PO Q48H PRN 08/04/18 [History] Levothyroxine Sodium [Levo-T] 125 mcg PO DAILY 08/04/18 [History] Metoprolol Succinate [Toprol Xl] 25 mg PO DAILY 08/04/18 [History] Multivitamin [One Daily Essential] 1 tab PO DAILY 08/04/18 [History] Pyridostigmine Br [Mestinon] 60 mg PO Q8H 08/04/18 [History] Warfarin [Coumadin] 3 mg PO DAILY 08/04/18 [History] amLODIPine [Norvasc] 2.5 mg PO DAILY 08/04/18 [History] predniSONE [PredniSONE] 10 mg PO DAILY 08/04/18 [History] 3 Allergy/AdvReac Type Severity Reaction Status Date / Time No Known Allergies Allergy Verified 05/04/18 17:32 - Meds/Allergy Pre-op Review Medications Reviewed: Yes Allergies Reviewed: Yes Beta Blockers on Current Med List: Yes (Toprol) If Beta Blockers taken, Date/Time (Last Dose taken): 744 Anesthesia Results - Labs 08/11/18 04:38 08/11/18 04:38 - Imaging EKG: report reviewed, image reviewed Additional studies: 07/2018 Impressions: LVEF 60-65%. Normal LV chamber size, wall thickness and function. Atypical septal motion consistent with bundle branch block, postoperative septum. Mild left ventricular diastolic dysfunction. Normal right ventricular structure and function. Unable to estimate RVSP due to lack of TR jet. No significant valvular dysfunction PFT 2018 mild obstructive process moderate reduced TLC MOd reduced DLCO CXR 08/09/18 Median sternotomy wires are noted. A moderate to large right-sided pleural effusion appears unchanged from the prior exam. There opacification the right mid and lower lung, which appears unchanged. No convincing pneumothorax. No focal consolidation is seen in the left lung. The cardiac silhouette appears stable in size. The right pigtail catheter is no longer visualized. Anesthesia Exam Vital Signs/O2 Sat/Glucose, Most Recent Temp Pulse Resp BP Pulse Ox 98.7 F 102 18 105/59 94 08/11/18 07:25 08/11/18 07:25 08/11/18 07:25 08/11/18 07:25 08/11/18 07:25 Blood Glucose* 111 Height: 1.78 m Weight: 78 KG NPO (# of Hours): > 8 hr - HEENT Pupil (Motor): Pupils equal Mallampati: II Teeth: Poor dentition Oral Opening: Greater than 3 - INCOMING FREIGHT CLERK LOC: Oriented INCOMING FREIGHT CLERK Motor: Normal RUE, Normal LUE, Normal RLE, Normal LLE, Normal Face INCOMING FREIGHT CLERK Sensory: Normal: RUE, LUE, RLE, LLE, Face - Cardiac Rhythm: Regular Murmur: None - Pulmonary Breath Sounds: right Rales Respiratory Effort: Symmetrical Anesthesia Assess/Plan ASA Score: 4 Modified [place] Scale for Level of Consciousness: Cooperative, oriented, and tranquil Anesthetic Plan: MAC Monitoring Plan: Standard Monitors Recovery Plan: Other (transfer back to floor)
[2018-08-11] MEDS ORDERED: Piperacillin/Tazobactam 3.375 GM in 0.9 % Sodium Chloride Mini Bag 100 ML IVPB SCH (11:00)
[2018-08-11] MEDS: 0.9 % Sodium Chloride 500 ML IVC SCH ×2 (11:37→22:13)
[2018-08-11] MEDS ORDERED: Lidocaine -MPF 2% 10 ML AMPUL INFILT ONE (12:58)
--- NOTE | 2018-08-11 13:06 | Anesthesia Evaluation Post Op ---
Date of Encounter: 08/11/18 Time of Encounter: 13:06 - Vital Signs Vital Signs: Vital Signs/O2 Sat/Glucose, Most Recent Temp Pulse Resp BP Pulse Ox 98.5 F 79 18 117/80 93 08/11/18 11:35 08/11/18 11:35 08/11/18 11:35 08/11/18 11:35 08/11/18 11:35 Blood Glucose* 111 - Lungs Lungs: Clear Ascult./Percussion - Airway Airway: Non-obstructed - Cardiovascular Regular Rate - Mental Status Mental Status: Alert & Oriented, Answers Appropriately - Pain Pain Scale used: Naz (Faces) - Nausea Vomiting Nausea Vomiting: Not Present - Hydration Hydration: NPO - Discharge PostOp Status: Transfer Patient to floor
[2018-08-11] MEDS: Piperacillin/Tazobactam 3.375 GM in 0.9 % Sodium Chloride Mini Bag 100 ML IVPB SCH ×2 (13:55→21:42)
[2018-08-12] MEDS: Piperacillin/Tazobactam 3.375 GM in 0.9 % Sodium Chloride Mini Bag 100 ML IVPB SCH ×3 (06:11→22:19)
[2018-08-12] MEDS: Pyridostigmine Br 60 MG TABLET PO SCH ×3 (06:12→22:19)
[2018-08-12 07:14] LABS: Lymphocytes % 3.8 %; Monocytes % 6.2 %
[2018-08-12 07:16] LABS: Basophils # 0.2 K/mcL (0.0-0.2); Basophils % 0.5 %; Eosinophils # 5.5 K/mcL (0.0-0.6); Eosinophils % 16.1 %; Hematocrit 31.6 % (37.5-50.1); Immature Granulocytes % 3.9 % (0-4); Lymphocytes # 1.3 K/mcL (0.6-4.6); Mean Corpuscular HGB Conc 31.6 g/dL (31.6-35.5); Mean Corpuscular Volume 91.6 fL (83.0-100.0); Mean Platelet Volume 8.8 fL (9.4-12.4); Monocytes # 2.1 K/mcL (0.0-1.3); Neutrophils # 23.9 K/mcL (1.6-8.9); Platelet Count 382 K/mcL (140-400); Red Blood Count 3.45 M/mcL (4.19-5.50); Red Cell Distribution Width 14.1 % (11.5-14.5); Segmented Neutrophils % 69.5 %
[2018-08-12 07:37] LABS: Alanine Aminotransferase 32 Units/L (7-52); Albumin 2.3 g/dL (3.5-5.7); Albumin/Globulin Ratio 0.9 (1.1-2.2); Alkaline Phosphatase 49 Units/L (34-104); Aspartate Amino Transferase 18 Units/L (13-39); BUN/Creatinine Ratio 23 (6-26); Bilirubin,Total 0.9 mg/dL (0.3-1.0); Blood Urea Nitrogen 29 mg/dL (8-23); Calcium 8.1 mg/dL (8.6-10.3); Carbon Dioxide 26 mEq/L (23-29); Chloride 106 mEq/L (98-107); Globulin 2.6 g/dL (2.4-3.5); Glucose 108 mg/dL (70-105); Osmolality,Calculated 286 (280-300); Potassium 4.4 mEq/L (3.5-5.1); Sodium 135 mEq/L (136-145); Total Protein 4.9 g/dL (6.4-8.9); eGFR For Non-African Americans 54 (> 60)
[2018-08-12 07:52] LABS: Toxic Granulation Present (Not Present)
[2018-08-12 07:54] LABS: Platelet Estimate Normal (Normal)
[2018-08-12] MEDS: Metoprolol XL (24 HR) Succ 25 MG TAB.ER.24H PO SCH (08:28)
[2018-08-12] MEDS: predniSONE 10 MG TABLET PO SCH (08:28)
[2018-08-12] MEDS: Multivit/Ca/Min/Fe/FA 1 TAB TABLET PO SCH (08:28)
[2018-08-12] MEDS: Aspirin Enteric Coated 81 MG Tablet PO SCH (08:28)
--- NOTE | 2018-08-12 09:03 | Pulmonology Progress Note ---
<Concha Ball M - Last Filed: 08/12/18 09:46> Date of Encounter: 08/12/18 Objective PUL Vital signs: Last Vital Signs Temp 99.1 F 08/12/18 07:59 Pulse 95 08/12/18 07:59 Resp 16 08/12/18 07:59 BP 106/68 08/12/18 07:59 Pulse Ox 95 08/12/18 07:59 Results - Laboratory Findings CBC and BMP: 08/12/18 07:08 08/12/18 07:08 PT/INR, D-dimer PT 13.2 Seconds (9.4-12.1) H 08/10/18 04:31 D-Dimer 837 ng/mLFEU (0-500) H 08/04/18 09:11 Abnormal lab findings: Abnormal lab results WBC 34.4 K/mcL (4.3-11.1) H* 08/12/18 07:08 RBC 3.45 M/mcL (4.19-5.50) L 08/12/18 07:08 Hgb 10.0 g/dL (12.9-16.9) L 08/12/18 07:08 Hct 31.6 % (37.5-50.1) L 08/12/18 07:08 MPV 8.8 fL (9.4-12.4) L 08/12/18 07:08 Band Neutrophils % 8.0 % (0-4) H 08/10/18 04:31 Neutrophils # 23.9 K/mcL (1.6-8.9) H 08/12/18 07:08 Monocytes # 2.1 K/mcL (0.0-1.3) H 08/12/18 07:08 Eosinophils # 5.5 K/mcL (0.0-0.6) H 08/12/18 07:08 Reactive Lymphocytes Present (Not Present) A 08/08/18 06:58 Toxic Granulation Present (Not Present) A 08/12/18 07:08 Toxic Vacuolation Present (Not Present) A 08/08/18 06:58 PT 13.2 Seconds (9.4-12.1) H 08/10/18 04:31 APTT 40.0 Seconds (26.0-36.0) H 08/04/18 09:11 D-Dimer 837 ng/mLFEU (0-500) H 08/04/18 09:11 Sodium 135 mEq/L (136-145) L 08/12/18 07:08 BUN 29 mg/dL (8-23) H 08/12/18 07:08 Est GFR (Non-Af Amer) 54 (> 60) L 08/12/18 07:08 Glucose 108 mg/dL (70-105) H 08/12/18 07:08 POC Glucose 118 mg/dL (70-99) H 08/12/18 07:42 Calcium 8.1 mg/dL (8.6-10.3) L 08/12/18 07:08 B-Natriuretic Peptide 100 pg/mL (Less than 100) H 08/04/18 09:11 Serum Total Protein 4.9 g/dL (6.4-8.9) L 08/12/18 07:08 Albumin 2.3 g/dL (3.5-5.7) L 08/12/18 07:08 Albumin/Globulin Ratio 0.9 (1.1-2.2) L 08/12/18 07:08 Pleural Appearance Bloody (Clear) A 08/05/18 15:23 Pleural RBC 0.394 M/mcL (0.000-0.002) H 08/05/18 15:23 Pleural Tot Nuc Cell 2565 TNC/mcL (0-1000) H 08/05/18 15:23 - Clinical Findings Intake & Output: Intake & Output 08/11/18 08/12/18 08/12/18 23:59 07:59 15:59 Intake Total 100 / 100 100 / 100 Output Total 350 / 350 690 / 690 Balance 100 / 100 -250 / -250 -690 / -690 Weight 77.8 kg Consult Discharge Plan - Plan Referrals: Sander Ibrahim DO [Primary Care Provider] - - Attending Attestation I examined this patient and my medical decision-making was reviewed with the Resident Physician. I agree with the documented findings, disposition and treatment plan as described except to the extent set forth below. Patient seen and examined. Labs, radiology, chart personally reviewed. Agree with resident's history and physical, assessment, plan with following comments: ONBOARDING SPECIALIST: Patient follows commands, Pulmonary: Acceptable oxygenation and ventilation. Patient remained stable and there is no evidence of worsening cough and subcutaneous emphysema that is expected after surgery and Pleurx pleural catheter was disconnected from the chest tube to have a chest x-ray and if stable then from pulmonary standpoint patient can be discharged home and follow-up as outpatient in 7-10 days. Change dressing and incision looks clean. <Ponce Butlerjudy Hastings - Last Filed: 08/12/18 09:53> Date of Encounter: 08/12/18 Time of Encounter: 09:21 Assessment and Plan (1) Pleural effusion Current Visit: Yes Status: Acute Thoracentesis with blood fluid output on 08/05 Small bore chest tube placed by IR on 08/05 with bloody output, sent sample for fluid analysis and cytology Pleural fluid analysis revealed bloody exudative effusion Pleural fluid cytology was negative for malignancy. Revealed RBCs with some inflammatory cells Chest tube removed successfully on 08/09 Pt underwent pleuroscopy with Pleur-ex catheter placement on 08/11 Pleurex drained 840mL bloody output since procedure Effusion stable with Pleurex catheter in place. 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 Pleuroscopy on 08/11 revealed erythematous and friable lesions of the mid pleura RAJ of pleural biospies was positive for malignant cells Management per oncology Qualifiers: Laterality: right Lung location: unspecified part of lung Qualified Code( s): C34.91 - Malignant neoplasm of unspecified part of right bronchus or lung (3) Pneumonia Current Visit: No Status: Acute Afebrile HR and RR within normal limits WBC persitently elevated could be 2/2 prednisone No increased sputum production or change in sputum character Day 9 of abx treatment - management per primary Qualifiers: Pneumonia type: due to unspecified organism Laterality: left Lung location: lower lobe of lung Qualified Code(s): J18.1 - Lobar pneumonia, unspecified organism Subjective Principal diagnosis: Pleural Effusion Interval history: Mr. Palacios is a pleasant 83M with PMH of Myasthenia Gravis, CAD, HTN, HLD, CHF and lung cancer with right upper lobe wedge resection on 12/09. He originally presented to the ER on 08/04 complaining of increased SOB and sputum production. He denied any fever, chills, or chest pain at that time. CTA chest revealed large right pleural effusion with diffuse pleural nodules suggestive of metastatic disease. Thoracentesis and small bore chest tube placement were performed on 08/05. Chest tube was removed on 08/09 without difficulty. Pt elected to have pleuroscopy and pleurex catheter placement on 08/11. During pleuroscopy a lesion was seen on the pleura and on the right upper lobe concerning for metastatic disease. RAJ of the pleura samples were positive for malignant cells. Pleurex catheter has drained 840mL since procedure with bloody output. Today pt states he feels "pretty good". He continues to deny any fever, chills, chest pain, nausea, vomiting, headache, numbness, or tinging. Objective PUL Vital signs: Last Vital Signs Temp 99.1 F 08/12/18 07:59 Pulse 95 08/12/18 07:59 Resp 16 08/12/18 07:59 BP 106/68 08/12/18 07:59 Pulse Ox 95 08/12/18 07:59 General appearance: no acute distress, alert Eyes: nonicteric ENT: oropharynx moist Neck: supple, no JVD Effort: normal Auscultation: right: clear (upper ), diminished breath sounds (lower) Percussion: right: dull (lower ) Tactile fremitus: bilateral: normal Cardiovascular: regular rate and rhythm, murmur noted Gastrointestinal: soft, non-tender, non-distended Integumentary: normal Extremities: no cyanosis, no edema, no clubbing, pink and warm Musculoskeletal: no deformities Gait: normal posture normal mental status, non-focal exam mood appropriate, affect normal Results - Laboratory Findings CBC and BMP: 08/12/18 07:08 08/12/18 07:08 PT/INR, D-dimer PT 13.2 Seconds (9.4-12.1) H 08/10/18 04:31 D-Dimer 837 ng/mLFEU (0-500) H 08/04/18 09:11 Abnormal lab findings: Abnormal lab results WBC 34.4 K/mcL (4.3-11.1) H* 08/12/18 07:08 RBC 3.45 M/mcL (4.19-5.50) L 08/12/18 07:08 Hgb 10.0 g/dL (12.9-16.9) L 08/12/18 07:08 Hct 31.6 % (37.5-50.1) L 08/12/18 07:08 MPV 8.8 fL (9.4-12.4) L 08/12/18 07:08 Band Neutrophils % 8.0 % (0-4) H 08/10/18 04:31 Neutrophils # 23.9 K/mcL (1.6-8.9) H 08/12/18 07:08 Monocytes # 2.1 K/mcL (0.0-1.3) H 08/12/18 07:08 Eosinophils # 5.5 K/mcL (0.0-0.6) H 08/12/18 07:08 Reactive Lymphocytes Present (Not Present) A 08/08/18 06:58 Toxic Granulation Present (Not Present) A 08/12/18 07:08 Toxic Vacuolation Present (Not Present) A 08/08/18 06:58 PT 13.2 Seconds (9.4-12.1) H 08/10/18 04:31 APTT 40.0 Seconds (26.0-36.0) H 08/04/18 09:11 D-Dimer 837 ng/mLFEU (0-500) H 08/04/18 09:11 Sodium 135 mEq/L (136-145) L 08/12/18 07:08 BUN 29 mg/dL (8-23) H 08/12/18 07:08 Est GFR (Non-Af Amer) 54 (> 60) L 08/12/18 07:08 Glucose 108 mg/dL (70-105) H 08/12/18 07:08 POC Glucose 118 mg/dL (70-99) H 08/12/18 07:42 Calcium 8.1 mg/dL (8.6-10.3) L 08/12/18 07:08 B-Natriuretic Peptide 100 pg/mL (Less than 100) H 08/04/18 09:11 Serum Total Protein 4.9 g/dL (6.4-8.9) L 08/12/18 07:08 Albumin 2.3 g/dL (3.5-5.7) L 08/12/18 07:08 Albumin/Globulin Ratio 0.9 (1.1-2.2) L 08/12/18 07:08 Pleural Appearance Bloody (Clear) A 08/05/18 15:23 Pleural RBC 0.394 M/mcL (0.000-0.002) H 08/05/18 15:23 Pleural Tot Nuc Cell 2565 TNC/mcL (0-1000) H 08/05/18 15:23 - Diagnostic Findings Chest x-ray: report reviewed, image reviewed - Clinical Findings Intake & Output: Intake & Output 08/11/18 08/12/18 08/12/18 23:59 07:59 15:59 Intake Total 100 / 100 100 / 100 Output Total 350 / 350 690 / 690 Balance 100 / 100 -250 / -250 -690 / -690 Weight 77.8 kg
--- NOTE | 2018-08-12 09:58 | Internal Med Progress Note ---
<Alejandro James S - Last Filed: 08/12/18 10:32> Hospitalist Progress Note - Encounter Date of Encounter: 08/12/18 Time of Encounter: 09:56 - Subjective Interval History: Mr. Palacios is a 83 year old male with PMH of Myasthenia gravis, HTN, CAD s/p CABG 02/2018, hypothyroidism, lung cancer, diverticulosis, CHF NYHA class IV, HDL. He presented from home on 08/05/18 after increasing SOB since Wednesday. He states that today got really bad so he decided to come into the hospital to be evaluated. He saw his SIZE CHANGER and she gave him cough drops, however, this didn't help him. At baseline he is SOB at rest over the last few weeks. He isn't very active. Of note he had a CABG in 02/2018 with triple bypass. The pt has been having increasing sputum production. In the ER the pt was given a one time dose of Vancomycin and Zosyn. -CXR showed a large right pleural effusion, s/p CABG -pt had a (+) d-dimer so CT scan was done which showed large right pleural effusion with diffuse nodularity and near complete collapse of right lung; pleural metastatic dz -troponin (-) Pt was seen by pulmonology who recommended thoracentesis. He was given vitamin K one time and then FFP. -pt had thoracentesis 08/05/18 , which was aborted for chest tube placement by IR -chest tube pulled by pulm 08/09/18 Today the pt has no complaints. Denies active chest pain. - denies N/V/D, abd pain. - breathing at baseline - pt is moving around, feels ok - he had CT guided bx yesterday, tolerated procedure well - Exam Vitals: Temp Pulse Resp BP Pulse Ox 99.1 F 95 16 106/68 95 08/12/18 07:59 08/12/18 07:59 08/12/18 07:59 08/12/18 07:59 08/12/18 07:59 Exam: Constitutional: Alert, in no acute distress , pleasant appearing male, WNWD Head: Normocephalic, atraumatic Heart: Normal, regular rate and rhythm, no murmurs Chest: right chest tube pulled clamped today, still has slightly diminished breath sounds on the RLL, clear to auscultation on the left, no wheezes Abdomen: Soft, nondistended, nontenderl, no guarding or rigidity. Extremities: minimal edema, No clubbing, capillary refill <2sec. Skin: Skin warm and dry, no lesions, no rashes, no jaundice Neurologic: no FND Psych: Cooperative - Assessment and Plan (1) Sepsis Current Visit: Yes Status: Acute Assessment and Plan: On admission, pt met sepsis criteria -HR 104, WBC 22.5, RR 20 -source of infxn most likely pleural effusion seen on CXR and CTA MRSA screen negative Lactic acid 1.6 Currently meets sepsis criteria for HR/WBC count -HR 98, RR 17 -white count still elevated at 34.4 (increased from 34.3 yesterday) Acid fast culture negative Pleural fluid had no growth on cx Blood cx showed no growth Peripheral smear specimen showed leukocyte count with absolute neutrophilia -absolute monocyte/eosinophil count increased; RBC, Hgb and hc decreased -normochromic anemia, anemia of chronic dz -suggests flow cytometr for CD55/59 if suspected Pleural fluid, right, for cytology: Negative for malignancy CT abd negative for intra metastatic dz; extensive pleural nodularity and pleural thickening involving right lower hemithorax; large right pleural effusion Pleuroscopy (08/11) -malignant pleural effusion and prelimineray (+) for cancer plan: - start zosyn day 2; one time dose of Vancomycin today - discontinue Cefepime ( day 6, 08/06/18) - discontinued cefriaxone 08/05/18 (2 days of tx), - pulmonology following, CXR ordered to check for fluid reaccumulation - biopsies from pleursopcy pending - heme onc signed off, recommend outpt follow up - continue O2 support - diet: cardiac diet, fluid restriction 1.5L - dispo: discharge tomorrow as long as no symptoms post chest tube clamp and white count stays stable - d/c on Augmentin for 10 days total abx - follow up cardiology for coumadin - follow up heme onc for pathology report (2) Pleural effusion Current Visit: Yes Status: Acute Assessment and Plan: Unknown etiology. -Likely due to 2/2 to primary cancer vs. mets from previous lung cancer - [facility]. - Output yesterday, 500ml of sero-sanguinous fluid. Based on Light's critera, most likely an exudative pleural effusion (infxn vs malignancy) -Pleural LDH: serum LDH >/=0.6 -pleural protein: serum protein >/=0.5 CXR 08/07 showed - right pleural cath in place; moderate right pleural effusion decreased in size since prior exam CXR 08/08 showed - mod size right pleural effusion with probably underlying atelectasis or infiltrate, stable since 08/07 cxr Peripheral smear specimen showed leukocyte count with absolute neutrophilia -absolute monocyte/eosinophil count increased; RBC, Hgb and hc decreased -normochromic anemia, anemia of chronic dz -suggests flow cytometr for CD55/59 if suspected Pleural fluid, right, for cytology: Negative for malignancy CT abd negative for intra metastatic dz; extensive pleural nodularity and pleural thickening involving right lower hemithorax; large right pleural effusion Pleuroscopy (08/11) -malignant pleural effusion and prelimineray (+) for cancer Plan: - pulmonology consulted, managing chest tube which was pulled 08/09 - s/p chest tube placement, on 08/07 - continue resp support, nasal canula as needed - consulted Onco for etiology of pleural effusion , CT guided bx completed, they signing off , recommend outpatient follow up - see plan as above (3) Pneumonia Current Visit: No Status: Acute Assessment and Plan: Likely 2/2 to pleural effusion. Zosyn day 2. D/c vanc. Discontinue cefepime. See plan above. (4) Acute respiratory failure with hypoxia Current Visit: Yes Status: Acute Assessment and Plan: See plan above. (5) Supratherapeutic INR Current Visit: Yes Status: Resolved Assessment and Plan: Resolved. 08/06/18 PT 13.9 INR 1.2 Plan: -hold Coumadin; contraindicated due to hemorrhagic pleural effusion. (6) Chronic a-fib Current Visit: No Status: Chronic Assessment and Plan: Currently rate controlled. Continue home med for rate control: Metoprolol 25mg daily. Coumadin held, contraindicated. Patient has chest tube placed with serosanguinous fluid drainage. 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 -s/p right lower lobe sublobar resection and mediastinal lymphadenectomy on 12/22. -Per patient required no chemo or radiation and has been in remission since. CTA of chest here showed -Large right pleural effusion with diffuse pleural nodularity and near complete collapse of the right lung. 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 Cytology negative for metastasis CT abd negative for intra metastatic dz; extensive pleural nodularity and pleural thickening involving right lower hemithorax; large right pleural effusion Pleuroscopy (08/11) -malignant pleural effusion and prelimineray (+) for cancer Plan: - consult oncology, they recommend outpt follow up (8) DVT prophylaxis Current Visit: Yes Status: Acute Assessment and Plan: SCD (9) HTN (hypertension) Current Visit: No Status: Chronic Assessment and Plan: BP 108/68 -adequate control -hold Norvasc today due to hypotension -hold Toprol (10) Leukocytosis Current Visit: Yes Status: Acute Assessment and Plan: Elevated WBC at 26.4 (08/09), increased to 30.2 (08/10) ---> 34.4 (08/12); was 22.5 on admission -infxn vs stress rxn from chest tube placement vs cancer -abx as per plan above DVT Prophylaxis: scd - Time Spent with Patient Total time spent is greater than 50% in coordination of care (as documented) at patient's floor/unit and/or counseling patient: less than 15 minutes Plan of Care Discussed with: patient Internal Medicine: Result - Labs CBC & Chem 7: 08/12/18 07:08 08/12/18 07:08 Labs: Short CBC 08/12/18 Range/Units 07:08 WBC 34.4 H* (4.3-11.1) K/mcL Hgb 10.0 L (12.9-16.9) g/dL Hct 31.6 L (37.5-50.1) % Plt Count 382 (140-400) K/mcL Neutrophils # 23.9 H (1.6-8.9) K/mcL BMP 08/12/18 07:08 Sodium 135 L Potassium 4.4 Chloride 106 Carbon Dioxide 26 BUN 29 H Creatinine 1.28 Glucose 108 H Calcium 8.1 L Liver Function 08/12/18 Range/Units 07:08 Total Bilirubin 0.9 (0.3-1.0) mg/dL AST 18 (13-39) Units/L ALT 32 (7-52) Units/L Alkaline Phosphatase 49 (34-104) Units/L Albumin 2.3 L (3.5-5.7) g/dL - ABG Interpretation ABG results: PT/INR, D-dimer PT 13.2 Seconds (9.4-12.1) H 08/10/18 04:31 D-Dimer 837 ng/mLFEU (0-500) H 08/04/18 09:11 - Impressions Impressions Chest X-Ray 08/11/18 12:47 IMPRESSION: No significant change. D/ / 08/11/2018 13:47:34 Riccardo Romero MD / lane Interpreting Provider: Riccardo Romero MD Chest X-Ray 08/12/18 08:59 IMPRESSION: No significant interval change of moderate right pleural effusion. D/ / Dianna Moore MD / Dianna Moore MD Interpreting Provider: Dianna Moore MD Consult Discharge Plan - Plan Referrals: Sander Ibrahim DO [Primary Care Provider] - <Kwasi Acuña - Last Filed: 08/12/18 15:08> Hospitalist Progress Note - Encounter Date of Encounter: 08/12/18 - Exam Vitals: Temp Pulse Resp BP Pulse Ox 99.3 F 92 19 106/74 93 08/12/18 12:05 08/12/18 12:05 08/12/18 12:05 08/12/18 12:05 08/12/18 12:05 - Assessment and Plan (1) Pneumonia Current Visit: No Status: Acute (2) DVT prophylaxis Current Visit: Yes Status: Acute (3) HTN (hypertension) Current Visit: No Status: Chronic (4) Sepsis Current Visit: Yes Status: Acute (5) Pleural effusion Current Visit: Yes Status: Acute (6) Acute respiratory failure with hypoxia Current Visit: Yes Status: Acute (7) Supratherapeutic INR Current Visit: Yes Status: Resolved (8) Chronic a-fib Current Visit: No Status: Chronic (9) History of lung cancer Current Visit: No Status: Chronic (10) Leukocytosis Current Visit: Yes Status: Acute - Time Spent with Patient Total time spent is greater than 50% in coordination of care (as documented) at patient's floor/unit and/or counseling patient: Internal Medicine: Result - Labs CBC & Chem 7: 08/12/18 07:08 08/12/18 07:08 Labs: Short CBC 08/12/18 Range/Units 07:08 WBC 34.4 H* (4.3-11.1) K/mcL Hgb 10.0 L (12.9-16.9) g/dL Hct 31.6 L (37.5-50.1) % Plt Count 382 (140-400) K/mcL Neutrophils # 23.9 H (1.6-8.9) K/mcL BMP 08/12/18 07:08 Sodium 135 L Potassium 4.4 Chloride 106 Carbon Dioxide 26 BUN 29 H Creatinine 1.28 Glucose 108 H Calcium 8.1 L Liver Function 08/12/18 Range/Units 07:08 Total Bilirubin 0.9 (0.3-1.0) mg/dL AST 18 (13-39) Units/L ALT 32 (7-52) Units/L Alkaline Phosphatase 49 (34-104) Units/L Albumin 2.3 L (3.5-5.7) g/dL - ABG Interpretation ABG results: PT/INR, D-dimer PT 13.2 Seconds (9.4-12.1) H 08/10/18 04:31 D-Dimer 837 ng/mLFEU (0-500) H 08/04/18 09:11 - Impressions Impressions Chest X-Ray 08/11/18 12:47 IMPRESSION: No significant change. D/ / 08/11/2018 13:47:34 Riccardo Romero MD / earnold Interpreting Provider: Riccardo Romero MD Chest X-Ray 08/12/18 08:59 IMPRESSION: No significant interval change of moderate right pleural effusion. D/ / Dianna Moore MD / Dianna Moore MD Interpreting Provider: Dianna Moore MD - Attending Attestation I examined this patient and my medical decision-making was reviewed with the Resident Physician Dr. James. I agree with the documented findings, disposition and treatment plan as described except to the extent set forth below. Mr. Palacios is a 83 y/o M with known PMH of Myasthenia gravis, HTN, CAD s/p CABG 02/2018, hypothyroidsim, lung cancer, diverticulosis, CHF NYHA class IV, HDL patient admitted here for worsening shortness of breath due to large right pleural effusion . Patient had chest tube placed by IR, which got removed on . He had pleuroscopy with pleural biopsy and pleurex cath palced in. Had 70cc out put so far. Pt denied any CP . SOB is better today Patient states he is feeling better today. Gen: A, A, O x 3 Chest: Diminished BS b/l..Chest tube + Heart: S1S2+ a.p 1. Acute resp distress due to Rt pleural effuison 2. s/p Thoracocenetsis 3. Pleurex cath + Held suctioning today CXR showed no significant change will f/u on fluid cx 3. Sepsis with PNA Cont broad spec abx Zosyn and one dose Vanc given 4. Leukocytosis still trending up will monitor closely for now talked to Heme Onc about it broaden the abx coverage 5. Lung cancer Reviewed CT of chest and Abd Appreciate Heme Onc recommendations <Alejandro James S - Last Filed: 08/12/18 10:32> (1) Sepsis Qualifiers: Sepsis type: sepsis due to unspecified organism Qualified Code(s): A41.9 - Sepsis, unspecified organism (3) Pneumonia Qualifiers: Pneumonia type: due to unspecified organism Laterality: left Lung location: lower lobe of lung Qualified Code(s): J18.1 - Lobar pneumonia, unspecified organism (9) HTN (hypertension) Qualifiers: Hypertension type: essential hypertension Qualified Code(s): I10 - Essential (primary) hypertension (10) Leukocytosis Qualifiers: Leukocytosis type: unspecified Qualified Code(s): D72.829 - Elevated white blood cell count, unspecified <Kwasi Acuña - Last Filed: 08/12/18 15:08> (1) Pneumonia Qualifiers: Pneumonia type: due to unspecified organism Laterality: left Lung location: lower lobe of lung Qualified Code(s): J18.1 - Lobar pneumonia, unspecified organism (3) HTN (hypertension) Qualifiers: Hypertension type: essential hypertension Qualified Code(s): I10 - Essential (primary) hypertension (4) Sepsis Qualifiers: Sepsis type: sepsis due to unspecified organism Qualified Code(s): A41.9 - Sepsis, unspecified organism (10) Leukocytosis Qualifiers: Leukocytosis type: unspecified Qualified Code(s): D72.829 - Elevated white blood cell count, unspecified
[2018-08-13 05:09] LABS: Hematocrit 31.7 % (37.5-50.1); Hemoglobin 10.1 g/dL (12.9-16.9); Mean Corpuscular HGB Conc 31.9 g/dL (31.6-35.5); Mean Corpuscular Hemoglobin 29.4 pg (28.0-33.3); Mean Corpuscular Volume 92.4 fL (83.0-100.0); Mean Platelet Volume 9.1 fL (9.4-12.4); Platelet Count 383 K/mcL (140-400); Red Blood Count 3.43 M/mcL (4.19-5.50); Red Cell Distribution Width 14.1 % (11.5-14.5)
[2018-08-13 05:26] LABS: Eosinophils # 5.5 K/mcL (0.0-0.6); Lymphocytes # 0.8 K/mcL (0.6-4.6); Monocytes # 3.1 K/mcL (0.0-1.3); Neutrophils # 29.8 K/mcL (1.6-8.9)
[2018-08-13 05:29] LABS: Alanine Aminotransferase 37 Units/L (7-52); Albumin 2.4 g/dL (3.5-5.7); Albumin/Globulin Ratio 0.9 (1.1-2.2); Alkaline Phosphatase 55 Units/L (34-104); Aspartate Amino Transferase 19 Units/L (13-39); BUN/Creatinine Ratio 24 (6-26); Bilirubin,Total 0.8 mg/dL (0.3-1.0); Blood Urea Nitrogen 29 mg/dL (8-23); Calcium 8.3 mg/dL (8.6-10.3); Carbon Dioxide 26 mEq/L (23-29); Chloride 105 mEq/L (98-107); Globulin 2.6 g/dL (2.4-3.5); Glucose 84 mg/dL (70-105); Osmolality,Calculated 289 (280-300); Potassium 4.6 mEq/L (3.5-5.1); Sodium 137 mEq/L (136-145); eGFR For Non-African Americans 57 (> 60)
[2018-08-13] MEDS: Pyridostigmine Br 60 MG TABLET PO SCH (06:06)
[2018-08-13] MEDS: Piperacillin/Tazobactam 3.375 GM in 0.9 % Sodium Chloride Mini Bag 100 ML IVPB SCH (06:06)
--- NOTE | 2018-08-13 06:42 | Pulmonology Progress Note ---
Date of Encounter: 08/13/18 Time of Encounter: 06:42 Assessment and Plan (1) Pleural effusion Current Visit: Yes Status: Acute Status post Pleurx insertion. Stable no need to drain today. From pulmonary perspective can be discharged with follow-up in pulmonary clinic in 1-[address] Ball (2) Pneumonia Current Visit: No Status: Acute A doubt this is related to pneumonia as remains afebrile he is to be discharged on oral antibiotics per primary team (Augmentin) which is reasonable Qualifiers: Pneumonia type: due to unspecified organism Laterality: left Lung location: lower lobe of lung Qualified Code(s): J18.1 - Lobar pneumonia, unspecified organism (3) Lung cancer Current Visit: No Status: Chronic He is deciding where he wants to follow-up here in [facility] versus [facility] at [facility] where he had not which resection previously. Pleuroscopy results preliminary are suggestive of non-small cell lung cancer likely metastatic disease from original lesion pending official results Thank you for this consultation please call with any questions Qualifiers: Laterality: right Lung location: unspecified part of lung Qualified Code( s): C34.91 - Malignant neoplasm of unspecified part of right bronchus or lung Subjective Principal diagnosis: Pleural Effusion Interval history: Pleurx placed 2 days ago. Patient states he is feeling well and wanting to go home. Denies needing Pleurx drain today. Persistent leukocytosis without evidence of fever or other clinical deterioration Objective PUL Vital signs: Last Vital Signs Temp 97.9 F 08/13/18 04:32 Pulse 98 08/13/18 04:32 Resp 17 08/13/18 04:32 BP 105/70 08/13/18 04:32 Pulse Ox 91 08/13/18 04:32 General appearance: no acute distress Eyes: nonicteric Auscultation: right: diminished breath sounds, bilateral: rhonchi Cardiovascular: regular rate and rhythm Gastrointestinal: normoactive bowel sounds, soft, non-tender Integumentary: normal Extremities: no cyanosis, no edema, no clubbing Musculoskeletal: no deformities normal mental status, non-focal exam mood appropriate Results - Laboratory Findings CBC and BMP: 08/13/18 04:31 08/13/18 04:31 PT/INR, D-dimer PT 13.2 Seconds (9.4-12.1) H 08/10/18 04:31 D-Dimer 837 ng/mLFEU (0-500) H 08/04/18 09:11 Abnormal lab findings: Abnormal lab results WBC 39.2 K/mcL (4.3-11.1) H* 08/13/18 04:31 RBC 3.43 M/mcL (4.19-5.50) L 08/13/18 04:31 Hgb 10.1 g/dL (12.9-16.9) L 08/13/18 04:31 Hct 31.7 % (37.5-50.1) L 08/13/18 04:31 MPV 9.1 fL (9.4-12.4) L 08/13/18 04:31 Band Neutrophils % 22.0 % (0-4) H 08/13/18 04:31 Neutrophils # 29.8 K/mcL (1.6-8.9) H 08/13/18 04:31 Monocytes # 3.1 K/mcL (0.0-1.3) H 08/13/18 04:31 Eosinophils # 5.5 K/mcL (0.0-0.6) H 08/13/18 04:31 Reactive Lymphocytes Present (Not Present) A 08/08/18 06:58 Toxic Granulation Present (Not Present) A 08/12/18 07:08 Toxic Vacuolation Present (Not Present) A 08/08/18 06:58 PT 13.2 Seconds (9.4-12.1) H 08/10/18 04:31 APTT 40.0 Seconds (26.0-36.0) H 08/04/18 09:11 D-Dimer 837 ng/mLFEU (0-500) H 08/04/18 09:11 BUN 29 mg/dL (8-23) H 08/13/18 04:31 Est GFR (Non-Af Amer) 57 (> 60) L 08/13/18 04:31 POC Glucose 135 mg/dL (70-99) H 08/12/18 20:17 Calcium 8.3 mg/dL (8.6-10.3) L 08/13/18 04:31 B-Natriuretic Peptide 100 pg/mL (Less than 100) H 08/04/18 09:11 Serum Total Protein 5.0 g/dL (6.4-8.9) L 08/13/18 04:31 Albumin 2.4 g/dL (3.5-5.7) L 08/13/18 04:31 Albumin/Globulin Ratio 0.9 (1.1-2.2) L 08/13/18 04:31 Pleural Appearance Bloody (Clear) A 08/05/18 15:23 Pleural RBC 0.394 M/mcL (0.000-0.002) H 08/05/18 15:23 Pleural Tot Nuc Cell 2565 TNC/mcL (0-1000) H 08/05/18 15:23 - Clinical Findings Intake & Output: Intake & Output 08/12/18 08/12/18 08/13/18 15:59 23:59 07:59 Intake Total 100 / 100 220 / 220 700 / 700 Output Total 690 / 690 200 / 200 1100 / 1100 Balance -590 / -590 20 / 20 -400 / -400 Weight 78.2 kg Consult Discharge Plan - Plan Instructions: Amoxicillin/Clavulanate Potassium (By mouth) Referrals: Ambrosio Ritter MD [Partnered Physician] - 08/19/18 1:25 pm (Please follow up as schedule...) Sander Ibrahim DO [Primary Care Provider] - (web Requested on 08/12/2018) Prescriptions: Amoxicillin/Clavulanate [Augmentin] 875 mg PO BIDWM #10 tablet
[2018-08-13 06:58] VITALS: BP 116/74
--- NOTE | 2018-08-13 09:18 | Discharge Summary ---
- NOTES TO OUTPATIENT PROVIDER Notes to Outpatient Provider: f/u with Heme Onc Dr. Ritter in 3 days. f/u CBC on Wednesday and f/u with Dr. Ritter for results. Also stop taking Coumadin until you further f/u with Heme Onc incase if you need any further procedure. also stop taking Norvasc for your BP since it is in low 100's Orders not resulted at time of discharge: Pending orders 08/05/18 IR asp chest tube pneumo [IR] Routine IR us guide needle place [IR] Routine 08/05/18 15:23 AFB Culture, Body Fluid [TB] Stat AFB Smear [TB] Stat Fungal Culture [MYC] Stat 08/10/18 19:43 Surgical Pathology [PTH] Routine 08/11/18 12:39 Surgical Pathology [PTH] Routine 08/11/18 13:51 Culture,Body Fluid [RM] Routine Gram Stain [RM] Routine Date of Encounter: 08/13/18 Time of Encounter: 09:16 - Discharge Diagnosis (1) Sepsis Priority: Primary Status: Acute Qualifiers: Sepsis type: sepsis due to unspecified organism Qualified Code(s): A41.9 - Sepsis, unspecified organism (2) Acute respiratory failure with hypoxia Priority: Primary Status: Acute (3) Pneumonia Priority: Primary Status: Acute Qualifiers: Pneumonia type: due to unspecified organism Laterality: left Lung location: lower lobe of lung Qualified Code(s): J18.1 - Lobar pneumonia, unspecified organism (4) Leukocytosis Priority: Secondary Status: Acute Qualifiers: Leukocytosis type: unspecified Qualified Code(s): D72.829 - Elevated white blood cell count, unspecified (5) HTN (hypertension) Priority: Secondary Status: Chronic Qualifiers: Hypertension type: essential hypertension Qualified Code(s): I10 - Essential (primary) hypertension (6) Pleural effusion Priority: Primary Status: Acute (7) Supratherapeutic INR Priority: Secondary Status: Resolved (8) Chronic a-fib Priority: Secondary Status: Chronic (9) History of lung cancer Priority: Secondary Status: Chronic (10) DVT prophylaxis Priority: Secondary Status: Acute Hospital course: Mr. 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 Patient also happened to have pneumonia and was septic initially. He was started on empirical antibiotic Cefepime. Patient had chest tube placed by IR, which got removed on 08/09/19. His CTA of chest showed still moderate size pleural effusion and extensive pleural modularity on the right side. He did go for pleuroscopy with pleural biopsy and pleurex cath palced in on 2017. Pt denied any CP . SOB is better today, remained afebrile. His pleural fluid cx never grown any bacteria. His pleural nodular biopsy prelim report came back as non-small cell lung cancer as per Pulmonary, waiting for final report. Patient also happened to have worsening leukocytosis mostly reactive due to cancer. Since patient does not look septic, clinically looks a lot better, and patient wants to go home today. So recommend the pt to have f/u CBC in 2 days and f/u with Heme oncologist as outpatient. Discussed all these instructions with the patient's family too. Off note he was on Coumadin for a fib, however due to multiple procedures we did held his Coumadin. Since his white count is still elevated need follow-up with the heme oncologist and not sure if he needs any further procedures such as bone marrow biopsy , so recommend continue holding Coumadin until further f/ u with Heme Onc - Time Spent with Patient Total time spent providing and/or coordinating discharge services: Greater than 30 minutes - Discharge Medications Prescriptions: Amoxicillin/Clavulanate [Augmentin] 875 mg PO BIDWM #10 tablet Home Medications: Acetaminophen/Diphenhydramine [Percogesic 325-12.5 mg Tablet] 1 tab PO HS PRN [History] Aspirin Enteric Coated [Aspirin EC] 81 mg PO DAILY 08/04/18 [History] Atorvastatin [Lipitor] 40 mg PO HS 08/04/18 [History] Docusate [Colace] 100 mg PO Q48H PRN 08/04/18 [History] Levothyroxine Sodium [Levo-T] 125 mcg PO DAILY 08/04/18 [History] Metoprolol Succinate [Toprol Xl] 25 mg PO DAILY 08/04/18 [History] Multivitamin [One Daily Essential] 1 tab PO DAILY 08/04/18 [History] Pyridostigmine Br [Mestinon] 60 mg PO Q8H 08/04/18 [History] predniSONE [PredniSONE] 10 mg PO DAILY 08/04/18 [History] Amoxicillin/Clavulanate [Augmentin] 875 mg PO BIDWM #10 tablet 08/13/18 [Rx] Allergies/Adverse Reactions: 3 Allergy/AdvReac Type Severity Reaction Status Date / Time No Known Allergies Allergy Verified 05/04/18 17:32 Date of admission: 08/04/18 18:17 Primary care physician: Sander Ibrahim DO Consults: 08/07/18 07:19 Consult to Oncology [CONS] Routine Consulting Provider: [facility] Reason for Consult: pleural effusion Time Notified: 10:00 Call Completed: Yes - Constitutional Vitals: Temp Pulse Resp BP Pulse Ox 98.1 F 101 16 116/74 92 08/13/18 06:51 08/13/18 06:51 08/13/18 06:51 08/13/18 06:51 08/13/18 06:51 General appearance: Present: A&O X 3, no acute distress, answers questions appropriately Exam: see below - Head Head exam: Present: atraumatic, normal inspection - Neck Neck exam general surgery: Present: supple - Respiratory Respiratory exam: Present: decreased breath sounds. Absent: rales, respiratory distress, rhonchi, wheezes Additional comments: Pleurex catheter on right side - Cardiovascular Cardiovascular exam: Present: RRR, +S1, +S2. Absent: tachycardia - GI/Abdominal GI/Abdominal exam: Present: normal bowel sounds, soft. Absent: rebound, rigid, tenderness - Patient Status Disposition: Home Health Service Condition: Good Overall status at discharge: patient is back to baseline - Discharge Instructions Follow Up With: Ambrosio Ritter MD [Partnered Physician] - 08/19/18 1:25 pm (Please follow up as schedule...) Sander Ibrahim DO [Primary Care Provider] - (web Requested on 08/12/2018) Forms: ED Satisfaction Letter - Diet and Activity Activity: increase activity as tolerated Diet: low salt diet
--- NOTE | 2018-08-13 09:34 | Physician Discharge Referral ---
ExtendedCare Referral Info Transfer To: F Provider in Charge after Transfer: PCP Institutional Level of Care: Skilled - Diagnosis (1) Sepsis Status: Acute (2) Acute respiratory failure with hypoxia Status: Acute (3) Pneumonia Status: Acute (4) Leukocytosis Status: Acute (5) HTN (hypertension) Status: Chronic (6) Pleural effusion Status: Acute (7) Supratherapeutic INR Status: Resolved (8) Chronic a-fib Status: Chronic (9) History of lung cancer Status: Chronic (10) DVT prophylaxis Status: Acute - Transfer Medications Prescriptions: Amoxicillin/Clavulanate [Augmentin] 875 mg PO BIDWM #10 tablet Home Medications: Acetaminophen/Diphenhydramine [Percogesic 325-12.5 mg Tablet] 1 tab PO HS PRN [History] Aspirin Enteric Coated [Aspirin EC] 81 mg PO DAILY 08/04/18 [History] Atorvastatin [Lipitor] 40 mg PO HS 08/04/18 [History] Docusate [Colace] 100 mg PO Q48H PRN 08/04/18 [History] Levothyroxine Sodium [Levo-T] 125 mcg PO DAILY 08/04/18 [History] Metoprolol Succinate [Toprol Xl] 25 mg PO DAILY 08/04/18 [History] Multivitamin [One Daily Essential] 1 tab PO DAILY 08/04/18 [History] Pyridostigmine Br [Mestinon] 60 mg PO Q8H 08/04/18 [History] predniSONE [PredniSONE] 10 mg PO DAILY 08/04/18 [History] Amoxicillin/Clavulanate [Augmentin] 875 mg PO BIDWM #10 tablet 08/13/18 [Rx] Allergies/Adverse Reactions: 3 Allergy/AdvReac Type Severity Reaction Status Date / Time No Known Allergies Allergy Verified 05/04/18 17:32 - Respiratory Orders Smoking Cessation: Smoking cessation has been advised. For more information, call the [place] Tobacco Quit Line at 1-810-IHFL-NOW. CERTIFICATION: I certify that the transfer of the above named patient to an Extended Care Facility is necessary for the continuing treatment of the diagnosis listed. The above information is true and accurate reflection of patient's current condition. Confidential - Redisclosure prohibited without a patient's written consent.
--- NOTE | 2018-08-13 09:35 | Physician Discharge Referral ---
Home Health/Hosp Referral Info Transfer to: Home Health Provider in Charge Post Discharge: PCP - Diagnosis (1) Sepsis Status: Acute (2) Acute respiratory failure with hypoxia Status: Acute (3) Pneumonia Status: Acute (4) Leukocytosis Status: Acute (5) HTN (hypertension) Status: Chronic (6) Pleural effusion Status: Acute (7) Supratherapeutic INR Status: Resolved (8) Chronic a-fib Status: Chronic (9) History of lung cancer Status: Chronic (10) DVT prophylaxis Status: Acute - Respiratory Orders Smoking Cessation: Smoking cessation has been advised. For more information, call the [place] Tobacco Quit Line at 8-961-RBJQ-NOW. - Services Needed Following services are medically necessary services: Home Health Aide - Transfer Medications Prescriptions: Amoxicillin/Clavulanate [Augmentin] 875 mg PO BIDWM #10 tablet Home Medications: Acetaminophen/Diphenhydramine [Percogesic 325-12.5 mg Tablet] 1 tab PO HS PRN [History] Aspirin Enteric Coated [Aspirin EC] 81 mg PO DAILY 08/04/18 [History] Atorvastatin [Lipitor] 40 mg PO HS 08/04/18 [History] Docusate [Colace] 100 mg PO Q48H PRN 08/04/18 [History] Levothyroxine Sodium [Levo-T] 125 mcg PO DAILY 08/04/18 [History] Metoprolol Succinate [Toprol Xl] 25 mg PO DAILY 08/04/18 [History] Multivitamin [One Daily Essential] 1 tab PO DAILY 08/04/18 [History] Pyridostigmine Br [Mestinon] 60 mg PO Q8H 08/04/18 [History] predniSONE [PredniSONE] 10 mg PO DAILY 08/04/18 [History] Amoxicillin/Clavulanate [Augmentin] 875 mg PO BIDWM #10 tablet 08/13/18 [Rx] Allergies/Adverse Reactions: 3 Allergy/AdvReac Type Severity Reaction Status Date / Time No Known Allergies Allergy Verified 05/04/18 17:32 Certification: Further, I certify that my clinical findings support that this patient is homebound (i.e. absences from home require considerable and taxing effort and are for medical reasons or latter-day services or infrequently or short duration when for other reasons) because: Homebound Reason: Patient requires assistance of a person or device to safely leave home Attestation: My signature below is to certify that this patient is under my care and that I, or nurse practitioner, or a physician's tourist information assistant working with me, has a face-to -face encounter with this patient.
[2018-08-13] MEDS: Aspirin Enteric Coated 81 MG Tablet PO SCH (09:42)
[2018-08-13] MEDS: Multivit/Ca/Min/Fe/FA 1 TAB TABLET PO SCH (09:42)
[2018-08-13] MEDS: predniSONE 10 MG TABLET PO SCH (09:42)
[2018-08-13] MEDS: amLODIPine 5 MG TABLET PO SCH (09:42)
[2018-08-13] MEDS: Metoprolol XL (24 HR) Succ 25 MG TAB.ER.24H PO SCH (09:42)
== END 2018-08-13 11:55 | disposition home health service (06) | DRG 853 ==
LOC: 2ANU 08:49 → EMEROOARM 08:49 → 2ANU 12:33
PROVIDERS: ADMIT Student in an Organized Health Care Education/Training Program; ATTEND Student in an Organized Health Care Education/Training Program